=== PATIENT | female | born 1935 | race Caucasian/White ===

== ENCOUNTER 2016-07-11 16:38 | Emergency (ER) | payer MEDICARE ==
[2016-07-11 16:44] VITALS: BP 153/79; PULSE 79; RESP 20; TEMP 98
--- NOTE | 2016-07-11 16:55 | ED ---
ENT HPI - General Chief complaint: ENT Stated complaint: Ear Pain Time Seen by Provider: 07/11/16 16:45 Source: patient, RN notes reviewed Mode of arrival: ambulatory Limitations: no limitations - History of Present Illness Initial comments: Patient is an 80-year-old female presents to the emergency room for evaluation of right ear foreign body. Patient states she was placing in her hearing aids today and one of the parts became stuck in her ear canal. Patient states she has been unable to remove it herself. Patient denies any pain. Patient states she has decreased hearing on the right side. Patient denies any other complaints. - Related Data Home Medications Medication Instructions Recorded Confirmed Levothyroxine Sodium [Synthroid] 100 mcg PO DAILY 06/20/15 07/11/16 traMADol HCL [Ultram] 50 - 100 mg PO Q6HR PRN 06/20/15 07/11/16 [place]ands Leg Cramps 2 - 3 tab PO Q4H PRN 07/06/15 07/11/16 Ascorbic Acid [Vitamin C] 500 mg PO DAILY 08/31/15 07/11/16 Atorvastatin [Lipitor] 40 mg PO HS 08/31/15 07/11/16 Ferrous Sulfate [Iron (65 MG 325 mg PO DAILY 08/31/15 07/11/16 Elemental)] Latanoprost Ophth [Xalatan 0.005%] 1 drops BOTH EYES HS 08/31/15 07/11/16 Losartan [Cozaar] 25 mg PO DAILY 08/31/15 07/11/16 Ranitidine HCl [Zantac] 150 mg PO BID 08/31/15 07/11/16 Previous Rx's Medication Instructions Recorded Clopidogrel [Plavix] 75 mg PO DAILY #30 tab 06/21/15 Nitroglycerin Sl Tabs [Nitrostat] 0.4 mg SUBLINGUAL Q5M PRN #25 tab 06/21/15 Aspirin 81 mg PO DAILY #30 chewable 07/09/15 Baclofen [Lioresal] 5 mg PO Q8H PRN #30 tab 09/06/15 Furosemide [Lasix] 20 mg PO BID@0900,1600 #60 tab 09/06/15 Metoprolol Tartrate [Lopressor] 12.5 mg PO BID #60 tab 09/06/15 amLODIPine [Norvasc] 2.5 mg PO DAILY #30 tab 09/06/15 Allergies Allergy/AdvReac Type Severity Reaction Status Date / Time codeine Allergy Unknown Verified 07/11/16 16:44 shellfish derived [Shellfish] Allergy Rash/Hives Verified 07/11/16 16:44 Sulfa (Sulfonamide Allergy Unknown Verified 07/11/16 16:44 Antibiotics) SEAFOOD Allergy Rash/Hives Uncoded 07/11/16 16:44 Review of Systems ROS Statement: Those systems with pertinent positive or pertinent negative responses have been documented in the HPI. ROS Other: All systems not noted in ROS Statement are negative. Past Medical History Past Medical History: Atrial Fibrillation, Coronary Artery Disease (CAD), Chest Pain / Angina, GERD/Reflux, Hyperlipidemia, Myocardial Infarction (CT), Osteoarthritis (OA), Thyroid Disorder Additional Past Medical History / Comment(s): Aortic stenosis status post TAPVR , proximal atrial fibrillation, chronic constipation, previous episodes of GI bleed that was worked up and the patient was found to have some distal esophagitis and duodenitis and some mild gastritis, diverticulosis, coronary artery disease with previous angioplasty of the circumflex/stenting, hypothyroidism, hiatal hernia, 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 PER PTS PT HAD AORTIC VALVE SX" TAVR" PROCEDURE BY DR CHOI Past Anesthesia/Blood Transfusion Reactions: No Reported Reaction Date of Last Stent Placement:: 05/2015 Past Psychological History: No Psychological Hx Reported Smoking Status: Never smoker Past Alcohol Use History: None Reported Past Drug Use History: None Reported - Past Family History Father Family Medical History: Coronary Artery Disease (CAD) Sister(s) Family Medical History: Coronary Artery Disease (CAD) General Exam - General Exam Comments Initial Comments: Sitting in exam room, no acute distress. Limitations: no limitations General appearance: alert, in no apparent distress Head exam: Present: atraumatic, normocephalic, normal inspection Eye exam: Present: normal appearance ENT exam: Present: normal oropharynx Expanded TM/Canal exam: Foreign Body: Right TM (Cone shaped plastic piece from hearing aid) Neck exam: Present: normal inspection Respiratory exam: Present: normal lung sounds bilaterally. Absent: respiratory distress Cardiovascular Exam: Present: regular rate, normal rhythm, normal heart sounds Extremities exam: Present: normal inspection Back exam: Present: normal inspection Neurological exam: Present: alert, oriented X3, CN II-XII intact, normal gait Psychiatric exam: Present: normal affect, normal mood Skin exam: Present: warm, dry, intact, normal color. Absent: rash Course Vital Signs 07/11/16 16:42 Temperature 98 F Pulse Rate 79 Respiratory 20 Rate Blood Pressure 153/79 O2 Sat by Pulse 98 Oximetry Procedures - Foreign Body Removal Ear Location: ear canal (R) Foreign Body Suspected: other (hearing aide part) Foreign Body Removed: yes Foreign Body Removal Technique: forceps (Alligator forceps) Tympanic Membrane Intact: Yes Patient Tolerated Procedure: well Complications: none Medical Decision Making - Medical Decision Making Patient is an 80-year-old female presents emergency room for evaluation of right ear foreign body. Hearing aid piece was removed from patient's ear canal with alligator forceps. Return parameters discussed. Case discussed with Dr. Patrick. Disposition Clinical Impression: Foreign body of ear, right Disposition: HOME SELF-CARE Condition: Good Instructions: Ear Foreign Body (ED) Additional Instructions: Please follow up with primary care provider in 1-2 days. If any new symptom arises or symptoms worsen, return to ER as soon as possible. Referrals: Tee Esquivel MD [Primary Care Provider] - 1-2 days Time of Disposition: 16:55
== END 2016-07-11 17:02 | disposition home or self-care (01) ==
LOC: EC 16:38
DX: T16.1XXA Foreign body in right ear, initial encounter (principal); K21.9 Gastro-esophageal reflux disease without esophagitis; E78.5 Hyperlipidemia, unspecified; E03.9 Hypothyroidism, unspecified; I25.2 Old myocardial infarction; I48.91 Unspecified atrial fibrillation; Z79.899 Other long term (current) drug therapy; Z88.5 Allergy status to narcotic agent; Z88.2 Allergy status to sulfonamides; Z91.013 Allergy to seafood
CPT/HCPCS: 69200; 99282

== ENCOUNTER 2016-07-24 01:39 | Inpatient (IN) | payer MEDICARE ==
[2016-07-24] MEDS ORDERED: ACETAMINOPHEN TAB 500 MG TAB PO STA (01:50)
[2016-07-24] MEDS ORDERED: IBUPROFEN IV 600 MG in SODIUM CHLORIDE 0.9% 250 ML IV STA (01:50)
--- NOTE | 2016-07-24 01:58 | ED ---
General Adult HPI - General Chief complaint: Altered Mental Status Stated complaint: Altered Mental Status Time Seen by Provider: 07/24/16 01:40 Source: EMS, RN notes reviewed Mode of arrival: EMS Limitations: no limitations - History of Present Illness Initial comments: This is an 80-year-old female who was sent into the emergency department for some altered mental status. Patient was vomiting today and febrile at home and called EMS because she started to be somewhat confused which is not at all normal for her. Patient denies any diarrhea. Patient denies abdominal pain. Patient denies any dysuria hematuria urinary frequency. Patient states she did not get an influenza shot. Patient denies any cough or difficulty breathing or shortness of breath per patient denies any chest pain or palpitations. Patient denies any lesions or redness. Patient denies headache patient denies numbness weakness patient denies any injury or trauma. - Related Data Home Medications Medication Instructions Recorded Confirmed Levothyroxine Sodium [Synthroid] 100 mcg PO DAILY 06/20/15 07/11/16 traMADol HCL [Ultram] 50 - 100 mg PO Q6HR PRN 06/20/15 07/11/16 [place] Leg Cramps 2 - 3 tab PO Q4H PRN 07/06/15 07/11/16 Ascorbic Acid [Vitamin C] 500 mg PO DAILY 08/31/15 07/11/16 Atorvastatin [Lipitor] 40 mg PO HS 08/31/15 07/11/16 Ferrous Sulfate [Iron (65 MG 325 mg PO DAILY 08/31/15 07/11/16 Elemental)] Latanoprost Ophth [Xalatan 0.005%] 1 drops BOTH EYES HS 08/31/15 07/11/16 Losartan [Cozaar] 25 mg PO DAILY 08/31/15 07/11/16 Ranitidine HCl [Zantac] 150 mg PO BID 08/31/15 07/11/16 Previous Rx's Medication Instructions Recorded Clopidogrel [Plavix] 75 mg PO DAILY #30 tab 06/21/15 Nitroglycerin Sl Tabs [Nitrostat] 0.4 mg SUBLINGUAL Q5M PRN #25 tab 06/21/15 Aspirin 81 mg PO DAILY #30 chewable 07/09/15 Baclofen [Lioresal] 5 mg PO Q8H PRN #30 tab 09/06/15 Furosemide [Lasix] 20 mg PO BID@0900,1600 #60 tab 09/06/15 Metoprolol Tartrate [Lopressor] 12.5 mg PO BID #60 tab 09/06/15 amLODIPine [Norvasc] 2.5 mg PO DAILY #30 tab 09/06/15 Allergies Allergy/AdvReac Type Severity Reaction Status Date / Time codeine Allergy Unknown Verified 07/11/16 16:44 shellfish derived [Shellfish] Allergy Rash/Hives Verified 07/11/16 16:44 Sulfa (Sulfonamide Allergy Unknown Verified 07/11/16 16:44 Antibiotics) SEAFOOD Allergy Rash/Hives Uncoded 07/11/16 16:44 Review of Systems ROS Statement: Those systems with pertinent positive or pertinent negative responses have been documented in the HPI. ROS Other: All systems not noted in ROS Statement are negative. Past Medical History Past Medical History: Atrial Fibrillation, Coronary Artery Disease (CAD), Chest Pain / Angina, GERD/Reflux, Hyperlipidemia, Myocardial Infarction (MA), Osteoarthritis (OA), Thyroid Disorder Additional Past Medical History / Comment(s): Aortic stenosis status post TAPVR , proximal atrial fibrillation, chronic constipation, previous episodes of GI bleed that was worked up and the patient was found to have some distal esophagitis and duodenitis and some mild gastritis, diverticulosis, coronary artery disease with previous angioplasty of the circumflex/stenting, hypothyroidism, hiatal hernia, 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 PER PTS PT HAD AORTIC VALVE SX" TAVR" PROCEDURE BY DR CHOI Past Anesthesia/Blood Transfusion Reactions: No Reported Reaction Date of Last Stent Placement:: 05/2015 Past Psychological History: No Psychological Hx Reported Smoking Status: Never smoker Past Alcohol Use History: None Reported Past Drug Use History: None Reported - Past Family History Father Family Medical History: Coronary Artery Disease (CAD) Sister(s) Family Medical History: Coronary Artery Disease (CAD) General Exam - General Exam Comments Initial Comments: GENERAL: Patient is well-developed and well-nourished. Patient is nontoxic and well- hydrated and is in mild distress. ENT: Neck is soft and supple. No significant lymphadenopathy is noted. Oropharynx is clear. Moist mucous membranes. Neck has full range of motion without eliciting any pain. EYES: The sclera were anicteric and conjunctiva were pink and moist. Extraocular movements were intact and pupils were equal round and reactive to light. Eyelids were unremarkable. PULMONARY: Unlabored respirations. Good breath sounds bilaterally. No audible rales rhonchi or wheezing was noted. CARDIOVASCULAR: There is a regular rate and rhythm and has an occasional extrasystole with his significant 2/6 systolic murmur. ABDOMEN: Soft and nontender with normal bowel sounds. No palpable organomegaly was noted. There is no palpable pulsatile mass. 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 Cranial nerves II through XII are grossly intact. Motor and sensory are also intact. Normal speech, volume and content. Symmetrical smile. MUSCULOSKELETAL: Normal extremities with adequate strength and full range of motion. No lower extremity swelling or edema. No calf tenderness. LYMPHATICS: No significant lymphadenopathy is noted Limitations: no limitations Course Vital Signs 07/24/16 07/24/16 01:40 03:38 Temperature 101.7 F H 100.7 F H Pulse Rate 99 87 Respiratory 20 16 Rate Blood Pressure 109/64 105/53 O2 Sat by Pulse 90 L 98 Oximetry Medical Decision Making - Medical Decision Making EKG shows normal sinus rhythm at 93 bpm PA interval is 142 QRS is 92 QT interval 354 QTC is 440. Patient's EKG shows no ST segment elevation or depression. Chest x-ray shows an infiltrate in the left lower lobe. I started the patient on Levaquin. - Lab Data Result diagrams: 07/24/16 02:00 07/24/16 02:00 Lab Results 07/24/16 07/24/16 07/24/16 Range/Units 02:00 02:00 02:00 WBC 19.7 H (3.8-10.6) k/uL RBC 4.00 (3.80-5.40) m/uL Hgb 11.8 (11.4-16.0) gm/dL Hct 35.9 (34.0-46.0) % MCV 89.7 (80.0-100.0) fL MCH 29.5 (25.0-35.0) pg MCHC 32.9 (31.0-37.0) g/dL RDW 13.6 (11.5-15.5) % Plt Count 152 (150-450) k/uL Neutrophils % (Manual) 85.0 % Band Neutrophils % 3.0 % Lymphocytes % (Manual) 6.0 % Monocytes % (Manual) 6.0 % Neutrophils # (Manual) 17.3 H (1.3-7.7) k/uL Lymphocytes # (Manual) 1.2 (1.0-4.8) k/uL Monocytes # (Manual) 1.2 H (0-1.0) k/uL Nucleated RBCs 0 (0-0) /100 WBC Manual Slide Review Performed PT (9.0-12.0) sec INR (<1.1) APTT (22.0-30.0) sec Sodium 134 L (137-145) mmol/L Potassium 4.3 (3.5-5.1) mmol/L Chloride 96 L (98-107) mmol/L Carbon Dioxide 28 (22-30) mmol/L Anion Gap 10 mmol/L BUN 26 H (7-17) mg/dL Creatinine 0.80 (0.52-1.04) mg/dL Est GFR (MDRD) Af Amer >60 (>60 ml/min/1.73 sqM) Est GFR (MDRD) Non-Af >60 (>60 ml/min/1.73 sqM) Glucose 128 H (74-99) mg/dL Plasma Lactic Acid Ravi (0.7-2.0) mmol/L Calcium 9.5 (8.4-10.2) mg/dL Total Bilirubin 0.7 (0.2-1.3) mg/dL AST 36 (14-36) U/L ALT 34 (9-52) U/L Alkaline Phosphatase 30 L (38-126) U/L Total Protein 6.3 (6.3-8.2) g/dL Albumin 3.6 (3.5-5.0) g/dL Urine Color Urine Appearance (Clear) Urine pH (5.0-8.0) Ur Specific [place] (1.001-1.035) Urine Protein (Negative) Urine Glucose (UA) (Negative) Urine Ketones (Negative) Urine Blood (Negative) Urine Nitrite (Negative) Urine Bilirubin (Negative) Urine Urobilinogen (<2.0) mg/dL Ur Leukocyte Esterase (Negative) Urine RBC (0-5) /hpf Urine WBC (0-5) /hpf Influenza Type A RNA Not Detected (Not Detectd) Influenza Type B (PCR) Not Detected (Not Detectd) 07/24/16 07/24/16 07/24/16 Range/Units 02:00 02:00 02:00 WBC (3.8-10.6) k/uL RBC (3.80-5.40) m/uL Hgb (11.4-16.0) gm/dL Hct (34.0-46.0) % MCV (80.0-100.0) fL MCH (25.0-35.0) pg MCHC (31.0-37.0) g/dL RDW (11.5-15.5) % Plt Count (150-450) k/uL Neutrophils % (Manual) % Band Neutrophils % % Lymphocytes % (Manual) % Monocytes % (Manual) % Neutrophils # (Manual) (1.3-7.7) k/uL Lymphocytes # (Manual) (1.0-4.8) k/uL Monocytes # (Manual) (0-1.0) k/uL Nucleated RBCs (0-0) /100 WBC Manual Slide Review PT 11.0 (9.0-12.0) sec INR 1.1 (<1.1) APTT 22.0 (22.0-30.0) sec Sodium (137-145) mmol/L Potassium (3.5-5.1) mmol/L Chloride (98-107) mmol/L Carbon Dioxide (22-30) mmol/L Anion Gap mmol/L BUN (7-17) mg/dL Creatinine (0.52-1.04) mg/dL Est GFR (MDRD) Af Amer (>60 ml/min/1.73 sqM) Est GFR (MDRD) Non-Af (>60 ml/min/1.73 sqM) Glucose (74-99) mg/dL Plasma Lactic Acid Ravi 1.8 (0.7-2.0) mmol/L Calcium (8.4-10.2) mg/dL Total Bilirubin (0.2-1.3) mg/dL AST (14-36) U/L ALT (9-52) U/L Alkaline Phosphatase (38-126) U/L Total Protein (6.3-8.2) g/dL Albumin (3.5-5.0) g/dL Urine Color Yellow Urine Appearance Clear (Clear) Urine pH 7.0 (5.0-8.0) Ur Specific [place] 1.010 (1.001-1.035) Urine Protein Negative (Negative) Urine Glucose (UA) Negative (Negative) Urine Ketones Negative (Negative) Urine Blood Moderate H (Negative) Urine Nitrite Negative (Negative) Urine Bilirubin Negative (Negative) Urine Urobilinogen <2.0 (<2.0) mg/dL Ur Leukocyte Esterase Negative (Negative) Urine RBC 9 H (0-5) /hpf Urine WBC <1 (0-5) /hpf Influenza Type A RNA (Not Detectd) Influenza Type B (PCR) (Not Detectd) Disposition Clinical Impression: Pneumonia Disposition: ADMITTED IP TO THIS [facility] Time of Disposition: 03:52
[2016-07-24] MEDS ORDERED: ONDANSETRON 4 MG/2 ML VIAL IVP STA (02:14)
[2016-07-24] MEDS: SODIUM CHLORIDE 0.9% 500 ML IV SCH ×2 (02:19→02:34)
[2016-07-24 02:20] LABS: Appearance,Urine Clear (Clear); Bilirubin,Urine Negative (Negative); Glucose,Urine (UA) Negative (Negative); Ketones,Urine Negative (Negative); Leukocyte Esterase,Urine Negative (Negative); Nitrite,Urine Negative (Negative); Particle Count 1277; Protein,Urine Negative (Negative); RBC,Urine 9 /hpf (0-5); UA Billing (MACRO vs. MICRO) MICRO; Urobilinogen,Urine <2.0 mg/dL (<2.0); WBC,Urine <1 /hpf (0-5)
[2016-07-24 02:23] LABS: CH 29.7; CHCM 33.2; HCT 35.9 % (34.0-46.0); HGB 11.8 gm/dL (11.4-16.0); Immature Gran Flag Slight; MCH 29.5 pg (25.0-35.0); MCHC 32.9 g/dL (31.0-37.0); MCV 89.7 fL (80.0-100.0); Mean Platelet Volume 8.4; RDW 13.6 % (11.5-15.5); WBC 19.7 k/uL (3.8-10.6); WBC (Perox) 20.96
[2016-07-24 02:26] LABS: ALT 34 U/L (9-52); AST 36 U/L (14-36); Alkaline Phosphatase 30 U/L (38-126); Anion Gap 10 mmol/L; Blood Urea Nitrogen 26 mg/dL (7-17); Calcium 9.5 mg/dL (8.4-10.2); Carbon Dioxide 28 mmol/L (22-30); Chloride 96 mmol/L (98-107); Glucose 128 mg/dL (74-99); Non-African American GFR(MDRD) >60 (>60 ml/min/1.73 sqM); Potassium 4.3 mmol/L (3.5-5.1); Sodium 134 mmol/L (137-145); Total Bilirubin 0.7 mg/dL (0.2-1.3); Total Protein 6.3 g/dL (6.3-8.2)
[2016-07-24 02:29] LABS: INR 1.1 (<1.1)
[2016-07-24 02:32] LABS: Add Differential Manual Differential
[2016-07-24 02:33] LABS: Manual Review Performed; Nucleated Red Blood Cells 0 /100 WBC (0-0); Total Cells Counted 100
[2016-07-24] MEDS ORDERED: LEVOFLOXACIN 750MG-D5W PMX 750 MG in DEXTROSE/WATER 1 150ML.BAG IVPB STA (02:53)
[2016-07-24] MEDS ORDERED: LEVOFLOXACIN 750MG-D5W PMX 750 MG in DEXTROSE/WATER 1 150ML.BAG IVPB SCH (03:00)
--- NOTE | 2016-07-24 03:28 | XR ---
EXAM: XR Chest, 1 View CLINICAL HISTORY: Reason: Fever TECHNIQUE: Frontal view of the chest. COMPARISON: Chest CT 09/12/2015, chest x-ray 2015. FINDINGS: Lungs: Bilateral perihilar airspace disease. Vascular congestion. Pleural space: Unremarkable. No pneumothorax. Heart: Unremarkable. No cardiomegaly. Mediastinum: Unremarkable. Bones/joints: Unremarkable. Vasculature: Graft stent projecting over the cardiac silhouette. IMPRESSION: 1. Vascular congestion. 2. Bilateral perihilar airspace disease.
[2016-07-24] MEDS ORDERED: PNEUMONIA PROTOCOL UTILIZED 1 EACH MISC PO PRN (03:52)
[2016-07-24] MEDS ORDERED: ACETAMINOPHEN TAB 325 MG TAB PO PRN (03:54)
[2016-07-24] MEDS: SODIUM CHLORIDE 0.9% 1,000 ML IV SCH ×3 (04:55→23:50)
[2016-07-24 05:18] VITALS: BMI 26.6
[2016-07-24] MEDS ORDERED: SODIUM CHLORIDE 0.9% 1,000 ML IV ONE (06:24)
[2016-07-24] MEDS ORDERED: BACLOFEN 10 MG TAB PO PRN (11:39)
[2016-07-24] MEDS ORDERED: traMADol 50 MG TAB PO PRN (11:39)
[2016-07-24] MEDS ORDERED: NITROGLYCERIN SL TABS 0.4 MG TAB SUBLINGUAL PRN (11:39)
[2016-07-24] MEDS: ASPIRIN 81 MG CHEW PO SCH (12:19)
[2016-07-24] MEDS: MULTIVITAMINS, THERA 1 EACH TAB PO SCH (12:19)
[2016-07-24] MEDS: ENOXAPARIN 40 MG/0.4 ML SYRINGE SQ SCH (17:47)
[2016-07-24] MEDS: LATANOPROST 0.005% OPHTH DROPS 2.5 ML BTL BOTH EYES SCH (20:11)
[2016-07-24] MEDS: FERROUS SULFATE 325 MG TAB PO SCH (20:11)
[2016-07-24] MEDS: ATORVASTATIN 40 MG TAB PO SCH (20:11)
--- NOTE | 2016-07-24 23:33 | HP ---
DATE OF ADMISSION: 07/24/2016 PRESENTING COMPLAINT: Fever, altered mental status. HISTORY OF PRESENTING COMPLAINT: This is a pleasant 80-year-old patient with rather extensive medical history. Patient's chronic stable medical conditions include TAVR of the aortic valve, coronary artery disease, paroxysmal atrial fibrillation, hypothyroid, GERD, lumbar degenerative joint disease, hypertensive heart disease, severe secondary pulmonary hypertension, interstitial lung disease, pulmonary embolism. The patient was last night brought into the ER by the . Patient is becoming increasingly confused, lethargic, febrile. Not doing too well, had a fever, up to 101.7, did drop blood pressure down to 70s systolic. Has been given fluid boluses. Patient's white count was up to 19.7. The patient is felt to have pneumonia on the x-ray, started on Levaquin and patient did actually have a good response overnight. Spoke to the nurse Nory, compared to the night when patient was septic, patient had a rather good response. REVIEW OF SYSTEMS: CONSTITUTIONAL: Tired. HEENT: None. RESPIRATORY: Some shortness of breath, cough. CARDIOVASCULAR: None. GASTROINTESTINAL: Heartburn. GENITOURINARY: None. MUSCULOSKELETAL: Pain in the joints in the lower back. Dermatological: None. HEMATOLOGICAL: None. LYMPHATICS: None. PSYCHIATRY: Confused on presentation. NEUROLOGICAL: The patient does use a walker. Past medical history that include atrial fibrillation, coronary artery disease, GERD, hyperlipidemia, osteoarthritis, artery stenosis, ( ) VR, chronic constipation, esophagitis, duodenitis, diverticulosis, coronary artery with angioplasty to the circumflex, hypothyroid, hiatal hernia, DJD, severe secondary pulmonary hypertension. PAST SURGICAL HISTORY: Cardiac cath with stent, joint replacement. SOCIAL HISTORY: No smoking. No alcohol. Lives with her . Family history of coronary artery disease. ALLERGIES: CODEINE AND SULFA. HOME MEDICATIONS: 1. Vitamin D3, 2000 units p.o. daily. 2. Ultram 50 to 100 mg q.6 p.r.n. 3. Norvasc 2.5 p.o. daily. 4. Nitrostat 0.4 sublingual q.5 p.r.n. 5. Multivitamin 1 tablet p.o. daily. 6. Lopressor 12.5 p.o. b.i.d. 7. Cozaar 25 mg p.o. daily. 8. Synthroid 100 mcg p.o. daily. 9. Xalatan 0.005% one drop to both eyes at bedtime. 10. Lansoprazole 30 mg p.o. daily. 11. ( ) 2 to 3 tablets p.o. q.4 p.r.n. 12. Lasix 20 mg p.o. b.i.d. 13. Iron element 325 p.o. b.i.d. 14. Plavix 75 mg p.o. daily. 15. Baclofen 5 mg p.o. q.8 p.r.n. 16. Lipitor 40 mg p.o. q.h.s. 17. Aspirin 81 mg p.o. daily. 18. Vitamin C 500 mg p.o. daily. ALLERGIES TO CODEINE, SHELLFISH, SULFUR, SEAFOOD. On examination: Vital signs on presentation: Temperature 101.7, pulse ox 99, respirations 20, blood pressure did go down to systolic 79/33, pulse ox 98% on 2 liters. GENERAL APPEARANCE: Average build, sitting up, not in distress. EYES: Pupils equal. Conjunctivae normal. HEENT: External appearance of nose and ears normal. Oral cavity normal. NECK: JVD not raised. Mass not palpable. RESPIRATORY: Effort increased. LUNGS: Some right posterior crackles. CARDIOVASCULAR: First and second sounds normal. No edema. ABDOMEN: Soft, nontender. Liver and spleen not palpable. LYMPHATICS: No lymph nodes palpable in the neck and axilla. PSYCHIATRY: Patient is able to able to answer simple questions. Mood and affect normal. NEUROLOGICAL: Pupils are equal. Cranial nerves grossly intact. Power and sensation grossly intact. MUSCULOSKELETAL: Evidence of osteoarthritis especially the hands and knees. INVESTIGATIONS: White count 10.7, hemoglobin 11.8, potassium 4.3, BUN 26, creatinine 0.80. UA showed moderate blood. Chest x-ray reviewed shows infiltrates especially on the right side, questionable the left side too. EKG shows normal sinus rhythm. ASSESSMENT: 1. Acute bilateral pneumonia, suspect gram-negative organism, present on admission with sepsis-like picture and possible causing acute delirium on presentation. 2. History of stent TVR of the aortic valve. 3. Coronary artery disease with prior history of angioplasty circumflex. 4. Paroxysmal atrial fibrillation, currently in sinus rhythm. 5. Hypothyroidism. 6. Hiatal hernia. 7. Gastroesophageal reflux disease. 8. Lumbar degenerative joint disease. 9. Hypertensive heart disease. 10. Severe secondary pulmonary hypertension likely residual interstitial lung disease. 11. Chronic interstitial lung disease. 12. Chronic pulmonary embolism. 13. Gait dysfunction uses a walker. PLAN: Patient started on IV Levaquin. Home medications will be resumed. As the patient is running low blood pressure, we will stop patient's Norvasc. If need be, we can always increase the patient dose of Lopressor. Care was discussed with the patient and we will give DVT prophylaxis. Patient was also given IV fluids. Care was discussed with the patient. Sputum is being sent off.
[2016-07-25] MEDS ORDERED: LEVOFLOXACIN 750MG-D5W PMX 750 MG in DEXTROSE/WATER 1 150ML.BAG IVPB SCH (03:00)
[2016-07-25] MEDS: LEVOTHYROXINE 100 MCG TAB PO SCH (06:13)
[2016-07-25] MEDS: METOPROLOL TARTRATE 12.5 MG TAB PO SCH ×2 (07:48→20:47)
[2016-07-25] MEDS: FERROUS SULFATE 325 MG TAB PO SCH ×2 (07:49→20:48)
[2016-07-25] MEDS: ASPIRIN 81 MG CHEW PO SCH (07:49)
[2016-07-25] MEDS: LOSARTAN 25 MG TAB PO SCH (07:49)
[2016-07-25] MEDS: ENOXAPARIN 40 MG/0.4 ML SYRINGE SQ SCH (07:49)
[2016-07-25] MEDS: CHOLECALCIFEROL 1,000 UNIT TAB PO SCH (07:49)
[2016-07-25] MEDS: ASCORBIC ACID 500 MG TAB PO SCH (07:50)
[2016-07-25] MEDS: CLOPIDOGREL 75 MG TAB PO SCH (07:50)
[2016-07-25] MEDS ORDERED: amLODIPine 2.5 MG TAB PO SCH (09:00)
[2016-07-25 09:23] LABS: Basophils % (A) 0 %; CH 29.7; Eosinophils % (A) 0 %; HCT 32.6 % (34.0-46.0); HDW 2.18; HGB 10.4 gm/dL (11.4-16.0); Luc # (Auto) 0.26; Luc % (Auto) 2; Lymphocytes # (A) 0.8 k/uL (1.0-4.8); Lymphocytes % (A) 7 %; MCH 29.7 pg (25.0-35.0); MCHC 31.9 g/dL (31.0-37.0); MCV 93.2 fL (80.0-100.0); Mean Platelet Volume 8.6; Monocytes # (A) 0.4 k/uL (0-1.0); Monocytes % (A) 4 %; Neutrophils % (A) 87 %; RDW 13.5 % (11.5-15.5); WBC 11.4 k/uL (3.8-10.6); WBC (Perox) 12.25
[2016-07-25 09:45] LABS: Anion Gap 7 mmol/L; Blood Urea Nitrogen 13 mg/dL (7-17); Calcium 8.6 mg/dL (8.4-10.2); Carbon Dioxide 23 mmol/L (22-30); Chloride 102 mmol/L (98-107); Glucose 154 mg/dL (74-99); Non-African American GFR(MDRD) >60 (>60 ml/min/1.73 sqM); Potassium 3.7 mmol/L (3.5-5.1); Sodium 132 mmol/L (137-145)
--- NOTE | 2016-07-25 10:09 | XR ---
EXAMINATION TYPE: XR chest 2V DATE OF EXAM: 07/25/2016 9:35 AM COMPARISON: Chest x-ray from yesterday. HISTORY: Pneumonia per order. TECHNIQUE: Frontal and lateral views of the chest are obtained. FINDINGS: There is worsening left basilar infiltrate and/or atelectasis. There is improved aeration i n bilateral hilar regions. No large pleural effusion or pneumothorax is seen bilaterally. The cardia c silhouette size is stable and mildly enlarged with metallic stent graft at aortic root redemonstrat ed. 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 The osseous structures are intact. IMPRESSION: Worsening left basilar infiltrate and/or atelectasis seen best on lateral view.
[2016-07-25] MEDS: MULTIVITAMINS, THERA 1 EACH TAB PO SCH (11:55)
[2016-07-25] MEDS: SODIUM CHLORIDE 0.9% 1,000 ML IV SCH (11:56)
[2016-07-25] MEDS ORDERED: SODIUM CHLORIDE 0.9% 1,000 ML IV SCH (12:00)
--- NOTE | 2016-07-25 15:49 | US ---
EXAMINATION TYPE: US venous doppler duplex LE RT DATE OF EXAM: 07/25/2016 3:11 PM COMPARISON: US bilateral lower extremity September 12, 2015. CLINICAL HISTORY: DVT. Right leg pain and swelling SIDE PERFORMED: Right TECHNIQUE: The lower extremity deep venous system is examined utilizing real time linear array sonog dennys with graded compression, doppler sonography and color-flow sonography. VESSELS IMAGED: External Iliac Vein (EIV) Common Femoral Vein Deep Femoral Vein Greater Saphenous Vein * Femoral Vein Popliteal Vein Small Saphenous Vein * Proximal Calf Veins (* superficial vessels) Right Leg: Appears negative for DVT Grayscale, color doppler, spectral doppler imaging performed of the deep veins of the lower extremiti es. There is normal flow, compressibility, vascular waveforms bilaterally. IMPRESSION: No ultrasound evidence for acute DVT in the right lower extremity on today's study.
[2016-07-25] MEDS: ATORVASTATIN 40 MG TAB PO SCH (20:47)
[2016-07-25] MEDS: LATANOPROST 0.005% OPHTH DROPS 2.5 ML BTL BOTH EYES SCH (20:47)
[2016-07-26] MEDS ORDERED: LEVOFLOXACIN 750 MG TAB PO SCH (06:00)
[2016-07-26] MEDS: LEVOTHYROXINE 100 MCG TAB PO SCH (06:15)
[2016-07-26 08:20] LABS: Basophils % (A) 0 %; Eosinophils # (A) 0.1 k/uL (0-0.7); Eosinophils % (A) 1 %; HCT 32.1 % (34.0-46.0); HDW 2.41; HGB 10.9 gm/dL (11.4-16.0); Luc # (Auto) 0.37; Luc % (Auto) 4; Lymphocytes # (A) 1.1 k/uL (1.0-4.8); Lymphocytes % (A) 13 %; MCHC 33.9 g/dL (31.0-37.0); MCV 91.3 fL (80.0-100.0); Mean Platelet Volume 8.5; Monocytes # (A) 0.6 k/uL (0-1.0); Monocytes % (A) 7 %; Neutrophils # (A) 6.4 k/uL (1.3-7.7); Neutrophils % (A) 75 %; RBC 3.52 m/uL (3.80-5.40); RDW 13.3 % (11.5-15.5); WBC 8.5 k/uL (3.8-10.6); WBC (Perox) 9.02
[2016-07-26 08:43] LABS: Anion Gap 8 mmol/L; Blood Urea Nitrogen 10 mg/dL (7-17); Calcium 8.9 mg/dL (8.4-10.2); Carbon Dioxide 23 mmol/L (22-30); Chloride 107 mmol/L (98-107); Glucose 114 mg/dL (74-99); Non-African American GFR(MDRD) >60 (>60 ml/min/1.73 sqM); Potassium 3.7 mmol/L (3.5-5.1); Sodium 138 mmol/L (137-145)
[2016-07-26] MEDS: ENOXAPARIN 40 MG/0.4 ML SYRINGE SQ SCH (09:18)
[2016-07-26] MEDS: ASPIRIN 81 MG CHEW PO SCH (09:19)
[2016-07-26] MEDS: CHOLECALCIFEROL 1,000 UNIT TAB PO SCH (09:19)
[2016-07-26] MEDS: FERROUS SULFATE 325 MG TAB PO SCH (09:19)
[2016-07-26] MEDS: METOPROLOL TARTRATE 12.5 MG TAB PO SCH (09:19)
[2016-07-26] MEDS: LOSARTAN 25 MG TAB PO SCH (09:19)
[2016-07-26] MEDS: ASCORBIC ACID 500 MG TAB PO SCH (09:19)
[2016-07-26] MEDS: CLOPIDOGREL 75 MG TAB PO SCH (09:19)
[2016-07-26] MEDS ORDERED: METOPROLOL TARTRATE 12.5 MG TAB PO STA (11:49)
[2016-07-26] MEDS: MULTIVITAMINS, THERA 1 EACH TAB PO SCH (12:17)
--- NOTE | 2016-07-26 13:29 | PN ---
DATE OF SERVICE: 07/25/2016 PRESENTING COMPLAINT: Fever, positive blood culture. INTERVAL HISTORY: This patient was seen by me yesterday on 07/25/16. She was admitted with fever, acute delirium. Patient's blood cultures are now coming back positive, though patient's pulmonary status is actually getting better. Pulmonary status is actually better. Breathing is much improved. is at the bedside. Patient did tolerate her diet. She is rather chirpy. Review of systems done for constitutional, cardiovascular, GI, pulmonary; relevant findings as above. There is some redness on the right lower extremity. Current medications are reviewed that include Levaquin. On examination, afebrile at 96.7, pulse 69, respiration 18, blood pressure 89/41, pulse ox 98% on 2 L. GENERAL APPEARANCE: Sitting up. Cheerful. EYES: Pupils equal. Conjunctivae normal. NECK: JVD not raised. Mass not palpable. RESPIRATORY: Effort normal. LUNGS: Improved air entry. CARDIOVASCULAR: First and second sounds normal. Some edema is present. ABDOMEN: Soft, nontender. Liver and spleen not palpable. PSYCHIATRY: Alert and oriented x3. Mood and affect normal. DERMATOLOGICAL: Some redness around the right ankle and just above that. INVESTIGATIONS: White count 11.4, hemoglobin 10.4. Potassium 3.7. BUN and creatinine are normal. Patient's blood culture is growing beta-hemolytic strep group G. ASSESSMENT: 1. Acute bilateral pneumonia; suspect Gram-negative organism with sepsis, present on admission with positive blood cultures growing beta hemolytic strep group G, with clinical improvement. 2. History of stent TVR of the aortic valve. 3. Right lower extremity cellulitis just above the ankle. 4. Coronary artery disease with prior history of angioplasty of circumflex. 5. Paroxysmal atrial fibrillation, currently in sinus rhythm. 6. Hypothyroidism. 7. Hiatal hernia. 8. Gastroesophageal reflux disease. 9. Lumbar degenerative joint disease. 10. Hypertensive heart disease. 11. Severe secondary pulmonary hypertension, likely residual of interstitial lung disease. 12. Chronic interstitial lung disease. 13. Chronic pulmonary embolism. 14. Gait dysfunction; uses a walker. PLAN: Care was discussed in length with the patient and her at the bedside. Clinically patient is actually much better from a pulmonary standpoint. Given the blood pressure, will get an ID opinion. Will also use Silvadene with Kerlix and Jarret wrap on the right lower extremity. Will follow.
[2016-07-26 13:37] VITALS: BP 129/59; PULSE 95; RESP 18; TEMP 97.6
--- NOTE | 2016-07-27 09:21 | DS ---
DATE OF ADMISSION: 07/24/2016 DATE OF DISCHARGE: 07/26/2016 Patient was admitted with altered mental status and fever which was secondary to bilateral pneumonia and altered mental status, resolved. The patient is clinically doing and will be discharged today. Although patient's heart rate is a bit higher, I will make her ambulate, if her heart rate remains stable, patient will be discharged. Patient is not on anticoagulation. Patient is on aspirin and Plavix. Patient does have atrial fibrillation history. She is not on any quality assurance monitor. I will get an EKG after ambulation. If patient is not in atrial fibrillation and rapid ventricular rate, patient will be discharged on levofloxacin. Patient was on this medication here. My suspicion is low that this is gram-negative pneumonia as gram negative pneumonia is as common as pneumococcal pneumonia. There is no evidence of any gram-negative pneumonia. Blood cultures are negative. I do not have any sputum cultures available. I have the EKG. Patient is in A. fib. Upon ambulation, patient's heart rate went up to 104, which is within the target range. The patient was examined on the day of discharge. PHYSICAL EXAMINATION: GENERAL: The patient is alert and oriented x3, not in any acute distress. Well developed, well nourished. HEENT: Pupils are round and equally reacting to light. EOMI. No scleral icterus. No conjunctival pallor. Normocephalic, atraumatic. No pharyngeal erythema. No thyromegaly. CARDIOVASCULAR: Minimal tachycardia. Irregularly, irregular rhythm. PULMONARY: Chest is clear to auscultation, no wheezing or crackles. ABDOMEN: Soft, nontender, nondistended, normoactive bowel sounds. No palpable organomegaly. MUSCULOSKELETAL: No joint swelling or deformity. EXTREMITIES: No cyanosis, clubbing, or pedal edema. NEUROLOGICAL: Gross neurological examination did not reveal any focal deficits. SKIN: No rashes. LABORATORY DATA: Leukocytosis improved. ASSESSMENT AND PLAN: 1. Sepsis secondary to bilateral pneumonia possibly pneumococcal. 2. Toxic encephalopathy from pneumonia. 3. Atrial fibrillation fairly rate controlled not on anticoagulation. 4. History of aortic valve replacement. Her atrial fibrillation is proximal. 5. Hypothyroidism. 6. Hiatal hernia. 7. Gastroesophageal reflux disease. 8. Lumbar degenerative disc disease. 9. Hypertensive heart disease. 10. Severe secondary pulmonary hypertension due to interstitial lung disease and patient has chronic interstitial lung disease. 11. Generalized deconditioning. Make sure patient is strong enough to ambulate. We will actually set up home care for her. Spent greater than 35 minutes in total discharge process. DISCHARGE DIET: Cardiac. Activity as tolerated. We will increase the dose of ( ) patient will be discharged on four more days of levofloxacin and we will increase the dose of metoprolol to 25 b.i.d.
== END 2016-07-26 14:00 | disposition home health service (06) | DRG 871 ==
LOC: EC 01:39 → 5MS5E 03:53
PROVIDERS: ADMIT Hospitalist; ATTEND Hospitalist
DX: A40.3 Sepsis due to Streptococcus pneumoniae (principal); G92 Toxic encephalopathy; J13 Pneumonia due to Streptococcus pneumoniae; J84.9 Interstitial pulmonary disease, unspecified; I27.82 Chronic pulmonary embolism; L03.115 Cellulitis of right lower limb; I27.2 Other secondary pulmonary hypertension; I11.9 Hypertensive heart disease without heart failure; I48.0 Paroxysmal atrial fibrillation; E03.9 Hypothyroidism, unspecified; E78.5 Hyperlipidemia, unspecified; I25.10 Atherosclerotic heart disease of native coronary artery without angina pectoris; I25.2 Old myocardial infarction; K21.9 Gastro-esophageal reflux disease without esophagitis; K44.9 Diaphragmatic hernia without obstruction or gangrene; M47.816 Spondylosis without myelopathy or radiculopathy, lumbar region; M51.36 Other intervertebral disc degeneration, lumbar region; K57.90 Diverticulosis of intestine, part unspecified, without perforation or abscess without bleeding; K59.09 Other constipation; M19.90 Unspecified osteoarthritis, unspecified site; R26.9 Unspecified abnormalities of gait and mobility; Z79.02 Long term (current) use of antithrombotics/antiplatelets; Z79.82 Long term (current) use of aspirin; Z79.899 Other long term (current) drug therapy; Z95.2 Presence of prosthetic heart valve; Z88.5 Allergy status to narcotic agent; Z88.2 Allergy status to sulfonamides; Z95.5 Presence of coronary angioplasty implant and graft; Z96.60 Presence of unspecified orthopedic joint implant; Z82.49 Family history of ischemic heart disease and other diseases of the circulatory system
CPT/HCPCS: 36415; 71020; 80048; 80053; 81001; 83605; 85025; 85610; 85730; 87040; 87077; 87086; 87186; 87502; 93005; 96361; 96365; 96375; 99285

== ENCOUNTER 2017-08-05 14:55 | Emergency (ER) | payer MEDICARE ==
[2017-08-05] MEDS ORDERED: DIPH,PERTUS(ACELL)TETVAC-LF 0.5 ML VIAL IM ONE (15:33)
--- NOTE | 2017-08-05 15:35 | ED ---
General Adult HPI - General Chief complaint: Extremity Injury, Lower Stated complaint: rt leg injury Time Seen by Provider: 08/05/17 15:26 Source: patient, RN notes reviewed Mode of arrival: ambulatory Limitations: no limitations - History of Present Illness Initial comments: Patient 81-year-old female presented to the emergency room today with a chief complaint of injury to the right rhoades that occurred yesterday. She states she was getting out of the car and the edge of the door causing a small cut. Patient states she noticed some bruising to the right rhoades area today. States worse about infection decided to come here to the emergency room to have it checked. She denies any liquids associated symptoms. Patient denies any recent fever, chills, shortness of breath, chest pain, back pain, abdominal pain, nausea or vomiting, numbness or tingling, dysuria or hematuria, constipation or diarrhea, headaches or visual changes, or any other complaints. - Related Data Home Medications Medication Instructions Recorded Confirmed Levothyroxine Sodium [Synthroid] 100 mcg PO DAILY 06/20/15 07/24/16 traMADol HCL [Ultram] 50 - 100 mg PO Q6HR PRN 06/20/15 07/24/16 Hylands Leg Cramps 2 - 3 tab PO Q4H PRN 07/06/15 07/24/16 Ascorbic Acid [Vitamin C] 500 mg PO DAILY 08/31/15 07/24/16 Atorvastatin [Lipitor] 40 mg PO HS 08/31/15 07/24/16 Ferrous Sulfate [Iron (65 MG 325 mg PO BID 08/31/15 07/24/16 Elemental)] Latanoprost Ophth [Xalatan 0.005%] 1 drops BOTH EYES HS 08/31/15 07/24/16 Losartan [Cozaar] 25 mg PO DAILY 08/31/15 07/24/16 Cholecalciferol [Vitamin D3] 2,000 unit PO DAILY 07/24/16 07/24/16 Lansoprazole 30 mg PO DAILY 07/24/16 07/24/16 Multivitamin [Multivitamins Adult 1 tab PO DAILY 07/24/16 07/24/16 Gummies] Previous Rx's Medication Instructions Recorded Clopidogrel [Plavix] 75 mg PO DAILY #30 tab 06/21/15 Nitroglycerin Sl Tabs [Nitrostat] 0.4 mg SUBLINGUAL Q5M PRN #25 tab 06/21/15 Aspirin 81 mg PO DAILY #30 chewable 07/09/15 Baclofen [Lioresal] 5 mg PO Q8H PRN #30 tab 09/06/15 Metoprolol Tartrate [Lopressor] 12.5 mg PO BID #60 tab 09/06/15 Levofloxacin [Levaquin] 500 mg PO DAILY #7 tab 07/26/16 Metoprolol Tartrate [Lopressor] 25 mg PO BID #60 tab 07/26/16 Allergies Allergy/AdvReac Type Severity Reaction Status Date / Time codeine Allergy Unknown Verified 08/05/17 15:20 shellfish derived [Shellfish] Allergy Rash/Hives Verified 08/05/17 15:20 Sulfa (Sulfonamide Allergy Unknown Verified 08/05/17 15:20 Antibiotics) SEAFOOD Allergy Rash/Hives Uncoded 08/05/17 15:20 Review of Systems ROS Statement: Those systems with pertinent positive or pertinent negative responses have been documented in the HPI. ROS Other: All systems not noted in ROS Statement are negative. 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 PER PTS PT HAD AORTIC VALVE SX" TAVR" PROCEDURE BY DR CHOI Past Anesthesia/Blood Transfusion Reactions: No Reported Reaction Date of Last Stent Placement:: 05/2015 Past Psychological History: No Psychological Hx Reported Smoking Status: Never smoker Past Alcohol Use History: None Reported Past Drug Use History: None Reported - Past Family History Father Family Medical History: Coronary Artery Disease (CAD) Sister(s) Family Medical History: Coronary Artery Disease (CAD) General Exam - General Exam Comments Initial Comments: General: The patient is awake and alert, in no distress, and does not appear acutely ill. Neck: The neck is supple, there is no tenderness or JVD. Cardiovascular: There is a regular rate and rhythm. No murmur, rub or gallop is appreciated. Respiratory: Lungs are clear to auscultation, respirations are non-labored, breath sounds are equal. No wheezes, stridor, rales, or rhonchi. Musculoskeletal/skin: Patient does have some bruising to the anterior aspect of the right rhoades. It is purple in color. There is some local tenderness. Minimal bruising. There is a small very superficial cut. There is no bleeding. No redness no sign of infection. Patient has full range motion. Sensation intact. Pulses 2+. Neurological: A&O x 3. CN II-XII intact, There are no obvious motor or sensory deficits. Coordination appears grossly intact. Speech is normal. Psychiatric: Normal mood and affect. Limitations: no limitations Course Vital Signs 08/05/17 15:18 Temperature 97.6 F Pulse Rate 63 Respiratory 18 Rate Blood Pressure 148/68 O2 Sat by Pulse 98 Oximetry Medical Decision Making - Medical Decision Making Patient 81-year-old female who presented to the emergency room today for a injury to the right rhoades. Patient's x-ray is negative. No sign of infection. There is no evidence for any compartment syndrome. Patient is able to ambulate. Patient be discharged home advised watch for signs of infection return here to the emergency room for any other concerns. Disposition Clinical Impression: Abrasion, Contusion Disposition: HOME SELF-CARE Condition: Good Instructions: Contusion in Adults (ED) Additional Instructions: Please ice elevate the affected area. Please watch for signs infection which may include increased pain, swelling, redness, fever or chills. Please return to the emergency room for any signs of infection or concerns Is patient prescribed a controlled substance at d/c from ED?: No Referrals: Tee Esquivel MD [Primary Care Provider] - 1-2 days Time of Disposition: 15:58
--- NOTE | 2017-08-05 15:51 | XR ---
EXAMINATION TYPE: XR tibia fibula RT DATE OF EXAM: 08/05/2017 COMPARISON: NONE HISTORY: Bruising, pain and redness TECHNIQUE: Two views are submitted. FINDINGS: The osseous structures are intact. The joint spaces are preserved. Postsurgical change involving th e knee. IMPRESSION: 1. No acute osseous abnormality.
[2017-08-05 16:06] VITALS: BP 157/67; PULSE 60; RESP 20; TEMP 97.8
== END 2017-08-05 16:11 | disposition home or self-care (01) ==
LOC: EC 14:55
DX: S80.11XA Contusion of right lower leg, initial encounter (principal); Z23 Encounter for immunization; I48.91 Unspecified atrial fibrillation; I25.119 Atherosclerotic heart disease of native coronary artery with unspecified angina pectoris; K21.9 Gastro-esophageal reflux disease without esophagitis; E78.5 Hyperlipidemia, unspecified; E03.9 Hypothyroidism, unspecified; Z79.899 Other long term (current) drug therapy; Z88.5 Allergy status to narcotic agent; Z91.013 Allergy to seafood; Z88.2 Allergy status to sulfonamides; W22.8XXA Striking against or struck by other objects, initial encounter
CPT/HCPCS: 90471; 90715; 99283

== ENCOUNTER 2017-09-27 18:01 | Inpatient (IN) | payer MEDICARE ==
[2017-09-27] MEDS ORDERED: SODIUM CHLORIDE 0.9% 500 ML IV STA (18:23)
[2017-09-27 18:48] LABS: Basophils % (A) 0 %; Eosinophils # (A) 0.1 k/uL (0-0.7); Eosinophils % (A) 1 %; HCT 40.3 % (34.0-46.0); HGB 13.5 gm/dL (11.4-16.0); Lymphocytes # (A) 0.6 k/uL (1.0-4.8); Lymphocytes % (A) 6 %; MCH 31.4 pg (25.0-35.0); MCHC 33.5 g/dL (31.0-37.0); MCV 93.7 fL (80.0-100.0); Mean Platelet Volume 7.8; Monocytes # (A) 0.5 k/uL (0-1.0); Monocytes % (A) 5 %; Neutrophils # (A) 8.6 k/uL (1.3-7.7); Neutrophils % (A) 86 %; Platelet Count 200 k/uL (150-450); WBC 9.9 k/uL (3.8-10.6)
--- NOTE | 2017-09-27 18:51 | ED ---
General Adult HPI - General Chief complaint: Weakness Stated complaint: Weakness Source: patient, family Mode of arrival: wheelchair Limitations: no limitations - History of Present Illness Initial comments: HPI Macro Chief Complaint: 81-year-old female past medical history of atrial fibrillation, coronary artery disease, dementia, thyroid disease presents with worsening generalized weakness. History of Present Illness: Past medical history of dementia and is unreliable historian. She presents today by private vehicle with . As reports that patient has been generally weak over the past couple days. Today she became so confused Ponting them to come to the emergency department today. Patient reports being weak. reports that patient has been staring off into space intermittently. reports the patient has not any recent cough. Patient denies any dysuria or urinary symptoms. No nausea, vomiting or diarrhea. Past Medical History: Coronary artery disease, iron deficiency anemia, thyroid disease, hypertension, dementia Past Surgical History: Aortic valve replacement Social History: [denies alcohol, tobacco or illicit drug use] Family History: reviewed and noncontributory The ROS documented in this emergency department record has been reviewed and confirmed by me. Those systems with pertinent positive or negative responses have been documented in the HPI. All other systems are other negative and/or noncontributory. - Related Data Home Medications Medication Instructions Recorded Confirmed traMADol HCL [Ultram] 50 - 100 mg PO Q6HR PRN 06/20/15 08/05/17 Hylands Leg Cramps 2 - 3 tab PO Q4H PRN 07/06/15 08/05/17 Ascorbic Acid [Vitamin C] 500 mg PO DAILY 08/31/15 08/05/17 Ferrous Sulfate [Iron (65 MG 325 mg PO BID 08/31/15 08/05/17 Elemental)] Latanoprost Ophth [Xalatan 0.005%] 1 drops BOTH EYES HS 08/31/15 08/05/17 Losartan [Cozaar] 25 mg PO DAILY 08/31/15 08/05/17 Cholecalciferol [Vitamin D3] 2,000 unit PO DAILY 07/24/16 08/05/17 Lansoprazole 30 mg PO DAILY 07/24/16 08/05/17 Multivitamin [Multivitamins Adult 1 tab PO DAILY 07/24/16 08/05/17 Gummies] Furosemide [Lasix] 20 mg PO DAILY 08/05/17 08/05/17 Levothyroxine Sodium [Synthroid] 125 mcg PO DAILY 08/05/17 08/05/17 Rivastigmine 4.6MG/24Hr Patch 1 patch TRANSDERM Q24HR 08/05/17 08/05/17 [Exelon 4.6MG/24Hr Patch] amLODIPine [Norvasc] 2.5 mg PO DAILY 08/05/17 08/05/17 Previous Rx's Medication Instructions Recorded Clopidogrel [Plavix] 75 mg PO DAILY #30 tab 06/21/15 Aspirin 81 mg PO DAILY #30 chewable 07/09/15 Metoprolol Tartrate [Lopressor] 12.5 mg PO BID #60 tab 09/06/15 Allergies Allergy/AdvReac Type Severity Reaction Status Date / Time codeine Allergy Unknown Verified 09/27/17 18:06 shellfish derived [Shellfish] Allergy Rash/Hives Verified 09/27/17 18:06 Sulfa (Sulfonamide Allergy Unknown Verified 09/27/17 18:06 Antibiotics) SEAFOOD Allergy Rash/Hives Uncoded 09/27/17 18:06 Review of Systems ROS Statement: Those systems with pertinent positive or pertinent negative responses have been documented in the HPI. ROS Other: All systems not noted in ROS Statement are negative. 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 PER PTS PT HAD AORTIC VALVE SX" TAVR" PROCEDURE BY DR CHOI Past Anesthesia/Blood Transfusion Reactions: No Reported Reaction Date of Last Stent Placement:: 05/2015 Past Psychological History: No Psychological Hx Reported Smoking Status: Never smoker Past Alcohol Use History: None Reported Past Drug Use History: None Reported - Past Family History Father Family Medical History: Coronary Artery Disease (CAD) Sister(s) Family Medical History: Coronary Artery Disease (CAD) General Exam - General Exam Comments Initial Comments: Vitals: Vital signs upon arrival shows temperature 102.7, heart rate of 135 PHYSICAL EXAM: General Impression: Alert and oriented 23 HEENT: Normocephalic atraumatic, extra-ocular movements intact, pupils equal and reactive to light bilaterally, mucous membranes moist. Cardiovascular: Tachycardic Chest: Lungs clear to auscultation bilaterally, no rhonchi, no wheeze, no rales Abdomen: Bowel sounds present, abdomen soft, non-tender, non-distended, no organomegaly Musculoskeletal: Pulses present and equal in all extremities, no peripheral edema, no CVA tenderness Motor: Moves all extremities grossly Neurological: CN II-XII grossly intact, no focal motor or sensory deficits noted Skin: Intact with no visualized rashes Psych: Normal affect and mood Limitations: no limitations Course Vital Signs 09/27/17 09/27/17 09/27/17 18:03 19:21 19:22 Temperature 102.7 F H Pulse Rate 135 H 139 H Pulse Rate [ 136 H Criminal Psychologist ] Respiratory 20 24 Rate Blood Pressure 159/83 171/74 O2 Sat by Pulse 92 L 97 Oximetry 09/27/17 09/27/17 20:31 21:02 Temperature 98.6 F 100.0 F H Pulse Rate 145 H 144 H Pulse Rate [ Criminal Psychologist ] Respiratory 18 17 Rate Blood Pressure 117/76 119/68 O2 Sat by Pulse 96 96 Oximetry Medical Decision Making - Medical Decision Making ED course: 81-year-old female multiple comorbidities presents with chief complaint of worsening generalized weakness. Vital signs upon arrival shows temperature 102.7. She is tachycardia likely secondary to pyrexia. Upon initial evaluation there was no clear source of patient's fever. Laboratory evaluation and imaging was obtained.Laboratory evaluation obtained. CBC is unremarkable. No leukocytosis. Patient has stable hemoglobin. Cardiac panel is unremarkable. Tremors metabolic panel shows elevated BUNs. Otherwise no significant findings. Mild transaminitis. Urinalysis does not show any phthisis suggested a tract infection. Ketones are 1+. Patient given multiple boluses of intravenous fluids. Initial EKG showed sinus tachycardia. Which was initially thought to be secondary to pyrexia. Patient given Tylenol with improvement of temperature however patient continued to be tachycardic despite antipyretics and intravenous fluids. EKG was performed showing atrial flutter with 2-1 conduction. Patient started on Cardizem for rate control. QS complexes appeared slightly irregular which would suggest this could be a new onset atrial fibrillation. Patient started on heparin. Discussed patient case with Dr. Harris who is willing to accept admission. Cardiology put on consult. At this point there is no clear source of patient's pyrexia. Chest x- ray was finally patient not have any pulmonary complaints. Urinalysis is negative and no urinary complaints. Abdomen is soft nontender. Patient has supple neck without any Kernig's or Brudzinski sign to suggest meningitis. Patient started on vancomycin and cefepime. Pending blood cultures and urine culture. Start on Cardizem for tachyarrhythmia with improvement of heart rate. Patient be admitted to cardiac telemetry EKG interpretation: Ventricular rate 140. And this tachycardia rhythm. NC interval 120, incarceration 86, QTC 482 No NC prolongation, no QTC prolongation , no ST or T-wave changes noted. EKG compared to showing no changes. Overall, this EKG is unremarkable - Lab Data Result diagrams: 09/27/17 18:37 09/27/17 18:37 Lab Results 09/27/17 09/27/17 09/27/17 Range/Units 18:37 18:37 18:37 WBC 9.9 (3.8-10.6) k/uL RBC 4.30 (3.80-5.40) m/uL Hgb 13.5 (11.4-16.0) gm/dL Hct 40.3 (34.0-46.0) % MCV 93.7 (80.0-100.0) fL MCH 31.4 (25.0-35.0) pg MCHC 33.5 (31.0-37.0) g/dL RDW 12.0 (11.5-15.5) % Plt Count 200 (150-450) k/uL Neutrophils % 86 % Lymphocytes % 6 % Monocytes % 5 % Eosinophils % 1 % Basophils % 0 % Neutrophils # 8.6 H (1.3-7.7) k/uL Lymphocytes # 0.6 L (1.0-4.8) k/uL Monocytes # 0.5 (0-1.0) k/uL Eosinophils # 0.1 (0-0.7) k/uL Basophils # 0.0 (0-0.2) k/uL PT 10.5 (9.0-12.0) sec INR 1.1 (<1.2) Sodium 135 L (137-145) mmol/L Potassium 4.7 (3.5-5.1) mmol/L Chloride 95 L (98-107) mmol/L Carbon Dioxide 28 (22-30) mmol/L Anion Gap 12 mmol/L BUN 24 H (7-17) mg/dL Creatinine 0.72 (0.52-1.04) mg/dL Est GFR (CKD-EPI)AfAm >90 (>60 ml/min/1.73 sqM) Est GFR (CKD-EPI)NonAf 78 (>60 ml/min/1.73 sqM) Glucose 146 H (74-99) mg/dL Plasma Lactic Acid Ravi (0.7-2.0) mmol/L Calcium 9.7 (8.4-10.2) mg/dL Magnesium 1.7 (1.6-2.3) mg/dL Total Bilirubin 0.5 (0.2-1.3) mg/dL AST 41 H (14-36) U/L ALT 38 (9-52) U/L Alkaline Phosphatase 36 L (38-126) U/L Total Protein 7.1 (6.3-8.2) g/dL Albumin 4.2 (3.5-5.0) g/dL Lipase 62 (23-300) U/L Urine Color Urine Appearance (Clear) Urine pH (5.0-8.0) Ur Specific [place] (1.001-1.035) Urine Protein (Negative) Urine Glucose (UA) (Negative) Urine Ketones (Negative) Urine Blood (Negative) Urine Nitrite (Negative) Urine Bilirubin (Negative) Urine Urobilinogen (<2.0) mg/dL Ur Leukocyte Esterase (Negative) Urine RBC (0-5) /hpf Urine WBC (0-5) /hpf Urine Bacteria (None) /hpf 09/27/17 09/27/17 Range/Units 18:37 20:34 WBC (3.8-10.6) k/uL RBC (3.80-5.40) m/uL Hgb (11.4-16.0) gm/dL Hct (34.0-46.0) % MCV (80.0-100.0) fL MCH (25.0-35.0) pg MCHC (31.0-37.0) g/dL RDW (11.5-15.5) % Plt Count (150-450) k/uL Neutrophils % % Lymphocytes % % Monocytes % % Eosinophils % % Basophils % % Neutrophils # (1.3-7.7) k/uL Lymphocytes # (1.0-4.8) k/uL Monocytes # (0-1.0) k/uL Eosinophils # (0-0.7) k/uL Basophils # (0-0.2) k/uL PT (9.0-12.0) sec INR (<1.2) Sodium (137-145) mmol/L Potassium (3.5-5.1) mmol/L Chloride (98-107) mmol/L Carbon Dioxide (22-30) mmol/L Anion Gap mmol/L BUN (7-17) mg/dL Creatinine (0.52-1.04) mg/dL Est GFR (CKD-EPI)AfAm (>60 ml/min/1.73 sqM) Est GFR (CKD-EPI)NonAf (>60 ml/min/1.73 sqM) Glucose (74-99) mg/dL Plasma Lactic Acid Ravi 1.2 (0.7-2.0) mmol/L Calcium (8.4-10.2) mg/dL Magnesium (1.6-2.3) mg/dL Total Bilirubin (0.2-1.3) mg/dL AST (14-36) U/L ALT (9-52) U/L Alkaline Phosphatase (38-126) U/L Total Protein (6.3-8.2) g/dL Albumin (3.5-5.0) g/dL Lipase (23-300) U/L Urine Color Light Yellow Urine Appearance Clear (Clear) Urine pH 5.5 (5.0-8.0) Ur Specific [place] 1.014 (1.001-1.035) Urine Protein Trace H (Negative) Urine Glucose (UA) Negative (Negative) Urine Ketones 1+ H (Negative) Urine Blood Small H (Negative) Urine Nitrite Negative (Negative) Urine Bilirubin Negative (Negative) Urine Urobilinogen <2.0 (<2.0) mg/dL Ur Leukocyte Esterase Negative (Negative) Urine RBC 20 H (0-5) /hpf Urine WBC 1 (0-5) /hpf Urine Bacteria Rare H (None) /hpf Disposition Clinical Impression: Sepsis, Tachyarrhythmia Disposition: ADMITTED IP TO THIS HOSP Condition: Stable Referrals: Tee Esquivel MD [Primary Care Provider] - 1-2 days Time of Disposition: 21:39
[2017-09-27 18:54] LABS: INR 1.1 (<1.2); Prothrombin Time 10.5 sec (9.0-12.0)
[2017-09-27 19:02] LABS: ALT 38 U/L (9-52); AST 41 U/L (14-36); Albumin 4.2 g/dL (3.5-5.0); Alkaline Phosphatase 36 U/L (38-126); Anion Gap 12 mmol/L; Blood Urea Nitrogen 24 mg/dL (7-17); Calcium 9.7 mg/dL (8.4-10.2); Carbon Dioxide 28 mmol/L (22-30); Chloride 95 mmol/L (98-107); Glucose 146 mg/dL (74-99); Lipase 62 U/L (23-300); Magnesium 1.7 mg/dL (1.6-2.3); Potassium 4.7 mmol/L (3.5-5.1); Sodium 135 mmol/L (137-145); Total Bilirubin 0.5 mg/dL (0.2-1.3); Total Protein 7.1 g/dL (6.3-8.2)
[2017-09-27] MEDS ORDERED: ACETAMINOPHEN TAB 500 MG TAB PO STA (19:05)
--- NOTE | 2017-09-27 19:27 | CT ---
EXAMINATION TYPE: CT brain wo con DATE OF EXAM: 09/27/2017 COMPARISON: NONE. No prior study available in the PACS system. HISTORY: Altered mental status. CT DLP: 1141 mGycm Automated exposure control for dose reduction was used. FINDINGS: Prominent cortical sulci, basal cisterns, lateral ventricles and sylvian fissures indicating moderate atrophy. Abnormal areas of low attenuation involving the periventricular white matter of both hemisp heres indicative of small vessel disease. No acute intracranial bleed or subdural collections. Bony l andmarks are well preserved without linear or depressed skull fractures. IMPRESSION: ATROPHIC CHANGES OF SMALL VESSEL DISEASE. NO ACUTE INTRACRANIAL BLEED OR SPACE-OCCUPYING PROCESS.
--- NOTE | 2017-09-27 19:32 | XR ---
EXAMINATION TYPE: XR chest 2V DATE OF EXAM: 09/27/2017 COMPARISON: Prior chest x-ray dated 07/25/2016. HISTORY: Increasing weakness and confusion TECHNIQUE: Frontal and lateral views of the chest are obtained. FINDINGS: Inspiratory effort is less optimal than when compared with the prior exam with the patient rotated. Multiple monitor leads are superimposing the patient chest. The patient's head obscures the right lung apex and the medial portion of the left lung apex. Persistent accentuation of the pulmonar y markings. No pneumothorax or significant pleural effusions. Scapulas are partially obscuring the up per lung jin. The osseous structures are intact. Interval diminution in the size and density of th e infiltrate involving the left lung base as compared with the prior study. Resolution is not complet e at this time. IMPRESSION: Limitation by the patient rotation and dorsal kyphosis. No pneumothorax Diminution in the size of the infiltrate involving the left lung base as compared with the prior ches t x-ray. Resolution is not complete at this time follow-up exam recommended.
[2017-09-27] MEDS ORDERED: CEFEPIME 2 GM in SODIUM CHLORIDE 0.9% 50 ML IVPB STA (19:55)
[2017-09-27] MEDS ORDERED: VANCOMYCIN 1,250 MG in SODIUM CHLORIDE 0.9% 250 ML IVPB STA (19:55)
[2017-09-27] MEDS ORDERED: VANCOMYCIN IV PER PHARMACY 1 EACH MISC MISCELLANE PRN (19:58)
[2017-09-27] MEDS ORDERED: SODIUM CHLORIDE 0.9% 1,000 ML IV STA (20:23)
[2017-09-27 20:54] LABS: Appearance,Urine Clear (Clear); Bacteria,Urine Rare /hpf; Bilirubin,Urine Negative (Negative); Blood,Urine Small (Negative); Color,Urine Light Yellow; Glucose,Urine (UA) Negative (Negative); Ketones,Urine 1+ (Negative); Leukocyte Esterase,Urine Negative (Negative); Nitrite,Urine Negative (Negative); PH, Urine 5.5 (5.0-8.0); Protein,Urine Trace (Negative); RBC,Urine 20 /hpf (0-5); Specific Gravity,Urine 1.014 (1.001-1.035); Urobilinogen,Urine <2.0 mg/dL (<2.0); WBC,Urine 1 /hpf (0-5)
[2017-09-27] MEDS ORDERED: DILTIAZEM DRIP BOLUS FROM BAG 1 MG SOLN IV ONE (21:13)
[2017-09-27] MEDS ORDERED: ACETAMINOPHEN TAB 325 MG TAB PO PRN (21:21)
[2017-09-27] MEDS ORDERED: NALOXONE 0.4 MG/ML 1 ML VIAL IV PRN (21:21)
[2017-09-27] MEDS ORDERED: HEPARIN SODIUM,PORCINE 5,000 UNIT/ML 1 ML VIAL IV ONE (21:32)
[2017-09-27] MEDS ORDERED: HEPARIN SODIUM,PORCINE 5,000 UNIT/ML 1 ML VIAL IV PRN (21:32)
[2017-09-27] MEDS: DILTIAZEM 50 MG in SODIUM CHLORIDE 0.9% 40 ML IV SCH ×2 (22:26→23:30)
[2017-09-27] MEDS: HEPARIN SOD,PORK IN 0.45% NACL 25,000 UNIT in 0.45% NACL 1 500ML.BAG IV SCH (23:14)
[2017-09-27] MEDS ORDERED: ACETAMINOPHEN TAB 325 MG TAB PO STA (23:25)
[2017-09-28 00:34] VITALS: BMI 28.8
[2017-09-28] MEDS: SODIUM CHLORIDE 0.9% 1,000 ML IV SCH ×2 (00:38→21:25)
[2017-09-28] MEDS: DILTIAZEM 50 MG in SODIUM CHLORIDE 0.9% 40 ML IV SCH ×3 (00:39→08:27)
[2017-09-28 01:07] VITALS: RESP 18
[2017-09-28 03:03] LABS: Basophils % (A) 0 %; Eosinophils % (A) 0 %; HGB 12.7 gm/dL (11.4-16.0); Lymphocytes % (A) 8 %; MCH 31.4 pg (25.0-35.0); MCHC 32.5 g/dL (31.0-37.0); MCV 96.6 fL (80.0-100.0); Mean Platelet Volume 7.3; Monocytes # (A) 0.8 k/uL (0-1.0); Monocytes % (A) 6 %; Neutrophils # (A) 10.6 k/uL (1.3-7.7); Neutrophils % (A) 84 %; Platelet Count 188 k/uL (150-450); RBC 4.04 m/uL (3.80-5.40); RDW 12.1 % (11.5-15.5); WBC 12.7 k/uL (3.8-10.6)
[2017-09-28 03:11] LABS: INR 1.1 (<1.2); Partial Thromboplastin Time 33.9 sec (22.0-30.0); Prothrombin Time 10.9 sec (9.0-12.0)
[2017-09-28] MEDS: LEVOTHYROXINE 125 MCG TAB PO SCH (06:02)
[2017-09-28] MEDS ORDERED: VANCOMYCIN 1,250 MG in SODIUM CHLORIDE 0.9% 250 ML IVPB SCH (08:00)
[2017-09-28] MEDS: FAMOTIDINE 20 MG TAB PO SCH ×2 (08:27→21:24)
[2017-09-28] MEDS: FUROSEMIDE 20 MG TAB PO SCH (08:27)
[2017-09-28] MEDS: LOSARTAN 25 MG TAB PO SCH (08:27)
[2017-09-28] MEDS: CLOPIDOGREL 75 MG TAB PO SCH (08:27)
[2017-09-28] MEDS ORDERED: METOPROLOL TARTRATE 12.5 MG TAB PO SCH (09:00)
[2017-09-28] MEDS ORDERED: amLODIPine 2.5 MG TAB PO SCH (09:00)
[2017-09-28 10:14] LABS: Anion Gap 8 mmol/L; Blood Urea Nitrogen 17 mg/dL (7-17); Calcium 8.6 mg/dL (8.4-10.2); Carbon Dioxide 25 mmol/L (22-30); Chloride 101 mmol/L (98-107); Glucose 162 mg/dL (74-99); Magnesium 1.7 mg/dL (1.6-2.3); Potassium 3.9 mmol/L (3.5-5.1); Sodium 134 mmol/L (137-145)
[2017-09-28] MEDS ORDERED: HEPARIN SODIUM,PORCINE 5,000 UNIT/ML 1 ML VIAL IV PRN (11:27)
--- NOTE | 2017-09-28 12:17 | CONS ---
ED Kelly is an 81-year-old lady with history of coronary artery disease, status post prior angioplasty, aortic stenosis, status post TAVR, dementia, hypertension, hypothyroidism, dyslipidemia, who presented to the hospital primarily with symptoms of not feeling well, worsening confusion and generalized weakness. On her presentation, she was found to be in atrial flutter with rapid ventricular rate and had been started on intravenous heparin and Cardizem. She is a poor historian and I am not able to get much reliable information from her. Patient has a history of atrial fibrillation. It is unclear as to why she was not on an anticoagulant. We are going to find out this from family. Her heart rate is better controlled with heart rates in the 90. Blood pressure is well controlled. I will obtain a 2D echo to evaluate her prosthetic valve. Blood cultures have been done and the patient is currently on intravenous vancomycin for possible sepsis. The patient had fever on her initial presentation. PAST MEDICAL HISTORY: Significant for coronary artery disease, status post angioplasty, hypertension, aortic stenosis, status post TAVR, chronic atrial fibrillation. MEDICATIONS: Medications at home included Norvasc, Exelon patch, Lopressor, Cozaar 25 mg daily, levothyroxine, Lasix, Plavix, aspirin and multivitamins. ALLERGIES: Patient is allergic to CODEINE, SHELL FISH, SULFA and SEAFOOD. FAMILY HISTORY, SOCIAL HISTORY, REVIEW OF SYSTEMS: I am unable to obtain from the patient who is pleasantly confused. PHYSICAL EXAMINATION: On exam, she is comfortable at rest. T-max is 101.1, heart rate is 99 beats per minute, blood pressure is 137/60, O2 sat is 98% on 3 L. There is no jugular venous distention. Carotid upstroke is diminished. Chest exam reveals diminished air entry at the bases. Heart exam reveals first and second heart sounds, irregular rhythm. Systolic murmur at the left lower sternal border. Abdomen is soft. Examination of extremities reveal trace edema. Peripheral pulses are felt. Chest x-ray did not reveal any infiltrate or congestion. Labs show a white cell count of 12.7, potassium is 4.7. Creatinine is normal. UA is negative. ASSESSMENT: 1. Typical atrial flutter with rapid ventricular rate. 2. Confusion. 3. Aortic stenosis, status post TAVR. 4. Coronary artery disease, status post angioplasty. 5. Hypertension. PLAN: I am going to continue the IV Cardizem, increase the dose of metoprolol to 25 b.i.d. and if the heart rate is well controlled, stop the Cardizem. Patient is on heparin, which I am going to leave like that for now. Stop the Norvasc. Obtain a 2D echo. SALLY / JACKSON: [id number] /
[2017-09-28 14:25] LABS: Basophils % (A) 0 %; Eosinophils % (A) 0 %; HCT 35.6 % (34.0-46.0); HGB 11.4 gm/dL (11.4-16.0); Lymphocytes # (A) 0.9 k/uL (1.0-4.8); Lymphocytes % (A) 8 %; MCHC 32.1 g/dL (31.0-37.0); MCV 96.7 fL (80.0-100.0); Mean Platelet Volume 8.2; Monocytes # (A) 0.5 k/uL (0-1.0); Monocytes % (A) 5 %; Neutrophils # (A) 9.4 k/uL (1.3-7.7); Neutrophils % (A) 86 %; Platelet Count 190 k/uL (150-450); RBC 3.68 m/uL (3.80-5.40)
[2017-09-28] MEDS: METOPROLOL TARTRATE 12.5 MG TAB PO SCH ×2 (15:53→21:24)
[2017-09-28] MEDS: WARFARIN 5 MG TAB PO SCH (17:49)
--- NOTE | 2017-09-28 17:56 | ECHOF ---
Referral Reason:aflutter MEASUREMENTS -------- HEIGHT: 162.6 cm WEIGHT: 76.2 kg BP: 137/60 RVIDd: 3.3 cm (< 3.3) IVSd: 1.2 cm (0.6 - 1.1) LVIDd: 4.1 cm (3.9 - 5.3) LVPWd: 1.2 cm (0.6 - 1.1) IVSs: 1.6 cm LVIDs: 2.7 cm LVPWs: 1.6 cm LA Diam: 4.2 cm (2.7 - 3.8) LAESV Index (A-L): 38.19 ml/m Ao Diam: 2.8 cm (2.0 - 3.7) AV Cusp: 1.5 cm (1.5 - 2.6) MV EXCURSION: 14.577 mm (> 18.000) MV EF SLOPE: 31 mm/s (70 - 150) EPSS: 0.5 cm MV E Fabian: 1.66 m/s MV DecT: 369 ms MV A Fabian: 1.38 m/s MV E/A Ratio: 1.20 AV maxP.37 mmHg AV meanP.40 mmHg RAP: 15.00 mmHg RVSP: 61.18 mmHg FINDINGS -------- This was a technically adequate study. The left ventricular size is normal. There is borderline concentric left ventricular hypertrophy. Overall left ventricular systolic function is normal with, an EF between 55 - 60 %. The right ventricle is mildly enlarged. LA is moderately dilated 34-39 ml/m2 The right atrium is normal in size. Peak/mean gradient across the Aortic Valve is 8.37mmHg / 4.40mmHg. TAVR procdure. The mitral valve leaflets are moderately thickened. Moderate mitral annular calcification present. Mild mitral regurgitation is present. The peak and mean MV gradients are 14.17mmHg 4.41mmHg as m easured by doppler. Mild tricuspid regurgitation present. There is severe pulmonary hypertension. The right ventricul ar systolic pressure, as measured by Doppler, is 61.18mmHg. The pulmonic valve was not well visualized. The aortic root size is normal. The inferior vena cava is dilated with no significant inspiratory collapse which is consistent estima vijay right atrial pressure of >15 mmHg. There is no pericardial effusion. CONCLUSIONS -------- 1. This was a technically adequate study. 2. The left ventricular size is normal. 3. There is borderline concentric left ventricular hypertrophy. 4. Overall left ventricular systolic function is normal with, an EF between 55 - 60 %. 5. The right ventricle is mildly enlarged. 6. LA is moderately dilated 34-39 ml/m2 7. The right atrium is normal in size. 8. Peak/mean gradient across the Aortic Valve is 8.37mmHg / 4.40mmHg. 9. TAVR procdure. 10. The mitral valve leaflets are moderately thickened. 11. Moderate mitral annular calcification present. 12. Mild mitral regurgitation is present. 13. The peak and mean MV gradients are 14.17mmHg 4.41mmHg as measured by doppler. 14. Mild tricuspid regurgitation present. 15. There is severe pulmonary hypertension. 16. The right ventricular systolic pressure, as measured by Doppler, is 61.18mmHg. 17. The pulmonic valve was not well visualized. 18. The aortic root size is normal. 19. The inferior vena cava is dilated with no significant inspiratory collapse which is consistent es timated right atrial pressure of >15 mmHg. 20. There is no pericardial effusion. [employer] SPECIALIST: Nadine Restrepo RDCS
[2017-09-28] MEDS ORDERED: cefTRIAXone IN SWFI 1,000 MG/10 ML SYRINGE IVP SCH (18:30)
--- NOTE | 2017-09-28 19:50 | HP ---
HISTORY AND PHYSICAL DATE OF SERVICE: 09/28/2017 PRESENTING COMPLAINT: Weak, tired. HISTORY OF PRESENTING COMPLAINT: This is an 81-year-old patient of Dr. Tee Esquivel. Chronic stable medical conditions include coronary artery disease, GERD, hyperlipidemia, osteoarthritis, paroxysmal atrial fibrillation, coronary artery disease with angioplasty, hypothyroid, hiatal hernia, DJD, severe secondary pulmonary hypertension. Most of the history is obtained from the at the bedside. The patient at baseline normally walks rather slowly. Yesterday she did not have much of an appetite; only had one bottle of Boost. Patient went to sit on the toilet and could not get up; really felt weak and tired. He had to get help to sit her up on a chair and finally decided to bring her into the ER. The patient was found to have a fever, started on antibiotics. Patient also was found to be in atrial fibrillation with a rapid ventricular rate, and patient was put on IV Cardizem. Patient has been feeling rather weak and tired and did not eat much; rundown. Patient has been somewhat forgetful. Denies any obvious urinary symptoms. The patient has had a cough for a few days, not able to bring any sputum, up. REVIEW OF SYSTEMS: CONSTITUTIONAL: Weak, tired. HEENT: None. RESPIRATORY: As above. CARDIOVASCULAR: No chest pain. GASTROINTESTINAL: None. GENITOURINARY: None. MUSCULOSKELETAL: Arthritic pain in the joints. DERMATOLOGICAL: None. HEMATOLOGICAL: None. LYMPHATICS: None. PSYCHIATRY: Forgetful. NEUROLOGICAL: Generalized weakness. PAST MEDICAL HISTORY: 1. Atrial fibrillation. 2. Coronary artery disease. 3. GERD. 4. Hyperlipidemia. 5. Osteoarthritis. 6. Hypothyroid. 7. Aortic stenosis, status post TAVR. 8. Chronic constipation. 9. Distal esophagitis and duodenitis. 10.Diverticulosis. 11.Coronary artery disease with angioplasty to the circumflex. 12.Hiatal hernia. 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 14.Hypertensive heart disease. 15.Severe secondary pulmonary hypertension. PAST SURGICAL HISTORY: 1. Cardiac catheterization with stent. (Stent in 2016.). 2. Hysterectomy. SOCIAL HISTORY: No smoking. No alcohol. Lives with her . FAMILY HISTORY: Coronary artery disease. HOME MEDICATIONS: 1. Ultram 50 to 100 mg q.6 p.r.n. 2. Norvasc 2.5 p.o. daily. 3. Exelon patch q.24 hours. 4. Nitrostat 0.4 sublingually q.5 p.r.n. 5. Lopressor 12.5 p.o. b.i.d. 6. Cozaar 25 p.o. daily. 7. Synthroid 125 mcg a day. 8. Xalatan 0.005% one drop to both eyes at bedtime. 9. Lansoprazole 30 mg p.o. daily. 10.Lasix 20 mg p.o. daily. 11.Plavix 75 mg p.o. daily. 12.Aspirin 81 mg p.o. daily. 13.Vitamin C 500 mg p.o. daily. 14.Multivitamin 1 tablet p.o. daily. 15.Hylands leg cramps 2 to 3 tablets q.4 p.r.n. 16.Vitamin D3 2000 units p.o. daily. ALLERGIES: 1. CODEINE. 2. SHELLFISH. 3. SULFUR. PHYSICAL EXAMINATION: VITAL SIGNS ON PRESENTATION: Temperature 102.7, pulse 135, respiration 20, blood pressure 159/83, pulse ox 92% on room air. GENERAL APPEARANCE: Average build. Lying in bed, tired-appearing. EYES: Pupils equal. Conjunctivae normal. HEENT: External appearance of nose and ears normal. Oral cavity normal. NECK: JVD not raised. Mass not palpable. RESPIRATORY: Effort normal. LUNGS: Diminished breath sounds. CARDIOVASCULAR: Heart sounds irregular. No edema. ABDOMEN: Soft, nontender. Liver and spleen not palpable. LYMPHATIC: No lymph node palpable in neck or axillae. PSYCHIATRY: Patient is awake, able to answer simple questions, though tired-appearing. NEUROLOGICAL: Pupils equal. Cranial nerves grossly intact. Power and sensation grossly intact. MUSCULOSKELETAL: Evidence of osteoarthritis in multiple joints. INVESTIGATIONS: White count up to 12.7, increased neutrophils. Potassium 4.7, BUN 24, creatinine 0.72. UA negative for leukocyte esterase, nitrite. Chest x-ray shows possible infiltrates. EKG shows possible atrial fibrillation with rapid ventricular rate and atrial flutter with 2:1 conduction. Two-D echocardiogram shows EF 55% to 60%, severe pulmonary hypertension. ASSESSMENT: 1. Moderate sepsis, likely secondary to pneumonia, in a patient who has some infiltrates on the chest x-ray and has got a cough. 2. Acute delirium from above. 3. Paroxysmal atrial fibrillation/flutter with rapid ventricular rate, present on admission. 4. Coronary artery disease with prior history of stent. 5. Gastroesophageal reflux disease. 6. Hyperlipidemia. 7. Primary osteoarthritis. 8. Hypothyroid. 9. Colonic diverticulosis. 10.Hiatal hernia. 11.Severe secondary pulmonary hypertension. PLAN: Patient was seen by Cardiology, Dr. Saha. The patient has been continued on Cardizem. Metoprolol dose was increased to 25 twice a day. The patient is also on IV heparin. Amlodipine was discontinued. I have continued the cefepime. Care was discussed with the patient's at the bedside. Questions were answered. Given her age, patient's prognosis is guarded. Patient's blood cultures are pending. We will also get a pulmonary opinion. MMODL / IJN: [id number] /
[2017-09-28] MEDS: CEFEPIME 1 GM in SODIUM CHLORIDE 0.9% 50 ML IVPB SCH (21:35)
[2017-09-28] MEDS ORDERED: NON-FORMULARY DRUG (Lansoprazole [Lansoprazole] 30 MG) PO SCH (23:00)
[2017-09-28] MEDS: HEPARIN SOD,PORK IN 0.45% NACL 25,000 UNIT in 0.45% NACL 1 500ML.BAG IV SCH (23:14)
[2017-09-29] MEDS: LATANOPROST 0.005% OPHTH DROPS 2.5 ML BTL BOTH EYES SCH ×2 (00:06→19:55)
[2017-09-29] MEDS: METOPROLOL TARTRATE 12.5 MG TAB PO SCH ×3 (05:39→21:33)
[2017-09-29] MEDS: LEVOTHYROXINE 125 MCG TAB PO SCH (06:16)
[2017-09-29] MEDS ORDERED: DILTIAZEM DRIP BOLUS FROM BAG 1 MG SOLN IV ONE (06:19)
[2017-09-29 06:43] LABS: INR 1.1 (<1.2); Partial Thromboplastin Time 49.4 sec (22.0-30.0); Prothrombin Time 10.4 sec (9.0-12.0)
[2017-09-29 06:54] LABS: Anion Gap 10 mmol/L; Blood Urea Nitrogen 14 mg/dL (7-17); Calcium 8.9 mg/dL (8.4-10.2); Carbon Dioxide 25 mmol/L (22-30); Chloride 100 mmol/L (98-107); Glucose 114 mg/dL (74-99); Sodium 135 mmol/L (137-145)
[2017-09-29] MEDS ORDERED: DILTIAZEM 50 MG in SODIUM CHLORIDE 0.9% 40 ML IV SCH (07:00)
[2017-09-29 07:05] LABS: Basophils % (A) 0 %; Eosinophils # (A) 0.1 k/uL (0-0.7); Eosinophils % (A) 1 %; HCT 35.7 % (34.0-46.0); HGB 11.7 gm/dL (11.4-16.0); Lymphocytes # (A) 1.5 k/uL (1.0-4.8); Lymphocytes % (A) 18 %; MCH 31.1 pg (25.0-35.0); MCHC 32.7 g/dL (31.0-37.0); MCV 95.2 fL (80.0-100.0); Monocytes # (A) 0.9 k/uL (0-1.0); Monocytes % (A) 10 %; Neutrophils # (A) 5.8 k/uL (1.3-7.7); Neutrophils % (A) 67 %; Platelet Count 166 k/uL (150-450); RBC 3.75 m/uL (3.80-5.40); RDW 12.1 % (11.5-15.5); WBC 8.6 k/uL (3.8-10.6)
[2017-09-29] MEDS ORDERED: IPRATROPIUM-ALBUTEROL 3 ML NEB INHALATION STA (08:13)
[2017-09-29] MEDS: FAMOTIDINE 20 MG TAB PO SCH ×2 (08:44→19:55)
[2017-09-29] MEDS: LOSARTAN 25 MG TAB PO SCH (08:44)
[2017-09-29] MEDS: CEFEPIME 1 GM in SODIUM CHLORIDE 0.9% 50 ML IVPB SCH ×2 (08:44→19:53)
[2017-09-29] MEDS: CLOPIDOGREL 75 MG TAB PO SCH (08:44)
[2017-09-29] MEDS: FUROSEMIDE 20 MG TAB PO SCH (08:44)
--- NOTE | 2017-09-29 11:43 | P.CNPUL ---
History of Present Illness Consult date: 09/29/17 Reason for consult: other Chief complaint: sepsis, atrial flutter History of present illness: Consult dated 09/29/2017 81-year-old female who apparently comes into the emergency room complaining of weakness. She apparently became very confused at home. The patient is not a particularly good historian. Could be more specific. She doesn't even remember or know why she's here. She apparently denies any fever chills cough and urinary complaints or GI complaints for that matter. She does have history of atrial fibrillation COPD dementia and hypothyroidism. She also has a history of iron deficiency anemia and aortic valve replacement. The patient patient's feeling pretty much back to baseline. Chest x-ray apparently showed a resolving infiltrate in the left lower lung. Chest x-ray was not very impressive. Again the patient's very poor historian she would not able to give any additional history as to exactly what happened to her. Review of Systems ROS unobtainable: due to mental status Past Medical History Past Medical History: Atrial Fibrillation, Coronary Artery Disease (CAD), Chest Pain / Angina, GERD/Reflux, Hyperlipidemia, Osteoarthritis (OA), Thyroid Disorder Additional Past Medical History / Comment(s): Aortic stenosis status post TAPVR , proximal atrial fibrillation, chronic constipation, previous episodes of GI bleed that was worked up and the patient was found to have some distal esophagitis and duodenitis and some mild gastritis, diverticulosis, coronary artery disease with previous angioplasty of the circumflex/stenting, hypothyroidism, hiatal hernia, 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 PER PTS PT HAD AORTIC VALVE SX" TAVR" PROCEDURE BY DR CHOI Past Anesthesia/Blood Transfusion Reactions: No Reported Reaction Date of Last Stent Placement:: 05/2015 Past Psychological History: No Psychological Hx Reported Smoking Status: Never smoker Past Alcohol Use History: None Reported Past Drug Use History: None Reported - Past Family History Father Family Medical History: Coronary Artery Disease (CAD) Sister(s) Family Medical History: Coronary Artery Disease (CAD) Medications and Allergies Home Medications Medication Instructions Recorded Confirmed Type traMADol HCL [Ultram] 50 - 100 mg PO Q6HR PRN 06/20/15 09/28/17 History Clopidogrel [Plavix] 75 mg PO DAILY #30 tab 06/21/15 09/28/17 Rx Hylands Leg Cramps 2 - 3 tab PO Q4H PRN 07/06/15 09/28/17 History Aspirin 81 mg PO DAILY #30 chewable 07/09/15 09/28/17 Rx Ascorbic Acid [Vitamin C] 500 mg PO DAILY 08/31/15 09/28/17 History Ferrous Sulfate [Iron (65 MG 325 mg PO BID 08/31/15 09/28/17 History Elemental)] Latanoprost Ophth [Xalatan 0.005%] 1 drops BOTH EYES HS 08/31/15 09/28/17 History Losartan [Cozaar] 25 mg PO DAILY 08/31/15 09/28/17 History Metoprolol Tartrate [Lopressor] 12.5 mg PO BID #60 tab 09/06/15 09/28/17 Rx Cholecalciferol [Vitamin D3] 2,000 unit PO DAILY 07/24/16 09/28/17 History Lansoprazole 30 mg PO DAILY 07/24/16 09/28/17 History Multivitamin [Multivitamins Adult 1 tab PO DAILY 07/24/16 09/28/17 History Gummies] Furosemide [Lasix] 20 mg PO DAILY 08/05/17 09/28/17 History Levothyroxine Sodium [Synthroid] 125 mcg PO DAILY 08/05/17 09/28/17 History Rivastigmine 4.6MG/24Hr Patch 1 patch TRANSDERM Q24HR 08/05/17 09/28/17 History [Exelon 4.6MG/24Hr Patch] amLODIPine [Norvasc] 2.5 mg PO DAILY 08/05/17 09/28/17 History Nitroglycerin Sl Tabs [Nitrostat] 0.4 mg SUBLINGUAL Q5M PRN 09/28/17 09/28/17 History Allergies Allergy/AdvReac Type Severity Reaction Status Date / Time codeine Allergy Unknown Verified 09/27/17 18:06 shellfish derived [Shellfish] Allergy Rash/Hives Verified 09/27/17 18:06 Sulfa (Sulfonamide Allergy Unknown Verified 09/27/17 18:06 Antibiotics) SEAFOOD Allergy Rash/Hives Uncoded 09/27/17 18:06 Physical Exam Osteopathic Statement: *. No significant issues noted on an osteopathic structural exam other than those noted in the History and Physical/Consult. Vitals: Vital Signs Temp Pulse Pulse Resp BP Pulse Ox 09/29/17 08:50 92 09/29/17 08:37 84 94 L 09/29/17 07:53 98.8 F 74 18 153/78 92 L 09/29/17 06:59 82 18 171/70 92 L 09/29/17 06:47 80 18 142/67 92 L 09/29/17 04:00 99.1 F 91 18 150/65 92 L 09/29/17 00:00 99.2 F 103 H 18 153/73 94 L 09/28/17 20:00 99.9 F H 84 18 153/64 95 09/28/17 16:00 98 F 64 18 122/59 95 09/28/17 12:00 98 F 77 18 125/58 95 Intake and Output 09/28/17 09/29/17 09/29/17 22:59 06:59 14:59 Intake Total 245.751 160 373.364 Balance 245.751 160 373.364 Intake: Intake, IV Titration 245.751 160 253.364 Amount Heparin Sod,Pork in 0.45% 245.751 253.364 NaCl 25,000 unit In 0.45 % NaCl 1 500ml.bag @ 12 UNITS/KG/HR 17.41 mls/hr IV .Q24H [facility] Rx#: [id number] Sodium Chloride 0.9% 1, 160 000 ml @ 20 mls/hr IV . Q24H [facility] Rx#:[id number] Oral 120 Other: Voiding Method Bedside Commode Bedside Commode Bedside Commode Incontinent Incontinent # Voids 2 Weight 80 kg No acute distress, oriented 3. Nasal O2 in place. HEENT examination is grossly unremarkable. Mucous membranes are moist. No oral lesions. Neck supple. Full range of motion. No adenopathy thyromegaly or neck vein distention. Cardiovascular examination reveals regular rhythm rate. S1-S2 normal. No S3 or S4. No discernible murmur noted. Lungs reveal clear breath sounds. Her sounds are equal bilaterally. No adventitious lung sounds including wheezes rhonchi or crackles. Abdomen soft bowel sounds are heard. No masses or tenderness. Extremities are intact. No cyanosis clubbing or edema. Skin is without rash or lesion. Neurologic examination is brief but nonfocal. Results - Laboratory Findings CBC and BMP: 09/29/17 06:01 09/29/17 06:01 PT/INR, D-dimer PT 10.4 sec (9.0-12.0) 09/29/17 06:01 INR 1.1 (<1.2) 09/29/17 06:01 Abnormal lab findings: Abnormal Labs 09/27/17 09/27/17 09/27/17 18:37 18:37 20:34 WBC RBC Neutrophils # 8.6 H Lymphocytes # 0.6 L APTT Sodium 135 L Chloride 95 L BUN 24 H Glucose 146 H AST 41 H Alkaline Phosphatase 36 L Urine Protein Trace H Urine Ketones 1+ H Urine Blood Small H Urine RBC 20 H Urine Bacteria Rare H 09/28/17 09/28/17 09/28/17 02:39 02:39 09:25 WBC 12.7 H 11.0 H RBC 3.68 L Neutrophils # 10.6 H 9.4 H Lymphocytes # 0.9 L APTT 33.9 H Sodium Chloride BUN Glucose AST Alkaline Phosphatase Urine Protein Urine Ketones Urine Blood Urine RBC Urine Bacteria 09/28/17 09/28/17 09/28/17 09:25 09:25 14:47 WBC RBC Neutrophils # Lymphocytes # APTT 36.3 H 57.8 H Sodium 134 L Chloride BUN Glucose 162 H AST Alkaline Phosphatase Urine Protein Urine Ketones Urine Blood Urine RBC Urine Bacteria 09/29/17 09/29/17 09/29/17 06:01 06:01 06:01 WBC RBC 3.75 L Neutrophils # Lymphocytes # APTT 49.4 H Sodium 135 L Chloride BUN Glucose 114 H AST Alkaline Phosphatase Urine Protein Urine Ketones Urine Blood Urine RBC Urine Bacteria - Diagnostic Findings Chest x-ray: report reviewed (Chest x-ray labs and medications are reviewed.), image reviewed Assessment and Plan Assessment: Assessment Fever, of unclear etiology. May relate to occult infection and possible resolving pneumonia left lower lung. Weakness, with confusion, possibly related to underlying infection/sepsis, resolved History of atrial fibrillation History of CAD History of GERD History of hyperlipidemia Hypothyroidism History of aortic stenosis, status post taper procedure History of chronic constipation History of GI bleed Previous percutaneous coronary intervention Hypertensive heart disease Severe secondary pulmonary hypertension Plan: Plan dated 09/29/2017 The patient seems to be at baseline. She seems much improved. The patient really does not give much history as to what exactly happened to her. She states she was very confused and out of it. It appears that maybe she developed a temperature elevation/fever and had some sort of occult infection. This was of infection is not clear. Her chest x-ray is not very impressive and shows a minimal infiltrate or atelectasis at the left lung base compared to prior x-rays. Urine is clean. Blood cultures so far negative. She denies any GI issues. No soft tissue infections. No urinary complaints. We'll continue to follow as needed. Time with Patient: Greater than 30
[2017-09-29] MEDS: RIVASTIGMINE 4.6MG/24HR PATCH TRANSDERM SCH (13:40)
[2017-09-29] MEDS: WARFARIN 5 MG TAB PO SCH (17:37)
[2017-09-29] MEDS: SODIUM CHLORIDE 0.9% 1,000 ML IV SCH (21:30)
--- NOTE | 2017-09-29 21:57 | PN ---
PROGRESS NOTE DATE OF SERVICE: 09/29/2017 PRESENTING COMPLAINT: Tired. INTERVAL HISTORY: This patient admitted with sepsis with a sepsis picture, lightheaded with pneumonia. Overnight, also the patient is found to have cellulitis, left lower extremity. The patient has been on IV cefepime started yesterday to which she has responded well. Up today, sitting up in a chair, did tolerate her meal, very different than yesterday. at the bedside. REVIEW OF SYSTEMS: Done for constitutional, cardiovascular, GI, pulmonary, dermatologic; relevant findings as above. There is also some redness of the left leg. CURRENT MEDICATIONS: Reviewed that include IV cefepime. EXAMINATION: Temperature 98, pulse 87, respirations 18, blood pressure 114/70, pulse ox 99% on 2L. GENERAL APPEARANCE: Sitting up on a chair, awake. EYES: Pupil equal. Conjunctivae normal. HEENT: External nose and ears normal. Oral cavity normal. NECK: JVD not raised. Mass not palpable. RESPIRATORY: Effort normal. LUNGS: Diminished breath sounds. CARDIOVASCULAR: Heart sounds irregular. No edema. ABDOMEN: Soft, nontender. Liver and spleen not palpable. PSYCHIATRY: Awake, answering questions appropriately. DERMATOLOGICAL: Cellulitis of left lower extremity below the left knee. INVESTIGATIONS: Telemetry: Patient is in sinus rhythm. 2D echocardiogram: EF 55%-60%, severe pulmonary hypertension. ASSESSMENT: 1. Moderate sepsis, probably pneumonia, suspect gram-negative organism, clinically improving. According to patient's , cough is greatly improved. 2. Acute delirium from above with clinical improvement. 3. Left lower extremity cellulitis, acute. 4. Paroxysmal atrial flutter/fibrillation, rapid ventricular rate. Now patient is back in sinus rhythm. 5. Coronary artery disease with prior history of stent. 6. Gastroesophageal reflux disease. 7. Hyperlipidemia. 8. Primary osteoarthritis. 9. Hypothyroid. 10.Colonic diverticulosis. 11.Hiatal hernia. 12.Severe secondary pulmonary hypertension. 13.The patient has had bleeding in the past and patient's did not want any anticoagulation. PLAN: Overall, patient is doing better. Continue 24 more hours of cefepime, blue Silvadene cream with Jarret wraps and Kerlix on the left leg. Overall patient doing better. MMODL / IJN: [id number] /
[2017-09-30] MEDS: LEVOTHYROXINE 125 MCG TAB PO SCH (06:13)
[2017-09-30 06:27] LABS: Partial Thromboplastin Time 22.5 sec (22.0-30.0); Prothrombin Time 9.9 sec (9.0-12.0)
[2017-09-30 06:35] LABS: Anion Gap 10 mmol/L; Blood Urea Nitrogen 13 mg/dL (7-17); Calcium 9.1 mg/dL (8.4-10.2); Carbon Dioxide 25 mmol/L (22-30); Chloride 101 mmol/L (98-107); Glucose 97 mg/dL (74-99); Potassium 3.9 mmol/L (3.5-5.1); Sodium 136 mmol/L (137-145)
[2017-09-30] MEDS: FAMOTIDINE 20 MG TAB PO SCH (09:29)
[2017-09-30] MEDS: CEFEPIME 1 GM in SODIUM CHLORIDE 0.9% 50 ML IVPB SCH (09:29)
[2017-09-30] MEDS: LOSARTAN 25 MG TAB PO SCH (09:29)
[2017-09-30] MEDS: FUROSEMIDE 20 MG TAB PO SCH (09:29)
[2017-09-30] MEDS: METOPROLOL TARTRATE 12.5 MG TAB PO SCH (09:29)
[2017-09-30] MEDS: CLOPIDOGREL 75 MG TAB PO SCH (09:29)
--- NOTE | 2017-09-30 10:11 | P.PN ---
Subjective Progress Note Date: 09/29/17 This is a pleasant 81-year-old lady with history of CAD, s/p angioplasty, aortic stenosis, s/p TAVR, dementia, hypertension, hypothyroidism, and dyslipidemia. She presented to the hospital with c/o overall not feeling well, worsening confusion, generalized weakness and fever. She was found to be in atrial flutter with RVR. She was started on cardizem drip and heparin IV. She was also thought to be septic and started on IV antibiotics. Upon examination, the patient is sitting up in a chair. She verbalizes feeling much better. She is currently maintaining sinus rhythm and cardizem drip has been discontinued. The patient does have a history of atrial fibrillation. According to her she was on Xarelto a couple years ago and had several episodes of significant anemia for which they were unable to find a source of bleeding and Xarelto was stopped. Objective - Vital Signs Vital signs: Vital Signs Temp 98 F 09/30/17 04:00 Pulse 70 09/30/17 04:00 Resp 18 09/30/17 04:00 BP 164/72 09/30/17 04:00 Pulse Ox 96 09/30/17 04:00 Intake & Output 09/29/17 09/30/17 09/30/17 18:59 06:59 18:59 Intake Total 853.364 240 240 Output Total 600 200 Balance 253.364 40 240 Weight 77.3 kg Intake: Intake, IV Titration 253.364 Amount Heparin Sod,Pork in 0.45% 253.364 NaCl 25,000 unit In 0.45 % NaCl 1 500ml.bag @ 12 UNITS/KG/HR 17.41 mls/hr IV .Q24H [facility] Rx#: [id number] Oral 600 240 240 Output: Urine 600 200 Other: Voiding Method Bedside Commode Toilet # Voids 1 # Bowel Movements 1 - Exam HEENT: Head is atraumatic, normocephalic. Pupils equal, round. Sclera anicteric. Conjunctiva are clear. Mucous membranes of the mouth are moist. Neck is supple. There is no elevated jugular venous pressure. HEART EXAMINATION: Heart S1-S2 regular, systolic murmur noted CHEST EXAMINATION: Lungs are clear to auscultation and precussion with diminished air entry to bilateral bases. No chest wall tenderness is noted on palpation or with deep breathing. ABDOMEN: Soft, nontender. Bowel sounds are heard. No organomegaly noted. EXTREMITIES: 2+ peripheral pulses with evidence of trace peripheral edema and no calf tenderness noted. NEUROLOGIC patient is awake, alert and oriented x3 with confusion and memory difficulties noted. - Labs CBC & Chem 7: 09/29/17 06:01 09/30/17 05:44 Labs: Abnormal Lab Results - Last 24 Hours (Table) 09/30/17 Range/Units 05:44 Sodium 136 L (137-145) mmol/L Microbiology - Last 24 Hours (Table) 09/27/17 18:37 Blood Culture - Preliminary Blood No Growth after 48 hours 09/27/17 20:34 Urine Culture - Final Urine,Voided Assessment and Plan Assessment: #1 typical atrial flutter with RVR, paroxysmal, currently maintaining sinus rhythm #2 histroy of paroxysmal atrial fibrillation #3 history of significant anemia while on Xarelto #4 dementia with worsened confusion #5 Aortic stenosis, s/p TAVR #6 CAD, s/p angioplasty #7 hypertension Plan: From cardiology's perspective we will continue current dose of beta lily. No anticoagulation as patient is not a candidate due to significant anemia in the past while on Xarelto. We will continue to follow the patient and provide further recommendations accordingly. The above dictated assessment and findings were discussed with signing physician. The impression and plan of care have been directed as dictated. Argelia Sood, Nurse Practitioner, acting as scribe for signing physician.
--- NOTE | 2017-09-30 10:42 | P.PN ---
Subjective Progress Note Date: 09/30/17 Principal diagnosis: Atrial flutter, sepsis Consult dated 09/29/2017 81-year-old female who apparently comes into the emergency room complaining of weakness. She apparently became very confused at home. The patient is not a particularly good historian. Could be more specific. She doesn't even remember or know why she's here. She apparently denies any fever chills cough and urinary complaints or GI complaints for that matter. She does have history of atrial fibrillation COPD dementia and hypothyroidism. She also has a history of iron deficiency anemia and aortic valve replacement. The patient patient's feeling pretty much back to baseline. Chest x-ray apparently showed a resolving infiltrate in the left lower lung. Chest x-ray was not very impressive. Again the patient's very poor historian she would not able to give any additional history as to exactly what happened to her. The patient is seen again today 09/30/2017 in follow-up on the selective care unit. She is currently sitting up in chair at the bedside. She is awake and alert in no acute distress. She is maintaining good O2 saturations in the 90s on room air. She's afebrile. Hemodynamically stable. Heart rate better controlled. Blood and urine cultures reveal no growth. She is currently on cefepime. Objective - Vital Signs Vital signs: Vital Signs Temp 98 F 09/30/17 04:00 Pulse 70 09/30/17 04:00 Resp 18 09/30/17 04:00 BP 164/72 09/30/17 04:00 Pulse Ox 96 09/30/17 04:00 Intake & Output 09/29/17 09/30/17 09/30/17 18:59 06:59 18:59 Intake Total 853.364 240 240 Output Total 600 200 Balance 253.364 40 240 Weight 77.3 kg Intake: Intake, IV Titration 253.364 Amount Heparin Sod,Pork in 0.45% 253.364 NaCl 25,000 unit In 0.45 % NaCl 1 500ml.bag @ 12 UNITS/KG/HR 17.41 mls/hr IV .Q24H [facility] Rx#: [id number] Oral 600 240 240 Output: Urine 600 200 Other: Voiding Method Bedside Commode Toilet # Voids 1 # Bowel Movements 1 - Exam No acute distress, oriented 3. Nasal O2 in place. HEENT examination is grossly unremarkable. Mucous membranes are moist. No oral lesions. Neck supple. Full range of motion. No adenopathy thyromegaly or neck vein distention. Cardiovascular examination reveals regular rhythm rate. S1-S2 normal. No S3 or S4. No discernible murmur noted. Lungs reveal clear breath sounds. Her sounds are equal bilaterally. No adventitious lung sounds including wheezes rhonchi or crackles. Abdomen soft bowel sounds are heard. No masses or tenderness. Extremities are intact. No cyanosis clubbing or edema. Skin is without rash or lesion. Neurologic examination is brief but nonfocal. - Labs CBC & Chem 7: 09/29/17 06:01 09/30/17 05:44 Labs: Abnormal Lab Results - Last 24 Hours (Table) 09/30/17 Range/Units 05:44 Sodium 136 L (137-145) mmol/L Microbiology - Last 24 Hours (Table) 09/27/17 18:37 Blood Culture - Preliminary Blood No Growth after 48 hours 09/27/17 20:34 Urine Culture - Final Urine,Voided Assessment and Plan Assessment: Assessment Fever, of unclear etiology. May relate to occult infection and possible resolving pneumonia left lower lung. Weakness, with confusion, possibly related to underlying infection/sepsis, resolved History of atrial fibrillation History of CAD History of GERD History of hyperlipidemia Hypothyroidism History of aortic stenosis, status post taper procedure History of chronic constipation History of GI bleed Previous percutaneous coronary intervention Hypertensive heart disease Severe secondary pulmonary hypertension Plan: The patient was seen and evaluated by Dr. Huston. She is stable from the pulmonary standpoint. Blood cultures are negative. No pulmonary complaints. We'll see her on as-needed basis. I, the cosigning physician, performed a history & physical examination of the patient. Lungs sounds are clear. Maintaining good O2 saturations in the 90s on room air. I discussed the assessment and plan of care with my nurse practitioner, Laura Baptiste. I attest to the above note as dictated by her.
--- NOTE | 2017-09-30 12:00 | P.PN ---
Subjective Progress Note Date: 09/30/17 Principal diagnosis: Paroxysmal atrial fibrillation This is a pleasant 81-year-old lady with history of CAD, s/p angioplasty, aortic stenosis, s/p TAVR, dementia, hypertension, hypothyroidism, and dyslipidemia. She presented to the hospital with c/o overall not feeling well, worsening confusion, generalized weakness and fever. She was found to be in atrial flutter with RVR. She was started on cardizem drip and heparin IV. She is currently maintaining sinus rhythm and cardizem drip has been discontinued. The patient does have a history of atrial fibrillation. According to her she was on Xarelto a couple years ago and had several episodes of significant anemia for which they were unable to find a source of bleeding and Xarelto was stopped. I'll follow-up with the patient today, she denies having any chest pain or discomfort or shortness of breath or heart racing or fluttering. She continues to maintain normal sinus mechanism. Objective - Vital Signs Vital signs: Vital Signs Temp 96.6 F L 09/30/17 08:55 Pulse 84 09/30/17 08:55 Resp 18 09/30/17 08:55 BP 140/65 09/30/17 08:55 Pulse Ox 95 09/30/17 08:55 Intake & Output 09/29/17 09/30/17 09/30/17 18:59 06:59 18:59 Intake Total 853.364 240 290 Output Total 600 200 Balance 253.364 40 290 Weight 77.3 kg Intake: Intake, IV Titration 253.364 50 Amount Cefepime 1 gm In Sodium 50 Chloride 0.9% 50 ml @ 100 mls/hr IVPB Q12HR [facility] Rx #:[id number] Heparin Sod,Pork in 0.45% 253.364 NaCl 25,000 unit In 0.45 % NaCl 1 500ml.bag @ 12 UNITS/KG/HR 17.41 mls/hr IV .Q24H [facility] Rx#: [id number] Oral 600 240 240 Output: Urine 600 200 Other: Voiding Method Bedside Commode Toilet # Voids 1 # Bowel Movements 1 - Constitutional General appearance: Present: no acute distress - Respiratory Respiratory: bilateral: CTA - Cardiovascular Rhythm: regular Heart sounds: normal: S1, S2 Abnormal Heart Sounds: Present: systolic murmur - Labs CBC & Chem 7: 09/29/17 06:01 09/30/17 05:44 Labs: Abnormal Lab Results - Last 24 Hours (Table) 09/30/17 Range/Units 05:44 Sodium 136 L (137-145) mmol/L Microbiology - Last 24 Hours (Table) 09/27/17 18:37 Blood Culture - Preliminary Blood No Growth after 48 hours 09/27/17 20:34 Urine Culture - Final Urine,Voided Assessment and Plan Assessment: Assessment: #1 typical atrial flutter with RVR, paroxysmal, currently maintaining sinus rhythm #2 histroy of paroxysmal atrial fibrillation #3 history of significant anemia while on Xarelto #4 dementia with worsened confusion #5 Aortic stenosis, s/p TAVR #6 CAD, s/p angioplasty #7 hypertension Plan: From cardiology's perspective we will continue current dose of beta lily. No anticoagulation as patient is not a candidate due to significant anemia in the past while on Xarelto. We will follow-up with the patient on when necessary case.
[2017-09-30] MEDS: RIVASTIGMINE 4.6MG/24HR PATCH TRANSDERM SCH (12:05)
[2017-09-30 12:28] VITALS: BP 158/68; PULSE 74; TEMP 96.9
--- NOTE | 2017-09-30 20:10 | DS ---
DISCHARGE SUMMARY DATE OF ADMISSION: 09/27/17. DATE OF DISCHARGE: 09/30/17. FINAL DIAGNOSES: 1. Moderate sepsis from pneumonia, suspect gram-negative organism clinically improving. 2. Acute left lower extremity cellulitis. 3. Acute delirium from infection, present on admission. 4. Paroxysmal atrial flutter fibrillation with rapid ventricular rate, present on admission, back in sinus rhythm. 5. Coronary artery disease with prior history of stent. 6. Gastroesophageal reflux disease. 7. Hyperlipidemia. 8. Primary osteoarthritis. 9. Hypothyroid. 10.Colonic diverticulosis. 11.Hiatal hernia. 12.Severe secondary pulmonary hypertension. HOSPITAL COURSE: This patient with altered mental status, found to be in sepsis, felt to be combination of pneumonia and left lower extremity cellulitis, was put on IV cefepime and Silvadene cream with Jarret wrap to left lower extremity. The patient also found to be in atrial flutter fib with rapid ventricular rate, was on a Cardizem drip, did convert to sinus rhythm. The patient has had bleeding previously. Hence patient and the do not want any anticoagulation. Today patient doing much better, tolerating a diet. On exam, Lungs: Fair entry. Cardiovascular: First and second sounds normal. The patient did have a 2-D echocardiogram that showed preserved LV function and evidence of severe pulmonary hypertension. Remains in sinus rhythm. CONSULTATION: 1. Dr. Steffanie Saha from Cardiology. 2. Dr. Nunez from Pulmonary. MEDICATIONS: 1. Ultram 50-100 mg q.6h p.r.n. 2. Plavix 75 mg a day. 3. Hylands leg cramps q.4h p.r.n. 4. Aspirin 81 mg a day. 5. Vitamin C 500 mg a day. 6. Iron 325 p.o. b.i.d. 7. Xalatan 0.005% 1 drop to both eyes q.h.s. 8. Cozaar 25 mg daily. 9. Lopressor 12.5 p.o. b.i.d. 10.Vitamin D3 2000 units p.o. daily. 11.Lansoprazole 30 mg p.o. daily. 12.Multivitamin 1 tablet p.o. daily. 13.Lasix 20 mg p.o. daily. 14.Synthroid 125 mcg p.o. daily. 15.Exelon 4.6 mg patch every 24 hours. 16.Norvasc 2.5 mg p.o. daily. 17.Nitrostat 0.4 sublingual q.5 p.r.n. 18.Doxycycline 50 mg q.12, 14 capsules. 19.Silvadene cream topical b.i.d. left leg with Kerlix and Jarret wrap. Follow with Tee Esquivel on 10/06/17. Follow up with Dr. Nunez in [address] Steffanie Saha in 1 week. MMODL / IJN: [id number] /
== END 2017-09-30 15:50 | disposition home or self-care (01) | DRG 871 ==
LOC: EC 18:01 → 6SEL 21:29
PROVIDERS: ADMIT Hospitalist; ATTEND Hospitalist
DX: A41.50 Gram-negative sepsis, unspecified (principal); J15.6 Pneumonia due to other Gram-negative bacteria; I48.3 Typical atrial flutter; L03.116 Cellulitis of left lower limb; F05 Delirium due to known physiological condition; E03.9 Hypothyroidism, unspecified; E78.5 Hyperlipidemia, unspecified; F03.90 Unspecified dementia, unspecified severity, without behavioral disturbance, psychotic disturbance, mood disturbance, and anxiety; I25.10 Atherosclerotic heart disease of native coronary artery without angina pectoris; K59.09 Other constipation; I27.29 Other secondary pulmonary hypertension; I11.9 Hypertensive heart disease without heart failure; I48.2 Chronic atrial fibrillation; K21.9 Gastro-esophageal reflux disease without esophagitis; M19.91 Primary osteoarthritis, unspecified site; I25.2 Old myocardial infarction; Z79.82 Long term (current) use of aspirin; Z79.02 Long term (current) use of antithrombotics/antiplatelets; Z79.899 Other long term (current) drug therapy; Z82.49 Family history of ischemic heart disease and other diseases of the circulatory system; Z90.710 Acquired absence of both cervix and uterus; Z98.61 Coronary angioplasty status; Z95.2 Presence of prosthetic heart valve; Z79.890 Hormone replacement therapy; Z88.8 Allergy status to other drugs, medicaments and biological substances; Z88.5 Allergy status to narcotic agent; Z91.013 Allergy to seafood
CPT/HCPCS: 36415; 70450; 71046; 80048; 80053; 81001; 83605; 83690; 83735; 85025; 85610; 85730; 87040; 87086; 93005; 93306; 94640; 94760; 96361; 96365; 96367; 99285

== ENCOUNTER 2018-05-17 20:08 | Inpatient (IN) | payer MEDICARE ==
[2018-05-17] MEDS ORDERED: ACETAMINOPHEN TAB 500 MG TAB PO STA (20:33)
--- NOTE | 2018-05-17 20:37 | ED ---
Altered Mental Status HPI - General Source: EMS Mode of arrival: EMS Limitations: no limitations <Deidra Livingston - Last Filed: 05/17/18 22:17> <Luisito Quinn - Last Filed: 05/20/18 08:45> - General Chief Complaint: Altered Mental Status Stated Complaint: Altered mental status, fever Time Seen by Provider: 05/17/18 20:15 - History of Present Illness Initial Comments: 82-year-old female patient presents to the emergency department today for evaluation of fever, vomiting, and altered mental status. Patient states that she has been feverish for the last couple of days. Has been reports that earlier in the day she was somewhat confused and was unable to identify the correct date. Patient states she did have 2 episodes of vomiting today. States she has been generally weak. She denies any headache, blurred vision, double vision, numbness, tingling, abdominal pain, chest pain, shortness of breath. States that she does have a chronic cough related to her condition. She denies any sputum production with this. She denies any dysuria but states she has been urinating frequently. Patient denies any recent rash, diarrhea, constipation, back pain, numbness, tingling, dizziness, hematuria, visual changes, or any other complaints. (Deidra Livingston) - Related Data Home Medications Medication Instructions Recorded Confirmed traMADol HCL [Ultram] 50 - 100 mg PO Q6HR PRN 06/20/15 05/17/18 Hylands Leg Cramps 2 - 3 tab PO Q4H PRN 07/06/15 05/17/18 Ascorbic Acid [Vitamin C] 1,000 mg PO DAILY 08/31/15 05/17/18 Latanoprost Ophth [Xalatan 0.005%] 1 drops BOTH EYES HS 08/31/15 05/17/18 Losartan [Cozaar] 25 mg PO DAILY 08/31/15 05/17/18 Lansoprazole 30 mg PO DAILY 07/24/16 05/17/18 Multivitamin [Multivitamins Adult 1 tab PO DAILY 07/24/16 05/17/18 Gummies] Furosemide [Lasix] 20 mg PO BID 08/05/17 05/17/18 Levothyroxine Sodium [Synthroid] 125 mcg PO DAILY 08/05/17 05/17/18 Rivastigmine 4.6MG/24Hr Patch 1 patch TRANSDERM DAILY 08/05/17 05/17/18 [Exelon 4.6MG/24Hr Patch] amLODIPine [Norvasc] 2.5 mg PO DAILY 08/05/17 05/17/18 Nitroglycerin Sl Tabs [Nitrostat] 0.4 mg SUBLINGUAL Q5M PRN 09/28/17 05/17/18 Previous Rx's Medication Instructions Recorded Clopidogrel [Plavix] 75 mg PO DAILY #30 tab 06/21/15 Aspirin 81 mg PO DAILY #30 chewable 07/09/15 Metoprolol Tartrate [Lopressor] 12.5 mg PO BID #60 tab 09/06/15 Allergies Allergy/AdvReac Type Severity Reaction Status Date / Time codeine Allergy Unknown Verified 05/17/18 20:47 shellfish derived [Shellfish] Allergy Rash/Hives Verified 05/17/18 20:47 Sulfa (Sulfonamide Allergy Unknown Verified 05/17/18 20:47 Antibiotics) SEAFOOD Allergy Rash/Hives Uncoded 05/17/18 20:27 Review of Systems ROS Other: All systems not noted in ROS Statement are negative. <Deidra Livingston - Last Filed: 05/17/18 22:17> ROS Other: All systems not noted in ROS Statement are negative. <Luisito Quinn - Last Filed: 05/20/18 08:45> ROS Statement: Those systems with pertinent positive or pertinent negative responses have been documented in the HPI. 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 PER PTS PT HAD AORTIC VALVE SX" TAVR" PROCEDURE BY DR CHOI Past Anesthesia/Blood Transfusion Reactions: No Reported Reaction Date of Last Stent Placement:: 05/2015 Past Psychological History: No Psychological Hx Reported Smoking Status: Never smoker Past Alcohol Use History: None Reported Past Drug Use History: None Reported - Past Family History Father Family Medical History: Coronary Artery Disease (CAD) Sister(s) Family Medical History: Coronary Artery Disease (CAD) <Deidra Livingston - Last Filed: 05/17/18 22:17> General Exam Limitations: no limitations General appearance: alert, in no apparent distress, other (Physical well- developed, well-nourished elderly female patient in no acute distress. Vital signs upon presentation are temperature 102.0F, pulse 104, respirations 20, blood pressure 122/62, pulse ox 96% on room air.) Eye exam: Present: normal appearance, PERRL, EOMI. Absent: scleral icterus, conjunctival injection, periorbital swelling ENT exam: Present: normal exam, normal oropharynx, mucous membranes moist Respiratory exam: Present: normal lung sounds bilaterally. Absent: respiratory distress, wheezes, rales, rhonchi, stridor Cardiovascular Exam: Present: normal rhythm, tachycardia, normal heart sounds. Absent: systolic murmur, diastolic murmur, rubs, gallop, clicks GI/Abdominal exam: Present: soft, normal bowel sounds. Absent: distended, tenderness, guarding, rebound, rigid Extremities exam: Present: full ROM, normal capillary refill, other (Patient has left lower leg erythema, swelling, and is hot to touch. This extends from just below the knee down to the top of the foot, consistent with cellulitis.). Absent: normal inspection, tenderness, pedal edema, joint swelling, calf tenderness Neurological exam: Present: alert, oriented X3, CN II-XII intact Psychiatric exam: Present: normal affect, normal mood Skin exam: Present: warm, dry, intact, normal color. Absent: rash <Deidra Livingston - Last Filed: 05/17/18 22:17> Vital Signs 05/17/18 05/17/18 05/17/18 20:22 22:06 23:05 Temperature 102 F H 98.5 F 99.1 F Pulse Rate 104 H 86 81 Respiratory 20 18 16 Rate Blood Pressure 122/62 118/63 111/52 O2 Sat by Pulse 96 96 96 Oximetry Medical Decision Making - Lab Data Result diagrams: 05/17/18 21:03 05/17/18 21:03 - Radiology Data Radiology results: report reviewed, image reviewed <Deidra Livingston - Last Filed: 05/17/18 22:17> - Lab Data Result diagrams: 05/19/18 18:22 05/19/18 16:29 <Luisito Quinn - Last Filed: 05/20/18 08:45> - Medical Decision Making 82-year-old female patient presents to the emergency department today for evaluation of fever, vomiting, and weakness. Physical examination did reveal evidence of cellulitis to the left lower leg extending from the knee down to the foot. Labs reviewed and did reveal elevated white blood cell count at 20.5 with a neutrophil count of 19.2. BUN was mildly elevated at 21. Lactic acid was normal at 2.0. Patient was febrile upon arrival 102F with a tachycardia 104. Given physical exam findings, lab findings there is concern for sepsis. We'll start IV fluids, IV antibiotics, we'll admit to hospital for further evaluation and monitoring. (Deidra Livingston) I saw this patient in conjunction with the physician miner assistant. I performed independent history and physical exam. Agree with case management. (Luisito Quinn) - Lab Data Lab Results 05/17/18 05/17/18 05/17/18 Range/Units 21:03 21:03 21:03 WBC 20.5 H (3.8-10.6) k/uL RBC 4.03 (3.80-5.40) m/uL Hgb 12.6 (11.4-16.0) gm/dL Hct 38.5 (34.0-46.0) % MCV 95.5 (80.0-100.0) fL MCH 31.2 (25.0-35.0) pg MCHC 32.7 (31.0-37.0) g/dL RDW 12.4 (11.5-15.5) % Plt Count 219 (150-450) k/uL Neutrophils % 93 % Lymphocytes % 3 % Monocytes % 3 % Eosinophils % 0 % Basophils % 0 % Neutrophils # 19.2 H (1.3-7.7) k/uL Lymphocytes # 0.5 L (1.0-4.8) k/uL Monocytes # 0.6 (0-1.0) k/uL Eosinophils # 0.1 (0-0.7) k/uL Basophils # 0.1 (0-0.2) k/uL PT (9.0-12.0) sec INR (<1.2) APTT (22.0-30.0) sec Sodium 131 L (137-145) mmol/L Potassium 3.7 (3.5-5.1) mmol/L Chloride 95 L (98-107) mmol/L Carbon Dioxide 28 (22-30) mmol/L Anion Gap 8 mmol/L BUN 21 H (7-17) mg/dL Creatinine 0.88 (0.52-1.04) mg/dL Est GFR (CKD-EPI)AfAm 70 (>60 ml/min/1.73 sqM) Est GFR (CKD-EPI)NonAf 61 (>60 ml/min/1.73 sqM) Glucose 163 H (74-99) mg/dL Plasma Lactic Acid Ravi (0.7-2.0) mmol/L Calcium 8.9 (8.4-10.2) mg/dL Total Bilirubin 0.5 (0.2-1.3) mg/dL AST 28 (14-36) U/L ALT 24 (9-52) U/L Alkaline Phosphatase 33 L (38-126) U/L Troponin I (0.000-0.034) ng/mL Total Protein 6.7 (6.3-8.2) g/dL Albumin 3.7 (3.5-5.0) g/dL Urine Color Urine Appearance (Clear) Urine pH (5.0-8.0) Ur Specific [place] (1.001-1.035) Urine Protein (Negative) Urine Glucose (UA) (Negative) Urine Ketones (Negative) Urine Blood (Negative) Urine Nitrite (Negative) Urine Bilirubin (Negative) Urine Urobilinogen (<2.0) mg/dL Ur Leukocyte Esterase (Negative) Urine RBC (0-5) /hpf Urine WBC (0-5) /hpf Ur Renal Epithelial Cell (0) /hpf Urine Bacteria (None) /hpf Hyaline Casts (0-2) /lpf Urine Mucus (None) /hpf Influenza Type A RNA Not Detected (Not Detectd) Influenza Type B (PCR) Not Detected (Not Detectd) 05/17/18 05/17/18 05/17/18 Range/Units 21:03 21:03 21:03 WBC (3.8-10.6) k/uL RBC (3.80-5.40) m/uL Hgb (11.4-16.0) gm/dL Hct (34.0-46.0) % MCV (80.0-100.0) fL MCH (25.0-35.0) pg MCHC (31.0-37.0) g/dL RDW (11.5-15.5) % Plt Count (150-450) k/uL Neutrophils % % Lymphocytes % % Monocytes % % Eosinophils % % Basophils % % Neutrophils # (1.3-7.7) k/uL Lymphocytes # (1.0-4.8) k/uL Monocytes # (0-1.0) k/uL Eosinophils # (0-0.7) k/uL Basophils # (0-0.2) k/uL PT 10.2 (9.0-12.0) sec INR 0.9 (<1.2) APTT 22.1 (22.0-30.0) sec Sodium (137-145) mmol/L Potassium (3.5-5.1) mmol/L Chloride (98-107) mmol/L Carbon Dioxide (22-30) mmol/L Anion Gap mmol/L BUN (7-17) mg/dL Creatinine (0.52-1.04) mg/dL Est GFR (CKD-EPI)AfAm (>60 ml/min/1.73 sqM) Est GFR (CKD-EPI)NonAf (>60 ml/min/1.73 sqM) Glucose (74-99) mg/dL Plasma Lactic Acid Ravi 2.0 (0.7-2.0) mmol/L Calcium (8.4-10.2) mg/dL Total Bilirubin (0.2-1.3) mg/dL AST (14-36) U/L ALT (9-52) U/L Alkaline Phosphatase (38-126) U/L Troponin I 0.016 (0.000-0.034) ng/mL Total Protein (6.3-8.2) g/dL Albumin (3.5-5.0) g/dL Urine Color Urine Appearance (Clear) Urine pH (5.0-8.0) Ur Specific [place] (1.001-1.035) Urine Protein (Negative) Urine Glucose (UA) (Negative) Urine Ketones (Negative) Urine Blood (Negative) Urine Nitrite (Negative) Urine Bilirubin (Negative) Urine Urobilinogen (<2.0) mg/dL Ur Leukocyte Esterase (Negative) Urine RBC (0-5) /hpf Urine WBC (0-5) /hpf Ur Renal Epithelial Cell (0) /hpf Urine Bacteria (None) /hpf Hyaline Casts (0-2) /lpf Urine Mucus (None) /hpf Influenza Type A RNA (Not Detectd) Influenza Type B (PCR) (Not Detectd) 05/17/18 Range/Units 21:05 WBC (3.8-10.6) k/uL RBC (3.80-5.40) m/uL Hgb (11.4-16.0) gm/dL Hct (34.0-46.0) % MCV (80.0-100.0) fL MCH (25.0-35.0) pg MCHC (31.0-37.0) g/dL RDW (11.5-15.5) % Plt Count (150-450) k/uL Neutrophils % % Lymphocytes % % Monocytes % % Eosinophils % % Basophils % % Neutrophils # (1.3-7.7) k/uL Lymphocytes # (1.0-4.8) k/uL Monocytes # (0-1.0) k/uL Eosinophils # (0-0.7) k/uL Basophils # (0-0.2) k/uL PT (9.0-12.0) sec INR (<1.2) APTT (22.0-30.0) sec Sodium (137-145) mmol/L Potassium (3.5-5.1) mmol/L Chloride (98-107) mmol/L Carbon Dioxide (22-30) mmol/L Anion Gap mmol/L BUN (7-17) mg/dL Creatinine (0.52-1.04) mg/dL Est GFR (CKD-EPI)AfAm (>60 ml/min/1.73 sqM) Est GFR (CKD-EPI)NonAf (>60 ml/min/1.73 sqM) Glucose (74-99) mg/dL Plasma Lactic Acid Ravi (0.7-2.0) mmol/L Calcium (8.4-10.2) mg/dL Total Bilirubin (0.2-1.3) mg/dL AST (14-36) U/L ALT (9-52) U/L Alkaline Phosphatase (38-126) U/L Troponin I (0.000-0.034) ng/mL Total Protein (6.3-8.2) g/dL Albumin (3.5-5.0) g/dL Urine Color Yellow Urine Appearance Clear (Clear) Urine pH 5.0 (5.0-8.0) Ur Specific [place] 1.012 (1.001-1.035) Urine Protein Negative (Negative) Urine Glucose (UA) Negative (Negative) Urine Ketones Negative (Negative) Urine Blood Trace H (Negative) Urine Nitrite Negative (Negative) Urine Bilirubin Negative (Negative) Urine Urobilinogen <2.0 (<2.0) mg/dL Ur Leukocyte Esterase Negative (Negative) Urine RBC 2 (0-5) /hpf Urine WBC 1 (0-5) /hpf Ur Renal Epithelial Cell <1 (0) /hpf Urine Bacteria Rare H (None) /hpf Hyaline Casts 1 (0-2) /lpf Urine Mucus Rare H (None) /hpf Influenza Type A RNA (Not Detectd) Influenza Type B (PCR) (Not Detectd) - Radiology Data Two-view x-ray of the chest is obtained. Report was reviewed in its entirety. Impression by Dr. Ramirez shows no active cardio pulmonary disease. No adverse change compared to old exam. (Deidra Livingston) Disposition Decision to Admit Reason: Admit from EC Decision Date: 05/17/18 Decision Time: 22:19 <Deidra Livingston - Last Filed: 05/17/18 22:17> <Luisito Quinn - Last Filed: 05/20/18 08:45> Clinical Impression: Cellulitis, Sepsis Disposition: ADMITTED IP TO THIS HOSP Condition: Serious Addendum entered and electronically signed by Deidra Livingston, J[employer]IOR [employer] DEVELOPER-BC, AGACNP - 05/17/18 22:41: EKG DOCUMENTATION: EKG obtained at 2154 shows sinus rhythm with PACs, ventricular rate 86, [place] interval 160, QRS duration 94, QT 380, QTc 454. No evidence of ST elevation or depression
[2018-05-17] MEDS: SODIUM CHLORIDE 0.9% 500 ML 500 ML IV SCH (21:09)
[2018-05-17 21:30] LABS: Albumin 3.7 g/dL (3.5-5.0); Calcium 8.9 mg/dL (8.4-10.2); Potassium 3.7 mmol/L (3.5-5.1); Total Bilirubin 0.5 mg/dL (0.2-1.3); Total Protein 6.7 g/dL (6.3-8.2)
[2018-05-17 21:35] LABS: INR 0.9 (<1.2); Partial Thromboplastin Time 22.1 sec (22.0-30.0); Prothrombin Time 10.2 sec (9.0-12.0)
[2018-05-17 21:36] LABS: Appearance,Urine Clear (Clear); Bacteria,Urine Rare /hpf; Bilirubin,Urine Negative (Negative); Blood,Urine Trace (Negative); Color,Urine Yellow; Glucose,Urine (UA) Negative (Negative); Hyaline Casts,Urine 1 /lpf (0-2); Ketones,Urine Negative (Negative); Leukocyte Esterase,Urine Negative (Negative); Mucus,Urine Rare /hpf; Nitrite,Urine Negative (Negative); Protein,Urine Negative (Negative); RBC,Urine 2 /hpf (0-5); Renal Epithelial Cells,Urine <1 /hpf (0); Specific Gravity,Urine 1.012 (1.001-1.035); Urobilinogen,Urine <2.0 mg/dL (<2.0); WBC,Urine 1 /hpf (0-5)
--- NOTE | 2018-05-17 21:48 | XR ---
EXAMINATION TYPE: XR chest 2V DATE OF EXAM: 05/17/2018 COMPARISON: 09/27/2017 HISTORY: Fever TECHNIQUE: Frontal and lateral views of the chest are obtained. FINDINGS: There is no heart failure nor confluent pneumonic infiltrate. Costophrenic angles are emily r. There are chest leads. There is aortic stent noted. Heart size is normal. Bony thorax is intact. IMPRESSION: No active cardiopulmonary disease. No adverse change compared to old exam.
[2018-05-17 21:57] LABS: Basophils # (A) 0.1 k/uL (0-0.2); Basophils % (A) 0 %; Eosinophils # (A) 0.1 k/uL (0-0.7); Eosinophils % (A) 0 %; HCT 38.5 % (34.0-46.0); HGB 12.6 gm/dL (11.4-16.0); Lymphocytes # (A) 0.5 k/uL (1.0-4.8); Lymphocytes % (A) 3 %; MCH 31.2 pg (25.0-35.0); MCHC 32.7 g/dL (31.0-37.0); MCV 95.5 fL (80.0-100.0); Mean Platelet Volume 7.3; Monocytes # (A) 0.6 k/uL (0-1.0); Monocytes % (A) 3 %; Neutrophils # (A) 19.2 k/uL (1.3-7.7); Neutrophils % (A) 93 %; Platelet Count 219 k/uL (150-450); RBC 4.03 m/uL (3.80-5.40); RDW 12.4 % (11.5-15.5); WBC 20.5 k/uL (3.8-10.6)
[2018-05-17] MEDS ORDERED: ACETAMINOPHEN TAB 325 MG TAB PO PRN (22:15)
[2018-05-17] MEDS ORDERED: ONDANSETRON 4 MG/2 ML VIAL IVP PRN (22:15)
[2018-05-17] MEDS ORDERED: NALOXONE 0.4 MG/ML 1 ML VIAL IV PRN (22:15)
[2018-05-17] MEDS: SODIUM CHLORIDE 0.9% 1,000 ML IV SCH (23:59)
[2018-05-18] MEDS ORDERED: NITROGLYCERIN SL TABS 0.4 MG TAB SUBLINGUAL PRN (00:42)
[2018-05-18] MEDS: ASPIRIN 81 MG PO SCH ×2 (01:05→21:24)
[2018-05-18] MEDS: METOPROLOL TARTRATE 12.5 MG TAB PO SCH ×3 (01:05→21:25)
[2018-05-18] MEDS: MELATONIN 3 MG TABLET PO SCH (01:06)
[2018-05-18] MEDS: LEVOTHYROXINE 125 MCG TAB PO SCH (05:44)
[2018-05-18] MEDS ORDERED: PANTOPRAZOLE 40 MG TABLET PO SCH (07:30)
[2018-05-18 08:56] LABS: Basophils # (A) 0.1 k/uL (0-0.2); Basophils % (A) 0 %; Eosinophils # (A) 0.1 k/uL (0-0.7); Eosinophils % (A) 0 %; HCT 37.1 % (34.0-46.0); HGB 12.1 gm/dL (11.4-16.0); Lymphocytes # (A) 0.6 k/uL (1.0-4.8); Lymphocytes % (A) 3 %; MCH 31.7 pg (25.0-35.0); MCHC 32.6 g/dL (31.0-37.0); MCV 97.3 fL (80.0-100.0); Mean Platelet Volume 7.2; Monocytes # (A) 0.4 k/uL (0-1.0); Monocytes % (A) 2 %; Neutrophils # (A) 18.5 k/uL (1.3-7.7); Neutrophils % (A) 94 %; Platelet Count 200 k/uL (150-450); RBC 3.82 m/uL (3.80-5.40); RDW 12.7 % (11.5-15.5); WBC 19.7 k/uL (3.8-10.6)
[2018-05-18] MEDS: amLODIPine 2.5 MG TAB PO SCH (10:02)
[2018-05-18] MEDS: CLOPIDOGREL 75 MG TAB PO SCH (10:03)
[2018-05-18] MEDS: FUROSEMIDE 20 MG TAB PO SCH ×2 (10:03→18:09)
[2018-05-18] MEDS: LOSARTAN 25 MG TAB PO SCH (10:03)
[2018-05-18] MEDS ORDERED: ALPRAZolam 0.25 MG TAB PO PRN (16:14)
[2018-05-18] MEDS: SODIUM CHLORIDE 0.9% 1,000 ML IV SCH ×2 (18:08→23:08)
[2018-05-18] MEDS: ceFAZolin IN SWFI 2 GM/20 ML SYRINGE IVP SCH ×2 (18:09→23:08)
--- NOTE | 2018-05-18 19:40 | HP ---
HISTORY AND PHYSICAL CHIEF COMPLAINTS: Pain and swelling of the left leg and change in mental status. HISTORY OF PRESENT ILLNESS: This 82-year-old woman with a past medical history of multiple medical problems, including atrial fibrillation, CAD, GERD, hypertension, hyperlipidemia, history of aortic stenosis, status post TAVR, history of paroxysmal atrial fibrillation, being followed by Dr. Tee Esquivel in the outpatient setting, was complaining of some fever, vomiting and change in mental status. Patient felt feverish for the last couple of days. Patient also has significant infection and redness of the left leg. The patient came to [facility] and was admitted for further evaluation and treatment. There is no history any headache, loss of consciousness, seizures, chest pain, palpitations, hematochezia or melena. PAST MEDICAL HISTORY: 1. History of atrial fibrillation. 2. History of CAD. 3. GERD. 4. GI bleed. 5. Hyperlipidemia. 6. History of aortic stenosis. 7. History of cardiac and CAD, stent by Dr. Almeida. HOME MEDICATIONS: 1. Lasix 20 mg p.o. b.i.d. 2. Ultram 50 to 100 q.6 p.r.n. 3. Norvasc 2.5 mg daily. 4. Exelon 4.6 daily. 5. Nitrostat 0.4 subcutaneously p.r.n. 6. Multivitamins 1 p.o. daily. 7. Lopressor 12.5 mg b.i.d. 8. Cozaar 25 mg p.o. daily. 9. Synthroid 125 mcg p.o. daily. 10.Xalatan 1 drop both eyes at bedtime. 11.Lansoprazole 30 mg p.o. daily. 12.Hylands Leg Cramps. 13.Plavix 75 mg p.o. daily. 14.Aspirin 81 mg p.o. daily. 15.Vitamin C 1000 mg p.o. daily. ALLERGIES: 1. CODEINE. 2. SHELLFISH. 3. SULFA. 4. SEAFOOD. FAMILY HISTORY: History of coronary artery disease in the family. SOCIAL HISTORY: No history of smoking. No history of alcohol. REVIEW OF SYSTEMS: ENT: No diminished hearing. No diminished vision. CARDIOVASCULAR SYSTEM: No angina, palpitations. RESPIRATORY SYSTEM: As mentioned earlier. GI: As mentioned earlier. : No dysuria or retention. NERVOUS SYSTEM: As mentioned earlier. ALLERGY/IMMUNOLOGY: No asthma, hayfever. MUSCULOSKELETAL: As mentioned earlier. HEMATOLOGY/ONCOLOGY: No history of anemia. ENDOCRINE: Hypothyroidism. CONSTITUTIONAL: As mentioned earlier. DERMATOLOGY: As mentioned earlier. RHEUMATOLOGY: Negative. PSYCHIATRY: As mentioned earlier. PHYSICAL EXAMINATION: Patient alert, oriented x2. Pulse 78, blood pressure 127/75, respiration 16, temperature 98.2, pulse ox 94% on 2 L. HEENT: Conjunctivae normal. Oral mucosa moist. NECK: No jugular venous distention. No carotid bruit. No lymph node enlargement. CARDIOVASCULAR SYSTEM: S1, S2 muffled. RESPIRATORY SYSTEM: Breath sounds diminished at the bases. A few scattered rhonchi. No crackles. ABDOMEN: Soft, non-tender. No mass palpable. LEGS: Significant cellulitis of the left leg present. NERVOUS SYSTEM: Higher functions as mentioned earlier. Moves all 4 limbs. No focal motor or sensory deficit. LYMPHATICS: No lymph node palpable in neck, axillae or groin. SKIN: No ulcer, rash, bleeding. JOINTS: deforming arthropathy. LABS: WBC 20.5. Sodium 131, potassium 3.7. ASSESSMENT: 1. Acute left leg cellulitis with possible sepsis. 2. Change in mental status, metabolic encephalopathy secondary to possible sepsis. 3. Increased white count. 4. Hyponatremia. 5. History of atrial fibrillation. 6. Coronary artery disease. 7. Gastroesophageal reflux disease. 8. History of gastrointestinal bleed. 9. Hyperlipidemia. 10.History of degenerative joint disease. 11.Hypothyroidism. 12.History aortic stenosis. 13.Paroxysmal atrial fibrillation. 14.History of coronary artery disease, stent. RECOMMENDATIONS AND DISCUSSION: In this 82-year-old woman who presented with multiple complex medical issues, we will monitor the patient closely, continue the current medications, continue with symptomatic treatment. Otherwise at this time I would recommend continuing with the broad-spectrum IV antibiotics. Otherwise, I would recommend an infectious disease evaluation. Obtain cultures. Resume the home medications. DVT prophylaxis. See orders for details. Guarded prognosis. Further recommendations to follow. MMODL / IJN: [id number] / MTDD
[2018-05-18] MEDS: traMADol 50 MG TAB PO PRN (20:05)
[2018-05-18] MEDS ORDERED: SODIUM CHLORIDE 0.9% 500 ML 500 ML IV ONE (21:05)
[2018-05-18] MEDS: HEPARIN SODIUM,PORCINE 5,000 UNIT/ML 1 ML VIAL SQ SCH (21:24)
[2018-05-18] MEDS: LATANOPROST 0.005% OPHTH DROPS 2.5 ML BTL BOTH EYES SCH (21:25)
[2018-05-19] MEDS: CLINDAMYCIN 900 MG in DEXTROSE 5% IN WATER 50 ML IVPB SCH ×8 (00:30→23:12)
[2018-05-19] MEDS: MELATONIN 3 MG TABLET PO SCH ×2 (00:40→21:31)
[2018-05-19] MEDS: LEVOTHYROXINE 125 MCG TAB PO SCH (06:08)
[2018-05-19] MEDS: traMADol 50 MG TAB PO PRN (06:08)
--- NOTE | 2018-05-19 07:22 | CONS ---
CONSULTATION DATE OF SERVICE: 05/18/2018. REASON FOR CONSULTATION: Left leg cellulitis. HISTORY OF PRESENT ILLNESS: The patient is an 82-year-old female presenting to the ER at [facility] after having chief complaints of fever and mental status changes. Apparently, her symptoms has been going on for a few days before she presented to hospital. On the day of presentation, the patient was noticed to slightly confused and unable to identify the correct date and apparently had 2 episodes of vomiting as well. With these symptoms, the patient was brought into the ER at [facility]. On arrival to the ER, the patient did have a fever of 102 degrees Fahrenheit with another fever of 102 this evening. The patient was tachycardic. The patient did have elevated white count 20,000, repeat is 19.7. Patient's UA was negative. Influenza serology was negative. The patient did have chest x-ray negative for any pneumonia. The patient was started on Rocephin and admitted to the hospital. Infectious disease was consulted for further recommendation regarding antibiotic therapy. On further questioning, patient noticed to have swelling and redness to her left leg that apparently has been going on for a day or two before she presented to the hospital. The patient did have dull aching pain to the left leg with intensity about 4 to 5 out of 10 and no radiation. Currently, no skin breakdown or any drainage. REVIEW OF SYSTEMS: Positive points have been mentioned in HPI. Rest of the systems have been negative. PAST MEDICAL HISTORY: Atrial fibrillation, coronary artery disease and gastroesophageal reflux disease, hyperlipidemia, osteoarthritis, hypothyroidism. PAST SURGICAL HISTORY: PTCA with stent, cardiac valve replacement, hysterectomy and joint replacement. SOCIAL HISTORY: No history of smoking, drinking or drug use. FAMILY HISTORY: Father and sister with a history of coronary artery disease. ALLERGIES: Allergies to CODEINE, SULFA and SEAFOOD. MEDICATIONS: Medications include the patient is currently on Tylenol, Xanax, Norvasc, vitamin C, aspirin, Rocephin 1 gram daily, folic acid, Lasix, heparin, Synthroid, Cozaar, melatonin, Lopressor, Theragran, Narcan, Nitrostat, Zofran, Protonix, and Ultram. PHYSICAL EXAMINATION: On examination, blood pressure is 92/46, pulse of 81, temperature 97.9, T-max 101.2. She is 96% on 2 L of nasal cannula. General description is a middle-aged female lying in bed in no distress. No tachypnea or accessory muscle of respiration use. HEENT examination shows no pallor or scleral icterus. Oral mucous membrane is dry. No pharyngeal erythema or thrush. NECK: Trachea central. No thyromegaly. LUNGS: Unlabored breathing, clear to auscultation anteriorly. No wheeze or crackle. HEART: S1, S2. Regular rate and rhythm. ABDOMEN: Soft, no tenderness. No guarding or rigidity. EXTREMITIES: Left leg with swelling and redness which is diffuse, warm to touch. No skin breakdown. No drainage. NEUROLOGICAL: The patient is awake, alert, oriented x3. Mood and affect normal. LABS: Hemoglobin is 12.1, white count 19.7, BUN of 21, creatinine 0.88. Urine culture has been negative. DIAGNOSTIC IMPRESSION AND PLAN: Patient admitted to the hospital with sepsis in this patient who did have a fever 102 degrees Fahrenheit. The patient was tachycardiac. Did have elevated white count. Source was acute left lower extremity cellulitis in this patient who does have a diffuse swelling and redness likely representing a cellulitis. PLAN: 1. Discontinue Rocephin. 2. Will start the patient on cefazolin 2 grams q.8 hours. 3. Jarret wrap to the left leg from just above toe to below knee. 4. We will follow up on clinical condition and culture to further adjust medication if needed. Thank you for this consultation. Will follow this patient along with you. MMODL / IJN: [id number] /
[2018-05-19] MEDS ORDERED: PANTOPRAZOLE 40 MG TABLET PO SCH (07:30)
[2018-05-19 07:53] LABS: Basophils % (A) 0 %; Eosinophils % (A) 0 %; HGB 11.1 gm/dL (11.4-16.0); Lymphocytes # (A) 0.7 k/uL (1.0-4.8); Lymphocytes % (A) 4 %; MCH 31.6 pg (25.0-35.0); MCHC 32.6 g/dL (31.0-37.0); Mean Platelet Volume 7.6; Monocytes # (A) 0.5 k/uL (0-1.0); Monocytes % (A) 3 %; Neutrophils # (A) 15.4 k/uL (1.3-7.7); Neutrophils % (A) 92 %; Platelet Count 174 k/uL (150-450); RBC 3.51 m/uL (3.80-5.40); RDW 12.5 % (11.5-15.5); WBC 16.8 k/uL (3.8-10.6)
[2018-05-19 08:09] LABS: Potassium 3.1 mmol/L (3.5-5.1)
[2018-05-19] MEDS: FUROSEMIDE 20 MG TAB PO SCH ×2 (08:16→16:27)
[2018-05-19] MEDS: LOSARTAN 25 MG TAB PO SCH (08:16)
[2018-05-19] MEDS: ASCORBIC ACID 500 MG TAB PO SCH (08:16)
[2018-05-19] MEDS: METOPROLOL TARTRATE 12.5 MG TAB PO SCH ×2 (08:18→21:31)
[2018-05-19] MEDS: amLODIPine 2.5 MG TAB PO SCH (08:18)
[2018-05-19] MEDS: ceFAZolin IN SWFI 2 GM/20 ML SYRINGE IVP SCH ×3 (08:40→23:12)
[2018-05-19] MEDS ORDERED: PANTOPRAZOLE 40 MG/10 ML VIAL IVP SCH (09:00)
[2018-05-19] MEDS: CLOPIDOGREL 75 MG TAB PO SCH (10:06)
[2018-05-19] MEDS: HEPARIN SODIUM,PORCINE 5,000 UNIT/ML 1 ML VIAL SQ SCH ×2 (10:06→21:31)
[2018-05-19] MEDS ORDERED: Potassium Replacement Protocol 1 EACH MISC MISCELLANE PRN ×2 (10:50→11:12)
[2018-05-19 11:15] VITALS: BMI 28.3
--- NOTE | 2018-05-19 12:30 | P.CONS ---
History of Present Illness - Reason for Consult Consult date: 05/19/18 Positive FOBT Requesting physician: Marquise Mchugh - Chief Complaint Pain swelling left leg change in mental status cellulitis - History of Present Illness 82 year old female admitted with pain swelling of the left leg cellulitis change in mental status with a past medical history of iron deficiency anemia previously on oral iron presently not, GI bleed 2016, aortic stenosis status post TAVR, paroxysmal atrial fibrillation maintained on aspirin Plavix. Consult requested for looser bowel movements positive FOBT. Nursing reports to loose bowel movements yesterday that were black in color. states she's been off iron for few weeks because her iron indices outpatient were acceptable. Admission hemoglobin 12.6 presently 11.1. MCV 97. Platelet 174. INR 0.9. Clostridium difficile EIA negative. Influenza negative. BUN 14. Creatinine 0.7. EGD 2016 for evaluation of severe symptomatic anemia and dark-colored bowel movements identified antral erosive gastritis no active bleeding. Small hiatal hernia with LA grade a reflux esophagitis. states capsule study was done as well and reported as negative. EGD/Colonoscopy May [address] Nelson scattered angiectasia in the duodenum not requiring cauterization and sigmoid diverticulosis. Denies abdominal pain gross hematemesis or hematochezia. Review of Systems Constitutional: Denies fever, chills, sweats, weight gain, or loss. HEENT: Negative for migraines, blurred vision or loss, earaches, drainage, tinnitus, oral mucosal lesions, dysphagia, or odynophagia. CARDIAC: Negative for chest pain, arrhythmias, or palpitation. RESPIRATORY: Negative for shortness of breath, hemoptysis, cough, or sputum production. GI: See HPI for pertinent findings. : Negative for hematuria, urgency, frequency, polyuria, or dysuria. GYNc: Negative vaginal discharge. MUSCULOSKELETAL: Negative for muscle aches, swelling, arthritis, and arthralgias. NEUROLOGIC: Negative for stroke or TIA. ENDOCRINE: Negative for thyroid problems. SKIN: Left lower extremity erythema swallowing pain. PSYCHIATRIC: Negative history for depression and anxiety Past Medical History Past Medical History: Atrial Fibrillation, Coronary Artery Disease (CAD), GERD/ Reflux, GI Bleed, Hyperlipidemia, Osteoarthritis (OA), Thyroid Disorder Additional Past Medical History / Comment(s): Aortic stenosis status post TAPVR , proximal atrial fibrillation, chronic constipation, previous episodes of GI bleed that was worked up and the patient was found to have some distal esophagitis and duodenitis and some mild gastritis, diverticulosis, coronary artery disease with previous angioplasty of the circumflex/stenting, hypothyroidism, hiatal hernia, 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 PER PTS PT HAD AORTIC VALVE SX" TAVR" PROCEDURE BY DR CHOI Past Anesthesia/Blood Transfusion Reactions: No Reported Reaction Date of Last Stent Placement:: 05/2015 Past Psychological History: No Psychological Hx Reported Smoking Status: Never smoker Past Alcohol Use History: None Reported Past Drug Use History: None Reported - Past Family History Father Family Medical History: Coronary Artery Disease (CAD) Sister(s) Family Medical History: Coronary Artery Disease (CAD) Medications and Allergies Home Medications Medication Instructions Recorded Confirmed Type traMADol HCL [Ultram] 50 - 100 mg PO Q6HR PRN 06/20/15 05/17/18 History Clopidogrel [Plavix] 75 mg PO DAILY #30 tab 06/21/15 05/17/18 Rx Hylands Leg Cramps 2 - 3 tab PO Q4H PRN 07/06/15 05/17/18 History Aspirin 81 mg PO DAILY #30 chewable 07/09/15 05/17/18 Rx Ascorbic Acid [Vitamin C] 1,000 mg PO DAILY 08/31/15 05/17/18 History Latanoprost Ophth [Xalatan 0.005%] 1 drops BOTH EYES HS 08/31/15 05/17/18 History Losartan [Cozaar] 25 mg PO DAILY 08/31/15 05/17/18 History Metoprolol Tartrate [Lopressor] 12.5 mg PO BID #60 tab 09/06/15 05/17/18 Rx Lansoprazole 30 mg PO DAILY 07/24/16 05/17/18 History Multivitamin [Multivitamins Adult 1 tab PO DAILY 07/24/16 05/17/18 History Gummies] Furosemide [Lasix] 20 mg PO BID 08/05/17 05/17/18 History Levothyroxine Sodium [Synthroid] 125 mcg PO DAILY 08/05/17 05/17/18 History Rivastigmine 4.6MG/24Hr Patch 1 patch TRANSDERM DAILY 08/05/17 05/17/18 History [Exelon 4.6MG/24Hr Patch] amLODIPine [Norvasc] 2.5 mg PO DAILY 08/05/17 05/17/18 History Nitroglycerin Sl Tabs [Nitrostat] 0.4 mg SUBLINGUAL Q5M PRN 09/28/17 05/17/18 History Allergies Allergy/AdvReac Type Severity Reaction Status Date / Time codeine Allergy Unknown Verified 05/17/18 20:47 shellfish derived [Shellfish] Allergy Rash/Hives Verified 05/17/18 20:47 Sulfa (Sulfonamide Allergy Unknown Verified 05/17/18 20:47 Antibiotics) SEAFOOD Allergy Rash/Hives Uncoded 05/17/18 20:27 Physical Exam Vitals: Vital Signs Temp Pulse Pulse Resp BP Pulse Ox 05/19/18 08:00 84 16 05/19/18 07:06 99.1 F 89 16 104/57 94 L 05/19/18 05:00 98.8 F 86 16 159/66 99 05/19/18 00:38 97.8 F 83 18 119/57 100 05/19/18 00:00 84 18 05/18/18 23:04 98.0 F 76 18 93/49 97 05/18/18 21:00 97.9 F 81 16 92/46 96 05/18/18 19:37 99.1 F 05/18/18 18:15 101.2 F H 104 H 111/58 05/18/18 13:44 98.2 F 78 16 127/75 94 L Intake and Output 05/18/18 05/19/18 05/19/18 22:59 06:59 14:59 Intake Total 590 850 Balance 590 850 Intake: Intake, IV Titration 850 Amount Clindamycin 900 mg In 50 Dextrose 5% in Water 50 ml @ 50 mls/hr IVPB Q8HR [facility] Rx#:[id number] Sodium Chloride 0.9% 1, 300 000 ml @ 50 mls/hr IV . Q20H [facility] Rx#:[id number] Sodium Chloride 0.9% 500 500 ml 500 ml @ 999 mls/hr IV .Q31M ONE Rx#:[id number] Oral 590 Other: Voiding Method Bedpan Bedpan # Voids 1 General appearance: The patient is alert, oriented, in no acute distress. HET: Head is normocephalic and atraumatic. Pupils are equal and reactive. Oropharynx is clear without lesions. Neck: Supple without lymphadenopathy. Trachea midline. Heart: S1 S2. Regular rate and rhythm. Lungs: No crackles or wheezes are heard. Abdomen: Soft, nontender, nondistended with bowel sounds. No peritoneal signs. No palpable organomegaly or masses. Extremities: Left lower extremity dressing. Normal skin color and turgor. No cyanosis, rash, ulceration, clubbing, or edema. Radial and pedal pulses are 2/ 4 bilaterally. Neurological: No focal deficits. Strength and sensation are grossly intact. Results CBC & Chem 7: 05/20/18 08:09 05/20/18 08:09 Labs: Abnormal Lab Results - Last 24 Hours (Table) 05/18/18 05/19/18 05/19/18 Range/Units 15:51 07:26 07:26 WBC 16.8 H (3.8-10.6) k/uL RBC 3.51 L (3.80-5.40) m/uL Hgb 11.1 L (11.4-16.0) gm/dL Neutrophils # 15.4 H (1.3-7.7) k/uL Lymphocytes # 0.7 L (1.0-4.8) k/uL Sodium 131 L (137-145) mmol/L Potassium 3.1 L (3.5-5.1) mmol/L Glucose 119 H (74-99) mg/dL Calcium 8.0 L (8.4-10.2) mg/dL Stool Occult Blood Positive H (Negative) Microbiology - Last 24 Hours (Table) 05/17/18 21:05 Urine Culture - Final Urine,Catheterized 05/17/18 21:03 Blood Culture - Preliminary Blood No Growth after 24 hours Assessment and Plan (1) GI bleed Narrative/Plan: 82-year-old female admitted with left lower extremity sepsis cellulitis with a history of iron deficiency anemia previously receiving oral iron supplementation with new development of melena bowel movements with slight drop in hemoglobin with a history of GI bleed in 2016 status post EGD colonoscopy with no evidence of active bleeding however duodenal angiectasia was identified as well as colonic diverticulosis. Possible recurrent upper GI bleed small bowel source from angiectasia exacerbated by dual anti platelet therapy. Current Visit: Yes Status: Acute Code(s): K92.2 - GASTROINTESTINAL HEMORRHAGE, UNSPECIFIED SNOMED Code(s): 17903210 (2) Guaiac positive stools Current Visit: Yes Status: Acute Code(s): R19.5 - OTHER FECAL ABNORMALITIES SNOMED Code(s): 22835100 (3) Cellulitis Current Visit: Yes Status: Acute Code(s): L03.90 - CELLULITIS, UNSPECIFIED SNOMED Code(s): 059470790 (4) Sepsis Current Visit: Yes Status: Acute Code(s): A41.9 - SEPSIS, UNSPECIFIED ORGANISM SNOMED Code(s): 48772387 (5) History of GI bleed Current Visit: Yes Status: Acute Code(s): Z87.19 - PERSONAL HISTORY OF OTHER DISEASES OF THE DIGESTIVE SYSTEM SNOMED Code(s): 552942872 (6) Status post transcatheter aortic valve replacement Current Visit: Yes Status: Acute Code(s): Z95.2 - PRESENCE OF PROSTHETIC HEART VALVE SNOMED Code(s): 2921985711723 (7) Paroxysmal atrial fibrillation Current Visit: Yes Status: Acute Code(s): I48.0 - PAROXYSMAL ATRIAL FIBRILLATION SNOMED Code(s): 591486299 Plan: 1. CBC monitoring 1800 and in a.m. iron indices. Protonix 40 mg daily. Inpatient EGD possible capsule discussed contingent on clinical course. We'll follow closely with you. Aspirin Plavix presently on hold. Thank you for this kind referral and the opportunity to participate in the care of your patient. This consultation was discussed with Dr. Scott. The impression and plan of care have been directed as dictated.
[2018-05-19] MEDS: MULTIVITAMINS, THERA 1 EACH TAB PO SCH (13:34)
[2018-05-19] MEDS: FOLIC ACID 1 MG TAB PO SCH (13:34)
[2018-05-19] MEDS: POTASSIUM CHLORIDE ER 20 MEQ TAB.ER PO SCH ×4 (13:34→22:12)
[2018-05-19] MEDS: THIAMINE 100 MG TAB PO SCH (13:34)
[2018-05-19 18:39] LABS: Basophils % (A) 0 %; Eosinophils % (A) 0 %; HCT 35.2 % (34.0-46.0); HGB 11.7 gm/dL (11.4-16.0); Lymphocytes # (A) 0.9 k/uL (1.0-4.8); Lymphocytes % (A) 6 %; MCH 32.5 pg (25.0-35.0); MCHC 33.3 g/dL (31.0-37.0); MCV 97.4 fL (80.0-100.0); Mean Platelet Volume 8.1; Monocytes # (A) 0.5 k/uL (0-1.0); Monocytes % (A) 3 %; Neutrophils # (A) 14.3 k/uL (1.3-7.7); Neutrophils % (A) 89 %; Platelet Count 176 k/uL (150-450); RBC 3.62 m/uL (3.80-5.40); RDW 12.7 % (11.5-15.5)
--- NOTE | 2018-05-19 18:41 | PN ---
PROGRESS NOTE DATE OF SERVICE: 05/19/2018 This 82-year-old woman who was admitted with acute left leg cellulitis and sepsis had some increased erythema on the left thigh last night, but today it seems to be improving. The patient is on IV antibiotics. Infectious Disease and Gastroenterology are following the patient. No chest pain or palpitation. No fever. Gastroenterology saw the patient for guaiac-positive stools. On exam, alert and oriented x3. Pulse 83, blood pressure 98/50, respiration 18, temperature 97.3, pulse ox 96% on room air. HEENT: Conjunctivae normal. NECK: No jugular venous distention. CARDIOVASCULAR SYSTEM: S1, S2 muffled. RESPIRATORY SYSTEM: Breath sounds diminished at the bases. Bilateral scattered rhonchi and crackles. ABDOMEN: Soft, non-tender. LEGS: swelling and erythema of the left leg present. As mentioned earlier, the thigh erythema is improving. NERVOUS SYSTEM: Higher functions as mentioned earlier. Moves all 4 limbs. No focal motor or sensory deficit. LYMPHATICS: No lymph node palpable in neck, axillae or groin. SKIN: No ulcer, rash, bleeding. ASSESSMENT: 1. Acute left leg cellulitis with possible sepsis. 2. Change in mental status, metabolic encephalopathy secondary to possible sepsis. 3. Relative hypotension. 4. Increased white count. 5. Hyponatremia. 6. History of atrial fibrillation. 7. History of coronary artery disease. 8. History of gastroesophageal reflux disease. 9. History of gastrointestinal bleed. 10.Hyperlipidemia. 11.History of degenerative joint disease. 12.History of hypothyroidism. 13.History of aortic stenosis. 14.Paroxysmal atrial fibrillation. 15.History of coronary artery disease, stent. RECOMMENDATIONS AND DISCUSSION: I recommend to continue current medications, continue with the monitoring, symptomatic treatment. Hold Norvasc. Reduce the dose of losartan to 12.5 mg daily. Closely follow with Infectious Disease. Follow the cultures. Guarded prognosis. Further recommendations to follow. MMODL / IJN: [id number] / MTDD
--- NOTE | 2018-05-19 19:53 | PN ---
PROGRESS NOTE DATE OF SERVICE: 05/19/2018 REASON FOR FOLLOWUP: Left leg cellulitis. INTERVAL HISTORY: The patient did have another fever last night of 101.2 degrees Fahrenheit. The patient also apparently had some redness spreading along the left medial thigh area. Clindamycin was added. The patient is afebrile this morning. She is breathing comfortably. Denies having any chest pain or any cough. No abdominal pain or any worsening pain in the left leg area. PHYSICAL EXAMINATION: Blood pressure is 98/50 with a pulse of 83, temperature 97.8. She is 96% on room air. General description is an elderly female lying in bed in no distress. RESPIRATORY SYSTEM: Unlabored breathing. Clear to auscultation anteriorly. HEART: S1, S2. Regular rate and rhythm. ABDOMEN: Soft. No tenderness. Left leg swelling and redness have improved. LABS: Hemoglobin is 11.1, white count 16.8 with a BUN of 14, creatinine 0.76. Blood culture has been negative. DIAGNOSTIC IMPRESSION AND PLAN: Patient with acute left lower extremity cellulitis in this patient with diffuse swelling and redness, likely streptococcal disease, currently on cefazolin and clindamycin, to continue for another 24-48 hours. If the patient does show overall clinical improvement, she will finish therapy with oral antibiotics. Continue with supportive care. MMODL / IJN: [id number] /
[2018-05-19] MEDS: ASPIRIN 81 MG PO SCH (21:31)
[2018-05-19] MEDS: LATANOPROST 0.005% OPHTH DROPS 2.5 ML BTL BOTH EYES SCH (21:31)
[2018-05-20 00:14] LABS: Iron Saturation 3.04 (12.00-45.00)
[2018-05-20] MEDS: LEVOTHYROXINE 125 MCG TAB PO SCH (05:35)
[2018-05-20] MEDS: CLINDAMYCIN 900 MG in DEXTROSE 5% IN WATER 50 ML IVPB SCH ×6 (08:15→23:45)
[2018-05-20] MEDS: ceFAZolin IN SWFI 2 GM/20 ML SYRINGE IVP SCH ×3 (08:15→23:45)
[2018-05-20 08:54] LABS: Basophils % (A) 0 %; Eosinophils # (A) 0.2 k/uL (0-0.7); Eosinophils % (A) 1 %; HCT 35.4 % (34.0-46.0); HGB 11.3 gm/dL (11.4-16.0); Lymphocytes # (A) 1.4 k/uL (1.0-4.8); Lymphocytes % (A) 13 %; MCHC 31.8 g/dL (31.0-37.0); MCV 97.4 fL (80.0-100.0); Mean Platelet Volume 7.9; Monocytes # (A) 0.5 k/uL (0-1.0); Monocytes % (A) 5 %; Neutrophils # (A) 8.8 k/uL (1.3-7.7); Neutrophils % (A) 79 %; Platelet Count 192 k/uL (150-450); RBC 3.63 m/uL (3.80-5.40); RDW 12.5 % (11.5-15.5); WBC 11.1 k/uL (3.8-10.6)
[2018-05-20 09:14] LABS: Calcium 8.4 mg/dL (8.4-10.2)
[2018-05-20] MEDS: PANTOPRAZOLE 40 MG TABLET PO SCH (09:38)
[2018-05-20] MEDS: ASCORBIC ACID 500 MG TAB PO SCH (09:38)
[2018-05-20] MEDS: CLOPIDOGREL 75 MG TAB PO SCH (09:39)
[2018-05-20] MEDS: FUROSEMIDE 20 MG TAB PO SCH ×2 (09:39→17:13)
[2018-05-20] MEDS: HEPARIN SODIUM,PORCINE 5,000 UNIT/ML 1 ML VIAL SQ SCH ×2 (09:40→20:48)
[2018-05-20] MEDS: LOSARTAN 25 MG TAB PO SCH (09:40)
[2018-05-20] MEDS: METOPROLOL TARTRATE 12.5 MG TAB PO SCH ×2 (09:41→20:48)
[2018-05-20] MEDS: MULTIVITAMINS, THERA 1 EACH TAB PO SCH (11:16)
[2018-05-20] MEDS: THIAMINE 100 MG TAB PO SCH (11:16)
[2018-05-20] MEDS: FOLIC ACID 1 MG TAB PO SCH (11:16)
[2018-05-20] MEDS ORDERED: IPRATROPIUM-ALBUTEROL 3 ML NEB INHALATION PRN (11:58)
[2018-05-20] MEDS: IPRATROPIUM-ALBUTEROL 3 ML NEB INHALATION SCH ×2 (12:07→21:17)
--- NOTE | 2018-05-20 18:51 | PN ---
PROGRESS NOTE DATE OF SERVICE: 05/20/2018 This 82-year-old woman was admitted with acute left leg cellulitis with possible sepsis and also had change in mental status. No chest pain. No palpitations. No fever. On exam, alert and oriented x3. Pulse is 59, blood pressure 115/56, respiration 20, temperature 96.7, pulse ox 96% on room air. HEENT: Conjunctivae normal. NECK: No jugular venous distention. CARDIOVASCULAR SYSTEM: S1, S2 muffled. RESPIRATORY SYSTEM: Breath sounds diminished at the bases. Scattered rhonchi and crackles. ABDOMEN: Soft, non-tender. LEGS: No edema. No swelling. NERVOUS SYSTEM: No focal deficit. LABS: WBC 11.1, hemoglobin 11.3. ASSESSMENT: 1. Acute left leg cellulitis with possible sepsis, present on admission. 2. Change in mental status, acute toxic metabolic encephalopathy secondary to possible sepsis. 3. Reactive hypotension. 4. Increased white count. 5. Hyponatremia. 6. History of atrial fibrillation. 7. History of coronary artery disease. 8. History of gastroesophageal reflux disease. 9. History of gastrointestinal bleed. 10.History of hyperlipidemia. 11.History of degenerative joint disease. 12.History of hypothyroidism. 13.History of aortic stenosis. 14.Paroxysmal atrial fibrillation. 15.History of coronary artery disease and stent. RECOMMENDATIONS AND DISCUSSION: I recommend to continue current medications, continue with the monitoring, symptomatic treatment. Otherwise at this time continue the antibiotics. Closely follow with Infectious Disease. Guarded prognosis. Further recommendations to follow. MMODL / IJN: [id number] /
[2018-05-20] MEDS: SODIUM CHLORIDE 0.9% 1,000 ML IV SCH ×2 (19:32→23:49)
--- NOTE | 2018-05-20 20:27 | PN ---
PROGRESS NOTE DATE OF SERVICE: 05/20/2018. REASON FOR FOLLOWUP: Left leg cellulitis. INTERVAL HISTORY: The patient is currently afebrile. She is breathing comfortably. Denies having any chest pain. No shortness of breath. No abdominal pain. The left leg swelling and redness have slightly decreased. No open wound or any drainage. PHYSICAL EXAMINATION: Her blood pressure is 115/53 with a pulse of 66, temperature 96.7. She is 92% on room air. General description is an elderly female lying in bed in no distress. RESPIRATORY SYSTEM: Unlabored breathing. Clear to auscultation anteriorly. HEART: S1, S2. Regular rate and rhythm. ABDOMEN: Soft, no tenderness. Left leg swelling and redness are decreased. LABS: Hemoglobin 11.8, white count 11.1, BUN of 14, creatinine 0.83. DIAGNOSTIC IMPRESSION AND PLAN: Patient with acute left lower extremity cellulitis in patient admitted to hospital with sepsis. The patient's fever has resolved and white count has improved. The patient is currently on cefazolin. Plan to continue once the patient has shown overall clinical improvement. Plan will be to finish therapy with oral Keflex. Continue with Jarret wrap to keep the swelling down and continue supportive care. MMODL / IJN: [id number] /
[2018-05-20] MEDS: MELATONIN 3 MG TABLET PO SCH (20:48)
[2018-05-20] MEDS: ASPIRIN 81 MG PO SCH (20:48)
[2018-05-20] MEDS: LATANOPROST 0.005% OPHTH DROPS 2.5 ML BTL BOTH EYES SCH (20:48)
--- NOTE | 2018-05-20 21:36 | P.PN ---
Subjective Progress Note Date: 05/20/18 Principal diagnosis: Iron deficiency anemia, stool positive for occult blood Patient seen lying in bed, tolerating her diet. No reports of GI bleeding. No abdominal pain. Objective - Vital Signs Vital signs: Vital Signs Temp 97.6 F 05/20/18 20:41 Pulse 84 05/20/18 21:27 Resp 16 05/20/18 21:27 BP 148/62 05/20/18 20:41 Pulse Ox 94 L 05/20/18 20:41 Intake & Output 05/20/18 05/20/18 05/21/18 06:59 18:59 06:59 Intake Total 575 Balance 575 Intake: Intake, IV Titration 575 Amount Clindamycin 900 mg In 50 Dextrose 5% in Water 50 ml @ 50 mls/hr IVPB Q8HR [facility] Rx#:[id number] Sodium Chloride 0.9% 1, 525 000 ml @ 50 mls/hr IV . Q20H [facility] Rx#:[id number] Other: Voiding Method Bedside Commode # Voids 2 1 1 - Exam On physical examination, patient appears comfortable in no apparent distress. HEAD: Normocephalic, atraumatic. EYES: No scleral icterus. No conjunctival injection. MOUTH: No lesions, tongue midline. NECK: Trachea midline, no gross abnormalities. CHEST: Clear to auscultation with no wheezing or rhonchi appreciated. HEART: Regular rate and rhythm. ABDOMEN: Soft, obese. Bowel sounds are positive. No organomegaly. No guarding or rigidity. EXTREMITIES: No pedal edema, left lower extremity is wrapped. SKIN: No rashes, no jaundice. NEUROLOGIC: Alert and oriented x3. No focal deficits. - Labs CBC & Chem 7: 05/20/18 08:09 05/20/18 08:09 Labs: Abnormal Lab Results - Last 24 Hours (Table) 05/19/18 05/20/18 05/20/18 Range/Units 16:29 08:09 08:09 WBC 11.1 H (3.8-10.6) k/uL RBC 3.63 L (3.80-5.40) m/uL Hgb 11.3 L (11.4-16.0) gm/dL Neutrophils # 8.8 H (1.3-7.7) k/uL Sodium 133 L (137-145) mmol/L Glucose 109 H (74-99) mg/dL Iron 7 L (50-170) ug/dL Iron Saturation 3.04 L (12.00-45.00) Ferritin 1177.1 H (10.0-291.0) ng/mL Microbiology - Last 24 Hours (Table) 05/17/18 21:03 Blood Culture - Preliminary Blood No Growth after 48 hours Assessment and Plan (1) Iron deficiency anemia Narrative/Plan: Patient with a history of iron deficiency anemia who had her iron therapy stopped recently who presents to the hospital for treatment of lower extremity cellulitis. The patient was found to be slightly anemic however hemoglobin has remained stable during her stay. No signs or symptoms GI bleeding. Stool was positive for occult blood. Current Visit: Yes Status: Acute Code(s): D50.9 - IRON DEFICIENCY ANEMIA, UNSPECIFIED SNOMED Code(s): 72420332 (2) Guaiac positive stools Narrative/Plan: Patient has had stable hemoglobin with last 3 blood draws being 11.1, 11.7 and 11.3. No signs or symptoms of GI bleeding. Current Visit: Yes Status: Acute Code(s): R19.5 - OTHER FECAL ABNORMALITIES SNOMED Code(s): 28680393 Plan: Supportive care Okay for diet Continue medical management of lower currently cellulitis No plans for endoscopic evaluation at this time Consider reinitiation of iron therapy given iron indices suggestive of a deficiency Continue to monitor for signs or symptoms of GI bleeding Thank you for allowing us to participate in the care of this patient, the GI service will stand by at this time, please call us back with any
[2018-05-21] MEDS: LEVOTHYROXINE 125 MCG TAB PO SCH (05:49)
[2018-05-21] MEDS: IPRATROPIUM-ALBUTEROL 3 ML NEB INHALATION SCH ×3 (07:29→19:24)
[2018-05-21 08:53] LABS: Basophils % (A) 0 %; Eosinophils # (A) 0.1 k/uL (0-0.7); Eosinophils % (A) 2 %; HCT 36.2 % (34.0-46.0); HGB 11.6 gm/dL (11.4-16.0); Lymphocytes # (A) 1.2 k/uL (1.0-4.8); Lymphocytes % (A) 15 %; MCH 31.4 pg (25.0-35.0); Mean Platelet Volume 8.1; Monocytes # (A) 0.6 k/uL (0-1.0); Monocytes % (A) 7 %; Neutrophils # (A) 5.8 k/uL (1.3-7.7); Neutrophils % (A) 73 %; Platelet Count 209 k/uL (150-450); RBC 3.69 m/uL (3.80-5.40); RDW 12.8 % (11.5-15.5); WBC 7.9 k/uL (3.8-10.6)
[2018-05-21 09:00] LABS: Calcium 8.9 mg/dL (8.4-10.2); Potassium 4.4 mmol/L (3.5-5.1)
[2018-05-21] MEDS: ceFAZolin IN SWFI 2 GM/20 ML SYRINGE IVP SCH ×3 (09:00→23:39)
[2018-05-21] MEDS: CLOPIDOGREL 75 MG TAB PO SCH (09:01)
[2018-05-21] MEDS: PANTOPRAZOLE 40 MG TABLET PO SCH (09:01)
[2018-05-21] MEDS: HEPARIN SODIUM,PORCINE 5,000 UNIT/ML 1 ML VIAL SQ SCH ×2 (09:02→21:09)
[2018-05-21] MEDS: FUROSEMIDE 20 MG TAB PO SCH ×2 (09:02→17:03)
[2018-05-21] MEDS: MULTIVITAMINS, THERA 1 EACH TAB PO SCH (09:02)
[2018-05-21] MEDS: METOPROLOL TARTRATE 12.5 MG TAB PO SCH ×2 (09:02→21:08)
[2018-05-21] MEDS: FOLIC ACID 1 MG TAB PO SCH (09:05)
[2018-05-21] MEDS: LOSARTAN 25 MG TAB PO SCH (09:06)
[2018-05-21] MEDS: ASCORBIC ACID 500 MG TAB PO SCH (09:06)
[2018-05-21] MEDS: THIAMINE 100 MG TAB PO SCH (09:06)
[2018-05-21] MEDS: CLINDAMYCIN 900 MG in DEXTROSE 5% IN WATER 50 ML IVPB SCH ×6 (09:54→23:39)
[2018-05-21] MEDS ORDERED: METOPROLOL TARTRATE 50 MG TAB PO STA (13:40)
--- NOTE | 2018-05-21 17:52 | PN ---
PROGRESS NOTE DATE OF SERVICE: 05/21/2018. REASON FOR FOLLOWUP: Left leg cellulitis. INTERVAL HISTORY: The patient is currently afebrile. The patient is breathing comfortably. The patient denies having any chest pain. No shortness of breath or cough. No abdominal pain or any worsening pain to the left leg area. PHYSICAL EXAMINATION: Blood pressure is 115/67, pulse of 78, temperature of 97.1. She is 93% on room air. General description is an elderly female lying in bed in no distress. RESPIRATORY SYSTEM: Unlabored breathing. Clear to auscultation anteriorly. HEART: S1, S2. Regular rate and rhythm. ABDOMEN: Soft. No tenderness. Left leg swelling and redness have decreased. The patient did have a blister at the left medial ankle area. LABS: Hemoglobin 11.6, white count 7.9, BUN of 10, creatinine 0.80. DIAGNOSTIC IMPRESSION AND PLAN: Patient with acute left lower extremity cellulitis in this patient who did have cellulitis, likely streptococcal disease. The patient is currently covered with cefazolin and clindamycin. The patient did have a blister formation at the left medial ankle area, more likely because of the inappropriate way the Jarret wrap was applied. However, it has been adjusted. Apply the Jarret wrap from just above toes to below the knee and not relieve any pressure points or open area. She will continue on cefazolin and clindamycin, to which the patient has responded. oral antibiotic when the patient is stable for discharge, possible Thursday. Plan of care discussed with the admitting physician. MMODL / IJN: [id number] /
--- NOTE | 2018-05-21 18:58 | PN ---
PROGRESS NOTE DATE OF SERVICE: 05/21/2018 This 82 -year-old woman who was admitted with left leg swelling and cellulitis also had some blister formation. No chest pain. No palpitations. No fever. Dr. Swain is following the patient closely. Cultures are negative so far. The patient also had tachycardia. Past medical history reviewed. REVIEW OF SYSTEMS: CARDIOVASCULAR SYSTEM: As mentioned earlier. RESPIRATORY SYSTEM: As mentioned earlier. GI: No nausea, vomiting. : No dysuria or retention. NERVOUS SYSTEM: No numbness, weakness. CURRENT MEDICATIONS: 1. Tylenol p.r.n. 2. DuoNeb q.i.d. and p.r.n. 3. Xanax. 4. Vitamin C. 5. Kefzol. 6. Clindamycin. 7. Plavix. 8. Lasix. 9. Heparin subcutaneously. 10.Cozaar. 11.Melatonin. 12.Multivitamins. 13.Narcan. 14.Nitrostat. 15.Protonix. 16.Ultram. PHYSICAL EXAMINATION: Patient is alert, oriented x3. Pulse 143, irregular. Blood pressure is 115/67, respiration 18, temperature 97.1, pulse ox 96% on room air. HEENT: Conjunctivae normal. Oral mucosa moist. NECK: No jugular venous distention. No carotid bruit. No lymph node enlargement. CARDIOVASCULAR SYSTEM: S1, S2 tachycardic. Irregular. RESPIRATORY SYSTEM: Breath sounds diminished at the bases. A few scattered rhonchi. No bronchial breath sounds. ABDOMEN: Soft, non-tender. LEGS: Left leg cellulitis present. NERVOUS SYSTEM: No focal deficit. LABS: WBC 7.9, hemoglobin 11.6, sodium 136, potassium 4.4. ASSESSMENT: 1. Acute left leg cellulitis with possible sepsis, present on admission. 2. Change in mental status, acute toxic metabolic encephalopathy secondary to possible sepsis. 3. Relative hypotension. 4. Atrial fibrillation with a fast ventricular rate. 5. Increased white count. 6. Hyponatremia. 7. History of atrial fibrillation, paroxysmal. 8. History of coronary artery disease. 9. History of gastroesophageal reflux disease. 10.History of gastrointestinal bleed. 11.History of hyperlipidemia. 12.History of degenerative joint disease. 13.History of hypothyroidism. 14.History of aortic stenosis. 15.History of paroxysmal atrial fibrillation. 16.History of coronary artery disease, stent. RECOMMENDATIONS AND DISCUSSION: I recommend to continue current medications, continue with symptomatic treatment. Continue with the current medications. Would recommend continuing with the antibiotics. Discussed with Dr. Swain regarding the antibiotics. We will continue to monitor cultures. Will also obtain a cardiology consultation. Geraldine canela for atrial fibrillation. Prognosis guarded because of multiple complex medical issues. Further recommendations to follow. MMODL / IJN: [id number] /
[2018-05-21] MEDS: ASPIRIN 81 MG PO SCH (21:08)
[2018-05-21] MEDS: MELATONIN 3 MG TABLET PO SCH (21:08)
[2018-05-21] MEDS: LATANOPROST 0.005% OPHTH DROPS 2.5 ML BTL BOTH EYES SCH (21:09)
[2018-05-21] MEDS: SODIUM CHLORIDE 0.9% 1,000 ML IV SCH (23:40)
[2018-05-22] MEDS: LEVOTHYROXINE 125 MCG TAB PO SCH (06:21)
[2018-05-22] MEDS: CLOPIDOGREL 75 MG TAB PO SCH (07:42)
[2018-05-22] MEDS: METOPROLOL TARTRATE 12.5 MG TAB PO SCH ×2 (07:42→20:11)
[2018-05-22] MEDS: ASCORBIC ACID 500 MG TAB PO SCH (07:42)
[2018-05-22] MEDS: FUROSEMIDE 20 MG TAB PO SCH ×2 (07:42→15:27)
[2018-05-22] MEDS: CLINDAMYCIN 900 MG in DEXTROSE 5% IN WATER 50 ML IVPB SCH ×4 (07:42→15:28)
[2018-05-22] MEDS: LOSARTAN 25 MG TAB PO SCH (07:43)
[2018-05-22] MEDS: HEPARIN SODIUM,PORCINE 5,000 UNIT/ML 1 ML VIAL SQ SCH ×2 (07:43→20:11)
[2018-05-22] MEDS: PANTOPRAZOLE 40 MG TABLET PO SCH (07:43)
[2018-05-22 07:57] LABS: Basophils % (A) 1 %; Eosinophils # (A) 0.2 k/uL (0-0.7); Eosinophils % (A) 2 %; HCT 32.4 % (34.0-46.0); HGB 10.6 gm/dL (11.4-16.0); Lymphocytes % (A) 13 %; MCH 31.5 pg (25.0-35.0); MCHC 32.7 g/dL (31.0-37.0); MCV 96.4 fL (80.0-100.0); Mean Platelet Volume 7.3; Monocytes # (A) 0.6 k/uL (0-1.0); Monocytes % (A) 8 %; Neutrophils # (A) 5.4 k/uL (1.3-7.7); Neutrophils % (A) 73 %; Platelet Count 240 k/uL (150-450); RBC 3.36 m/uL (3.80-5.40); RDW 12.6 % (11.5-15.5); WBC 7.3 k/uL (3.8-10.6)
[2018-05-22] MEDS: IPRATROPIUM-ALBUTEROL 3 ML NEB INHALATION SCH ×3 (08:09→23:18)
[2018-05-22 08:12] LABS: Calcium 8.6 mg/dL (8.4-10.2); Potassium 3.9 mmol/L (3.5-5.1)
[2018-05-22] MEDS: ceFAZolin IN SWFI 2 GM/20 ML SYRINGE IVP SCH ×3 (08:48→23:50)
[2018-05-22] MEDS: THIAMINE 100 MG TAB PO SCH (12:04)
[2018-05-22] MEDS: MULTIVITAMINS, THERA 1 EACH TAB PO SCH (12:04)
[2018-05-22] MEDS: FOLIC ACID 1 MG TAB PO SCH (12:05)
--- NOTE | 2018-05-22 16:08 | PN ---
PROGRESS NOTE DATE OF SERVICE: 05/22/2018 This 82-year-old woman who was admitted with acute left leg cellulitis, also had possible sepsis. The patient also had some blisters and some leakage. Also, Dr. Swain is following the patient closely. The cultures are negative so far. No chest pain. No palpitations. No fever. EXAM: Alert and oriented x3. Pulse 76, blood pressure 130/60, respirations 16, temperature 98.1, pulse ox 94% on room air. HEENT: Conjunctivae normal. Oral mucosa moist. NECK: No jugular venous distention. CARDIOVASCULAR SYSTEM: S1, S2 muffled. Ejection systolic murmur grade over the left sternal border present. RESPIRATORY SYSTEM: Breath sounds diminished at the bases. No rhonchi, no crackles. ABDOMEN: Soft, non-tender. LEGS: The left leg is erythematous, tender and blister which is leaking, also in the heel area. NERVOUS SYSTEM: No focal deficit. LAB STUDIES: WBC 11.7, hemoglobin 10.6, sodium 134. ASSESSMENT: 1. Acute left leg cellulitis with possible sepsis present on admission. 2. Change in mental status, acute toxic metabolic encephalopathy secondary to possible sepsis. 3. Relative hypotension. 4. Atrial fibrillation with fast ventricular rate. 5. Increased WBC. 6. Hyponatremia. 7. History of atrial fibrillation, paroxysmal. 8. History of coronary artery disease and stent. 9. History of gastroesophageal reflux disease. 10.History of gastrointestinal bleed. 11.Hyperlipidemia. 12.History degenerative joint disease. 13.History hypothyroidism. 14.History of aortic stenosis. RECOMMENDATIONS AND DISCUSSION: Recommend to continue current medications, continue to monitor, continue symptomatic treatment. At this time I recommend continue with antibiotics. Follow the cultures. Closely follow with Dr. Swain. Guarded prognosis. Further recommendations to follow. MMODL / IJN: [id number] / GERARDO
[2018-05-22] MEDS: ASPIRIN 81 MG PO SCH (20:11)
[2018-05-22] MEDS: MELATONIN 3 MG TABLET PO SCH (20:12)
[2018-05-22] MEDS: LATANOPROST 0.005% OPHTH DROPS 2.5 ML BTL BOTH EYES SCH (20:12)
--- NOTE | 2018-05-23 06:12 | PN ---
PROGRESS NOTE DATE OF SERVICE: 05/22/2018. REASON FOR FOLLOWUP VISIT: Left leg cellulitis. INTERVAL HISTORY: The patient is currently afebrile. The patient is breathing comfortably. Denies any chest pain or shortness of breath, cough. No abdominal pain or any worsening pain to the left leg area. PHYSICAL EXAMINATION: Blood pressure 143/73 with a pulse of 99, temperature 98.6. She is 92% on 2 L nasal cannula. General description is an elderly female lying in bed in no distress. Respiratory system: Unlabored breathing. Clear to auscultation anteriorly. Heart S1, S2. Regular rate and rhythm. ABDOMEN: Soft. No tenderness. Left leg swelling and redness decreased minimal drainage on the dressing. LABS: Hemoglobin is 10.1, white count 7.3, BUN of 12, creatinine 0.75. DIAGNOSTIC IMPRESSION AND PLAN: Patient with acute left leg cellulitis in this patient who does have diffuse swelling and redness likely streptococcal disease. Patient is currently maintained on Cefazolin and clindamycin with overall improvement. Cefazolin to continue. We will discontinue clindamycin to decrease risk of diarrhea. As the patient continues to improve, continue therapy with oral Keflex. Continue supportive care. MMODL / IJN: [id number] /
[2018-05-23] MEDS: SODIUM CHLORIDE 0.9% 1,000 ML IV SCH ×2 (06:19→08:49)
[2018-05-23 07:25] LABS: Basophils # (A) 0.1 k/uL (0-0.2); Basophils % (A) 1 %; Eosinophils # (A) 0.2 k/uL (0-0.7); Eosinophils % (A) 3 %; HGB 10.7 gm/dL (11.4-16.0); Lymphocytes # (A) 1.2 k/uL (1.0-4.8); Lymphocytes % (A) 13 %; MCH 32.2 pg (25.0-35.0); MCHC 33.5 g/dL (31.0-37.0); MCV 96.1 fL (80.0-100.0); Mean Platelet Volume 7.2; Monocytes # (A) 0.7 k/uL (0-1.0); Monocytes % (A) 8 %; Neutrophils # (A) 6.8 k/uL (1.3-7.7); Neutrophils % (A) 74 %; Platelet Count 278 k/uL (150-450); RBC 3.33 m/uL (3.80-5.40); RDW 12.6 % (11.5-15.5); WBC 9.1 k/uL (3.8-10.6)
[2018-05-23 07:39] LABS: Anion Gap 5 mmol/L; Blood Urea Nitrogen 11 mg/dL (7-17); Calcium 8.8 mg/dL (8.4-10.2); Carbon Dioxide 32 mmol/L (22-30); Chloride 99 mmol/L (98-107); Glucose 118 mg/dL (74-99); Potassium 4.4 mmol/L (3.5-5.1); Sodium 136 mmol/L (137-145)
[2018-05-23] MEDS: FUROSEMIDE 20 MG TAB PO SCH ×2 (07:50→15:25)
[2018-05-23] MEDS: METOPROLOL TARTRATE 12.5 MG TAB PO SCH ×2 (07:50→20:00)
[2018-05-23] MEDS: ASCORBIC ACID 500 MG TAB PO SCH (07:50)
[2018-05-23] MEDS: LEVOTHYROXINE 125 MCG TAB PO SCH (07:50)
[2018-05-23] MEDS: PANTOPRAZOLE 40 MG TABLET PO SCH (07:51)
[2018-05-23] MEDS: HEPARIN SODIUM,PORCINE 5,000 UNIT/ML 1 ML VIAL SQ SCH ×2 (07:51→20:00)
[2018-05-23] MEDS: CLOPIDOGREL 75 MG TAB PO SCH (07:51)
[2018-05-23] MEDS: LOSARTAN 25 MG TAB PO SCH (07:51)
[2018-05-23] MEDS: IPRATROPIUM-ALBUTEROL 3 ML NEB INHALATION SCH ×3 (08:01→20:30)
[2018-05-23] MEDS: ceFAZolin IN SWFI 2 GM/20 ML SYRINGE IVP SCH ×3 (08:43→23:34)
--- NOTE | 2018-05-23 11:23 | ECHOF ---
Referral Reason:chf MEASUREMENTS -------- HEIGHT: 162.6 cm WEIGHT: 74.8 kg BP: IVSd: 0.9 cm (0.6 - 1.1) LVIDd: 4.8 cm (3.9 - 5.3) LVPWd: 1.0 cm (0.6 - 1.1) EDV(Teich): 108 ml IVSs: 1.3 cm LVIDs: 2.6 cm LVPWs: 1.3 cm %IVS Thck: 42 % ESV(Teich): 25 ml EF(Teich): 77 % %FS: 46 % SV(Teich): 83 ml RVIDd: 2.9 cm (< 3.3) LALs A4C: 5.5 cm LAAs A4C: 21.5 cm LAESV A-L A4C: 71 ml LAESV MOD A4C: 66 ml LALs A2C: 5.9 cm LAAs A2C: 25.2 cm LAESV A-L A2C: 91 ml LAESV MOD A2C: 82 ml LAESV(A-L): 83 ml LAESV Index (A-L): 46.29 ml/m EPSS: 0.6 cm MV E Fabian: 1.34 m/s MV DecT: 279 ms MV Dec Hettinger: 4.8 m/s MV A Fabian: 1.64 m/s MV E/A Ratio: 0.82 MV PHT: 81 ms MV DecT: 266 ms MV PHT: 72 ms MVA By PHT: 3.0 cm MV Vmax: 1.57 m/s MV Vmean: 0.91 m/s MV maxP.90 mmHg MV meanP.94 mmHg MV VTI: 34.6 cm LVOT Vmax: 1.37 m/s LVOT maxP.50 mmHg LVOT Vmax: 1.38 m/s LVOT Vmean: 0.96 m/s LVOT maxP.61 mmHg LVOT meanP.35 mmHg LVOT Env.Ti: 266 ms LVOT VTI: 25.7 cm AV Vmax: 2.98 m/s AV maxP.44 mmHg AV Vmax: 2.99 m/s AV Vmean: 1.82 m/s AV maxP.75 mmHg AV meanP.18 mmHg AV Env.Ti: 273 ms AV VTI: 49.7 cm TR Vmax: 3.76 m/s TR maxP.66 mmHg RAP: 5.00 mmHg RVSP: 61.66 mmHg MV EF SLOPE: 47.71 mm/s (70 - 150) MV EXCURSION: 14.23 mm (> 18.000) FINDINGS -------- Sinus rhythm. This was a technically adequate study. The left ventricular size is normal. Left ventricular wall thickness is normal. Overall left vent ricular systolic function is normal with, an EF between 55 - 60 %. The right ventricle is normal in size. The left atrium is markedly dilated. LA is severely dilated >40 ml/m2 The right atrial size is normal. Peak/mean gradient across the Aortic Valve is 35.75mmHg / 16.18mmHg. Normally functioning bioprosth etic valve. Moderate mitral annular calcification present. No mitral regurgitation. The peak and mean MV gra dients are 9.90mmHg 3.94mmHg as measured by doppler. Mild mitral stenosis. Moderate tricuspid regurgitation present. There is moderate pulmonary hypertension. The right anthony tricular systolic pressure, as measured by Doppler, is 61.66mmHg. There is no pulmonic regurgitation present. The aortic root size is normal. There is no pericardial effusion. CONCLUSIONS -------- 1. The left ventricular size is normal. 2. Left ventricular wall thickness is normal. 3. Overall left ventricular systolic function is normal with, an EF between 55 - 60 %. 4. The right ventricle is normal in size. 5. The left atrium is markedly dilated. 6. LA is severely dilated >40 ml/m2 7. The right atrial size is normal. 8. Peak/mean gradient across the Aortic Valve is 35.75mmHg / 16.18mmHg. 9. Normally functioning bioprosthetic valve. 10. Moderate mitral annular calcification present. 11. No mitral regurgitation. 12. The peak and mean MV gradients are 9.90mmHg 3.94mmHg as measured by doppler. 13. Mild mitral stenosis. 14. Moderate tricuspid regurgitation present. 15. There is moderate pulmonary hypertension. 16. The right ventricular systolic pressure, as measured by Doppler, is 61.66mmHg. 17. There is no pulmonic regurgitation present. 18. The aortic root size is normal. 19. There is no pericardial effusion. [employer] SKILLS WORKER: Clarisse Fuentes RDCS
[2018-05-23] MEDS: THIAMINE 100 MG TAB PO SCH (11:52)
[2018-05-23] MEDS: FOLIC ACID 1 MG TAB PO SCH (11:52)
[2018-05-23] MEDS: MULTIVITAMINS, THERA 1 EACH TAB PO SCH (11:52)
--- NOTE | 2018-05-23 18:45 | PN ---
PROGRESS NOTE DATE OF SERVICE: 05/23/2018 This 82-year-old woman was admitted with left leg cellulitis and significant erythema. The cultures are negative so far. Infectious Disease following the patient closely. Patient on IV antibiotics. 0 No chest pain. No palpitations. No fever. EXAM: Alert and oriented x3. Pulse 78, blood pressure 160/69, respiration 18, temperature 98.3, pulse ox 98% on 2 L. HEENT: Conjunctivae normal. NECK: No jugular venous distention. CARDIOVASCULAR: S1, S2 muffled. RESPIRATORY: Breath sounds diminished in the bases. No rhonchi. No crackles. Abdomen is soft. Nontender. Left leg erythema and cellulitis and weeping area in the heel also present. Nervous system: No focal deficits. LABS: WBC 9.2, hemoglobin 10.6. Sodium 136. ASSESSMENT: 1. Acute left leg cellulitis with possible sepsis present on admission. 2. Change in mental status, acute on chronic. Acute toxic metabolic encephalopathy secondary to possible sepsis. 3. Relative hypotension, present on admission. 4. Atrial fibrillation with fast ventricular rate. 5. History of increased WBCs. 6. Hyponatremia. 7. History of atrial fibrillation paroxysmal. 8. History of coronary artery disease, stent. 9. History of gastroesophageal reflux disease. 10.History of gastrointestinal bleed. 11.History of hyperlipidemia. 12.History of degenerative joint disease. 13.History of hypothyroidism. 14.History of aortic stenosis. RECOMMENDATIONS AND DISCUSSION: Recommend to continue current medication, continue symptomatic treatment. Otherwise, at this time, I recommend continue IV antibiotics. Closely follow with Infectious Disease. Guarded prognosis because of multiple complex medical issues. The leg has significant erythema. Further recommendations to follow. MMODL / IJN: [id number] /
[2018-05-23] MEDS: LATANOPROST 0.005% OPHTH DROPS 2.5 ML BTL BOTH EYES SCH (19:59)
[2018-05-23] MEDS: traMADol 50 MG TAB PO PRN (20:00)
[2018-05-23] MEDS: MELATONIN 3 MG TABLET PO SCH (20:00)
[2018-05-23] MEDS: ASPIRIN 81 MG PO SCH (20:00)
--- NOTE | 2018-05-23 21:00 | CONS ---
CONSULTATION DATE OF SERVICE: 05/22/2018 This patient is seen for cardiac evaluation. This patient's medical records reviewed. The patient was admitted to the emergency room with altered mental status, fever and vomiting patient is being treated for possible cellulitis. We have been requested to see the patient in consultation because of the intermittent episodes of atrial fibrillation. The patient has a known history of atrial fibrillation and status post aortic valve replacement. The patient has improved significantly since admission with antibiotic therapy. Patient denies any significant apnea or palpitations. The patient used to be on Xarelto in the past and she had a GI bleeding and currently she is being treated with aspirin and Plavix. The patient denies any orthopnea, PND, or shortness of breath with routine activities. HOME MEDICATIONS: Home medications include Ultram, Cozaar 25 mg daily, Lasix 20 mg b.i.d., Norvasc 2.5 mg daily, nitroglycerin p.r.n., baby aspirin once a day, Plavix 75 mg daily and the metoprolol 25 mg b.i.d. PAST MEDICAL HISTORY: Includes a history of TAVR, paroxysmal atrial fibrillation, prior history of GI bleeding, history of significant pulmonary hypertension in the past. PHYSICAL EXAMINATION: At present reveals 82-year-old female who at present is lying comfortably in the bed. The patient is afebrile. Blood pressure is 120/80 mmHg, heart rate is 80 per minute. HEENT examination is unremarkable. Neck is supple. There is no increase in jugular venous pressure. Both the carotid pulses are felt. There is no bruit. Chest is symmetrical. Heart: The PMI is not felt. First and second heart sounds are normal. There is a grade 2/6 ejection systolic murmur noted. Lungs are clear to auscultation and percussion. Abdomen is negative. Extremities: Peripheral pulses are not felt. There is no significant swelling. The patient's rhythm strip are reviewed, which shows intermittent episodes of paroxysmal atrial fibrillation. FINAL IMPRESSION: This patient is status post percutaneous transcutaneous aortic valve replacement, history of paroxysmal atrial fibrillation, which is only short lasting. I discussed the patient's condition with the and the risk and benefits of the anticoagulation. The patient had a problem with the Xarelto with a GI bleeding the past. However, since she does not have any recent episode of GI bleeding and patient can be considered for a treatment with Eliquis. The patient's can discuss with Dr. Oliveira after the discharge to consider anticoagulation. MMODL / IJN: [id number] /
[2018-05-23] MEDS: guaiFENesin SYRUP 100MG/5ML 200 MG/10 ML CUP PO PRN (21:25)
[2018-05-24] MEDS: traMADol 50 MG TAB PO PRN ×3 (04:32→23:24)
--- NOTE | 2018-05-24 05:27 | PN ---
PROGRESS NOTE DATE OF SERVICE: 05/23/2018 REASON FOR FOLLOWUP: Left lower extremity cellulitis. INTERVAL HISTORY: The patient is currently afebrile. The patient is breathing comfortably. Denies having any chest pain or any cough. The patient has developed significant bruise to the left medial ankle area with some serous drainage. PHYSICAL EXAMINATION: On examination, blood pressure 143/68 with a pulse of 64, temperature 98.6. She is 96% on 2 L nasal cannula. General description is an elderly female lying in bed in no distress. RESPIRATORY SYSTEM: Unlabored breathing, clear to auscultation anteriorly. HEART: S1, S2. Regular rate and rhythm. ABDOMEN: Soft, no tenderness. Left leg swelling with slight decrease, did have bruise at the left medial ankle area, has significant swelling of the foot. LABS: Hemoglobin is 10.7, white count 9.1 with BUN of 11, creatinine 0.65. DIAGNOSTIC IMPRESSION AND PLAN: Patient with acute left lower extremity cellulitis with diffuse swelling likely streptococcal disease currently on cefazolin. She did have significant bruise at the left medial ankle area. RN has been advised to avoid any further as the patient has significant swelling of the foot did distribute the swelling. We will apply Aquacel Silver dressing to the left medial ankle area followed by ABD frandy Brayx. Will re-evaluate the patient tomorrow. Continue supportive care. MMODL / IJN: [id number] /
[2018-05-24] MEDS: LEVOTHYROXINE 125 MCG TAB PO SCH (05:59)
[2018-05-24 07:58] LABS: Anion Gap 5 mmol/L; Blood Urea Nitrogen 16 mg/dL (7-17); Calcium 8.9 mg/dL (8.4-10.2); Carbon Dioxide 33 mmol/L (22-30); Chloride 97 mmol/L (98-107); Glucose 109 mg/dL (74-99); Potassium 4.5 mmol/L (3.5-5.1); Sodium 135 mmol/L (137-145)
[2018-05-24 08:05] LABS: Basophils # (A) 0.1 k/uL (0-0.2); Basophils % (A) 1 %; Eosinophils # (A) 0.3 k/uL (0-0.7); Eosinophils % (A) 4 %; HCT 30.7 % (34.0-46.0); HGB 10.1 gm/dL (11.4-16.0); Lymphocytes # (A) 1.6 k/uL (1.0-4.8); Lymphocytes % (A) 20 %; MCH 32.1 pg (25.0-35.0); MCHC 32.8 g/dL (31.0-37.0); MCV 97.7 fL (80.0-100.0); Mean Platelet Volume 7.2; Monocytes # (A) 0.6 k/uL (0-1.0); Monocytes % (A) 8 %; Neutrophils # (A) 5.3 k/uL (1.3-7.7); Neutrophils % (A) 66 %; Platelet Count 297 k/uL (150-450); RBC 3.14 m/uL (3.80-5.40); RDW 12.9 % (11.5-15.5); WBC 8.1 k/uL (3.8-10.6)
[2018-05-24] MEDS: IPRATROPIUM-ALBUTEROL 3 ML NEB INHALATION SCH ×3 (08:16→19:33)
[2018-05-24] MEDS: HEPARIN SODIUM,PORCINE 5,000 UNIT/ML 1 ML VIAL SQ SCH ×2 (09:16→23:24)
[2018-05-24] MEDS: PANTOPRAZOLE 40 MG TABLET PO SCH (09:17)
[2018-05-24] MEDS: METOPROLOL TARTRATE 12.5 MG TAB PO SCH ×2 (09:17→23:24)
[2018-05-24] MEDS: FUROSEMIDE 20 MG TAB PO SCH ×2 (09:17→16:58)
[2018-05-24] MEDS: CLOPIDOGREL 75 MG TAB PO SCH (09:17)
[2018-05-24] MEDS: FOLIC ACID 1 MG TAB PO SCH (09:18)
[2018-05-24] MEDS: ASCORBIC ACID 500 MG TAB PO SCH (09:18)
[2018-05-24] MEDS: MULTIVITAMINS, THERA 1 EACH TAB PO SCH (09:18)
[2018-05-24] MEDS: LOSARTAN 25 MG TAB PO SCH (09:18)
[2018-05-24] MEDS: ceFAZolin IN SWFI 2 GM/20 ML SYRINGE IVP SCH ×3 (09:19→23:25)
[2018-05-24] MEDS: THIAMINE 100 MG TAB PO SCH (09:20)
[2018-05-24] MEDS: SODIUM CHLORIDE 0.9% 1,000 ML IV SCH (09:24)
[2018-05-24] MEDS: guaiFENesin SYRUP 100MG/5ML 200 MG/10 ML CUP PO PRN ×2 (09:36→23:39)
--- NOTE | 2018-05-24 16:46 | PN ---
PROGRESS NOTE DATE OF SERVICE: 05/24/2018 REASON FOR FOLLOWUP: Left leg cellulitis. INTERVAL HISTORY: The patient is currently afebrile. The patient is breathing comfortably. Denies having any chest pain or any cough. No abdominal pain or any worsening pain to the left leg area. PHYSICAL EXAMINATION: Blood pressure 127/55 with a pulse of 82. Temperature 97.4, she is 98% on 2 L nasal cannula. General description is an elderly female, lying in bed in no distress. Respiratory system: Unlabored breathing. Clear to auscultation anteriorly. Heart S1, S2. Regular rate and rhythm. Abdomen soft, no tenderness. Left leg did have some swelling and redness that has decreased. Did have a bruise at the medial and the lateral side of the foot. No open wound or any drainage. LABS: Hemoglobin is 10.9, white count 8.1 with a BUN of 16, creatinine 0.68. DIAGNOSTIC IMPRESSION AND PLAN: Patient with acute left lower extremity cellulitis. The patient seemed to have shown clinical improvement. Local culture negative for resistant pathogen. Currently on cefazolin that will be transitioned to Keflex 500 mg 3 times a day for another 7-10 days with close outpatient followup. Continue supportive care. MMODL / IJN: [id number] /
--- NOTE | 2018-05-24 19:39 | PN ---
PROGRESS NOTE DATE OF SERVICE: 05/24/2018 This 82-year-old woman who was admitted with acute left leg cellulitis, also had sepsis, present on admission. The cultures are negative so far. No chest pain. No palpitations. Dr. Swain is following the patient closely and has recommended to continue cefazolin. Could be transitioned to Keflex on a p.o. basis. No chest pain. No palpitations. No fever. PT, OT is also evaluating the patient. EXAM: Alert and oriented x3. Pulse 82, blood pressure 127/52, respiratory 18, temperature 97.4, pulse ox 98% on 2 L. HEENT: Conjunctivae normal. NECK: No jugular venous distention. CARDIOVASCULAR: S1, S2. RESPIRATORY: Breath sounds diminished in the bases. A few rhonchi, no crackles. ABDOMEN: Soft, nontender. LEGS: Left leg erythema. NERVOUS SYSTEM: No focal deficits. LABS: WBC 8.1, hemoglobin 10.1, sodium 135. ASSESSMENT: 1. Acute left leg cellulitis, possible sepsis, present on admission. 2. Change in mental status, acute on chronic, acute toxic metabolic encephalopathy secondary to possible sepsis. 3. Relative hypotension, present on admission. 4. Atrial fibrillation with fast ventricular rate. 5. History of increased WBC. 6. Hyponatremia. 7. History of atrial fibrillation paroxysmal. 8. History of coronary artery disease, stent. 9. History of gastrointestinal bleed. 10.Gastroesophageal reflux disease. 11.History of hyperlipidemia. 12.History of degenerative joint disease. 13.History of hypothyroidism. 14.History of aortic stenosis. RECOMMENDATIONS AND DISCUSSION: I recommend to continue current management and symptomatic treatment. Continue with IV antibiotics. Otherwise, the patient does not seem to need ECF at this time. Continue the antibiotics as mentioned earlier. Possible discharge home in the next 24-48 hours on p.o. antibiotics. Further recommendations to follow. Home care may be arranged. Further recommendations to follow. MMODL / IJN: [id number] /
[2018-05-24] MEDS: MELATONIN 3 MG TABLET PO SCH (23:24)
[2018-05-24] MEDS: ASPIRIN 81 MG PO SCH (23:24)
[2018-05-24] MEDS: LATANOPROST 0.005% OPHTH DROPS 2.5 ML BTL BOTH EYES SCH (23:25)
[2018-05-25] MEDS ORDERED: LEVOTHYROXINE 50 MCG TAB PO SCH (05:47)
[2018-05-25] MEDS ORDERED: LEVOTHYROXINE 125 MCG TAB PO SCH (06:24)
[2018-05-25 07:20] VITALS: RESP 16; TEMP 97.9
[2018-05-25] MEDS: ceFAZolin IN SWFI 2 GM/20 ML SYRINGE IVP SCH (08:37)
[2018-05-25] MEDS: IPRATROPIUM-ALBUTEROL 3 ML NEB INHALATION SCH ×2 (08:52→13:48)
[2018-05-25] MEDS: METOPROLOL TARTRATE 12.5 MG TAB PO SCH (09:45)
[2018-05-25] MEDS: ASCORBIC ACID 500 MG TAB PO SCH (09:45)
[2018-05-25] MEDS: FUROSEMIDE 20 MG TAB PO SCH (09:45)
[2018-05-25] MEDS: PANTOPRAZOLE 40 MG TABLET PO SCH (09:45)
[2018-05-25] MEDS: CLOPIDOGREL 75 MG TAB PO SCH (09:45)
[2018-05-25] MEDS: HEPARIN SODIUM,PORCINE 5,000 UNIT/ML 1 ML VIAL SQ SCH (09:46)
[2018-05-25] MEDS: SODIUM CHLORIDE 0.9% 1,000 ML IV SCH (11:56)
[2018-05-25 12:37] VITALS: BP 127/77; PULSE 68
[2018-05-25] MEDS: FOLIC ACID 1 MG TAB PO SCH (12:55)
[2018-05-25] MEDS: MULTIVITAMINS, THERA 1 EACH TAB PO SCH (12:55)
[2018-05-25] MEDS: THIAMINE 100 MG TAB PO SCH (12:55)
--- NOTE | 2018-05-25 13:31 | P.DS ---
Providers Date of admission: 05/17/18 22:19 Expected date of discharge: 05/25/18 Attending physician: Dieudonne Hurtado Consults: 05/18/18 16:13 Consult Physician Routine Consulting Provider: Salvador Swain Consult Reason/Comments: sepsis Do you want consulting provider notified?: Yes 05/21/18 13:37 Consult Physician Routine Consulting Provider: David Mcnally Consult Reason/Comments: Afib RVR Do you want consulting provider notified?: Already Contacted Primary care physician: [facility] Course: Final Diagnoses: -Acute left leg cellulitis, possible sepsis, present on admission, improving -Change in mental status, acute on chronic toxic metabolic encephalopathy possible secondary to possible sepsis -Relative hypotension, present on admission, resolved -Paroxysmal chronic atrial fibrillation with RVR -CAD, status post percutaneous, transcutaneous aortic valve replacement -Iron deficient anemia Hospital course: This 82-year-old female admitted with acute left leg cellulitis with possible sepsis present on admission. Cultures negative so far. Maintained on IV antibiotics as per infectious disease. Significant clinical improvement. Evaluated by GI, no signs or symptoms of bleeding, hemoglobin stable, recommending iron supplementation for iron deficient anemia. Evaluated by cardiology. Significant clinical improvement. Patient will be discharged home in a stable condition with guarded prognosis pending infectious disease clearance and final DC recommendations. Exam: General: Alert and oriented 3, no acute distress. CV: Regular S1 and S2, positive systolic murmur.LUNGS: Bilateral bases diminished, occ few rhonchi scattered. AND: Soft, nontender, positive bowel sounds. EXTREMITY: Lower left extremity improving left leg erythema.NERVOUS: No focal deficits. The impression and plan of care has been dictated as directed. : I performed a history and examination of this patient, discussed the same with the dictator. I agree with the dictator's note ,documented as a scribe. Any additional findings or plans will be noted. Time taken: 35 minutes Patient Condition at Discharge: Stable Plan - Discharge Summary Discharge Rx Participant: No New Discharge Prescriptions: New Acetaminophen Tab [Tylenol] 650 mg PO Q6HR PRN tab PRN Reason: Mild Pain Or Fever > 100.5 Folic Acid 1 mg PO DAILY@1200 #30 tab Losartan [Cozaar] 12.5 mg PO DAILY tab Thiamine [Vitamin B-1] 100 mg PO DAILY@1200 #30 tab Ferrous Sulfate [Feosol] 325 mg PO DAILY@1200 #30 tab Sennosides-Docusate Sodium [Senokot-S] 2 tab PO HS #60 tablet Continue traMADol HCL [Ultram] 50 - 100 mg PO Q6HR PRN PRN Reason: Pain Clopidogrel [Plavix] 75 mg PO DAILY #30 tab Hylands Leg Cramps 2 - 3 tab PO Q4H PRN PRN Reason: LEG CRAMPS Aspirin 81 mg PO DAILY #30 chewable Latanoprost Ophth [Xalatan 0.005%] 1 drops BOTH EYES HS Ascorbic Acid [Vitamin C] 1,000 mg PO DAILY Metoprolol Tartrate [Lopressor] 12.5 mg PO BID #60 tab Multivitamin [Multivitamins Adult Gummies] 1 tab PO DAILY Lansoprazole 30 mg PO DAILY Levothyroxine Sodium [Synthroid] 125 mcg PO DAILY Furosemide [Lasix] 20 mg PO BID Rivastigmine 4.6MG/24Hr Patch [Exelon 4.6MG/24Hr Patch] 1 patch TRANSDERM DAILY Nitroglycerin Sl Tabs [Nitrostat] 0.4 mg SUBLINGUAL Q5M PRN PRN Reason: Angina Changed Losartan [Cozaar] 12.5 mg PO DAILY #0 Discontinued amLODIPine [Norvasc] 2.5 mg PO DAILY Discharge Medication List traMADol HCL [Ultram] 50 - 100 mg PO Q6HR PRN 06/20/15 [History] Clopidogrel [Plavix] 75 mg PO DAILY #30 tab 06/21/15 [Rx] Hylands Leg Cramps 2 - 3 tab PO Q4H PRN 07/06/15 [History] Aspirin 81 mg PO DAILY #30 chewable 07/09/15 [Rx] Ascorbic Acid [Vitamin C] 1,000 mg PO DAILY 08/31/15 [History] Latanoprost Ophth [Xalatan 0.005%] 1 drops BOTH EYES HS 08/31/15 [History] Metoprolol Tartrate [Lopressor] 12.5 mg PO BID #60 tab 09/06/15 [Rx] Lansoprazole 30 mg PO DAILY 07/24/16 [History] Multivitamin [Multivitamins Adult Gummies] 1 tab PO DAILY 07/24/16 [History] Furosemide [Lasix] 20 mg PO BID 08/05/17 [History] Levothyroxine Sodium [Synthroid] 125 mcg PO DAILY 08/05/17 [History] Rivastigmine 4.6MG/24Hr Patch [Exelon 4.6MG/24Hr Patch] 1 patch TRANSDERM DAILY 08/05/17 [History] Nitroglycerin Sl Tabs [Nitrostat] 0.4 mg SUBLINGUAL Q5M PRN 09/28/17 [History] Acetaminophen Tab [Tylenol] 650 mg PO Q6HR PRN tab 05/25/18 [Rx] Ferrous Sulfate [Feosol] 325 mg PO DAILY@1200 #30 tab 05/25/18 [Rx] Folic Acid 1 mg PO DAILY@1200 #30 tab 05/25/18 [Rx] Losartan [Cozaar] 12.5 mg PO DAILY tab 05/25/18 [Rx] Losartan [Cozaar] 12.5 mg PO DAILY #0 05/25/18 [Rx] Sennosides-Docusate Sodium [Senokot-S] 2 tab PO HS #60 tablet 05/25/18 [Rx] Thiamine [Vitamin B-1] 100 mg PO DAILY@1200 #30 tab 05/25/18 [Rx] Follow up Appointment(s)/Referral(s): Josefina Oliveira MD [STAFF PHYSICIAN] - 1 Week (Schedule prior to discharge) Tee Esquivel MD [Primary Care Provider] - 3 Days [facility], [NON-STAFF] - 1 Week Salvador Swain MD [STAFF PHYSICIAN] - 1 Week Ambulatory/Diagnostic Orders: Complete Blood Count w/diff [LAB.AMB] Time Frame: 3 Days, Location: None Selected Patient Instructions/Handouts: Cellulitis (GEN) Activity/Diet/Wound Care/Special Instructions: Clearance, with wound care & DC antibiotics as per ID Declined subacute rehab Discharge Disposition: HOME WITH HOME HEALTH SERVICES
--- NOTE | 2018-05-25 18:44 | PN ---
PROGRESS NOTE DATE OF SERVICE: 05/25/2018 REASON FOR FOLLOWUP: Left leg cellulitis. INTERVAL HISTORY: The patient is afebrile. The patient was seen on rounds early this afternoon. The patient has been feeling better. The patient denies having any chest pain, shortness of breath or cough. No pain to the left leg area. PHYSICAL EXAMINATION: Blood pressure 127/77 with a pulse of 68, temperature 97.9. She is 92% on room air. General description is an elderly female lying in bed in no distress. RESPIRATORY SYSTEM: Unlabored breathing. Clear to auscultation anteriorly. HEART: S1, S2. Regular rate and rhythm. ABDOMEN: Soft. No tenderness. Left leg swelling and redness have improved. LABS: Hemoglobin is 10.1, white count 8.1 with a BUN of 16, creatinine 0.68. DIAGNOSTIC IMPRESSION AND PLAN: Patient with left lower extremity cellulitis. The patient has shown clinical improvement. Prescription for Keflex 500 one q.8 for one week has been sent to the pharmacy. Patient to follow up in the office next week. Continue with supportive care. MMODL / IJN: [id number] /
== END 2018-05-25 16:25 | disposition home health service (06) | DRG 871 ==
LOC: EC 20:08 → 3NMEDONC 22:19
PROVIDERS: ADMIT Hospitalist; ATTEND Hospitalist
DX: A41.9 Sepsis, unspecified organism (principal); G92 Toxic encephalopathy; E87.1 Hypo-osmolality and hyponatremia; L03.116 Cellulitis of left lower limb; R65.20 Severe sepsis without septic shock; I27.29 Other secondary pulmonary hypertension; I48.0 Paroxysmal atrial fibrillation; D50.9 Iron deficiency anemia, unspecified; E03.9 Hypothyroidism, unspecified; E78.5 Hyperlipidemia, unspecified; I11.9 Hypertensive heart disease without heart failure; I25.10 Atherosclerotic heart disease of native coronary artery without angina pectoris; I25.2 Old myocardial infarction; K21.0 Gastro-esophageal reflux disease with esophagitis; K44.9 Diaphragmatic hernia without obstruction or gangrene; K57.30 Diverticulosis of large intestine without perforation or abscess without bleeding; K59.09 Other constipation; M19.90 Unspecified osteoarthritis, unspecified site; M51.36 Other intervertebral disc degeneration, lumbar region; Z79.02 Long term (current) use of antithrombotics/antiplatelets; Z79.82 Long term (current) use of aspirin; Z79.890 Hormone replacement therapy; Z79.899 Other long term (current) drug therapy; Z95.5 Presence of coronary angioplasty implant and graft; Z95.2 Presence of prosthetic heart valve; Z90.710 Acquired absence of both cervix and uterus; Z98.49 Cataract extraction status, unspecified eye; Z96.1 Presence of intraocular lens; Z96.60 Presence of unspecified orthopedic joint implant; Z88.2 Allergy status to sulfonamides; Z88.5 Allergy status to narcotic agent; Z91.013 Allergy to seafood; Z82.49 Family history of ischemic heart disease and other diseases of the circulatory system
CPT/HCPCS: 36415; 71046; 80048; 80053; 81001; 82272; 82728; 83540; 83550; 83605; 84132; 84484; 85025; 85610; 85730; 87040; 87070; 87075; 87086; 87205; 87324; 87502; 93005; 93306; 94640; 94760; 96361; 96365; 99285

== ENCOUNTER 2018-06-03 05:13 | Emergency (ER) | payer MEDICARE ==
[2018-06-03 07:15] LABS: Basophils # (A) 0.1 k/uL (0-0.2); Basophils % (A) 1 %; Eosinophils # (A) 0.1 k/uL (0-0.7); Eosinophils % (A) 1 %; HCT 35.8 % (34.0-46.0); HGB 11.5 gm/dL (11.4-16.0); Lymphocytes # (A) 1.8 k/uL (1.0-4.8); Lymphocytes % (A) 22 %; MCH 31.2 pg (25.0-35.0); MCHC 32.1 g/dL (31.0-37.0); MCV 97.2 fL (80.0-100.0); Mean Platelet Volume 6.7; Monocytes # (A) 0.7 k/uL (0-1.0); Monocytes % (A) 8 %; Neutrophils # (A) 5.4 k/uL (1.3-7.7); Neutrophils % (A) 65 %; Platelet Count 477 k/uL (150-450); RBC 3.68 m/uL (3.80-5.40); RDW 13.6 % (11.5-15.5); WBC 8.3 k/uL (3.8-10.6)
[2018-06-03 07:16] LABS: Albumin 3.7 g/dL (3.5-5.0); Calcium 10.9 mg/dL (8.4-10.2); Potassium 4.8 mmol/L (3.5-5.1); Total Bilirubin 0.7 mg/dL (0.2-1.3); Total Protein 6.8 g/dL (6.3-8.2)
--- NOTE | 2018-06-03 07:27 | XR ---
EXAM: XR Chest, 1 View CLINICAL HISTORY: SOB TECHNIQUE: Frontal view of the chest. COMPARISON: 12/28/17,/ FINDINGS: Lungs: Unremarkable. No consolidation. Pleural space: Unremarkable. No pneumothorax. Heart: Large amount of mitral annular calcifications. Mediastinum: Unremarkable. Bones/joints: Unremarkable. IMPRESSION: No acute findings
--- NOTE | 2018-06-03 09:05 | US ---
EXAMINATION TYPE: US abdomen limited DATE OF EXAM: 06/03/2018 COMPARISON: NONE CLINICAL HISTORY: Pain. chest pain EXAM MEASUREMENTS: Liver Length: 14.2 cm Gallbladder Wall: 0.2 cm CBD: 0.5 cm Right Kidney: 8.8 x 4.4 x 4.9 cm Pancreas: wnl Liver: Slightly heterogenous hepatic echotexture. Gallbladder: wnl Evidence for sonographic Darnell's sign: no CBD: wnl Right Kidney: wnl IMPRESSION: No sonographic evidence of cholelithiasis or acute cholecystitis. No right-sided hydronep hrosis. Liver parenchyma is slightly heterogenous. Correlate with LFTs.
--- NOTE | 2018-06-03 11:09 | ED ---
Medical Decision Making - Medical Decision Making 82-year-old female initially evaluated by the night physician Dr. Quinn. Patient medical record initiated on paper charting due to computer downtime. I did reevaluate the patient after sign out, resting comfortably, no complaints, no chest pain, no abdominal pain vital signs stable. Patient had complained of an episode of chest pain radiating into her right shoulder. This was resolved prior to arrival. Episode lasted approximately one hour. Initial workup did reveal elevated lipase at 833. Chest x-ray was obtained which is negative for acute cardiopulmonary disease, ultrasound was obtained and was pending at the time of sign out. This was reviewed, negative for acute cholecystitis, or for any acute pathology, no gallstones. I did recommend the patient received CAT scan but she is asymptomatic and feeling well she declines in the emergency department. She will follow-up with this with her primary care physician. Troponin is negative 2. Again I prefer the patient received CAT scan and possible admission for further workup, she is eager for discharge. She will follow-up with the primary care physician regarding repeat lipase levels, possible CAT scan, and will be presented for worsening or changing symptoms. Patient is instructed on clear liquid diet. - Lab Data Result diagrams: 06/03/18 05:25 06/03/18 05:25 Lab Results 06/03/18 06/03/18 06/03/18 Range/Units 05:25 05:25 05:25 WBC 8.3 (3.8-10.6) k/uL RBC 3.68 L (3.80-5.40) m/uL Hgb 11.5 (11.4-16.0) gm/dL Hct 35.8 (34.0-46.0) % MCV 97.2 (80.0-100.0) fL MCH 31.2 (25.0-35.0) pg MCHC 32.1 (31.0-37.0) g/dL RDW 13.6 (11.5-15.5) % Plt Count 477 H (150-450) k/uL Neutrophils % 65 % Lymphocytes % 22 % Monocytes % 8 % Eosinophils % 1 % Basophils % 1 % Neutrophils # 5.4 (1.3-7.7) k/uL Lymphocytes # 1.8 (1.0-4.8) k/uL Monocytes # 0.7 (0-1.0) k/uL Eosinophils # 0.1 (0-0.7) k/uL Basophils # 0.1 (0-0.2) k/uL Sodium 133 L (137-145) mmol/L Potassium 4.8 (3.5-5.1) mmol/L Chloride 92 L (98-107) mmol/L Carbon Dioxide 33 H (22-30) mmol/L Anion Gap 8 mmol/L BUN 21 H (7-17) mg/dL Creatinine 0.83 (0.52-1.04) mg/dL Est GFR (CKD-EPI)AfAm 75 (>60 ml/min/1.73 sqM) Est GFR (CKD-EPI)NonAf 65 (>60 ml/min/1.73 sqM) Glucose 109 H (74-99) mg/dL Calcium 10.9 H (8.4-10.2) mg/dL Total Bilirubin 0.7 (0.2-1.3) mg/dL AST 26 (14-36) U/L ALT 26 (9-52) U/L Alkaline Phosphatase 32 L (38-126) U/L Troponin I <0.012 (0.000-0.034) ng/mL Total Protein 6.8 (6.3-8.2) g/dL Albumin 3.7 (3.5-5.0) g/dL Amylase 131 H (30-110) U/L Lipase 833 H (23-300) U/L 06/03/18 Range/Units 09:20 WBC (3.8-10.6) k/uL RBC (3.80-5.40) m/uL Hgb (11.4-16.0) gm/dL Hct (34.0-46.0) % MCV (80.0-100.0) fL MCH (25.0-35.0) pg MCHC (31.0-37.0) g/dL RDW (11.5-15.5) % Plt Count (150-450) k/uL Neutrophils % % Lymphocytes % % Monocytes % % Eosinophils % % Basophils % % Neutrophils # (1.3-7.7) k/uL Lymphocytes # (1.0-4.8) k/uL Monocytes # (0-1.0) k/uL Eosinophils # (0-0.7) k/uL Basophils # (0-0.2) k/uL Sodium (137-145) mmol/L Potassium (3.5-5.1) mmol/L Chloride (98-107) mmol/L Carbon Dioxide (22-30) mmol/L Anion Gap mmol/L BUN (7-17) mg/dL Creatinine (0.52-1.04) mg/dL Est GFR (CKD-EPI)AfAm (>60 ml/min/1.73 sqM) Est GFR (CKD-EPI)NonAf (>60 ml/min/1.73 sqM) Glucose (74-99) mg/dL Calcium (8.4-10.2) mg/dL Total Bilirubin (0.2-1.3) mg/dL AST (14-36) U/L ALT (9-52) U/L Alkaline Phosphatase (38-126) U/L Troponin I <0.012 (0.000-0.034) ng/mL Total Protein (6.3-8.2) g/dL Albumin (3.5-5.0) g/dL Amylase (30-110) U/L Lipase (23-300) U/L Disposition Clinical Impression: Chest pain, Pancreatitis Disposition: HOME SELF-CARE Condition: Good Instructions (If sedation given, give patient instructions): Chest Pain (ED), Pancreatitis (ED) Is patient prescribed a controlled substance at d/c from ED?: No Referrals: Tee Esquivel MD [Primary Care Provider] - 1-2 days Time of Disposition: 11:08
== END 2018-06-03 11:20 | disposition home or self-care (01) ==
LOC: EC 05:13
DX: K85.90 Acute pancreatitis without necrosis or infection, unspecified (principal); R07.9 Chest pain, unspecified; Z88.2 Allergy status to sulfonamides; Z95.2 Presence of prosthetic heart valve; Z95.5 Presence of coronary angioplasty implant and graft
CPT/HCPCS: 36415; 71045; 76705; 80053; 82150; 83690; 84484; 85025; 99285

== ENCOUNTER 2018-06-24 03:48 | Inpatient (IN) | payer MEDICARE ==
[2018-06-24] MEDS ORDERED: methylPREDNISolone SOD SUCCI 125 MG/2 ML VIAL IV STA (04:01)
[2018-06-24] MEDS ORDERED: FAMOTIDINE 20 MG/2 ML VIAL IV STA (04:01)
[2018-06-24] MEDS ORDERED: diphenhydrAMINE 50 MG/ML 1 ML VIAL IVP STA (04:01)
[2018-06-24 04:19] LABS: Basophils % (A) 0 %; Eosinophils # (A) 0.3 k/uL (0-0.7); Eosinophils % (A) 3 %; HCT 26.3 % (34.0-46.0); HGB 8.2 gm/dL (11.4-16.0); Hypochromasia Moderate; Lymphocytes % (A) 22 %; MCH 30.1 pg (25.0-35.0); MCHC 31.2 g/dL (31.0-37.0); Mean Platelet Volume 7.6; Monocytes # (A) 0.6 k/uL (0-1.0); Monocytes % (A) 7 %; Neutrophils # (A) 5.6 k/uL (1.3-7.7); Neutrophils % (A) 65 %; Platelet Count 304 k/uL (150-450); RBC 2.73 m/uL (3.80-5.40); RDW 14.3 % (11.5-15.5); WBC 8.7 k/uL (3.8-10.6)
[2018-06-24 04:22] LABS: MCV 96.3 fL (80.0-100.0)
[2018-06-24 04:29] LABS: ALT 27 U/L (9-52); AST 22 U/L (14-36); Albumin 2.5 g/dL (3.5-5.0); Alkaline Phosphatase 24 U/L (38-126); Anion Gap 4 mmol/L; Blood Urea Nitrogen 18 mg/dL (7-17); Calcium 8.6 mg/dL (8.4-10.2); Carbon Dioxide 32 mmol/L (22-30); Chloride 101 mmol/L (98-107); Glucose 124 mg/dL (74-99); Magnesium 1.2 mg/dL (1.6-2.3); Potassium 3.4 mmol/L (3.5-5.1); Sodium 137 mmol/L (137-145); Total Bilirubin 0.3 mg/dL (0.2-1.3); Total Protein 4.8 g/dL (6.3-8.2)
[2018-06-24 04:36] LABS: Partial Thromboplastin Time 21.3 sec (22.0-30.0)
[2018-06-24] MEDS: MAGNESIUM SULFATE-D5W PMX 1 GM in DEXTROSE/WATER 1 100ML.BAG IVPB SCH ×2 (05:11→06:13)
--- NOTE | 2018-06-24 05:26 | CT ---
EXAM: CT Angiography Chest With Intravenous Contrast CLINICAL HISTORY: Shortness of breath. Bowel resection 11 days previous. TECHNIQUE: Axial computed tomographic angiography images of the chest with intravenous contrast using pulmonary embolism protocol. CTDI is 7.1 mGy and DLP is 317.4 mGy-cm. This CT exam was performed using one or more of the following dose reduction techniques: automated exposure control, adjustment of the mA and/or kV according to patient size, and/or use of iterative reconstruction technique. MIP reconstructed images were created and reviewed. COMPARISON: 09/12/2015 FINDINGS: Limitations: There is respiratory artifact which causes image degradation and limits detailed evaluation of the distal subsegmental pulmonary artery branches. Pulmonary arteries: Accounting for limitations, there is no evidence for pulmonary embolism. Aorta: No acute findings. No thoracic aortic aneurysm. Lungs: Minimal linear and subsegmental changes, predominantly involving the bilateral lower lobes. No mass. Pleural space: Small layering pleural effusions, right greater than left are noted posteriorly with the right pleural effusion measuring 11 mm. No pneumothorax. Heart: An endovascular aortic valve is noted. Mediastinum: There is a hiatal hernia noted in the posterior mediastinum measuring up to 6 cm in diameter. Above the hiatal hernia, the mucosa of the distal thoracic esophagus is slightly prominent with hyperenhancement of the right lateral thoracic wall and pooling hyperdensity in the posterior esophageal lumen noted (series 401; images 99-102). There is retained fluid and material suggested in the proximal to mid thoracic esophagus above the level of the hiatal hernia. Bones/joints: No acute fracture. No dislocation. Soft tissues: Postoperative changes are noted involving the anterior abdominal wall and subcutaneous tissues with subcutaneous emphysema noted. Lymph nodes: Unremarkable. No enlarged lymph nodes. Kidneys and ureters: Presumed cortical cyst involving the anterior aspect of the superior pole left kidney is similar to previous CT examination. IMPRESSION: 1. Accounting for limitations, there is no evidence for pulmonary embolism. 2. There is a hiatal hernia noted in the posterior mediastinum measuring up to 6 cm in diameter. Above the hiatal hernia, the mucosa of the distal thoracic esophagus appears prominent with hyperenhancement of the right lateral thoracic wall and a focus of hyperdensity in the posterior esophageal lumen noted. Subtle esophagitis with intravenous contrast extravasation into the thoracic esophagus is difficult to exclude. Please correlate clinically. Endoscopic evaluation may be appropriate. 3. Small layering pleural effusions, right greater than left are noted posteriorly with the right pleural effusion measuring 11 mm. Minimal adjacent compressive atelectasis at the lung bases. <MYCVCSECTION> Critical Value Communications 06/24/18 05:36 Verify Receipt Verified receipt with [facility] in the ER, report for Dr. Campos on 06/24 05:36 (-04:00)
--- NOTE | 2018-06-24 05:37 | ED ---
SOB HPI - General Chief Complaint: Shortness of Breath Stated Complaint: Difficulty Breathing Time Seen by Provider: 06/24/18 03:50 Source: patient Mode of arrival: EMS Limitations: no limitations - History of Present Illness Initial Comments: Odalys mckinnon 82-year-old female who presents the ED this morning via EMS for evaluation of shortness of breath. Patient is a very Acute or recent medical history she was admitted on 317 her small bowel obstruction she underwent an exploratory laparoscopy with lysis of adhesions and was subsequently discharged home. Throughout that hospitalization she had chronic anemia with hemoglobin in the 7-9 range. She reports that she was discharged home she's been doing well from a GI standpoint however she has noticed progressively worsening swelling of her lower extremities and this morning woke from sleep feeling very short of breath. The patient is a nonsmoker with no history of COPD. She does report she had asthma as a child but has not required any type of treatment for a number of years. Patient reports that she is feeling better after receiving supplemental oxygen from EMS in route to the hospital. The patient denies any recent fevers, chills, nausea, vomiting, abdominal pain, chest pain or palpitations, she denies any productive cough. She reports that this evening she has began to feel very short of breath and that worsened upon sleeping. at bedside expresses concern that during the patient's previous admission when she had an NG tube in place and had undergo surgery she did not receive her by mouth Lasix for a number of days and this has led to her heart failure exacerbation. - Related Data Home Medications Medication Instructions Recorded Confirmed Hylands Leg Cramps 2 - 3 tab PO Q4H PRN 07/06/15 06/24/18 Ascorbic Acid [Vitamin C] 1,000 mg PO DAILY 08/31/15 06/24/18 Latanoprost Ophth [Xalatan 0.005%] 1 drops BOTH EYES HS 08/31/15 06/24/18 Lansoprazole 30 mg PO DAILY 07/24/16 06/24/18 Multivitamin [Multivitamins Adult 1 tab PO DAILY 07/24/16 06/24/18 Gummies] Furosemide [Lasix] 20 mg PO BID 08/05/17 06/24/18 Levothyroxine Sodium [Synthroid] 125 mcg PO DAILY 08/05/17 06/24/18 Rivastigmine 4.6MG/24Hr Patch 1 patch TRANSDERM DAILY@1200 08/05/17 06/24/18 [Exelon 4.6MG/24Hr Patch] Nitroglycerin Sl Tabs [Nitrostat] 0.4 mg SUBLINGUAL Q5M PRN 09/28/17 06/24/18 Montelukast [Singulair] 10 mg PO HS 06/03/18 06/24/18 Previous Rx's Medication Instructions Recorded Clopidogrel [Plavix] 75 mg PO DAILY #30 tab 06/21/15 Metoprolol Tartrate [Lopressor] 12.5 mg PO BID #60 tab 09/06/15 Acetaminophen Tab [Tylenol] 650 mg PO Q6HR PRN tab 05/25/18 Folic Acid 1 mg PO DAILY@1200 #30 tab 05/25/18 Losartan [Cozaar] 12.5 mg PO DAILY tab 05/25/18 HYDROcodone/APAP 5-325MG [[place] 1 tab PO Q4HR PRN 3 Days #18 tab 06/21/18 5-325] Sucralfate [Carafate] 1 gm PO AC-BID #120 tab 06/21/18 Allergies Allergy/AdvReac Type Severity Reaction Status Date / Time codeine Allergy Itching Verified 06/24/18 06:50 shellfish derived [Shellfish] Allergy Rash/Hives Verified 06/24/18 06:50 Sulfa (Sulfonamide Allergy Unknown Verified 06/24/18 06:50 Antibiotics) SEAFOOD Allergy Rash/Hives Uncoded 05/17/18 20:27 Review of Systems ROS Statement: Those systems with pertinent positive or pertinent negative responses have been documented in the HPI. ROS Other: All systems not noted in ROS Statement are negative. 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 PER PTS PT HAD AORTIC VALVE SX" TAVR" PROCEDURE BY DR CHOI Past Anesthesia/Blood Transfusion Reactions: No Reported Reaction Date of Last Stent Placement:: 05/2015 Past Psychological History: No Psychological Hx Reported Smoking Status: Never smoker Past Alcohol Use History: None Reported Past Drug Use History: None Reported - Past Family History Father Family Medical History: Coronary Artery Disease (CAD) Sister(s) Family Medical History: Coronary Artery Disease (CAD) General Exam - General Exam Comments Initial Comments: Physical Exam GENERAL: Patient is well-developed and well-nourished elderly female in moderate respiratory distress HENT: Normocephalic, Atraumatic. EYES: PERRL, EOMI Conjunctival pallor PULMONARY: Diminished lung sounds at bilateral bases CARDIOVASCULAR: Systolic murmur 2+ pitting edema bilateral lower extremities ABDOMEN: Soft and nontender with normal bowel sounds. Well-healing laparoscopic surgical incisions SKIN: Skin is clear with no lesions or rashes and otherwise unremarkable. : Deferred NEUROLOGIC: Patient is alert and oriented x3. Moving all extremities spontaneously MUSCULOSKELETAL: Normal extremities with adequate strength and full range of motion. No lower extremity swelling or edema. No calf tenderness. PSYCHIATRIC: Normal psychiatric evaluation. 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, patient's presenting the emergency department today for evaluation of progressively worsening lower extremity edema and shortness of breath On physical exam the patient appears to be clinically fluid overloaded she does have 2+ pitting edema bilaterally in addition she has decreased breath sounds the bilateral bases However the patient is in the postoperative period presenting with some lower Mortensen E edema and hypoxia at this time I do have a high suspicion for pulmonary embolism and will proceed with CT scanning Labs and imaging were ordered Labs resulted with CBC showing chronic anemia back to baseline 8.2 Complete metabolic panel was relatively unremarkable potassium was only mildly low at 3.4 however given that I plan to treat with IV Lasix I will supplement her potassium CT angiography of the chest was ordered to evaluate for any pulmonary embolism there is no evidence of pulmonary embolism on the computed tomography scan. There is evidence of esophagitis around a hiatal hernia as well as evidence of bilateral pleural effusions likely related to congestive heart failure. Based on the patient's advanced age, physical exam concerning for decompensated heart failure, oxygen requirement and need for further evaluation I do feel the patient warrants admission to hospital. Patient will be admitted under the heart failure pathway with consult to cardiology and an echo ordered for the morning. Dated and is agreeable to plan. - Lab Data Result diagrams: 06/24/18 04:01 06/24/18 04:01 Lab Results 06/24/18 06/24/18 06/24/18 Range/Units 04:01 04:01 04:01 WBC 8.7 (3.8-10.6) k/uL RBC 2.73 L (3.80-5.40) m/uL Hgb 8.2 L (11.4-16.0) gm/dL Hct 26.3 L (34.0-46.0) % MCV 96.3 D (80.0-100.0) fL MCH 30.1 (25.0-35.0) pg MCHC 31.2 (31.0-37.0) g/dL RDW 14.3 (11.5-15.5) % Plt Count 304 (150-450) k/uL Neutrophils % 65 % Lymphocytes % 22 % Monocytes % 7 % Eosinophils % 3 % Basophils % 0 % Neutrophils # 5.6 (1.3-7.7) k/uL Lymphocytes # 2.0 (1.0-4.8) k/uL Monocytes # 0.6 (0-1.0) k/uL Eosinophils # 0.3 (0-0.7) k/uL Basophils # 0.0 (0-0.2) k/uL Hypochromasia Moderate PT 11.0 (9.0-12.0) sec INR 1.0 (<1.2) APTT 21.3 L (22.0-30.0) sec Sodium 137 (137-145) mmol/L Potassium 3.4 L (3.5-5.1) mmol/L Chloride 101 (98-107) mmol/L Carbon Dioxide 32 H (22-30) mmol/L Anion Gap 4 mmol/L BUN 18 H (7-17) mg/dL Creatinine 0.55 (0.52-1.04) mg/dL Est GFR (CKD-EPI)AfAm >90 (>60 ml/min/1.73 sqM) Est GFR (CKD-EPI)NonAf 87 (>60 ml/min/1.73 sqM) Glucose 124 H (74-99) mg/dL Calcium 8.6 (8.4-10.2) mg/dL Magnesium 1.2 L (1.6-2.3) mg/dL Total Bilirubin 0.3 (0.2-1.3) mg/dL AST 22 (14-36) U/L ALT 27 (9-52) U/L Alkaline Phosphatase 24 L (38-126) U/L Troponin I (0.000-0.034) ng/mL NT-Pro-B Natriuret Pep pg/mL Total Protein 4.8 L (6.3-8.2) g/dL Albumin 2.5 L (3.5-5.0) g/dL 06/24/18 06/24/18 Range/Units 04:01 04:01 WBC (3.8-10.6) k/uL RBC (3.80-5.40) m/uL Hgb (11.4-16.0) gm/dL Hct (34.0-46.0) % MCV (80.0-100.0) fL MCH (25.0-35.0) pg MCHC (31.0-37.0) g/dL RDW (11.5-15.5) % Plt Count (150-450) k/uL Neutrophils % % Lymphocytes % % Monocytes % % Eosinophils % % Basophils % % Neutrophils # (1.3-7.7) k/uL Lymphocytes # (1.0-4.8) k/uL Monocytes # (0-1.0) k/uL Eosinophils # (0-0.7) k/uL Basophils # (0-0.2) k/uL Hypochromasia PT (9.0-12.0) sec INR (<1.2) APTT (22.0-30.0) sec Sodium (137-145) mmol/L Potassium (3.5-5.1) mmol/L Chloride (98-107) mmol/L Carbon Dioxide (22-30) mmol/L Anion Gap mmol/L BUN (7-17) mg/dL Creatinine (0.52-1.04) mg/dL Est GFR (CKD-EPI)AfAm (>60 ml/min/1.73 sqM) Est GFR (CKD-EPI)NonAf (>60 ml/min/1.73 sqM) Glucose (74-99) mg/dL Calcium (8.4-10.2) mg/dL Magnesium (1.6-2.3) mg/dL Total Bilirubin (0.2-1.3) mg/dL AST (14-36) U/L ALT (9-52) U/L Alkaline Phosphatase (38-126) U/L Troponin I 0.019 (0.000-0.034) ng/mL NT-Pro-B Natriuret Pep 1270 pg/mL Total Protein (6.3-8.2) g/dL Albumin (3.5-5.0) g/dL - EKG Data -: EKG Interpreted by Me EKG Comments: EKG was obtained at 4:13 AM, rate is 89 is a P-wave before each QRS, rhythm is sinus, there is a leftward deviation, there are normal intervals, MI 158, QRS 90, QTC 447 there are no acute ST elevations or depressions there is no evidence of acute ischemia or infarction Disposition Clinical Impression: Congestive heart failure, Anemia, CAD (coronary artery disease), S/P AVR, Paroxysmal atrial fibrillation Disposition: ADMITTED IP TO THIS HOSP Condition: Stable Referrals: Tee Esquivel MD [Primary Care Provider] - 1-2 days
[2018-06-24] MEDS ORDERED: Potassium Replacement Protocol 1 EACH MISC MISCELLANE PRN (05:56)
[2018-06-24] MEDS: POTASSIUM CHLORIDE ER 20 MEQ TAB.ER PO SCH ×2 (06:14→07:30)
[2018-06-24] MEDS: FUROSEMIDE 10 MG/ML 4 ML VIAL IV SCH ×3 (06:19→22:06)
--- NOTE | 2018-06-24 08:38 | P.CRDCN ---
History of Present Illness Consult date: 06/24/18 Requesting physician: Marquise Mchugh Consult reason: shortness of breath Chief complaint: Shortness of breath History of present illness: This is an 82-year-old female who follows with Dr. Swati Oliveira in the office. She has a known history of hypertension, hypothyroidism, hyperlipidem ia, paroxysmal atrial fibrillation, status post TAVR, patient also has history of coronary artery disease with prior circumflex stenting. Check admission to the hospital in April of this year with cellulitis, subsequent to that patient was just recently admitted with a small bowel obstruction for which she underwent laparotomy with lysis adhesions. She was just discharged from the hospital on June 21. According to the patient and her she had not been receiving diuretics during that admission, but did receive IV fluids. She returns to the hospital on this occasion with symptoms of fairly sudden onset of shortness of breath, she has also noticed an increase in her lower extremity edema. Patient states that mainly her shortness of breath was occurring at night when she was lying flat. There was no chest x-ray performed on admission however a CTA of the chest was performed, there is no evidence for pulmonary embolism, there was evidence of a hiatal hernia, subtle esophagitis, small layering pleural effusions right greater than left. EKG shows a normal sinus rhythm with no acute changes. White blood cell count 8.7, hemoglobin 8.2, platelet count 304. Sodium 137, potassium 3.4, BUN 18 and creatinine 0.5. BNP level 1270, troponin 0.019. Blood pressure on arrival 150/90 with a heart rate in the 90s, 94% on room air. At the time of my examination this morning, cortez shearer is lying comfortably in bed, feeling tired. 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 PER PTS PT HAD AORTIC VALVE SX" TAVR" PROCEDURE BY DR CHOI Past Anesthesia/Blood Transfusion Reactions: No Reported Reaction Date of Last Stent Placement:: 05/2015 Past Psychological History: No Psychological Hx Reported Smoking Status: Never smoker Past Alcohol Use History: None Reported Past Drug Use History: None Reported - Past Family History Father Family Medical History: Coronary Artery Disease (CAD) Sister(s) Family Medical History: Coronary Artery Disease (CAD) Medications and Allergies Home Medications Medication Instructions Recorded Confirmed Type Clopidogrel [Plavix] 75 mg PO DAILY #30 tab 06/21/15 06/24/18 Rx Hylands Leg Cramps 2 - 3 tab PO Q4H PRN 07/06/15 06/24/18 History Ascorbic Acid [Vitamin C] 1,000 mg PO DAILY 08/31/15 06/24/18 History Latanoprost Ophth [Xalatan 0.005%] 1 drops BOTH EYES HS 08/31/15 06/24/18 History Metoprolol Tartrate [Lopressor] 12.5 mg PO BID #60 tab 09/06/15 06/24/18 Rx Lansoprazole 30 mg PO DAILY 07/24/16 06/24/18 History Multivitamin [Multivitamins Adult 1 tab PO DAILY 07/24/16 06/24/18 History Gummies] Furosemide [Lasix] 20 mg PO BID 08/05/17 06/24/18 History Levothyroxine Sodium [Synthroid] 125 mcg PO DAILY 08/05/17 06/24/18 History Rivastigmine 4.6MG/24Hr Patch 1 patch TRANSDERM DAILY@1200 08/05/17 06/24/18 History [Exelon 4.6MG/24Hr Patch] Nitroglycerin Sl Tabs [Nitrostat] 0.4 mg SUBLINGUAL Q5M PRN 09/28/17 06/24/18 History Acetaminophen Tab [Tylenol] 650 mg PO Q6HR PRN tab 05/25/18 06/24/18 Rx Montelukast [Singulair] 10 mg PO HS 06/03/18 06/24/18 History HYDROcodone/APAP 5-325MG [[place] 1 tab PO Q4HR PRN 3 Days #18 tab 06/21/18 06/24/18 Rx 5-325] Sucralfate [Carafate] 1 gm PO AC-BID #120 tab 06/21/18 06/24/18 Rx Folic Acid 1 mg PO DAILY 06/24/18 06/24/18 History Losartan Potassium 50 mg PO DAILY 06/24/18 06/24/18 History Allergies Allergy/AdvReac Type Severity Reaction Status Date / Time codeine Allergy Itching Verified 06/24/18 06:50 shellfish derived [Shellfish] Allergy Rash/Hives Verified 06/24/18 06:50 Sulfa (Sulfonamide Allergy Unknown Verified 06/24/18 06:50 Antibiotics) SEAFOOD Allergy Rash/Hives Uncoded 05/17/18 20:27 Physical Exam Vitals: Vital Signs Temp Pulse Resp BP Pulse Ox 06/24/18 07:39 97.9 F 102 H 18 141/85 98 06/24/18 07:00 98 20 143/80 97 06/24/18 06:00 86 20 163/70 100 06/24/18 05:38 89 20 163/70 99 06/24/18 03:58 24 06/24/18 03:53 98.6 F 95 20 151/92 94 L Intake and Output 06/23/18 06/24/18 06/24/18 22:59 06:59 14:59 Other: Weight 74.843 kg PHYSICAL EXAMINATION: GENERAL: 82-year-old female in no acute distress at the time of my examination HEENT: Head is atraumatic, normocephalic. Pupils equal, round. Sclera anicteric. Conjunctiva are clear. Mucous membranes of the mouth are moist. Neck is supple. There is elevated jugular venous pressure. No carotid bruit is heard. HEART EXAMINATION: Heart S1-S2 a systolic murmur is heard CHEST EXAMINATION: Lungs reveal diminished air entry to bilateral bases. ABDOMEN: Soft, nontender. Bowel sounds are heard. No organomegaly noted. EXTREMITIES: 2+ peripheral pulses with 1+ evidence of peripheral edema and no calf tenderness noted. NEUROLOGIC patient is awake, alert and oriented 3 . . Results 06/24/18 04:01 06/24/18 04:01 Cardiac Enzymes 06/24/18 06/24/18 Range/Units 04:01 04:01 AST 22 (14-36) U/L Troponin I 0.019 (0.000-0.034) ng/mL Coagulation 06/24/18 Range/Units 04:01 PT 11.0 (9.0-12.0) sec APTT 21.3 L (22.0-30.0) sec CBC 06/24/18 Range/Units 04:01 WBC 8.7 (3.8-10.6) k/uL RBC 2.73 L (3.80-5.40) m/uL Hgb 8.2 L (11.4-16.0) gm/dL Hct 26.3 L (34.0-46.0) % Plt Count 304 (150-450) k/uL Comprehensive Metabolic Panel 06/24/18 Range/Units 04:01 Sodium 137 (137-145) mmol/L Potassium 3.4 L (3.5-5.1) mmol/L Chloride 101 (98-107) mmol/L Carbon Dioxide 32 H (22-30) mmol/L BUN 18 H (7-17) mg/dL Creatinine 0.55 (0.52-1.04) mg/dL Glucose 124 H (74-99) mg/dL Calcium 8.6 (8.4-10.2) mg/dL AST 22 (14-36) U/L ALT 27 (9-52) U/L Alkaline Phosphatase 24 L (38-126) U/L Total Protein 4.8 L (6.3-8.2) g/dL Albumin 2.5 L (3.5-5.0) g/dL Current Medications Generic Name Dose Route Start Last Admin Trade Name Freq PRN Reason Stop Dose Admin Furosemide 40 mg 06/24/18 06:00 06/24/18 06:19 Lasix IV 40 mg Q8H MARIPOSA Administration Miscellaneous Information 1 each 06/24/18 05:56 Potassium Per Protocol MISCELLANE DAILY PRN Per Protocol Protocol Intake and Output 06/23/18 06/24/18 06/24/18 22:59 06:59 14:59 Other: Weight 74.843 kg 06/24/18 04:01 06/24/18 04:01 EKG Interpretations (text) EKG shows a normal sinus rhythm with no acute changes noted Assessment and Plan Plan: Assessment and plan #1 symptoms of shortness of breath with evidence of PND and orthopnea, bilateral lower extremity edema, suggestive of congestive cardiac failure. Patient has been initiated on IV Lasix. Echocardiogram with Doppler study performed in April of this year revealed an ejection fraction of 55-60%, severely dilated left atrium, normally functioning bioprosthetic valve, moderate tricuspid regurg and moderate pulmonary hypertension #2 known history of coronary artery disease with prior circumflex stenting #3 history of TAVR #4 hypertension #5 hyperlipidemia #6 hypothyroidism #7 paroxysmal atrial fibrillation #8 history of recent cellulitis admission in April #9 recent admission with small bowel obstruction status post surgery #10 anemia Plan We will obtain a chest x-ray PA and lateral. Continue IV Lasix. We will also resume the patient's losartan and metoprolol. Further recommendations to follow. DNP note has been reviewed, I agree with a documented findings and plan of care. Patient was seen and examined.
[2018-06-24] MEDS: LOSARTAN 50 MG TAB PO SCH (09:47)
[2018-06-24] MEDS: METOPROLOL TARTRATE 12.5 MG TAB PO SCH ×2 (09:48→22:04)
[2018-06-24] MEDS: CLOPIDOGREL 75 MG TAB PO SCH (09:48)
[2018-06-24 10:54] VITALS: BMI 28.3
[2018-06-24] MEDS ORDERED: NITROGLYCERIN SL TABS 0.4 MG TAB SUBLINGUAL PRN (15:19)
[2018-06-24] MEDS ORDERED: HYDROcodone/APAP 5-325MG 1 EACH TAB PO PRN (15:19)
--- NOTE | 2018-06-24 16:53 | XR ---
EXAMINATION TYPE: XR chest 2V DATE OF EXAM: 06/24/2018 COMPARISON: 06/17/2018 HISTORY: Heart failure TECHNIQUE: Frontal and lateral views of the chest are obtained. FINDINGS: There is no heart failure nor confluent pneumonic infiltrate. Costophrenic angles are emily r. Thoracic aorta is atheromatous. There are chest leads. IMPRESSION: No active cardiopulmonary disease. Aortic valve surgery noted. No change.
[2018-06-24] MEDS ORDERED: Magnesium Replacement Protocol 1 EACH MISC MISCELLANE PRN (17:17)
--- NOTE | 2018-06-24 17:23 | P.HPIM ---
History of Present Illness 82-year-old female with a known history of coronary artery disease and stent placement, paroxysmal atrial fibrillation currently not on anticoagulation due to previous GI bleed, aortic stenosis status post TAVR, hyperlipidemia, hypo thyroidism . Patient was recently in the hospital and been discharged 2 days ago. She was here for for GI bleed and status post EGD, also she has expiratory laparotomy with release of adhesions for small bowel obstruction. she was discharged in stable condition, however she developed dyspnea and shortness of breath after discharge. However patient denies chest pain. No change in urine or bowel habits. No fever.vitals are stable and she is saturating 96-99% on 2 L via nasal cannula. CBC was unremarkable except for anemia with hemoglobin 8.2, potassium 3.4, creatinine is normal at 0.5.sugar is 124. Magnesium low at 1.2.patient last time she was admitted in the hospital she's been discharged on her home medication of Lasix 20 mg twice a day. However currently she is a started on 40 mg IV every 8 hours. Review of Systems CONSTITUTIONAL: No fever, no malaise, no fatigue. HEENT: No recent visual problems or hearing problems. Denied any sore throat. CARDIOVASCULAR: No orthopnea, PND, no palpitations, no syncope. PULMONARY: no hemoptysis. GASTROINTESTINAL: No diarrhea, no nausea, no vomiting, no abdominal pain. Normoactive bowel sounds. NEUROLOGICAL: No headaches, no weakness, no numbness. HEMATOLOGICAL: Denies any bleeding or petechiae. GENITOURINARY: Denies any burning micturition, frequency, or urgency. MUSCULOSKELETAL/RHEUMATOLOGICAL: Denies any joint pain, swelling, or any muscle pain. ENDOCRINE: Denies any polyuria or polydipsia. 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 PER PTS PT HAD AORTIC VALVE SX" TAVR" PROCEDURE BY DR CHOI Past Anesthesia/Blood Transfusion Reactions: No Reported Reaction Date of Last Stent Placement:: 05/2015 Past Psychological History: No Psychological Hx Reported Smoking Status: Never smoker Past Alcohol Use History: None Reported Past Drug Use History: None Reported - Past Family History Father Family Medical History: Coronary Artery Disease (CAD) Sister(s) Family Medical History: Coronary Artery Disease (CAD) Medications and Allergies Home Medications Medication Instructions Recorded Confirmed Type RX: Clopidogrel [Plavix] 75 mg PO DAILY #30 tab 06/21/15 06/24/18 Rx Hylands Leg Cramps 2 - 3 tab PO Q4H PRN 07/06/15 06/24/18 History RX: Ascorbic Acid [Vitamin C] 1,000 mg PO DAILY 08/31/15 06/24/18 History RX: Latanoprost Ophth [Xalatan 1 drops BOTH EYES HS 08/31/15 06/24/18 History 0.005%] RX: Metoprolol Tartrate [Lopressor] 12.5 mg PO BID #60 tab 09/06/15 06/24/18 Rx RX: Lansoprazole 30 mg PO DAILY 07/24/16 06/24/18 History RX: Multivitamin [Multivitamins 1 tab PO DAILY 07/24/16 06/24/18 History Adult Gummies] RX: Furosemide [Lasix] 20 mg PO BID 08/05/17 06/24/18 History RX: Levothyroxine Sodium 137 mcg PO DAILY 08/05/17 06/24/18 History [Synthroid] RX: Rivastigmine 4.6MG/24Hr Patch 1 patch TRANSDERM DAILY@1200 08/05/17 06/24/18 History [Exelon 4.6MG/24Hr Patch] RX: Nitroglycerin Sl Tabs 0.4 mg SUBLINGUAL Q5M PRN 09/28/17 06/24/18 History [Nitrostat] RX: Acetaminophen Tab [Tylenol] 650 mg PO Q6HR PRN tab 05/25/18 06/24/18 Rx RX: Montelukast [Singulair] 10 mg PO HS 06/03/18 06/24/18 History HYDROcodone/APAP 5-325MG [[place] 1 tab PO Q4HR PRN 3 Days #18 tab 06/21/18 06/24/18 Rx 5-325] RX: Sucralfate [Carafate] 1 gm PO AC-BID #120 tab 06/21/18 06/24/18 Rx Losartan Potassium 50 mg PO DAILY 06/24/18 06/24/18 History RX: Folic Acid 1 mg PO DAILY 06/24/18 06/24/18 History Allergies Allergy/AdvReac Type Severity Reaction Status Date / Time codeine Allergy Itching Verified 06/24/18 06:50 shellfish derived [Shellfish] Allergy Rash/Hives Verified 06/24/18 06:50 Sulfa (Sulfonamide Allergy Unknown Verified 06/24/18 06:50 Antibiotics) SEAFOOD Allergy Rash/Hives Uncoded 05/17/18 20:27 Physical Exam Vitals: Vital Signs Temp Pulse Pulse Resp BP BP Pulse Ox 06/24/18 11:25 98.2 F 86 18 130/61 99 06/24/18 09:30 100 20 06/24/18 08:00 98 F 100 20 140/62 99 06/24/18 07:39 97.9 F 102 H 18 141/85 98 06/24/18 07:00 98 20 143/80 97 06/24/18 06:00 86 20 163/70 100 06/24/18 05:38 89 20 163/70 99 06/24/18 03:58 24 06/24/18 03:53 98.6 F 95 20 151/92 94 L Intake and Output 06/23/18 06/24/18 06/24/18 22:59 06:59 14:59 Output Total 400 Balance -400 Output: Urine 400 Other: Weight 74.843 kg 74.843 kg GENERAL: The patient is alert and oriented x3, not in any acute distress. Well developed, well nourished. HEENT: Pupils are round and equally reacting to light. EOMI. No scleral icterus. No conjunctival pallor. Normocephalic, atraumatic. No pharyngeal erythema. No thyromegaly. CARDIOVASCULAR: S1 and S2 present. No murmurs, rubs, or gallops. -PULMONARY: Chest is clear to auscultation, bilateral basal crackles. ABDOMEN: Soft, nontender, nondistended, normoactive bowel sounds. No palpable organomegaly. MUSCULOSKELETAL: No joint swelling or deformity. EXTREMITIES: No cyanosis, clubbing, or pedal edema. NEUROLOGICAL: Gross neurological examination did not reveal any focal deficits. SKIN: No rashes. Results CBC & Chem 7: 06/24/18 04:01 06/24/18 04:01 Labs: Abnormal Lab Results - Last 24 Hours (Table) 06/24/18 06/24/18 06/24/18 Range/Units 04:01 04:01 04:01 RBC 2.73 L (3.80-5.40) m/uL Hgb 8.2 L (11.4-16.0) gm/dL Hct 26.3 L (34.0-46.0) % APTT 21.3 L (22.0-30.0) sec Potassium 3.4 L (3.5-5.1) mmol/L Carbon Dioxide 32 H (22-30) mmol/L BUN 18 H (7-17) mg/dL Glucose 124 H (74-99) mg/dL Magnesium 1.2 L (1.6-2.3) mg/dL Alkaline Phosphatase 24 L (38-126) U/L Total Protein 4.8 L (6.3-8.2) g/dL Albumin 2.5 L (3.5-5.0) g/dL Thrombosis Risk Factor Assmnt - Choose All That Apply Each Factor Represents 1 point: Heart failure (<1month), History of prior major surgery (<1month), Swollen legs (current) Each Risk Factor Represents 3 Points: Age 75 years or older Thrombosis Risk Factor Assessment Total Risk Factor Score: 6 Thrombosis Risk Factor Assessment Level: High Risk Assessment and Plan Plan: -acute diastolic CHF, cardiology consult is appreciated. Continue with Lasix. Recent echocardiogram showing ejection fraction 55-60%. -Valvular heart disease with moderate tricuspid regurgitation and severely dilated left atrium with moderate pulmonary hypertension -Small bowel obstruction: Status post additional lysis. Patient remains nothing by mouth patient is an NG tube was DC'd, patient is on IV fluids as mentioned above -Mild is gastritis and esophagitis -Hypertension fairly controlled blood pressure once patient is able to tolerate oral medication patient was started on Coreg discontinue clonidine -Proximal atrial fibrillation presently rate controlled not on any anti- correlation because of GI bleed -history of aortic stenosis status post TAVR -Hiatal hernia next DVT prophylaxis: Sc heparin GI prophylaxis: Protonix
[2018-06-24] MEDS ORDERED: MAGNESIUM SULFATE-D5W PMX 1 GM in DEXTROSE/WATER 1 100ML.BAG IVPB SCH ×2 (17:30→17:45)
[2018-06-24] MEDS: SUCRALFATE 1 GM TAB PO SCH (18:05)
[2018-06-24 19:33] LABS: HCT 23.3 % (34.0-46.0); Hypochromasia Moderate; MCH 29.1 pg (25.0-35.0); MCHC 30.3 g/dL (31.0-37.0); MCV 96.2 fL (80.0-100.0); Mean Platelet Volume 7.7; Platelet Count 345 k/uL (150-450); RBC 2.42 m/uL (3.80-5.40); RDW 14.5 % (11.5-15.5); WBC 7.9 k/uL (3.8-10.6)
[2018-06-24] MEDS: HEPARIN SODIUM,PORCINE 5,000 UNIT/ML 1 ML VIAL SQ SCH (22:05)
[2018-06-24] MEDS: MONTELUKAST 10 MG TAB PO SCH (22:05)
[2018-06-24] MEDS: PANTOPRAZOLE 40 MG/10 ML VIAL IVP SCH (22:07)
[2018-06-24] MEDS: LATANOPROST 0.005% OPHTH DROPS 2.5 ML BTL BOTH EYES SCH (22:20)
[2018-06-25 02:20] LABS: Glucose,Whole Blood 143 mg/dL (75-99)
[2018-06-25 03:40] LABS: Hypochromasia Marked; MCV 95.2 fL (80.0-100.0)
[2018-06-25 03:41] LABS: Magnesium 1.8 mg/dL (1.6-2.3); Potassium 3.6 mmol/L (3.5-5.1)
[2018-06-25 03:45] LABS: HCT 20.8 % (34.0-46.0); MCH 29.6 pg (25.0-35.0); MCHC 31.1 g/dL (31.0-37.0); Mean Platelet Volume 7.6; Platelet Count 362 k/uL (150-450); RBC 2.19 m/uL (3.80-5.40); RDW 14.6 % (11.5-15.5); WBC 11.7 k/uL (3.8-10.6)
[2018-06-25 03:51] LABS: HGB 6.5 gm/dL (11.4-16.0)
[2018-06-25] MEDS: FUROSEMIDE 10 MG/ML 4 ML VIAL IV SCH (06:39)
[2018-06-25] MEDS: LEVOTHYROXINE 137 MCG TAB PO SCH (06:39)
[2018-06-25] MEDS: SUCRALFATE 1 GM TAB PO SCH ×2 (06:49→16:13)
[2018-06-25] MEDS ORDERED: PANTOPRAZOLE 40 MG TABLET PO SCH (07:30)
[2018-06-25] MEDS: HEPARIN SODIUM,PORCINE 5,000 UNIT/ML 1 ML VIAL SQ SCH ×2 (07:39→21:00)
[2018-06-25] MEDS: PANTOPRAZOLE 40 MG/10 ML VIAL IVP SCH ×2 (08:56→21:07)
[2018-06-25] MEDS: METOPROLOL TARTRATE 12.5 MG TAB PO SCH ×2 (08:57→21:07)
[2018-06-25] MEDS: CLOPIDOGREL 75 MG TAB PO SCH (08:57)
[2018-06-25] MEDS: LOSARTAN 50 MG TAB PO SCH (08:57)
[2018-06-25] MEDS: ASCORBIC ACID 500 MG TAB PO SCH (08:59)
[2018-06-25] MEDS: FOLIC ACID 1 MG TAB PO SCH (11:13)
[2018-06-25] MEDS: MULTIVITAMINS, THERA 1 EACH TAB PO SCH (11:13)
--- NOTE | 2018-06-25 11:24 | P.PN ---
Subjective Progress Note Date: 06/25/18 This is an 82-year-old female who follows with Dr. Swati Oliveira in the office. She has a known history of hypertension, hypothyroidism, hyperlipidemia, paroxysmal atrial fibrillation, status post TAVR, patient also has history of coronary artery disease with prior circumflex stenting. Check admission to the hospital in April of this year with cellulitis, subsequent to that patient was just recently admitted with a small bowel obstruction for which she underwent laparotomy with lysis adhesions. She was just discharged from the hospital on June 21. According to the patient and her she had not been receiving diuretics during that admission, but did receive IV fluids. She returns to the hospital on this occasion with symptoms of fairly sudden onset of shortness of breath, she has also noticed an increase in her lower extremity edema. Patient states that mainly her shortness of breath was occurring at night when she was lying flat. There was no chest x-ray performed on admission however a CTA of the chest was performed, there is no evidence for pulmonary embolism, there was evidence of a hiatal hernia, subtle esophagitis, small layering pleural effusions right greater than left. EKG shows a normal sinus rhythm with no acute changes. White blood cell count 8.7, hemoglobin 8.2, platelet count 304. Sodium 137, potassium 3.4, BUN 18 and creatinine 0.5. BNP level 1270, troponin 0.019. Blood pressure on arrival 150/90 with a heart rate in the 90s, 94% on room air. At the time of my examination this morning, patient is lying comfortably in bed, feeling tired. 06/25/2018 Patient was seen and examined this morning, sitting up in the chair at bedside. States that her breathing is significantly improved, her bilateral edema has improved.White blood cell count this morning 11.7, hemoglobin 6.5, platelet count 362. Sodium 135, potassium 3.6, BUN 29 and creatinine 0.8. magnesium level I.8. A consult has been requested with GI service for the low hemoglobin. Objective - Vital Signs Vital signs: Vital Signs Temp 97.5 F L 06/25/18 11:16 Pulse 71 06/25/18 11:16 Resp 18 06/25/18 11:16 BP 122/58 06/25/18 11:16 Pulse Ox 96 06/25/18 11:16 Intake & Output 06/24/18 06/25/1806/25/19 18:59 06:59 18:59 Intake Total 240 0 Output Total 400 Balance -160 0 Weight 74.843 kg 74.8 kg Intake: Oral 240 Blood Product 0 Rc As-1 Unit 0 [id number] Output: Urine 400 Other: Voiding Method Bedside Commode Bedside Commode # Voids 2 # Bowel Movements 1 - Exam PHYSICAL EXAMINATION: GENERAL: 82-year-old female in no acute distress at the time of my examination HEENT: Head is atraumatic, normocephalic. Pupils equal, round. Sclera anicteric. Conjunctiva are clear. Mucous membranes of the mouth are moist. Neck is supple. There is elevated jugular venous pressure. No carotid bruit is heard. HEART EXAMINATION: Heart S1-S2 a systolic murmur is heard CHEST EXAMINATION: Lungs reveal diminished air entry to bilateral bases. ABDOMEN: Soft, nontender. Bowel sounds are heard. No organomegaly noted. EXTREMITIES: 2+ peripheral pulses with 1+ evidence of peripheral edema and no calf tenderness noted. NEUROLOGIC patient is awake, alert and oriented 3 . . - Labs CBC & Chem 7: 06/25/18 02:43 06/25/18 02:43 Labs: Abnormal Lab Results - Last 24 Hours (Table) 06/24/18 06/25/18 06/25/18 Range/Units 19:13 02:17 02:43 WBC (3.8-10.6) k/uL RBC 2.42 L (3.80-5.40) m/uL Hgb 7.0 L (11.4-16.0) gm/dL Hct 23.3 L (34.0-46.0) % MCHC 30.3 L (31.0-37.0) g/dL Sodium 135 L (137-145) mmol/L Chloride 95 L (98-107) mmol/L Carbon Dioxide 34 H (22-30) mmol/L BUN 29 H (7-17) mg/dL Glucose 112 H (74-99) mg/dL POC Glucose (mg/dL) 143 H (75-99) mg/dL Crossmatch 06/25/18 06/25/18 Range/Units 02:43 05:41 WBC 11.7 H (3.8-10.6) k/uL RBC 2.19 L (3.80-5.40) m/uL Hgb 6.5 L* (11.4-16.0) gm/dL Hct 20.8 L (34.0-46.0) % MCHC (31.0-37.0) g/dL Sodium (137-145) mmol/L Chloride (98-107) mmol/L Carbon Dioxide (22-30) mmol/L BUN (7-17) mg/dL Glucose (74-99) mg/dL POC Glucose (mg/dL) (75-99) mg/dL Crossmatch See Detail Assessment and Plan Plan: Assessment and plan #1 symptoms of shortness of breath with evidence of PND and orthopnea, bilateral lower extremity edema, suggestive of congestive cardiac failure. Patient has been initiated on IV Lasix. Echocardiogram with Doppler study performed in April of this year revealed an ejection fraction of 55-60%, severely dilated left atrium, normally functioning bioprosthetic valve, moderate tricuspid regurg and moderate pulmonary hypertension #2 known history of coronary artery disease with prior circumflex stenting #3 history of TAVR #4 hypertension #5 hyperlipidemia #6 hypothyroidism #7 paroxysmal atrial fibrillation #8 history of recent cellulitis admission in April #9 recent admission with small bowel obstruction status post surgery #10 anemia Plan chest x-ray performed yesterday did not reveal any acute cardio pulmonary process. We will discontinue the IV Lasix today. Resume Lasix at 20 mg by mouth twice a day. GI consultation regarding anemia. DNP note has been reviewed, I agree with a documented findings and plan of care. Patient was seen and examined.
[2018-06-25] MEDS: RIVASTIGMINE 4.6MG/24HR PATCH TRANSDERM SCH (11:26)
--- NOTE | 2018-06-25 13:06 | P.CONS ---
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 She developed post EGD intractable nausea vomiting radiographic imaging studies supported partial small bowel obstruction status post exploratory laparotomy lysis of adhesions 06/17/2018 admitted with shortness of breath. Past medical history paroxysmal atrial fibrillation TAVR. Hemoglobin 8.2 decreased to 6.5. White count 11.7. Platelet 362. BUN 18. Creatinine 0.5. Today BUN increased 29. Creatinine 0.8. INR 1.0. Denies overt bleeding such as hematemesis hematochezia melena. Reports a bowel movement last night singh nature. Presently denies abdominal pain. Home medications included Carafate lansoprazole, Plavix. CT chest no PE. Hiatal hernia posterior mediastinum measuring up to 6 cm in diameter above the hiatal hernia mucosa distal thoracic esophagus appears prominent with hyper enhancement of the right lateral thoracic wall and a focus of hyperdensity in the posterior esophageal lumen. Subtle esophagitis with IV contrast extravasation into the thoracic esophagus is difficult to exclude. Review of Systems Constitutional: Denies fever, chills, sweats, weight gain, or loss. HEENT: Negative for migraines, blurred vision or loss, earaches, drainage, tinn itus, oral mucosal lesions, dysphagia, or odynophagia. CARDIAC: Negative for chest pain, arrhythmias, or palpitation. RESPIRATORY: Admitted with dyspnea on denies, hemoptysis, cough, or sputum production. GI: See HPI for pertinent findings. : Negative for hematuria, urgency, frequency, polyuria, or dysuria. GYNc: Denies possibility of . Negative vaginal discharge. MUSCULOSKELETAL: Negative for muscle aches, swelling, arthritis, and arthralgias. NEUROLOGIC: Negative for stroke or TIA. ENDOCRINE: Negative for thyroid problems. SKIN: Negative for rash or itching. PSYCHIATRIC: Negative history for depression and anxiety Past Medical History Past Medical History: Atrial Fibrillation, Coronary Artery Disease (CAD), GERD/Reflux, GI Bleed, Hyperlipidemia, Osteoarthritis (OA), Thyroid Disorder Additional Past Medical History / Comment(s): Aortic stenosis status post TAPVR, proximal atrial fibrillation, chronic constipation, previous episodes of GI bleed that was worked up and the patient was found to have some distal esophagitis and duodenitis and some mild gastritis, diverticulosis, coronary artery disease with previous angioplasty of the circumflex/stenting, hypothyroidism, hiatal hernia, 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 PER PTS PT HAD AORTIC VALVE SX" TAVR" PROCEDURE BY DR CHOI Past Anesthesia/Blood Transfusion Reactions: No Reported Reaction Date of Last Stent Placement:: 05/2015 Past Psychological History: No Psychological Hx Reported Smoking Status: Never smoker Past Alcohol Use History: None Reported Past Drug Use History: None Reported - Past Family History Father Family Medical History: Coronary Artery Disease (CAD) Sister(s) Family Medical History: Coronary Artery Disease (CAD) Medications and Allergies Home Medications Medication Instructions Recorded Confirmed Type Clopidogrel [Plavix] 75 mg PO DAILY #30 tab 06/21/15 06/24/18 Rx Hylands Leg Cramps 2 - 3 tab PO Q4H PRN 07/06/15 06/24/18 History Ascorbic Acid [Vitamin C] 1,000 mg PO DAILY 08/31/15 06/24/18 History Latanoprost Ophth [Xalatan 0.005%] 1 drops BOTH EYES HS 08/31/15 06/24/18 History Metoprolol Tartrate [Lopressor] 12.5 mg PO BID #60 tab 09/06/15 06/24/18 Rx Lansoprazole 30 mg PO DAILY 07/24/16 06/24/18 History Multivitamin [Multivitamins Adult 1 tab PO DAILY 07/24/16 06/24/18 History Gummies] Furosemide [Lasix] 20 mg PO BID 08/05/17 06/24/18 History Levothyroxine Sodium [Synthroid] 137 mcg PO DAILY 08/05/17 06/24/18 History Rivastigmine 4.6MG/24Hr Patch 1 patch TRANSDERM DAILY@1200 08/05/17 06/24/18 History [Exelon 4.6MG/24Hr Patch] Nitroglycerin Sl Tabs [Nitrostat] 0.4 mg SUBLINGUAL Q5M PRN 09/28/17 06/24/18 History Acetaminophen Tab [Tylenol] 650 mg PO Q6HR PRN tab 05/25/18 06/24/18 Rx Montelukast [Singulair] 10 mg PO HS 06/03/18 06/24/18 History HYDROcodone/APAP 5-325MG [[place] 1 tab PO Q4HR PRN 3 Days #18 tab 06/21/18 06/24/18 Rx 5-325] Sucralfate [Carafate] 1 gm PO AC-BID #120 tab 06/21/18 06/24/18 Rx Folic Acid 1 mg PO DAILY 06/24/18 06/24/18 History Losartan Potassium 50 mg PO DAILY 06/24/18 06/24/18 History Allergies Allergy/AdvReac Type Severity Reaction Status Date / Time codeine Allergy Itching Verified 06/24/18 06:50 shellfish derived [Shellfish] Allergy Rash/Hives Verified 06/24/18 06:50 Sulfa (Sulfonamide Allergy Unknown Verified 06/24/18 06:50 Antibiotics) SEAFOOD Allergy Rash/Hives Uncoded 05/17/18 20:27 Physical Exam Vitals: Vital Signs Temp Pulse Pulse Resp BP BP Pulse Ox 06/25/18 10:01 97.8 F 77 16 139/63 100 06/25/18 09:31 97.1 F L 88 16 124/57 99 06/25/18 09:28 87 18 06/25/18 09:21 97.8 F 89 16 122/58 97 06/25/18 07:39 98.2 F 87 18 112/55 94 L 06/25/18 04:05 97.7 F 93 17 139/79 96 06/25/18 02:06 98.4 F 89 17 118/88 95 06/25/18 00:10 93 17 06/24/18 20:10 100 17 06/24/18 20:00 99.2 F 100 14 146/64 95 06/24/18 16:00 98.9 F 91 18 121/57 96 06/24/18 11:25 98.2 F 86 18 130/61 99 Intake and Output 03/28/19 03/29/19 03/29/19 22:59 06:59 14:59 Intake Total 240 0 Balance 240 0 Intake: Oral 240 Blood Product 0 Rc As-1 Unit 0 [id number] Other: Voiding Method Bedside Commode Bedside Commode Bedside Commode # Voids 2 # Bowel Movements 1 Weight 74.8 kg General appearance: The patient is alert, oriented, in no acute distress. HET: Head is normocephalic and atraumatic. Pupils are equal and reactive. Oropharynx is clear without lesions. Neck: Supple without lymphadenopathy. Trachea midline. Heart: S1 S2. Lungs: No crackles or wheezes are heard. Diminished in bases slightly bilaterally. Abdomen: Soft, nontender, nondistended with bowel sounds. Midline dressing clean. No peritoneal signs. No palpable organomegaly or masses. Extremities: Normal skin color and turgor. No cyanosis, rash, ulceration, clubbing, or edema. Radial and pedal pulses are 2/4 bilaterally. Neurological: No focal deficits. Strength and sensation are grossly intact. Results CBC & Chem 7: 06/25/18 02:43 06/25/18 02:43 Labs: Abnormal Lab Results - Last 24 Hours (Table) 06/24/18 06/25/18 06/25/18 Range/Units 19:13 02:17 02:43 WBC (3.8-10.6) k/uL RBC 2.42 L (3.80-5.40) m/uL Hgb 7.0 L (11.4-16.0) gm/dL Hct 23.3 L (34.0-46.0) % MCHC 30.3 L (31.0-37.0) g/dL Sodium 135 L (137-145) mmol/L Chloride 95 L (98-107) mmol/L Carbon Dioxide 34 H (22-30) mmol/L BUN 29 H (7-17) mg/dL Glucose 112 H (74-99) mg/dL POC Glucose (mg/dL) 143 H (75-99) mg/dL Crossmatch 06/25/18 06/25/18 Range/Units 02:43 05:41 WBC 11.7 H (3.8-10.6) k/uL RBC 2.19 L (3.80-5.40) m/uL Hgb 6.5 L* (11.4-16.0) gm/dL Hct 20.8 L (34.0-46.0) % MCHC (31.0-37.0) g/dL Sodium (137-145) mmol/L Chloride (98-107) mmol/L Carbon Dioxide (22-30) mmol/L BUN (7-17) mg/dL Glucose (74-99) mg/dL POC Glucose (mg/dL) (75-99) mg/dL Crossmatch See Detail CT scan - chest: report reviewed (Dr. Scott) Assessment and Plan (1) Anemia Narrative/Plan: 82-year-old female recent upper GI bleed status post EGD findings of bleeding duodenal AVM status post APC followed by intractable nausea vomiting radiographic imaging study supporting small bowel obstruction status post exploratory laparotomy and lysis of adhesions admitted with dyspnea without overt bleeding with drop in hemoglobin. Computed tomography scan chest could not exclude IV extravasation into the thoracic esophagus. Current Visit: Yes Status: Acute Code(s): D64.9 - ANEMIA, UNSPECIFIED SNOMED Code(s): 813976225 (2) Dyspnea Current Visit: Yes Status: Acute Code(s): R06.00 - DYSPNEA, UNSPECIFIED SNOMED Code(s): 251638806 Plan: 1. CT chest was reviewed with radiologist Dr. Zuluaga. We'll proceed with upper GI esophagram study to evaluate esophagus and GE junction rule out extravasation. Continue with nothing by mouth status. Recommend general surgical consult. Inpatient endoscopy will be contingent on upper GI study findings. CBC monitoring. Protonix 40 mg IV daily. Thank you for this kind referral and the opportunity to participate in the care of your patient. This consultation was discussed with Dr. Scott. The impression and plan of care have been directed as dictated.
--- NOTE | 2018-06-25 14:11 | P.GSCN ---
History of Present Illness Consult date: 06/25/18 Reason for Consult: recent bowel surgery Requesting physician: Jill Neves History of present illness: CHIEF COMPLAINT: recent bowel surgery HISTORY OF PRESENT ILLNESS: 82-year-old female who underwent diagnostic laparoscopy, laparotomy with lysis of adhesions secondary to small bowel obstruction on 06/17/2017. Patient presented back to the emergency room with complaints of shortness of breath. Patient reports she has been doing well postoperatively at home. She denies nausea or vomiting. Tolerating oral intake. Denies abdominal pain. Reports bowel movements. Reports dark tarry stools prior to admission per who is at the bedside. Hemoglobin is 6.5 today. 8.2 on admission. Patient received 1 unit RBCs today. PAST MEDICAL HISTORY: See list. PAST SURGICAL HISTORY: See list. SOCIAL HISTORY: No illicit drug use. REVIEW OF SYSTEMS: CONSTITUTIONAL: Denies fever or chills. HEENT: Denies blurred vision, vision changes, or eye pain. Denies hemoptysis CARDIOVASCULAR: Denies chest pain or pressure. RESPIRATORY: No shortness of breath. GASTROINTESTINAL: Refer to HPI for pertinent findings HEMATOLOGIC: Denies bleeding disorders. GENITOURINARY: Denies any blood in urine. SKIN: Denies pruitis. Denies rash. PHYSICAL EXAM: VITAL SIGNS: Reviewed. GENERAL: Well-developed in no acute distress. HEENT: No sclera icterus. Extraocular movements grossly intact. Moist buccal mucosa. Head is atraumatic, normocephalic. ABDOMEN: Soft. Nondistended. Nontender. Astrid to midline surgical incision. Dressing clean dry and intact-dressing removed. NEUROLOGIC: Alert and oriented. Cranial nerves II through XII grossly intact. IMAGING: CT angio chest: Hiatal hernia noted in the posterior mediastinum measuring up to 6 cm in diameter. Above the hiatal hernia, the mucosa of the distal thoracic esophagus appears prominent with hyperenhancement of the right lateral thoracic wall and a focus of hyperdensity in the posterior esophageal lumen noted. Subtle esophagitis with intravenous contrast extravasation into the thoracic esophagus is difficult to exclude. ASSESSMENT: 1. S/P diagnostic laparoscopy, laparotomy with lysis of adhesions secondary to small bowel obstruction on 06/17/2017 2. Melena, patients reports dark tarry stools prior to admission 3. Acute blood loss anemia 4. Hiatal hernia PLAN: 1. Patient is stable from a surgical standpoint. Dressing removed at the bedside. Astrid intact. Incision healing well. Nursing to replace optifoam dressing. 2. Upper GI esophagram ordered per GI. Will defer endoscopic studies to GI service. Nurse practitioner note has been reviewed by physician. Signing provider agrees with the documented findings, assessment, and plan of care. 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 PER PTS PT HAD AORTIC VALVE SX" TAVR" PROCEDURE BY DR CHOI Past Anesthesia/Blood Transfusion Reactions: No Reported Reaction Date of Last Stent Placement:: 05/2015 Past Psychological History: No Psychological Hx Reported Smoking Status: Never smoker Past Alcohol Use History: None Reported Past Drug Use History: None Reported - Past Family History Father Family Medical History: Coronary Artery Disease (CAD) Sister(s) Family Medical History: Coronary Artery Disease (CAD) Medications and Allergies Home Medications Medication Instructions Recorded Confirmed Type Clopidogrel [Plavix] 75 mg PO DAILY #30 tab 06/21/15 06/24/18 Rx Hylands Leg Cramps 2 - 3 tab PO Q4H PRN 07/06/15 06/24/18 History Ascorbic Acid [Vitamin C] 1,000 mg PO DAILY 08/31/15 06/24/18 History Latanoprost Ophth [Xalatan 0.005%] 1 drops BOTH EYES HS 08/31/15 06/24/18 History Metoprolol Tartrate [Lopressor] 12.5 mg PO BID #60 tab 09/06/15 06/24/18 Rx Lansoprazole 30 mg PO DAILY 07/24/16 06/24/18 History Multivitamin [Multivitamins Adult 1 tab PO DAILY 07/24/16 06/24/18 History Gummies] Furosemide [Lasix] 20 mg PO BID 08/05/17 06/24/18 History Levothyroxine Sodium [Synthroid] 137 mcg PO DAILY 08/05/17 06/24/18 History Rivastigmine 4.6MG/24Hr Patch 1 patch TRANSDERM DAILY@1200 08/05/17 06/24/18 History [Exelon 4.6MG/24Hr Patch] Nitroglycerin Sl Tabs [Nitrostat] 0.4 mg SUBLINGUAL Q5M PRN 09/28/17 06/24/18 History Acetaminophen Tab [Tylenol] 650 mg PO Q6HR PRN tab 05/25/18 06/24/18 Rx Montelukast [Singulair] 10 mg PO HS 06/03/18 06/24/18 History HYDROcodone/APAP 5-325MG [[place] 1 tab PO Q4HR PRN 3 Days #18 tab 06/21/18 06/24/18 Rx 5-325] Sucralfate [Carafate] 1 gm PO AC-BID #120 tab 06/21/18 06/24/18 Rx Folic Acid 1 mg PO DAILY 06/24/18 06/24/18 History Losartan Potassium 50 mg PO DAILY 06/24/18 06/24/18 History Allergies Allergy/AdvReac Type Severity Reaction Status Date / Time codeine Allergy Itching Verified 06/24/18 06:50 shellfish derived [Shellfish] Allergy Rash/Hives Verified 06/24/18 06:50 Sulfa (Sulfonamide Allergy Unknown Verified 06/24/18 06:50 Antibiotics) SEAFOOD Allergy Rash/Hives Uncoded 05/17/18 20:27 Surgical - Exam Vital Signs Temp Pulse Resp BP Pulse Ox 98.6 F 95 20 151/92 94 L 06/24/18 03:53 06/24/18 03:53 06/24/18 03:53 06/24/18 03:53 06/24/18 03:53 Results - Labs 06/25/18 02:43 06/25/18 02:43 Abnormal Lab Results - Last 24 Hours (Table) 06/24/18 06/25/18 06/25/18 Range/Units 19:13 02:17 02:43 WBC (3.8-10.6) k/uL RBC 2.42 L (3.80-5.40) m/uL Hgb 7.0 L (11.4-16.0) gm/dL Hct 23.3 L (34.0-46.0) % MCHC 30.3 L (31.0-37.0) g/dL Sodium 135 L (137-145) mmol/L Chloride 95 L (98-107) mmol/L Carbon Dioxide 34 H (22-30) mmol/L BUN 29 H (7-17) mg/dL Glucose 112 H (74-99) mg/dL POC Glucose (mg/dL) 143 H (75-99) mg/dL Crossmatch 06/25/18 06/25/18 Range/Units 02:43 05:41 WBC 11.7 H (3.8-10.6) k/uL RBC 2.19 L (3.80-5.40) m/uL Hgb 6.5 L* (11.4-16.0) gm/dL Hct 20.8 L (34.0-46.0) % MCHC (31.0-37.0) g/dL Sodium (137-145) mmol/L Chloride (98-107) mmol/L Carbon Dioxide (22-30) mmol/L BUN (7-17) mg/dL Glucose (74-99) mg/dL POC Glucose (mg/dL) (75-99) mg/dL Crossmatch See Detail Diabetes panel 06/25/18 Range/Units 02:43 Sodium 135 L (137-145) mmol/L Potassium 3.6 (3.5-5.1) mmol/L Chloride 95 L (98-107) mmol/L Carbon Dioxide 34 H (22-30) mmol/L BUN 29 H (7-17) mg/dL Creatinine 0.83 (0.52-1.04) mg/dL Glucose 112 H (74-99) mg/dL Calcium 9.0 (8.4-10.2) mg/dL Calcium panel 06/25/18 Range/Units 02:43 Calcium 9.0 (8.4-10.2) mg/dL Pituitary panel 06/25/18 Range/Units 02:43 Sodium 135 L (137-145) mmol/L Potassium 3.6 (3.5-5.1) mmol/L Chloride 95 L (98-107) mmol/L Carbon Dioxide 34 H (22-30) mmol/L BUN 29 H (7-17) mg/dL Creatinine 0.83 (0.52-1.04) mg/dL Glucose 112 H (74-99) mg/dL Calcium 9.0 (8.4-10.2) mg/dL Adrenal panel 06/25/18 Range/Units 02:43 Sodium 135 L (137-145) mmol/L Potassium 3.6 (3.5-5.1) mmol/L Chloride 95 L (98-107) mmol/L Carbon Dioxide 34 H (22-30) mmol/L BUN 29 H (7-17) mg/dL Creatinine 0.83 (0.52-1.04) mg/dL Glucose 112 H (74-99) mg/dL Calcium 9.0 (8.4-10.2) mg/dL
--- NOTE | 2018-06-25 15:48 | FL ---
EXAMINATION TYPE: FL esophagus cervic/pharynx DATE OF EXAM: 06/25/2018 HISTORY: Recent abnormal CT. COMPARISON: Chest CT from yesterday. CT abdomen and pelvis from 9 days ago. TECHNIQUE: A single contrast esophagram is performed Isovue 370. FINDINGS: Due to patient's difficulty standing and weakness exam is suboptimal. During drinking there is modera te size hiatal hernia redemonstrated. No contrast extravasation to confirm leak is seen. Metallic hussain nt graft aortic root is noted. IMPRESSION: Confirmation of leak not identified. CT finding is still extremely suspicious as intram ural hematoma or hemorrhage into esophageal wall would be in differential. Would still advised consid ering repeat endoscopy given CT abnormality.
[2018-06-25 16:04] LABS: HCT 27.2 % (34.0-46.0); Hypochromasia Moderate; MCH 29.2 pg (25.0-35.0); MCHC 31.2 g/dL (31.0-37.0); MCV 93.5 fL (80.0-100.0); Mean Platelet Volume 7.2; Platelet Count 360 k/uL (150-450); Poikilocytosis Slight; RDW 15.1 % (11.5-15.5)
[2018-06-25 16:10] LABS: HGB 8.5 gm/dL (11.4-16.0)
[2018-06-25] MEDS: FUROSEMIDE 20 MG TAB PO SCH (16:13)
--- NOTE | 2018-06-25 19:34 | P.PN ---
Subjective 82-year-old female with a known history of coronary artery disease and stent placement, paroxysmal atrial fibrillation currently not on anticoagulation due to previous GI bleed, aortic stenosis status post TAVR, hyperlipidemia, hypothyroidism . Patient was recently in the hospital and been discharged 2 days ago. She was here for for GI bleed and status post EGD, also she has expiratory laparotomy with release of adhesions for small bowel obstruction. she was discharged in stable condition, however she developed dyspnea and shortness of breath after discharge. However patient denies chest pain. No change in urine or bowel habits. No fever.vitals are stable and she is saturating 96-99% on 2 L via nasal cannula. CBC was unremarkable except for anemia with hemoglobin 8.2, potassium 3.4, creatinine is normal at 0.5.sugar is 124. Magne sium low at 1.2.patient last time she was admitted in the hospital she's been discharged on her home medication of Lasix 20 mg twice a day. However currently she is a started on 40 mg IV every 8 hours. 06/25/2018 Patient was lying in the chair comfortable with denied chest pain or dyspnea. She is not in distress. Vital signs stable. And that shows improvement in her white cell count and hemoglobin after 1 unit of blood transfusion. And her kidney function are within normal limits. However on the CAT scan there is subtle esophagitis, with intravenous contrast extravasation into the thoracic esophagus is difficult to exclude. Discussed the case with the corner block cutter team, we keep the patient nothing by mouth for now. Surgical consultation with the primary team wanted the surgery for her, We'll found her stable from their perspective and the recommended endoscopic evaluation as per GI. Fluoroscopy study: Peak not identified. CONSTITUTIONAL: No fever, no malaise, no fatigue. HEENT: No recent visual problems or hearing problems. Denied any sore throat. CARDIOVASCULAR: No orthopnea, PND, no palpitations, no syncope. PULMONARY: No shortness of breath, no cough, no hemoptysis. GASTROINTESTINAL: No diarrhea, no nausea, no vomiting, no abdominal pain. Normoactive bowel sounds. NEUROLOGICAL: No headaches, no weakness, no numbness. HEMATOLOGICAL: Denies any bleeding or petechiae. GENITOURINARY: Denies any burning micturition, frequency, or urgency. MUSCULOSKELETAL/RHEUMATOLOGICAL: Denies any joint pain, swelling, or any muscle pain. ENDOCRINE: Denies any polyuria or polydipsia. Medication: Tylenol, Plavix, folic acid, Lasix, heparin, Caryn Prost eyedrops, levothyroxine, Cozaar, Lopressor, Singulair, multivitamin, Protonix, sucralfate, reverse technique. Objective - Vital Signs Vital signs: Vital Signs Temp 98.2 F 06/25/18 12:45 Pulse 82 06/25/18 16:00 Resp 16 06/25/18 16:00 BP 111/53 06/25/18 16:00 Pulse Ox 95 06/25/18 16:00 Intake & Output 06/25/18 06/25/18 06/26/18 06:59 18:59 06:59 Intake Total 310 Balance 310 Weight 74.8 kg Intake: Blood Product 310 Rc As-1 Unit 310 [id number] Other: Voiding Method Bedside Commode Bedside Commode # Voids 2 # Bowel Movements 1 - Exam GENERAL: The patient is alert and oriented x3, not in any acute distress. Well developed, well nourished. HEENT: Pupils are round and equally reacting to light. EOMI. No scleral icterus. No conjunctival pallor. Normocephalic, atraumatic. No pharyngeal erythema. No thyromegaly. CARDIOVASCULAR: S1 and S2 present. No murmurs, rubs, or gallops. -PULMONARY: Chest is clear to auscultation, bilateral basal crackles. ABDOMEN: Soft, nontender, nondistended, normoactive bowel sounds. No palpable organomegaly. MUSCULOSKELETAL: No joint swelling or deformity. EXTREMITIES: No cyanosis, clubbing, or pedal edema. NEUROLOGICAL: Gross neurological examination did not reveal any focal deficits. SKIN: No rashes. - Labs CBC & Chem 7: 06/25/18 15:45 06/25/18 02:43 Labs: Abnormal Lab Results - Last 24 Hours (Table) 06/24/18 06/25/18 06/25/18 Range/Units 19:13 02:17 02:43 WBC (3.8-10.6) k/uL RBC 2.42 L (3.80-5.40) m/uL Hgb 7.0 L (11.4-16.0) gm/dL Hct 23.3 L (34.0-46.0) % MCHC 30.3 L (31.0-37.0) g/dL Sodium 135 L (137-145) mmol/L Chloride 95 L (98-107) mmol/L Carbon Dioxide 34 H (22-30) mmol/L BUN 29 H (7-17) mg/dL Glucose 112 H (74-99) mg/dL POC Glucose (mg/dL) 143 H (75-99) mg/dL Crossmatch 06/25/18 06/25/18 06/25/18 Range/Units 02:43 05:41 15:45 WBC 11.7 H (3.8-10.6) k/uL RBC 2.19 L 2.90 L (3.80-5.40) m/uL Hgb 6.5 L* 8.5 L D (11.4-16.0) gm/dL Hct 20.8 L 27.2 L (34.0-46.0) % MCHC (31.0-37.0) g/dL Sodium (137-145) mmol/L Chloride (98-107) mmol/L Carbon Dioxide (22-30) mmol/L BUN (7-17) mg/dL Glucose (74-99) mg/dL POC Glucose (mg/dL) (75-99) mg/dL Crossmatch See Detail Assessment and Plan Plan: -acute diastolic CHF, cardiology consult is appreciated. Continue with Lasix. Recent echocardiogram showing ejection fraction 55-60%. -Valvular heart disease with moderate tricuspid regurgitation and severely dilated left atrium with moderate pulmonary hypertension -Small bowel obstruction: Status post additional lysis. Patient remains nothing by mouth patient is an NG tube was DC'd, patient is on IV fluids as mentioned above -Mild is gastritis and esophagitis -Possible extravasation of contrast into the thoracic esophagus. GI team evaluated the patient -Hypertension fairly controlled blood pressure once patient is able to tolerate oral medication patient was started on Coreg discontinue clonidine -Proximal atrial fibrillation presently rate controlled not on any anti- correlation because of GI bleed -history of aortic stenosis status post TAVR -Hiatal hernia next DVT prophylaxis: Sc heparin GI prophylaxis: Protonix
[2018-06-25] MEDS: LATANOPROST 0.005% OPHTH DROPS 2.5 ML BTL BOTH EYES SCH (21:06)
[2018-06-25] MEDS: MONTELUKAST 10 MG TAB PO SCH (21:07)
[2018-06-25 22:58] LABS: HCT 25.3 % (34.0-46.0); HGB 8.1 gm/dL (11.4-16.0); Hypochromasia Moderate; MCH 29.9 pg (25.0-35.0); MCHC 31.9 g/dL (31.0-37.0); MCV 93.8 fL (80.0-100.0); Mean Platelet Volume 7.1; Platelet Count 337 k/uL (150-450); Poikilocytosis Slight; RBC 2.69 m/uL (3.80-5.40); WBC 8.9 k/uL (3.8-10.6)
[2018-06-26] MEDS: ACETAMINOPHEN TAB 325 MG TAB PO PRN ×2 (04:37→23:16)
[2018-06-26] MEDS: SUCRALFATE 1 GM TAB PO SCH ×2 (06:34→16:47)
[2018-06-26] MEDS: LEVOTHYROXINE 137 MCG TAB PO SCH (06:34)
[2018-06-26 07:31] LABS: Albumin 2.8 g/dL (3.5-5.0); Calcium 8.5 mg/dL (8.4-10.2); Magnesium 1.6 mg/dL (1.6-2.3); Potassium 3.5 mmol/L (3.5-5.1); Total Bilirubin 0.6 mg/dL (0.2-1.3); Total Protein 5.1 g/dL (6.3-8.2)
[2018-06-26] MEDS: ASCORBIC ACID 500 MG TAB PO SCH (08:50)
[2018-06-26] MEDS: FUROSEMIDE 20 MG TAB PO SCH ×2 (08:51→16:47)
[2018-06-26] MEDS: LOSARTAN 50 MG TAB PO SCH (08:51)
[2018-06-26] MEDS: METOPROLOL TARTRATE 12.5 MG TAB PO SCH ×2 (08:51→20:58)
[2018-06-26] MEDS: HEPARIN SODIUM,PORCINE 5,000 UNIT/ML 1 ML VIAL SQ SCH ×2 (08:51→20:56)
[2018-06-26] MEDS: CLOPIDOGREL 75 MG TAB PO SCH (08:51)
[2018-06-26] MEDS: PANTOPRAZOLE 40 MG/10 ML VIAL IVP SCH ×2 (08:52→20:58)
--- NOTE | 2018-06-26 10:36 | P.PN ---
Progress Note - Text Progress Note Date: 06/26/18 Patient has no real complaints this morning. Her esophagram shows no evidence of any esophageal perforation. Patient has a chronic hiatal hernia. On exam her vital signs are stable. Her abdomen soft. Probable esophageal hematoma. No surgical intervention is planned.
--- NOTE | 2018-06-26 11:24 | PN ---
PROGRESS NOTE DATE OF SERVICE: June 26, 2018. REQUESTING PHYSICIAN: Dr. Baldwin The patient is an 82-year-old pleasant white female who was admitted to the hospital with anemia and black tarry stools. She was admitted to the hospital 10 days ago with acute upper gastrointestinal bleed, underwent an upper endoscopy by Dr. 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 Subsequently, she developed nausea, vomiting, and diagnosed with small-bowel obstruction and during the same hospitalization she underwent exploratory laparotomy with lysis of adhesions by Dr. Dennis. She was discharged home 5 days later and was readmitted to the hospital within 2 days with abdominal discomfort, black tarry stools and a drop in hemoglobin to 6.5 requiring blood transfusion. Following admission to the hospital, she had a CT of the chest done that showed a moderate-size hiatal hernia and possible extravasation of the dye from the esophagus. Because of the suspicion for a leak, she underwent a Gastrografin swallow yesterday and as per the radiologist, it was negative. However, there was some questionable hematoma involving the esophageal wall and hence a direct upper endoscopy was recommended. In the meantime, the patient is doing well. She denies any abdominal pain. She reports no chest pain. Denies any dysphagia or odynophagia. She has been n.p.o. for 3 days. She is very hungry, requesting for a diet. PHYSICAL EXAMINATION: She appears comfortable. No apparent distress. VITAL SIGNS: Stable. Blood pressure 132/71, pulse is 78, temperature 97.6. HEENT examination unremarkable. Conjunctivae pink. Sclerae anicteric. Oral cavity no lesions. NECK: No jugular venous distention or lymph node enlargement. Chest was clear to auscultation. HEART: Regular rate and rhythm. ABDOMEN: Soft. Bowel sounds are positive. No organomegaly. EXTREMITIES: No pedal edema. Skin no rashes. NEUROLOGIC: Alert and oriented times three. No focal deficits. LABS: Done at the time of admission to the hospital CBC with differential count, WBC was 11.7, hemoglobin was 6.5. Today, WBC 8.9, hemoglobin 8.1. Basic metabolic panel is within normal limits. IMPRESSION: 1. This is a lady who presents to the hospital with shortness of breath, abdominal pain, black tarry stools of 2 days duration following recent discharge from the hospital at which time she had an upper gastrointestinal bleed as well as a bowel obstruction for which she underwent exploratory laparotomy with lysis of adhesions by Dr. Dennis. She received two units of blood transfusion. Hemoglobin is stable at 8.1. CT of the chest done at the time of admission to the hospital showed questionable extravasation of the dye from the esophagus as well as moderate-size hiatal hernia. Subsequently, she had a Gastrografin swallow yesterday that did not show any evidence of leak. However, there was some questionable hematoma of the esophageal wall and hence an upper endoscopy was recommended. In the meantime, the patient has no upper gastrointestinal symptoms. She has been n.p.o. for 3 days, requesting for a diet. 2. Recent upper gastrointestinal bleed for which she underwent an upper endoscopy by Dr. 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 3. Status post small-bowel explorative laparotomy for small-bowel obstruction by Dr. Dennis a week ago. RECOMMENDATIONS: 1. Start on clear liquid diet. 2. We will proceed with an upper endoscopy tomorrow. I discussed with the patient risks, benefits and complications of the procedure and she is agreeable to it. 3. Continue with IV Protonix. 4. CBC on a daily basis and we will follow her closely during hospital stay. Thank you for this consultation. MMMIMIL / RAMONITAN: [id number] /
--- NOTE | 2018-06-26 11:25 | P.PN ---
Subjective Progress Note Date: 06/26/18 This is an 82-year-old female who follows with Dr. Swati Oliveira in the office. She has a known history of hypertension, hypothyroidism, hyperlipidemia, paroxysmal atrial fibrillation, status post TAVR, patient also has history of coronary artery disease with prior circumflex stenting. Check admission to the hospital in April of this year with cellulitis, subsequent to that patient was just recently admitted with a small bowel obstruction for which she underwent laparotomy with lysis adhesions. She was just discharged from the hospital on June 21. According to the patient and her she had not been receiving diuretics during that admission, but did receive IV fluids. She returns to the hospital on this occasion with symptoms of fairly sudden onset of shortness of breath, she has also noticed an increase in her lower extremity edema. Patient states that mainly her shortness of breath was occurring at night when she was lying flat. There was no chest x-ray performed on admission however a CTA of the chest was performed, there is no evidence for pulmonary embolism, there was evidence of a hiatal hernia, subtle esophagitis, small layering pleural effusions right greater than left. EKG shows a normal sinus rhythm with no acute changes. White blood cell count 8.7, hemoglobin 8.2, platelet count 304. Sodium 137, potassium 3.4, BUN 18 and creatinine 0.5. BNP level 1270, troponin 0.019. Blood pressure on arrival 150/90 with a heart rate in the 90s, 94% on room air. At the time of my examination this morning, patient is lying comfortably in bed, feeling tired. 06/25/2018 Patient was seen and examined this morning, sitting up in the chair at bedside. States that her breathing is significantly improved, her bilateral edema has improved.White blood cell count this morning 11.7, hemoglobin 6.5, platelet count 362. Sodium 135, potassium 3.6, BUN 29 and creatinine 0.8. magnesium level I.8. A consult has been requested with GI service for the low hemoglobin. 06/26/2018 Patient is sitting up in the chair bedside this morning, overall feels well. Breathing is stable. Hemoglobin today 8.1. She is scheduled tomorrow to undergo an EGD with Dr. Saha. Blood pressure 122/50 with a heart rate in the 70s, 95% on room air. Objective - Vital Signs Vital signs: Vital Signs Temp 97.4 F L 06/26/18 04:00 Pulse 78 06/26/18 04:00 Resp 18 06/26/18 04:00 BP 122/52 06/26/18 04:00 Pulse Ox 95 06/26/18 04:00 Intake & Output 06/25/18 06/26/18 06/26/18 18:59 06:59 18:59 Intake Total 310 Balance 310 Weight 72.8 kg Intake: Blood Product 310 Rc As-1 Unit 310 [id number] Other: Voiding Method Bedside Commode Bedside Commode # Voids 2 # Bowel Movements 1 - Exam PHYSICAL EXAMINATION: GENERAL: 82-year-old female in no acute distress at the time of my examination HEENT: Head is atraumatic, normocephalic. Pupils equal, round. Sclera anicteric. Conjunctiva are clear. Mucous membranes of the mouth are moist. Neck is supple. There is elevated jugular venous pressure. No carotid bruit is heard. HEART EXAMINATION: Heart S1-S2 a systolic murmur is heard CHEST EXAMINATION: Lungs reveal diminished air entry to bilateral bases. ABDOMEN: Soft, nontender. Bowel sounds are heard. No organomegaly noted. EXTREMITIES: 2+ peripheral pulses with 1+ evidence of peripheral edema and no calf tenderness noted. NEUROLOGIC patient is awake, alert and oriented 3 . . - Labs CBC & Chem 7: 06/25/18 22:42 06/26/18 06:59 Labs: Abnormal Lab Results - Last 24 Hours (Table) 06/25/18 06/25/18 06/25/18 Range/Units 00:15 05:41 15:45 RBC 2.90 L (3.80-5.40) m/uL Hgb 8.5 L D (11.4-16.0) gm/dL Hct 27.2 L (34.0-46.0) % Carbon Dioxide (22-30) mmol/L BUN (7-17) mg/dL Alkaline Phosphatase (38-126) U/L Total Protein (6.3-8.2) g/dL Albumin (3.5-5.0) g/dL Stool Occult Blood Positive H (Negative) Crossmatch See Detail 06/25/18 06/26/18 Range/Units 22:42 06:59 RBC 2.69 L (3.80-5.40) m/uL Hgb 8.1 L (11.4-16.0) gm/dL Hct 25.3 L (34.0-46.0) % Carbon Dioxide 35 H (22-30) mmol/L BUN 19 H (7-17) mg/dL Alkaline Phosphatase 25 L (38-126) U/L Total Protein 5.1 L (6.3-8.2) g/dL Albumin 2.8 L (3.5-5.0) g/dL Stool Occult Blood (Negative) Crossmatch Assessment and Plan Plan: Assessment and plan #1 symptoms of shortness of breath with evidence of PND and orthopnea, bilateral lower extremity edema, suggestive of congestive cardiac failure. Patient has been initiated on IV Lasix. Echocardiogram with Doppler study performed in April of this year revealed an ejection fraction of 55-60%, severely dilated left atrium, normally functioning bioprosthetic valve, moderate tricuspid regurg and moderate pulmonary hypertension #2 known history of coronary artery disease with prior circumflex stenting #3 history of TAVR #4 hypertension #5 hyperlipidemia #6 hypothyroidism #7 paroxysmal atrial fibrillation #8 history of recent cellulitis admission in April #9 recent admission with small bowel obstruction status post surgery #10 anemia Plan Blood pressure and heart rate remaining stable, patient is on oral diuretics. Scheduled to undergo an EGD tomorrow with Dr. Chatterjee. From our perspective we will follow her along with you now on an as-needed basis only, please don't hesitate to call with any questions. DNP note has been reviewed, I agree with a documented findings and plan of care. Patient was seen and examined.
[2018-06-26] MEDS: MULTIVITAMINS, THERA 1 EACH TAB PO SCH (11:55)
[2018-06-26] MEDS: FOLIC ACID 1 MG TAB PO SCH (11:55)
[2018-06-26] MEDS: RIVASTIGMINE 4.6MG/24HR PATCH TRANSDERM SCH (11:55)
--- NOTE | 2018-06-26 15:56 | P.PN ---
Subjective 82-year-old female with a known history of coronary artery disease and stent placement, paroxysmal atrial fibrillation currently not on anticoagulation due to previous GI bleed, aortic stenosis status post TAVR, hyperlipidemia, hypothyroidism . Patient was recently in the hospital and been discharged 2 days ago. She was here for for GI bleed and status post EGD, also she has expiratory laparotomy with release of adhesions for small bowel obstruction. she was discharged in stable condition, however she developed dyspnea and shortness of breath after discharge. However patient denies chest pain. No change in urine or bowel habits. No fever.vitals are stable and she is saturating 96-99% on 2 L via nasal cannula. CBC was unremarkable except for anemia with hemoglobin 8.2, potassium 3.4, creatinine is normal at 0.5.sugar is 124. Magne sium low at 1.2.patient last time she was admitted in the hospital she's been discharged on her home medication of Lasix 20 mg twice a day. However currently she is a started on 40 mg IV every 8 hours. 06/25/2018 Patient was lying in the chair comfortable with denied chest pain or dyspnea. She is not in distress. Vital signs stable. And that shows improvement in her white cell count and hemoglobin after 1 unit of blood transfusion. And her kidney function are within normal limits. However on the CAT scan there is subtle esophagitis, with intravenous contrast extravasation into the thoracic esophagus is difficult to exclude. Discussed the case with the car repairer team, we keep the patient nothing by mouth for now. Surgical consultation with the primary team wanted the surgery for her, We'll found her stable from their perspective and the recommended endoscopic evaluation as per GI. Fluoroscopy study: Peak not identified. 06/26/2018 Patient is sitting in chair, she is asymptomatic. No chest pain no dyspnea. No abdominal pain. No nausea vomiting. No other symptoms. Patient case was discussed with the gastroenterology team today. Versus patient she might have s ome extravasation of the contrast into the esophagus as been the CAT scan results we are going to restart her on clear liquid diet is well-tolerated she might go for endoscopic evaluation tomorrow by GI team CONSTITUTIONAL: No fever, no malaise, no fatigue. HEENT: No recent visual problems or hearing problems. Denied any sore throat. CARDIOVASCULAR: No orthopnea, PND, no palpitations, no syncope. PULMONARY: No shortness of breath, no cough, no hemoptysis. GASTROINTESTINAL: No diarrhea, no nausea, no vomiting, no abdominal pain. Normoactive bowel sounds. NEUROLOGICAL: No headaches, no weakness, no numbness. HEMATOLOGICAL: Denies any bleeding or petechiae. GENITOURINARY: Denies any burning micturition, frequency, or urgency. MUSCULOSKELETAL/RHEUMATOLOGICAL: Denies any joint pain, swelling, or any muscle pain. ENDOCRINE: Denies any polyuria or polydipsia. Medication: Tylenol, Plavix, folic acid, Lasix, heparin, Caryn Prost eyedrops, levothyroxine, Cozaar, Lopressor, Singulair, multivitamin, Protonix, sucralfate, reverse technique. Objective - Vital Signs Vital signs: Vital Signs Temp 97.4 F L 06/26/18 04:00 Pulse 76 06/26/18 12:40 Resp 16 06/26/18 12:40 BP 118/65 06/26/18 12:40 Pulse Ox 96 06/26/18 12:40 Intake & Output 06/25/18 06/26/18 06/26/18 18:59 06:59 18:59 Intake Total 310 Balance 310 Weight 72.8 kg Intake: Blood Product 310 Rc As-1 Unit 310 [id number] Other: Voiding Method Bedside Commode Bedside Commode Bedside Commode # Voids 2 # Bowel Movements 1 - Exam GENERAL: The patient is alert and oriented x3, not in any acute distress. Well developed, well nourished. HEENT: Pupils are round and equally reacting to light. EOMI. No scleral icterus. No conjunctival pallor. Normocephalic, atraumatic. No pharyngeal erythema. No thyromegaly. CARDIOVASCULAR: S1 and S2 present. No murmurs, rubs, or gallops. -PULMONARY: Chest is clear to auscultation, bilateral basal crackles. ABDOMEN: Soft, nontender, nondistended, normoactive bowel sounds. No palpable organomegaly. MUSCULOSKELETAL: No joint swelling or deformity. EXTREMITIES: No cyanosis, clubbing, or pedal edema. NEUROLOGICAL: Gross neurological examination did not reveal any focal deficits. SKIN: No rashes. - Labs CBC & Chem 7: 06/25/18 22:42 06/26/18 06:59 Labs: Abnormal Lab Results - Last 24 Hours (Table) 06/25/18 06/25/18 06/25/18 Range/Units 00:15 15:45 22:42 RBC 2.90 L 2.69 L (3.80-5.40) m/uL Hgb 8.5 L D 8.1 L (11.4-16.0) gm/dL Hct 27.2 L 25.3 L (34.0-46.0) % Carbon Dioxide (22-30) mmol/L BUN (7-17) mg/dL Alkaline Phosphatase (38-126) U/L Total Protein (6.3-8.2) g/dL Albumin (3.5-5.0) g/dL Stool Occult Blood Positive H (Negative) 06/26/18 Range/Units 06:59 RBC (3.80-5.40) m/uL Hgb (11.4-16.0) gm/dL Hct (34.0-46.0) % Carbon Dioxide 35 H (22-30) mmol/L BUN 19 H (7-17) mg/dL Alkaline Phosphatase 25 L (38-126) U/L Total Protein 5.1 L (6.3-8.2) g/dL Albumin 2.8 L (3.5-5.0) g/dL Stool Occult Blood (Negative) Assessment and Plan Plan: -acute diastolic CHF, cardiology consult is appreciated. Continue with Lasix. Recent echocardiogram showing ejection fraction 55-60%. -Valvular heart disease with moderate tricuspid regurgitation and severely dilated left atrium with moderate pulmonary hypertension -Small bowel obstruction: Status post additional lysis. Patient remains nothing by mouth patient is an NG tube was DC'd, patient is on IV fluids as mentioned above -Mild is gastritis and esophagitis -Possible extravasation of contrast into the thoracic esophagus. GI team evaluated the patient -Hypertension fairly controlled blood pressure once patient is able to tolerate oral medication patient was started on Coreg discontinue clonidine -Proximal atrial fibrillation presently rate controlled not on any anti- correlation because of GI bleed -history of aortic stenosis status post TAVR -Hiatal hernia next DVT prophylaxis: Sc heparin GI prophylaxis: Protonix
[2018-06-26] MEDS: LATANOPROST 0.005% OPHTH DROPS 2.5 ML BTL BOTH EYES SCH (20:57)
[2018-06-26] MEDS: MONTELUKAST 10 MG TAB PO SCH (20:58)
[2018-06-27] MEDS: SUCRALFATE 1 GM TAB PO SCH (08:34)
[2018-06-27] MEDS: LEVOTHYROXINE 137 MCG TAB PO SCH (08:34)
[2018-06-27] MEDS ORDERED: PROPOFOL 10 MG/ML 20 ML VIAL IV ONE (09:23)
[2018-06-27] MEDS ORDERED: LIDOCAINE 1% INJ 10MG/ML (20 ML MDV) ONE (09:23)
[2018-06-27] MEDS ORDERED: SODIUM CHLORIDE 0.9% 500 ML 500 ML IV ONE (09:26)
--- NOTE | 2018-06-27 09:37 | P.PCN ---
Date of Procedure: 06/27/18 Procedure(s) Performed: BRIEF HISTORY: Patient is a 82-year-old, pleasant, white female, admitted to hospital with black tarry stools of 2 days' duration, chest pain and shortness of breath. 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 The next day she developed small bowel obstruction and underwent expert of laparotomy with lysis of adhesions. She was then discharged home. 2 days later she was readmitted to the hospital with black tarry stools chest pain and shortness of breath. CT of the chest showed questionable extravasation in the esophagus. She then had a Gastrografin study that showed no significant leak. Because of the abnormality of the esophagus she is scheduled for an upper endoscopy to evaluate further. PROCEDURE PERFORMED: Esophagogastroduodenoscopy. PREOPERATIVE DIAGNOSIS: Black tarry stools of [address] of the chest showing thickening esophagus rule out hematoma. IV sedation per anesthesia. PROCEDURE: After informed consent was obtained, the patient was brought into the endoscopy unit. IV sedation was administered by Anesthesia under continuous monitoring. Initially the Olympus GIF-140 video endoscope was inserted into the mouth. Esophagus intubated without any difficulty. It was gradually advanced into the stomach and duodenum and carefully examined. The bulb and the second part of the duodenum appeared normal. The scope at this time was withdrawn to the stomach, adequately insufflated with air, and upon careful examination, mucosa of the antrum, body, cardia and the fundus appeared normal. The scope was then withdrawn into the esophagus. Moderate size hiatal hernia noted. The GE junction was located at 33 cm from the incisors. There were deep ulcerations noted in the distal esophagus extending from 29-30 cm from the incisors consistent with severe LA grade B reflux esophagitis. Rest of the esophagus appeared normal and the patient tolerated the procedure well IMPRESSION: 1. Linear ulcerations in the distal esophagus consistent with LA grade B reflux esophagitis. 2. moderate size hiatal hernia. RECOMMENDATIONS: The findings of this examination were discussed with the patient as well as her family. She will continue with Protonix 40 mg twice daily and follow antireflux measures. Diet will be advanced as tolerated..
[2018-06-27 09:39] LABS: Albumin 3.1 g/dL (3.5-5.0); Calcium 8.5 mg/dL (8.4-10.2); Magnesium 1.7 mg/dL (1.6-2.3); Potassium 3.4 mmol/L (3.5-5.1); Total Bilirubin 0.5 mg/dL (0.2-1.3); Total Protein 5.3 g/dL (6.3-8.2)
[2018-06-27 10:58] VITALS: TEMP 98.1
[2018-06-27] MEDS: PANTOPRAZOLE 40 MG/10 ML VIAL IVP SCH (11:13)
[2018-06-27] MEDS: METOPROLOL TARTRATE 12.5 MG TAB PO SCH (11:13)
[2018-06-27] MEDS: HEPARIN SODIUM,PORCINE 5,000 UNIT/ML 1 ML VIAL SQ SCH (11:13)
[2018-06-27] MEDS: FUROSEMIDE 20 MG TAB PO SCH ×2 (11:14→15:53)
[2018-06-27] MEDS: FOLIC ACID 1 MG TAB PO SCH (11:14)
[2018-06-27] MEDS: CLOPIDOGREL 75 MG TAB PO SCH (11:14)
[2018-06-27] MEDS: ASCORBIC ACID 500 MG TAB PO SCH (11:14)
[2018-06-27] MEDS: MULTIVITAMINS, THERA 1 EACH TAB PO SCH (11:14)
[2018-06-27] MEDS: LOSARTAN 50 MG TAB PO SCH (11:14)
[2018-06-27 12:40] VITALS: BP 150/65; PULSE 64; RESP 20
[2018-06-27] MEDS: RIVASTIGMINE 4.6MG/24HR PATCH TRANSDERM SCH (12:41)
--- NOTE | 2018-06-27 17:20 | P.DS ---
Providers Date of admission: 06/24/18 05:56 Attending physician: Marquise Mchugh Consults: 06/24/18 05:56 Consult Physician Routine Consulting Provider: [facility] Consult Reason/Comments: CHF exacerbation Do you want consulting provider notified?: Yes, Notify in am 06/24/18 18:50 Consult Physician Routine Consulting Provider: Zach Scott Consult Reason/Comments: melena, history of GI bleed on 06/17/18 Do you want consulting provider notified?: Yes 06/25/18 12:47 Consult Physician Routine Consulting Provider: James Salgado Consult Reason/Comments: recent bowel or, Abn CT Do you want consulting provider notified?: Yes Primary care physician: [facility] Course: Diagnoses: -Mild is gastritis and esophagitis -Possible extravasation of contrast into the thoracic esophagus. GI team evaluated the patient -acute diastolic CHF, Recent echocardiogram showing ejection fraction 55-60%. -Valvular heart disease with moderate tricuspid regurgitation and severely dilated left atrium with moderate pulmonary hypertension -recent Small bowel obstruction: Status post additional lysis. P -Hypertension -Paroxysmal atrial fibrillation presently rate controlled not on any anti- correlation because of GI bleed -history of aortic stenosis status post TAVR -Hiatal hernia Hospital course: 2-year-old female with a known history of coronary artery disease and stent placement, paroxysmal atrial fibrillation currently not on anticoagulation due to previous GI bleed, aortic stenosis status post TAVR, hyperlipidemia, hypothyroidism . Patient was recently in the hospital and been discharged 2 days earlier. She was here for for GI bleed and status post EGD, also she has expiratory laparotomy with release of adhesions for small bowel obstruction. she was discharged in stable condition, however she developed dyspnea and shortness of breath after discharge. However patient denies chest pain. Patient was treated with diuresis and cardiology evaluated the patient and she felt better. However on admission she had CAT scan there is subtle esophagitis, with intravenous contrast extravasation into the thoracic esophagus is difficult to exclude. She then had a Gastrografin study that showed no significant leak. Because of the abnormality of the esophagus she is scheduled for an upper endoscopy which showed (Linear ulcerations in the distal esophagus consistent with LA grade B reflux esophagitis). But no hematoma or leak. Patient regular tolerated diet well today and I discussed the case with the GI team, she told me patient is stable for discharge. did not want to stay in the hospital 1 more day for more further monitoring and he wanted to leave home with the patient because he did not want to take extra cost. However patient was found stable and could be discharged home. Patient on the day of discharge she denies any symptoms. She has still mild epigastric tenderness and surgical wound with a dressing in a Place, patient is discharged on Protonix twice a day and Carafate for which prescription is provided. Problems and management plan was discussed with the patient and at bedside and they verbalized understanding and acceptance Patient was found stable and can be discharged home in guarded prognosis however she needs follow-up as an outpatient. Patient was instructed to follow up with her PCP within one week and she agrees. Also patient and agree with the appointments made with the GI team for follow-up discharge exam Gen: patient is a AAOx3, no distress CVS: S1-S2, RRR, no murmur Lungs: B/L CTA, no wheezing Abdomen: soft, no distention, no tenderness, positive bowel sounds Extremity: no leg edema or induration Time spent more than 35 minutes Patient Condition at Discharge: Stable Plan - Discharge Summary Discharge Rx Participant: No New Discharge Prescriptions: New Pantoprazole Sodium [Protonix] 40 mg PO BID #60 tablet. Sucralfate [Carafate] 1 gm PO AC-BID #60 tab Continue Clopidogrel [Plavix] 75 mg PO DAILY #30 tab lands Leg Cramps 2 - 3 tab PO Q4H PRN PRN Reason: LEG CRAMPS Latanoprost Ophth [Xalatan 0.005%] 1 drops BOTH EYES HS Ascorbic Acid [Vitamin C] 1,000 mg PO DAILY Metoprolol Tartrate [Lopressor] 12.5 mg PO BID #60 tab Multivitamin [Multivitamins Adult Gummies] 1 tab PO DAILY Levothyroxine Sodium [Synthroid] 137 mcg PO DAILY Furosemide [Lasix] 20 mg PO BID Rivastigmine 4.6MG/24Hr Patch [Exelon 4.6MG/24Hr Patch] 1 patch TRANSDERM DAILY@1200 Nitroglycerin Sl Tabs [Nitrostat] 0.4 mg SUBLINGUAL Q5M PRN PRN Reason: Angina Acetaminophen Tab [Tylenol] 650 mg PO Q6HR PRN tab PRN Reason: Mild Pain Or Fever > 100.5 Montelukast [Singulair] 10 mg PO HS HYDROcodone/APAP 5-325MG [Shelby 5-325] 1 tab PO Q4HR PRN 3 Days #18 tab PRN Reason: Pain Folic Acid 1 mg PO DAILY Losartan Potassium 50 mg PO DAILY Discontinued Lansoprazole 30 mg PO DAILY Sucralfate [Carafate] 1 gm PO AC-BID #120 tab Discharge Medication List Clopidogrel [Plavix] 75 mg PO DAILY #30 tab 06/21/15 [Rx] Hylands Leg Cramps 2 - 3 tab PO Q4H PRN 07/06/15 [History] Ascorbic Acid [Vitamin C] 1,000 mg PO DAILY 08/31/15 [History] Latanoprost Ophth [Xalatan 0.005%] 1 drops BOTH EYES HS 08/31/15 [History] Metoprolol Tartrate [Lopressor] 12.5 mg PO BID #60 tab 09/06/15 [Rx] Multivitamin [Multivitamins Adult Gummies] 1 tab PO DAILY 07/24/16 [History] Furosemide [Lasix] 20 mg PO BID 08/05/17 [History] Levothyroxine Sodium [Synthroid] 137 mcg PO DAILY 08/05/17 [History] Rivastigmine 4.6MG/24Hr Patch [Exelon 4.6MG/24Hr Patch] 1 patch TRANSDERM DAILY@1200 08/05/17 [History] Nitroglycerin Sl Tabs [Nitrostat] 0.4 mg SUBLINGUAL Q5M PRN 09/28/17 [History] Acetaminophen Tab [Tylenol] 650 mg PO Q6HR PRN tab 05/25/18 [Rx] Montelukast [Singulair] 10 mg PO HS 06/03/18 [History] HYDROcodone/APAP 5-325MG [Shelby 5-325] 1 tab PO Q4HR PRN 3 Days #18 tab 06/21/18 [Rx] Folic Acid 1 mg PO DAILY 06/24/18 [History] Losartan Potassium 50 mg PO DAILY 06/24/18 [History] Pantoprazole Sodium [Protonix] 40 mg PO BID #60 phillip. 06/27/18 [Rx] Sucralfate [Carafate] 1 gm PO AC-BID #60 tab 06/27/18 [Rx] Follow up Appointment(s)/Referral(s): Josefina Oliveira MD [STAFF PHYSICIAN] - 1 Week (Office will call with follow up appointment.) Tee Esquivel MD [Primary Care Provider] - 1-2 days (Office to call patient with follow up appointment. ) Erna Saha MD [STAFF PHYSICIAN] - 07/19/18 3:30 pm [facility], [NON-STAFF] - Patient Instructions/Handouts: Heart Failure (DC), Hypokalemia (DC), Low-Sodium Diet (DC) Activity/Diet/Wound Care/Special Instructions: cardiac diet activity is limited till you see your doctor Care Plan Goals (MU): cardiac diet activity is limited till you see your doctor Discharge Disposition: HOME SELF-CARE
== END 2018-06-27 16:09 | disposition home health service (06) | DRG 291 ==
LOC: EC 03:48 → 3SCARD 05:56
PROVIDERS: ADMIT Internal Medicine; ATTEND Internal Medicine
PROC: 30233N1 Transfusion of Nonautologous Red Blood Cells into Peripheral Vein, Percutaneous Approach (ICD-10-PCS; 2018-06-25)
PROC: 0DJ08ZZ Inspection of Upper Intestinal Tract, Via Natural or Artificial Opening Endoscopic (ICD-10-PCS; principal; 2018-06-27 08:30)
DX: I11.0 Hypertensive heart disease with heart failure (principal); I50.31 Acute diastolic (congestive) heart failure; K22.11 Ulcer of esophagus with bleeding; D62 Acute posthemorrhagic anemia; I27.29 Other secondary pulmonary hypertension; I07.1 Rheumatic tricuspid insufficiency; I48.0 Paroxysmal atrial fibrillation; K21.0 Gastro-esophageal reflux disease with esophagitis; I25.10 Atherosclerotic heart disease of native coronary artery without angina pectoris; E78.5 Hyperlipidemia, unspecified; K29.70 Gastritis, unspecified, without bleeding; K44.9 Diaphragmatic hernia without obstruction or gangrene; K57.90 Diverticulosis of intestine, part unspecified, without perforation or abscess without bleeding; K31.819 Angiodysplasia of stomach and duodenum without bleeding; E03.9 Hypothyroidism, unspecified; I25.2 Old myocardial infarction; M51.36 Other intervertebral disc degeneration, lumbar region; M19.90 Unspecified osteoarthritis, unspecified site; K59.09 Other constipation; Z79.02 Long term (current) use of antithrombotics/antiplatelets; Z79.890 Hormone replacement therapy; Z79.899 Other long term (current) drug therapy; Z95.2 Presence of prosthetic heart valve; Z95.5 Presence of coronary angioplasty implant and graft; Z90.710 Acquired absence of both cervix and uterus; Z87.09 Personal history of other diseases of the respiratory system; Z98.49 Cataract extraction status, unspecified eye; Z87.19 Personal history of other diseases of the digestive system; Z88.2 Allergy status to sulfonamides; Z88.5 Allergy status to narcotic agent; Z91.013 Allergy to seafood; Z82.49 Family history of ischemic heart disease and other diseases of the circulatory system
CPT/HCPCS: 36415; 43235; 71046; 71275; 74210; 80048; 80053; 82272; 83735; 83880; 84484; 85025; 85027; 85610; 85730; 86850; 86900; 86901; 86920; 93005; 96365; 96366; 96375; 99285

== ENCOUNTER 2023-05-11 15:03 | Inpatient (IN) | payer MEDICARE ==
--- NOTE | 2023-05-11 15:14 | ED ---
General Adult HPI - General Stated complaint: SOB Time Seen by Provider: 05/11/23 15:03 Source: patient, RN notes reviewed, old records reviewed - History of Present Illness Initial comments: This is an 87-year-old female who presents to the emergency department complaining of difficulty breathing. According to EMS which gave all of history because the patient is aphasic patient was seen someplace yesterday and given 3 L of fluid and today she is having a hard time breathing according to EMS the patient was wet when listening to her lungs everywhere. Patient has not had any fevers or chills patient is not complaining of any pain just difficulty breathing. EMS stated they gave her breathing treatment and put her on CPAP and patient improved immediately she was at 86% initially and went up to 95% on CPAP patient states that is much more comfortable - Related Data Home Medications Medication Instructions Recorded Confirmed Hylands Leg Cramps 2 - 3 tab PO Q4H PRN 07/06/15 05/11/23 Ascorbic Acid [Vitamin C] 500 mg PO DAILY 08/31/15 05/11/23 Latanoprost Ophth [Xalatan 0.005%] 1 drop BOTH EYES HS 08/31/15 05/11/23 Levothyroxine Sodium [Synthroid] 137 mcg PO DAILY 08/05/17 05/11/23 Montelukast [Singulair] 10 mg PO HS 06/03/18 05/11/23 Apixaban [Eliquis] 2.5 mg PO BID 05/11/23 05/11/23 Beta-Carotene [Beta Carotene] 25,000 unit PO DAILY 05/11/23 05/11/23 Folic Acid 0.4 mg PO DAILY 05/11/23 05/11/23 Levofloxacin [Levaquin] 500 mg PO DAILY@1200 05/11/23 05/11/23 Loperamide HCl [Imodium A-D] 2 mg PO HS 05/11/23 05/11/23 Loperamide HCl [Imodium A-D] 3 mg PO DAILY 05/11/23 05/11/23 Losartan [Cozaar] 25 mg PO DAILY 05/11/23 05/11/23 Melatonin 10 mg PO HS 05/11/23 05/11/23 Metoprolol Succinate (ER) [Toprol 25 mg PO BID 05/11/23 05/11/23 Xl] Multivitamins, Thera [Multivitamin 1 tab PO DAILY 05/11/23 05/11/23 (formulary)] Pantoprazole Sodium [Protonix] 40 mg PO DAILY 05/11/23 05/11/23 Rivastigmine [Rivastigmine 1 patch TRANSDERM DAILY 05/11/23 05/11/23 13.3MG/24Hr] Ubidecarenone [Coenzyme Q10] 100 mg PO DAILY 05/11/23 05/11/23 Vitamin D3 325mcg 1 tab PO BID 05/11/23 05/11/23 Zinc 5mg 1 tab PO DAILY 05/11/23 05/11/23 traMADol HCL 50 - 100 mg PO Q6H PRN 05/11/23 05/11/23 Previous Rx's Medication Instructions Recorded Acetaminophen Tab [Tylenol] 650 mg PO Q6HR PRN tab 05/25/18 Allergies Allergy/AdvReac Type Severity Reaction Status Date / Time codeine Allergy Itching Verified 05/11/23 16:55 shellfish derived [Shellfish] Allergy Rash/Hives Verified 05/11/23 16:55 Sulfa (Sulfonamide Allergy Unknown Verified 05/11/23 16:55 Antibiotics) SEAFOOD Allergy Rash/Hives Uncoded 05/11/23 16:55 Review of Systems ROS Statement: Those systems with pertinent positive or pertinent negative responses have been documented in the HPI. ROS Other: All systems not noted in ROS Statement are negative. 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 PER PTS PT HAD AORTIC VALVE SX" TAVR" PROCEDURE BY DR CHOI Past Anesthesia/Blood Transfusion Reactions: No Reported Reaction Date of Last Stent Placement:: 05/2015 Past Psychological History: No Psychological Hx Reported Past Alcohol Use History: None Reported Past Drug Use History: None Reported - Past Family History Father Family Medical History: Coronary Artery Disease (CAD) Sister(s) Family Medical History: Coronary Artery Disease (CAD) General Exam - General Exam Comments Initial Comments: GENERAL: Patient is well-developed and well-nourished. Patient is nontoxic and well- hydrated and is in mild distress. ENT: Neck is soft and supple. No significant lymphadenopathy is noted. Oropharynx is clear. Moist mucous membranes. Neck has full range of motion without eliciting any pain. EYES: The sclera were anicteric and conjunctiva were pink and moist. Extraocular movements were intact and pupils were equal round and reactive to light. Eyelids were unremarkable. PULMONARY: Patient has crackles in the bases. CARDIOVASCULAR: There is a regular rate and rhythm without any murmurs gallops or rubs. ABDOMEN: Soft and nontender with normal bowel sounds. No palpable organomegaly was not ed. There is no palpable pulsatile mass. SKIN: Skin is clear with no lesions or rashes and otherwise unremarkable. NEUROLOGIC: Patient is alert and oriented x3. Cranial nerves II through XII are grossly intact. Motor and sensory are also intact. Normal speech, volume and content. Symmetrical smile. MUSCULOSKELETAL: Normal extremities with adequate strength and full range of motion. No lower extremity swelling or edema. No calf tenderness. LYMPHATICS: No significant lymphadenopathy is noted PSYCHIATRIC: Normal psychiatric evaluation. Course Vital Signs 05/11/23 05/11/23 05/11/23 15:05 15:07 15:46 Temperature 97 F L Pulse Rate 95 Respiratory 16 18 Rate Blood Pressure 136/94 O2 Sat by Pulse 100 Oximetry Fraction of 40 Inspired Oxygen (FIO2) Medical Decision Making - Medical Decision Making EKG is interpreted by myself. EKG shows atrial fibrillation at 80 bpm QRS 97 QT interval 369 QTc is 405. Patient's EKG shows no ST segment elevation or depression. Was pt. sent in by a medical professional or institution (, PA, ANATOMIC PATHOLOGIST, urgent care, hospital, or correction...) When possible be specific @ -No Did you speak to anyone other than the patient for history (EMS, parent, family, police, friend...)? What history was obtained from this source @ - and EMS gave the history because patient is aphasic Did you review nursing and triage notes (agree or disagree)? Why? @ -I reviewed and agree with nursing and triage notes Were old charts reviewed (outside hosp., previous admission, EMS record, old EKG, old radiological studies, urgent care reports/EKG's, correction records)? Report findings @ -I reviewed prior charts and prior lab work on this patient Differential Diagnosis (chest pain, altered mental status, abdominal pain women, abdominal pain men, vaginal bleeding, weakness, fever, dyspnea, syncope, headache, dizziness, GI bleed, back pain, seizure, CVA, palpatations, mental health, musculoskeletal)? @ -Differential Dyspnea: Coronary syndrome, arrhythmia, tamponade, asthma, COPD, pulmonary embolism, pneu monia, pneumothorax, pulmonary effusion, anaphylaxis, diabetic ketoacidosis, flailed chest, pulmonary contusion, diaphragmatic rupture, anemia, neuromuscular, this is not meant to be an all-inclusive list. EKG interpreted by me (3pts min.). @ -As above X-rays interpreted by me (1pt min.). @ -Chest x-ray shows vascular congestion CT interpreted by me (1pt min.). @ -None done U/S interpreted by me (1pt. min.). @ -None done What testing was considered but not performed or refused? (CT, X-rays, U/S, labs)? Why? @ -None What meds were considered but not given or refused? Why? @ -None Did you discuss the management of the patient with other professionals (professionals i.e. , PA, ANATOMIC PATHOLOGIST, lab, RT, psych nurse, clinical social work therapist, aircraft instrument repairer, teacher, mail officer, hospice case manager)? Give summary @ -I spoke with Dr. Harris agreed to admit the patient admit the patient wrote admitting orders Was smoking cessation discussed for >3mins.? @ -No Was critical care preformed (if so, how long)? @ -No Were there social determinants of health that impacted care today? How? (Homelessness, low income, unemployed, alcoholism, drug addiction, transportation, low edu. Level, literacy, decrease access to med. care, group home, rehab)? @ -No Was there de-escalation of care discussed even if they declined (Discuss DNR or withdrawal of care, Hospice)? DNR status @ -No What co-morbidities impacted this encounter? (DM, HTN, Smoking, COPD, CAD, Cancer, CVA, ARF, Chemo, Hep., AIDS, mental health diagnosis, sleep apnea, m orbid obesity)? @ -None Was patient admitted / discharged? Hospital course, mention meds given and r oute, prescriptions, significant lab abnormalities, going to OR and other pertinent info. @ -Patient arrived at the hospital and her BNP was 3300 x-ray showed vascular congestion. Patient was started on Lasix. Spoke with Dr. Harris he agreed to admit the patient admit the patient and wrote admitting orders Undiagnosed new problem with uncertain prognosis? @ -No Drug Therapy requiring intensive monitoring for toxicity (Heparin, Nitro, Insulin, Cardizem)? @ -No Were any procedures done? @ -No Diagnosis/symptom? @ -Acute pulmonary edema Acute, or Chronic, or Acute on Chronic? @ -Acute Uncomplicated (without systemic symptoms) or Complicated (systemic symptoms)? @ -Complicated Side effects of treatment? @ -No Exacerbation, Progression, or Severe Exacerbation? @ -No Poses a threat to life or bodily function? How? (Chest pain, USA, ND, pneumonia, PE, COPD, DKA, ARF, appy, cholecystitis, CVA, Diverticulitis, Homicidal, Suicidal, threat to staff... and all critical care pts) @ -Yes this can lead to hypoxia and endorgan dysfunction - Lab Data Result diagrams: 05/11/23 15:09 05/11/23 15:09 Lab Results 05/11/23 05/11/23 05/11/23 Range/Units 15:09 15:09 15:09 WBC 5.5 (3.8-10.6) k/uL RBC 4.00 (3.80-5.40) m/uL Hgb 12.3 (11.4-16.0) gm/dL Hct 38.2 (34.0-46.0) % MCV 95.4 (80.0-100.0) fL MCH 30.7 (25.0-35.0) pg MCHC 32.2 (31.0-37.0) g/dL RDW 13.1 (11.5-15.5) % Plt Count 147 L (150-450) k/uL MPV 8.9 Neutrophils % 72 % Lymphocytes % 17 % Monocytes % 9 % Eosinophils % 0 % Basophils % 0 % Neutrophils # 3.9 (1.3-7.7) k/uL Lymphocytes # 1.0 (1.0-4.8) k/uL Monocytes # 0.5 (0-1.0) k/uL Eosinophils # 0.0 (0-0.7) k/uL Basophils # 0.0 (0-0.2) k/uL PT 10.7 (10.0-12.5) sec INR 1.0 (<1.2) APTT 23.4 (22.0-30.0) sec Sodium 133 L (137-145) mmol/L Potassium 4.5 (3.5-5.1) mmol/L Chloride 102 (98-107) mmol/L Carbon Dioxide 28 (22-30) mmol/L Anion Gap 3 mmol/L BUN 32 H (7-17) mg/dL Creatinine 0.77 (0.52-1.04) mg/dL Est GFR (CKD-EPI)AfAm 79 (>60 ml/min/1.73 sqM) Est GFR (CKD-EPI)NonAf 69 (>60 ml/min/1.73 sqM) Glucose 108 H (74-99) mg/dL Plasma Lactic Acid Ravi (0.7-2.0) mmol/L Calcium 8.6 (8.4-10.2) mg/dL Magnesium 1.7 (1.6-2.3) mg/dL Total Bilirubin 0.4 (0.2-1.3) mg/dL AST 82 H (14-36) U/L ALT 57 H (4-34) U/L Alkaline Phosphatase 49 (38-126) U/L Troponin I (0.000-0.034) ng/mL NT-Pro-B Natriuret Pep 3300 pg/mL Total Protein 6.2 L (6.3-8.2) g/dL Albumin 3.4 L (3.5-5.0) g/dL 05/11/23 05/11/23 Range/Units 15:09 15:09 WBC (3.8-10.6) k/uL RBC (3.80-5.40) m/uL Hgb (11.4-16.0) gm/dL Hct (34.0-46.0) % MCV (80.0-100.0) fL MCH (25.0-35.0) pg MCHC (31.0-37.0) g/dL RDW (11.5-15.5) % Plt Count (150-450) k/uL MPV Neutrophils % % Lymphocytes % % Monocytes % % Eosinophils % % Basophils % % Neutrophils # (1.3-7.7) k/uL Lymphocytes # (1.0-4.8) k/uL Monocytes # (0-1.0) k/uL Eosinophils # (0-0.7) k/uL Basophils # (0-0.2) k/uL PT (10.0-12.5) sec INR (<1.2) APTT (22.0-30.0) sec Sodium (137-145) mmol/L Potassium (3.5-5.1) mmol/L Chloride (98-107) mmol/L Carbon Dioxide (22-30) mmol/L Anion Gap mmol/L BUN (7-17) mg/dL Creatinine (0.52-1.04) mg/dL Est GFR (CKD-EPI)AfAm (>60 ml/min/1.73 sqM) Est GFR (CKD-EPI)NonAf (>60 ml/min/1.73 sqM) Glucose (74-99) mg/dL Plasma Lactic Acid Ravi 1.5 (0.7-2.0) mmol/L Calcium (8.4-10.2) mg/dL Magnesium (1.6-2.3) mg/dL Total Bilirubin (0.2-1.3) mg/dL AST (14-36) U/L ALT (4-34) U/L Alkaline Phosphatase (38-126) U/L Troponin I 0.019 (0.000-0.034) ng/mL NT-Pro-B Natriuret Pep pg/mL Total Protein (6.3-8.2) g/dL Albumin (3.5-5.0) g/dL Disposition Clinical Impression: Acute pulmonary edema Disposition: ADMITTED IP TO THIS HOSP Referrals: Tee Esquivel MD [Primary Care Provider] - 1-2 days Time of Disposition: 17:49
[2023-05-11 15:37] LABS: Basophils % (A) 0 %; Eosinophils % (A) 0 %; HCT 38.2 % (34.0-46.0); HGB 12.3 gm/dL (11.4-16.0); Lymphocytes % (A) 17 %; MCH 30.7 pg (25.0-35.0); MCHC 32.2 g/dL (31.0-37.0); MCV 95.4 fL (80.0-100.0); Mean Platelet Volume 8.9; Monocytes # (A) 0.5 k/uL (0-1.0); Monocytes % (A) 9 %; Neutrophils # (A) 3.9 k/uL (1.3-7.7); Neutrophils % (A) 72 %; Platelet Count 147 k/uL (150-450); RDW 13.1 % (11.5-15.5); WBC 5.5 k/uL (3.8-10.6)
[2023-05-11] MEDS: FUROSEMIDE 10 MG/ML 4 ML VIAL IV STA (15:43)
[2023-05-11 15:48] LABS: Potassium 4.5 mmol/L (3.5-5.1)
[2023-05-11 15:49] LABS: ALT 57 U/L (4-34); AST 82 U/L (14-36); African American GFR (CKD) 79 (>60 ml/min/1.73 sqM); Albumin 3.4 g/dL (3.5-5.0); Alkaline Phosphatase 49 U/L (38-126); Anion Gap 3 mmol/L; Blood Urea Nitrogen 32 mg/dL (7-17); Calcium 8.6 mg/dL (8.4-10.2); Carbon Dioxide 28 mmol/L (22-30); Chloride 102 mmol/L (98-107); Glucose 108 mg/dL (74-99); Magnesium 1.7 mg/dL (1.6-2.3); Non-African American GFR(CKD) 69 (>60 ml/min/1.73 sqM); Sodium 133 mmol/L (137-145); Total Bilirubin 0.4 mg/dL (0.2-1.3); Total Protein 6.2 g/dL (6.3-8.2)
--- NOTE | 2023-05-11 15:49 | XR ---
EXAMINATION TYPE: XR chest 1V portable DATE OF EXAM: 05/11/2023 COMPARISON: 06/24/2018 HISTORY: 87 year-old female shortness of breath, difficulty breathing TECHNIQUE: AP view FINDINGS: Endovascular aortic valve replacement. Heart borderline in size. Mild interstitial density. No consolidation or pleural effusion seen. IMPRESSION: Mild interstitial density could reflect bronchitis, asthma, or mild pulmonary vascular congestion. Cl inically correlate.
[2023-05-11 15:55] LABS: NT-Pro-B-Type Natriuretic Pept 3300 pg/mL
[2023-05-11 15:57] LABS: Partial Thromboplastin Time 23.4 sec (22.0-30.0); Prothrombin Time 10.7 sec (10.0-12.5)
[2023-05-11] MEDS ORDERED: ACETAMINOPHEN TAB 325 MG TAB PO PRN (20:25)
[2023-05-11] MEDS ORDERED: traMADol 50 MG TAB PO PRN (20:26)
[2023-05-11] MEDS: FUROSEMIDE 10 MG/ML 4 ML VIAL IV SCH (20:28)
[2023-05-11] MEDS: APIXABAN 2.5 MG TABLET PO SCH (21:34)
[2023-05-11] MEDS: LEVOTHYROXINE 137 MCG TAB PO SCH (21:34)
[2023-05-11] MEDS: MELATONIN 5 MG TABLET PO SCH (21:35)
[2023-05-11] MEDS: MONTELUKAST 10 MG TAB PO SCH (21:36)
[2023-05-11] MEDS: LOPERAMIDE 2 MG CAP PO SCH (21:36)
[2023-05-11] MEDS: METOPROLOL SUCCINATE (ER) 25 MG TAB.ER.24H PO SCH (21:36)
[2023-05-11] MEDS: LATANOPROST 0.005% OPHTH DROPS 2.5 ML BTL BOTH EYES SCH ×2 (21:36→21:44)
[2023-05-12] MEDS: FOLIC ACID 1 MG TAB PO SCH (09:27)
[2023-05-12] MEDS: PANTOPRAZOLE 40 MG TABLET PO SCH (09:27)
[2023-05-12] MEDS: LOPERAMIDE 2 MG CAP PO SCH (09:27)
[2023-05-12] MEDS: ASCORBIC ACID 500 MG TAB PO SCH (09:27)
[2023-05-12] MEDS: LOSARTAN 25 MG TAB PO SCH (09:27)
[2023-05-12] MEDS: MULTIVITAMINS, THERA 1 EACH TAB PO SCH (09:27)
[2023-05-12 09:37] LABS: African American GFR (CKD) 73 (>60 ml/min/1.73 sqM); Anion Gap 7 mmol/L; Blood Urea Nitrogen 28 mg/dL (7-17); Calcium 8.7 mg/dL (8.4-10.2); Carbon Dioxide 32 mmol/L (22-30); Chloride 95 mmol/L (98-107); Glucose 187 mg/dL (74-99); Non-African American GFR(CKD) 64 (>60 ml/min/1.73 sqM); Potassium 3.5 mmol/L (3.5-5.1); Sodium 134 mmol/L (137-145)
[2023-05-12] MEDS: BUDESONIDE 1 MG/2 ML NEBU INHALATION SCH (11:24)
[2023-05-12] MEDS: IPRATROPIUM-ALBUTEROL 3 ML NEB INHALATION SCH (11:24)
[2023-05-12] MEDS: RIVASTIGMINE 13.3MG/24HR PATCH TRANSDERM SCH (12:25)
--- NOTE | 2023-05-12 12:25 | P.CRDCN ---
History of Present Illness Consult date: 05/12/23 Reason for Consult (text): Acute pulmonary edema History of present illness: History of present illness: This is an 87-year-old female patient of Dr. 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 Patient is nonverbal and her answers questions for her. We have been asked to evaluate the patient for acute pulmonary edema. Her gives history that last Thursday she was very weak to the point that she could not stand she went to [facility] where she received 3 L of IV fluid and was told that she had an infection and placed on antibiotics for which she has been taking Levaquin. Yesterday she developed difficulty in breathing. No fever or chills. Initial pulse ox was 86%. Patient has been started on IV Lasix. Patient seen today in the emergency center waiting for bed on the cardiac stepdown unit. Patient's states that she has been urinating up to 4 to 5 L since she started IV Lasix. EKG atrial fibrillation at 80 bpm Chest x-ray: Mild interstitial density could reflect bronchitis, asthma or mild pulmonary vascular congestion. Hemoglobin 1107.1. Sodium 134, potassium 3.5, BUN 28 and creatinine 0.82. Glucose 187. AST 82, ALT 57, alkaline phosphatase 59. proBNP 3300. Troponin 0.019. Home cardiac medications: Eliquis 2.5 mg twice daily, losartan 25 mg daily, Toprol 25 mg twice daily, also on levothyroxine 137 mcg daily. Echocardiogram performed in the office on 06/15/2021 reveals EF of 55 to 60%, mild left ventricular hypertrophy. Aortic valve prosthetic mechanical dysfuncti on. Mild mitral regurgitation, moderate tricuspid regurgitation, moderately increased pulmonary artery systolic pressure of 49 mmHg. Mild pulmonic regurgitation. Okay see you I have everything done for Mr. Esquivel bilateral knees Review Of Systems: At the time of my exam: CONSTITUTIONAL: Denies fever or chills. HEENT: Denies blurred vision, vision changes, or eye pain. Denies hemoptysis CARDIOVASCULAR: Denies chest pain. Denies orthopnea. Denies PND. Denies palpitations RESPIRATORY: Denies shortness of breath. GASTROINTESTINAL: Denies abdominal pain. Denies nausea or vomiting. HEMATOLOGIC: Denies bleeding disorders. GENITOURINARY: Denies any blood in urine. SKIN: Denies pruitis. Denies rash. Physical examination: Gen: This is an 87-year-old female resting on the stretcher appears to be comfortable. VS: reviewed heart rate is in the 80s, blood pressure 146/96, pulse ox 97% on 2 L nasal cannula. HEENT: Head is atraumatic, normocephalic. Pupils equal, round. Sclerae is anicteric. NECK: Supple. No JVD. LUNGS: Bilateral wheezing and bilateral crackles. No intercostal retractions. HEART: Irr 1 more thing, egular rate and rhythm. 2/6 systolic murmur. ABDOMEN: Soft No tenderness. EXTREMITIES: No pedal edema. No calf tenderness. NEUROLOGICAL: Patient is awake, alert and oriented x3. Assessment: Acute pulmonary edema Aortic stenosis status post TAVR Coronary artery disease status post PCI Hypertension Hyperlipidemia Persistent atrial fibrillation History of CVA with right-sided weakness and aphasia Plan: Resume patient's home cardiac medications Continue IV Lasix 40 mg every 12 hours Monitor R[place]IGH, daily weights, electrolytes and renal function Obtain 2-D echocardiogram and Doppler study to assess cardiac structure and function Further recommendations to follow based upon clinical course Thank you kindly for this consultation. Nurse practitioner note has been reviewed, I agree with documented findings and plan of care. Patient was seen and examined. 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 PER PTS PT HAD AORTIC VALVE SX" TAVR" PROCEDURE BY DR CHOI Past Anesthesia/Blood Transfusion Reactions: No Reported Reaction Date of Last Stent Placement:: 05/2015 Past Psychological History: No Psychological Hx Reported Past Alcohol Use History: None Reported Past Drug Use History: None Reported - Past Family History Father Family Medical History: Coronary Artery Disease (CAD) Sister(s) Family Medical History: Coronary Artery Disease (CAD) Medications and Allergies Home Medications Medication Instructions Recorded Confirmed Type lands Leg Cramps 2 - 3 tab PO Q4H PRN 07/06/15 05/11/23 History Ascorbic Acid [Vitamin C] 500 mg PO DAILY 08/31/15 05/11/23 History Latanoprost Ophth [Xalatan 0.005%] 1 drop BOTH EYES HS 08/31/15 05/11/23 History Levothyroxine Sodium [Synthroid] 137 mcg PO DAILY 08/05/17 05/11/23 History Acetaminophen Tab [Tylenol] 650 mg PO Q6HR PRN tab 05/25/18 05/11/23 Rx Montelukast [Singulair] 10 mg PO HS 06/03/18 05/11/23 History Apixaban [Eliquis] 2.5 mg PO BID 05/11/23 05/11/23 History Beta-Carotene [Beta Carotene] 25,000 unit PO DAILY 05/11/23 05/11/23 History Folic Acid 0.4 mg PO DAILY 05/11/23 05/11/23 History Levofloxacin [Levaquin] 500 mg PO DAILY@1200 05/11/23 05/11/23 History Loperamide HCl [Imodium A-D] 2 mg PO HS 05/11/23 05/11/23 History Loperamide HCl [Imodium A-D] 3 mg PO DAILY 05/11/23 05/11/23 History Losartan [Cozaar] 25 mg PO DAILY 05/11/23 05/11/23 History Melatonin 10 mg PO HS 05/11/23 05/11/23 History Metoprolol Succinate (ER) [Toprol 25 mg PO BID 05/11/23 05/11/23 History Xl] Multivitamins, Thera [Multivitamin 1 tab PO DAILY 05/11/23 05/11/23 History (formulary)] Pantoprazole Sodium [Protonix] 40 mg PO DAILY 05/11/23 05/11/23 History Rivastigmine [Rivastigmine 1 patch TRANSDERM DAILY 05/11/23 05/11/23 History 13.3MG/24Hr] Ubidecarenone [Coenzyme Q10] 100 mg PO DAILY 05/11/23 05/11/23 History Vitamin D3 325mcg 1 tab PO BID 05/11/23 05/11/23 History Zinc 5mg 1 tab PO DAILY 05/11/23 05/11/23 History traMADol HCL 50 - 100 mg PO Q6H PRN 05/11/23 05/11/23 History Allergies Allergy/AdvReac Type Severity Reaction Status Date / Time codeine Allergy Itching Verified 05/11/23 16:55 shellfish derived [Shellfish] Allergy Rash/Hives Verified 05/11/23 16:55 Sulfa (Sulfonamide Allergy Unknown Verified 05/11/23 16:55 Antibiotics) SEAFOOD Allergy Rash/Hives Uncoded 05/11/23 16:55 Physical Exam Vitals: Vital Signs Temp Pulse Resp BP Pulse Ox FiO2 05/12/23 04:00 65 18 147/77 98 05/11/23 23:07 60 22 134/73 97 05/11/23 21:38 93 22 134/61 96 05/11/23 19:21 76 23 163/77 100 05/11/23 18:14 85 16 143/86 98 05/11/23 16:14 86 20 140/68 96 05/11/23 15:46 18 05/11/23 15:07 97 F L 95 16 136/94 100 05/11/23 15:05 40 Intake and Output 05/11/23 05/12/23 05/12/23 22:59 06:59 14:59 Output Total 2500 Balance -2500 Output: Urine 2500 Other: Weight 72.756 kg Results 05/11/23 15:09 05/12/23 08:46 Cardiac Enzymes 05/11/23 05/11/23 Range/Units 15:09 15:09 AST 82 H (14-36) U/L Troponin I 0.019 (0.000-0.034) ng/mL Coagulation 05/11/23 Range/Units 15:09 PT 10.7 (10.0-12.5) sec APTT 23.4 (22.0-30.0) sec CBC 05/11/23 Range/Units 15:09 WBC 5.5 (3.8-10.6) k/uL RBC 4.00 (3.80-5.40) m/uL Hgb 12.3 (11.4-16.0) gm/dL Hct 38.2 (34.0-46.0) % Plt Count 147 L (150-450) k/uL Comprehensive Metabolic Panel 05/11/23 Range/Units 15:09 Sodium 133 L (137-145) mmol/L Potassium 4.5 (3.5-5.1) mmol/L Chloride 102 (98-107) mmol/L Carbon Dioxide 28 (22-30) mmol/L BUN 32 H (7-17) mg/dL Creatinine 0.77 (0.52-1.04) mg/dL Glucose 108 H (74-99) mg/dL Calcium 8.6 (8.4-10.2) mg/dL AST 82 H (14-36) U/L ALT 57 H (4-34) U/L Alkaline Phosphatase 49 (38-126) U/L Total Protein 6.2 L (6.3-8.2) g/dL Albumin 3.4 L (3.5-5.0) g/dL Current Medications Generic Name Dose Route Start Last Admin Trade Name Freq PRN Reason Stop Dose Admin Acetaminophen 650 mg 05/11/23 20:25 Acetaminophen Tab 325 Mg Tab PO Q6HR PRN Mild Pain or Fever > 100.5 Apixaban 2.5 mg 05/11/23 21:00 05/11/23 21:34 Apixaban 2.5 Mg Tablet PO 2.5 mg BID MARIPOSA Administration Protocol Ascorbic Acid 500 mg 05/12/23 09:00 Ascorbic Acid 500 Mg Tab PO DAILY MARIPOSA Folic Acid 0.5 mg 05/12/23 09:00 Folic Acid 1 Mg Tab PO DAILY [facility]OSA Furosemide 40 mg 05/11/23 21:00 05/11/23 20:28 Furosemide 10 Mg/Ml 4 Ml Vial IV 40 mg Q12HR MARIPOSA Administration Latanoprost 1 drops 05/11/23 21:00 05/11/23 21:36 Latanoprost 0.005% Ophth Drops 2.5 Ml Btl BOTH EYES 1 drops HS MARIPOSA Administration Levothyroxine Sodium 137 mcg 05/11/23 21:00 05/11/23 21:34 Levothyroxine 137 Mcg Tab PO Not Given DAILY@0630 [facility] Loperamide HCl 2 mg 05/11/23 21:00 05/11/23 21:36 Loperamide 2 Mg Cap PO 2 mg HS MARIPOSA Administration Loperamide HCl 2 mg 05/12/23 09:00 Loperamide 2 Mg Cap PO DAILY [facility]A Losartan Potassium 25 mg 05/12/23 09:00 Losartan 25 Mg Tab PO DAILY [facility]A Melatonin 10 mg 05/11/23 21:00 05/11/23 21:35 Melatonin 5 Mg Tablet PO 10 mg HS MARIPOSA Administration Metoprolol Succinate 25 mg 05/11/23 21:00 05/11/23 21:36 Metoprolol Succinate (Er) 25 Mg Tab.Er.24h PO 25 mg BID MARIPOSA Administration Montelukast Sodium 10 mg 05/11/23 21:00 05/11/23 21:36 Montelukast 10 Mg Tab PO 10 mg HS MARIPOSA Administration Multivitamins 1 each 05/12/23 09:00 Multivitamins, Thera 1 Each Tab PO DAILY [facility] Pantoprazole Sodium 40 mg 05/12/23 07:30 Pantoprazole 40 Mg Tablet PO AC-BRKT [facility] Rivastigmine 1 patch 05/12/23 09:00 Rivastigmine 13.3mg/24hr Patch TRANSDERM DAILY [facility] Tramadol HCl 50 mg 05/11/23 20:26 Tramadol 50 Mg Tab PO Q6H PRN Pain Intake and Output 05/11/23 05/12/23 05/12/23 22:59 06:59 14:59 Output Total 2500 Balance -2500 Output: Urine 2500 Other: Weight 72.756 kg 05/11/23 15:09 05/11/23 15:09
--- NOTE | 2023-05-12 19:51 | P.HPIM ---
History of Present Illness H&P Date: 05/12/23 Chief Complaint: Difficulty breathing This is a pleasant 87-year-old patient, with extensive medical history. Chronic stable medical conditions include atrial fibrillation, CAD, GERD, hyperlipidemia, osteoarthritis, hypothyroid, arctic stenosis status post TAVR, esophagitis duodenitis, diverticulosis, hypothyroid DJD severe secondary pulmonary hypertension. CAD with stent. Patient apparently was just discharged from [facility] couple of days ago. Was treated for a UTI. Received IV fluids. Patient now presents with increasing shortness of breath. Patient herself is aphasic. And unable to give much of a history. Patient is able to follow commands. No family at the bedside. Review of systems: Could not be done as patient is aphasic Social history: . No smoking no alcohol Physical examination: VITAL SIGNS: 100.2, 88, 18, 146 x 96, 97% on 2 L GENERAL: BMI 29.3, laying in bed awake slightly uncomfortable. EYES: Pupils equal. Conjunctiva chase l. HEENT: External appearance of nose and ears normal, oral cavity grossly normal. NECK: JVD not raised; masses not palpable. HEART: First and second heart sounds are normal; no edema. LUNGS: Respiratory rate increased, coarse crackles. ABDOMEN: Soft, nontender, liver spleen not palpable, no masses palpable. PSYCH: Unable to assess patient is aphasic l. MUSCULOSKELETAL:No Clubbing/cyanosis;muscles-grossly intact NEUROLOGICAL: Cranial nerves grossly intact; no facial asymmetry, power and sensation grossly intact. Patient is aphasic. LYMPHATICS: No lymph nodes palpable in the axilla and neck INVESTIGATIONS, reviewed in the clinical context: Procalcitonin 0.21 May 12: Sodium 134 potassium 3.5 BUN 28 creatinine 0.82 EKG tracing personally reviewed by me-atrial fibrillation. Rate 80 May 11: White count 5.5 hemoglobin 12.3 platelets 147 Chest x-ray film personally reviewed by me-cardiomegaly. Prominent pulmonary artery. Assessment plan: -Suspect pneumonia. Gram-negative organism. Left base Ceftriaxone -Questionable CHF. Consult cardiology. 2D echocardiogram. -Chronic aphasia -Persistent atrial fibrillation Eliquis -Hypothyroid Synthroid 137 mcg a day -Essential hypertension Toprol-XL, Cozaar, -Full code Past Medical History Past Medical History: Atrial Fibrillation, Coronary Artery Disease (CAD), GERD/Reflux, GI Bleed, Hyperlipidemia, Osteoarthritis (OA), Thyroid Disorder Additional Past Medical History / Comment(s): Aortic stenosis status post TAPVR, proximal atrial fibrillation, chronic constipation, previous episodes of GI bleed that was worked up and the patient was found to have some distal esophagitis and duodenitis and some mild gastritis, diverticulosis, coronary artery disease with previous angioplasty of the circumflex/stenting, hypothyroidism, hiatal hernia, 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 PER PTS PT HAD AORTIC VALVE SX" TAVR" PROCEDURE BY DR CHOI Past Anesthesia/Blood Transfusion Reactions: No Reported Reaction Date of Last Stent Placement:: 05/2015 Past Psychological History: No Psychological Hx Reported Past Alcohol Use History: None Reported Past Drug Use History: None Reported - Past Family History Father Family Medical History: Coronary Artery Disease (CAD) Sister(s) Family Medical History: Coronary Artery Disease (CAD) Medications and Allergies Home Medications Medication Instructions Recorded Confirmed Type [facility] Leg Cramps 2 - 3 tab PO Q4H PRN 07/06/15 05/11/23 History Ascorbic Acid [Vitamin C] 500 mg PO DAILY 08/31/15 05/11/23 History Latanoprost Ophth [Xalatan 0.005%] 1 drop BOTH EYES HS 08/31/15 05/11/23 History Levothyroxine Sodium [Synthroid] 137 mcg PO DAILY 08/05/17 05/11/23 History Acetaminophen Tab [Tylenol] 650 mg PO Q6HR PRN tab 05/25/18 05/11/23 Rx Montelukast [Singulair] 10 mg PO HS 06/03/18 05/11/23 History Apixaban [Eliquis] 2.5 mg PO BID 05/11/23 05/11/23 History Beta-Carotene [Beta Carotene] 25,000 unit PO DAILY 05/11/23 05/11/23 History Folic Acid 0.4 mg PO DAILY 05/11/23 05/11/23 History Levofloxacin [Levaquin] 500 mg PO DAILY@1200 05/11/23 05/11/23 History Loperamide HCl [Imodium A-D] 2 mg PO HS 05/11/23 05/11/23 History Loperamide HCl [Imodium A-D] 3 mg PO DAILY 05/11/23 05/11/23 History Losartan [Cozaar] 25 mg PO DAILY 05/11/23 05/11/23 History Melatonin 10 mg PO HS 05/11/23 05/11/23 History Metoprolol Succinate (ER) [Toprol 25 mg PO BID 05/11/23 05/11/23 History Xl] Multivitamins, Thera [Multivitamin 1 tab PO DAILY 05/11/23 05/11/23 History (formulary)] Pantoprazole Sodium [Protonix] 40 mg PO DAILY 05/11/23 05/11/23 History Rivastigmine [Rivastigmine 1 patch TRANSDERM DAILY 05/11/23 05/11/23 History 13.3MG/24Hr] Ubidecarenone [Coenzyme Q10] 100 mg PO DAILY 05/11/23 05/11/23 History Vitamin D3 325mcg 1 tab PO BID 05/11/23 05/11/23 History Zinc 5mg 1 tab PO DAILY 05/11/23 05/11/23 History traMADol HCL 50 - 100 mg PO Q6H PRN 05/11/23 05/11/23 History Allergies Allergy/AdvReac Type Severity Reaction Status Date / Time codeine Allergy Itching Verified 05/11/23 16:55 shellfish derived [Shellfish] Allergy Rash/Hives Verified 05/11/23 16:55 Sulfa (Sulfonamide Allergy Unknown Verified 05/11/23 16:55 Antibiotics) SEAFOOD Allergy Rash/Hives Uncoded 05/11/23 16:55 Physical Exam Vitals: Vital Signs Temp Pulse Resp BP Pulse Ox FiO2 05/12/23 08:01 92 L 05/12/23 04:00 65 18 147/77 98 05/11/23 23:07 60 22 134/73 97 05/11/23 21:38 93 22 134/61 96 05/11/23 19:21 76 23 163/77 100 05/11/23 18:14 85 16 143/86 98 05/11/23 16:14 86 20 140/68 96 02/12/24 15:46 18 05/11/23 15:07 97 F L 95 16 136/94 100 05/11/23 15:05 40 Intake and Output 05/11/23 05/12/23 05/12/23 22:59 06:59 14:59 Output Total 2500 Balance -2500 Output: Urine 2500 Other: Weight 72.756 kg Results CBC & Chem 7: 05/11/23 15:09 05/12/23 08:46 Labs: Abnormal Lab Results - Last 24 Hours (Table) 05/11/23 05/11/23 Range/Units 15:09 15:09 Plt Count 147 L (150-450) k/uL Sodium 133 L (137-145) mmol/L BUN 32 H (7-17) mg/dL Glucose 108 H (74-99) mg/dL AST 82 H (14-36) U/L ALT 57 H (4-34) U/L Total Protein 6.2 L (6.3-8.2) g/dL Albumin 3.4 L (3.5-5.0) g/dL
[2023-05-13 08:35] LABS: Basophils % (A) 0 %; Eosinophils % (A) 0 %; HCT 40.1 % (34.0-46.0); Lymphocytes # (A) 1.2 k/uL (1.0-4.8); Lymphocytes % (A) 21 %; MCH 30.4 pg (25.0-35.0); MCHC 32.5 g/dL (31.0-37.0); MCV 93.6 fL (80.0-100.0); Mean Platelet Volume 8.7; Monocytes # (A) 0.5 k/uL (0-1.0); Monocytes % (A) 8 %; Neutrophils # (A) 4.1 k/uL (1.3-7.7); Neutrophils % (A) 69 %; Platelet Count 156 k/uL (150-450); RBC 4.29 m/uL (3.80-5.40)
[2023-05-13 09:34] LABS: NT-Pro-B-Type Natriuretic Pept 1800 pg/mL
[2023-05-13 09:39] LABS: African American GFR (CKD) 68 (>60 ml/min/1.73 sqM); Anion Gap 4 mmol/L; Blood Urea Nitrogen 24 mg/dL (7-17); Calcium 8.8 mg/dL (8.4-10.2); Carbon Dioxide 40 mmol/L (22-30); Chloride 91 mmol/L (98-107); Glucose 113 mg/dL (74-99); Non-African American GFR(CKD) 59 (>60 ml/min/1.73 sqM); Potassium 3.7 mmol/L (3.5-5.1); Sodium 135 mmol/L (137-145)
--- NOTE | 2023-05-13 11:35 | XR ---
EXAMINATION TYPE: XR chest 1V DATE OF EXAM: 05/13/2023 COMPARISON: 05/11/2023. HISTORY: Cough and shortness of breath. TECHNIQUE: Single frontal view of the chest is obtained. FINDINGS: There is no focal air space opacity, pleural effusion, or pneumothorax seen. The cardiac silhouette size is within normal limits. The osseous structures are intact. IMPRESSION: No acute process.
--- NOTE | 2023-05-13 13:45 | P.PN ---
Subjective Progress Note Date: 05/13/23 Reason for Consult (text): Acute pulmonary edema History of present illness: This is an 87-year-old female patient of Dr. 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 Patient is nonverbal and her answers questions for her. We have been asked to evaluate the patient for acute pulmonary edema. Her gives history that last Thursday she was very weak to the point that she could not stand she went to [facility] where she received 3 L of IV fluid and was told that she had an infection and placed on antibiotics for which she has been taking Levaquin. Yesterday she developed difficulty in breathing. No fever or chills. Initial pulse ox was 86%. Patient has been started on IV Lasix. Patient seen today in the emergency center waiting for bed on the cardiac stepdown unit. Patient's states that she has been urinating up to 4 to 5 L since she started IV Lasix. EKG atrial fibrillation at 80 bpm Chest x-ray: Mild interstitial density could reflect bronchitis, asthma or mild pulmonary vascular congestion. Hemoglobin 1107.1. Sodium 134, potassium 3.5, BUN 28 and creatinine 0.82. Glucose 187. AST 82, ALT 57, alkaline phosphatase 59. proBNP 3300. Troponin 0.019. Home cardiac medications: Eliquis 2.5 mg twice daily, losartan 25 mg daily, Toprol 25 mg twice daily, also on levothyroxine 137 mcg daily. Echocardiogram performed in the office on 06/15/2021 reveals EF of 55 to 60%, mild left ventricular hypertrophy. Aortic valve prosthetic mechanical dysfunction. Mild mitral regurgitation, moderate tricuspid regurgitation, moderately increased pulmonary artery systolic pressure of 49 mmHg. Mild pulmonic regurgitation. 05/13 Patient is seen in follow-up today on the cardiac stepdown unit. She has been maintained on IV Lasix 40 mg every 12 hours. Patient had a negative fluid balance yesterday of 2500 and a negative fluid balance this morning of a 490 mL. Blood pressure 101/62, heart rate in the 90s. Repeat blood work reveals hemoglobin of 13, sodium 135, potassium 3.7, BUN 24 creatinine 0.87. CO2 40. proBNP 1800. Repeat chest x-ray reveals no acute process. Physical examination: Gen: This is an 87-year-old female resting on the stretcher appears to be comfortable. VS: reviewed heart rate is in the 80s, blood pressure 146/96, pulse ox 97% on 2 L nasal cannula. HEENT: Head is atraumatic, normocephalic. Pupils equal, round. Sclerae is anicteric. LUNGS: Bilateral wheezing and bilateral crackles. No intercostal retractions. HEART: Irr 1 more thing, egular rate and rhythm. 2/6 systolic murmur. EXTREMITIES: No pedal edema. No calf tenderness. NEUROLOGICAL: Patient is awake, alert and oriented x3. Assessment: Acute pulmonary edema Aortic stenosis status post TAVR Coronary artery disease status post PCI Hypertension Hyperlipidemia Persistent atrial fibrillation History of CVA with right-sided weakness and aphasia Plan: Continue e patient's home cardiac medications Continue IV Lasix 40 mg every 12 hours 1 more day Monitor R[place]IGH, daily weights, electrolytes and renal function Obtain 2-D echocardiogram and Doppler study to assess cardiac structure and function Further recommendations to follow based upon clinical course Nurse practitioner note has been reviewed, I agree with documented findings and plan of care. Patient was seen and examined. Objective - Vital Signs Vital signs: Vital Signs Temp 98.7 F 05/13/23 07:20 Pulse 92 05/13/23 07:45 Resp 18 05/13/23 07:20 BP 127/69 05/13/23 07:20 Pulse Ox 93 L 05/13/23 07:25 FiO2 40 05/11/23 15:05 Intake & Output 05/12/23 05/13/23 05/13/23 18:59 06:59 18:59 Intake Total 10 Output Total 500 Balance -490 Weight 72.756 kg Intake: IV 10 Invasive Line 1 10 Output: Urine 500 Other: Voiding Method External Catheter - Labs CBC & Chem 7: 05/13/23 08:05 05/13/23 08:05 Labs: Abnormal Lab Results - Last 24 Hours (Table) 05/12/23 05/12/23 Range/Units 08:46 08:46 Sodium 134 L (137-145) mmol/L Chloride 95 L (98-107) mmol/L Carbon Dioxide 32 H (22-30) mmol/L BUN 28 H (7-17) mg/dL Glucose 187 H (74-99) mg/dL Procalcitonin 0.21 H (0.02-0.09) ng/mL
[2023-05-13 14:18] VITALS: BMI 29.3
--- NOTE | 2023-05-13 20:41 | P.PN ---
Progress Note - Text Progress Note Date: 05/13/23 Chief Complaint: Difficulty breathing This is a pleasant 87-year-old patient, with extensive medical history. Chronic stable medical conditions include atrial fibrillation, CAD, GERD, hyperlipidemia, osteoarthritis, hypothyroid, arctic stenosis status post TAVR, esophagitis duodenitis, diverticulosis, hypothyroid DJD severe secondary pulmonary hypertension. CAD with stent. Patient apparently was just discharged from [facility] couple of days ago. Was treated for a UTI. Received IV fluids. Patient now presents with increasing shortness of breath. Patient herself is aphasic. And unable to give much of a history. Patient is able to follow comm ands. No family at the bedside. May 13: Grandson at the bedside. Patient breathing better. Tolerating a diet. On IV ceftriaxone. Also getting IV Lasix. Repeat chest x-ray today shows no fluid overload. Will switch to oral Lasix in the morning. Active Medications Acetaminophen (Acetaminophen Tab 325 Mg Tab) 650 mg PO Q6HR PRN PRN Reason: Mild Pain or Fever > 100.5 Albuterol/Ipratropium (Ipratropium-Albuterol 3 Ml Neb) 3 ml INHALATION RT-QID [facility] Last Admin: 05/13/23 19:28 Dose: 3 ml Apixaban (Apixaban 2.5 Mg Tablet) 2.5 mg PO BID [facility]; Protocol Last Admin: 05/13/23 09:53 Dose: 2.5 mg Ascorbic Acid (Ascorbic Acid 500 Mg Tab) 500 mg PO DAILY [facility] Last Admin: 05/13/23 09:54 Dose: 500 mg Budesonide (Budesonide 1 Mg/2 Ml Nebu) 1 mg INHALATION RT-BID [facility] Last Admin: 05/13/23 19:29 Dose: 1 mg Folic Acid (Folic Acid 1 Mg Tab) 0.5 mg PO DAILY [facility] Last Admin: 05/13/23 09:54 Dose: 0.5 mg Furosemide (Furosemide 10 Mg/Ml 4 Ml Vial) 40 mg IV Q12HR [facility] Last Admin: 05/13/23 09:54 Dose: 40 mg Ceftriaxone Sodium 1 gm/ (Sodium Chloride) 50 mls @ 100 mls/hr IVPB Q12HR [facility]; Protocol Last Admin: 05/13/23 09:54 Dose: 100 mls/hr Latanoprost (Latanoprost 0.005% Ophth Drops 2.5 Ml Btl) 1 drops BOTH EYES [facility] Last Admin: 05/12/23 21:49 Dose: 1 drops Levothyroxine Sodium (Levothyroxine 137 Mcg Tab) 137 mcg PO DAILY@0630 ON LICENSE OF [facility] Last Admin: 05/13/23 06:39 Dose: 137 mcg Loperamide HCl (Loperamide 2 Mg Cap) 2 mg PO [facility] Last Admin: 05/12/23 20:20 Dose: Not Given Loperamide HCl (Loperamide 2 Mg Cap) 2 mg PO DAILY ON LICENSE OF [facility] Last Admin: 05/13/23 09:53 Dose: 2 mg Losartan Potassium (Losartan 25 Mg Tab) 25 mg PO DAILY ON LICENSE OF [facility] Last Admin: 05/13/23 09:53 Dose: 25 mg Melatonin (Melatonin 5 Mg Tablet) 10 mg PO [facility] Last Admin: 05/12/23 20:26 Dose: 10 mg Metoprolol Succinate (Metoprolol Succinate (Er) 25 Mg Tab.Er.24h) 25 mg PO BID ON LICENSE OF [facility] Last Admin: 05/13/23 09:53 Dose: 25 mg Montelukast Sodium (Montelukast 10 Mg Tab) 10 mg PO [facility] Last Admin: 05/12/23 20:26 Dose: 10 mg Multivitamins (Multivitamins, Thera 1 Each Tab) 1 each PO DAILY ON LICENSE OF [facility] Last Admin: 05/13/23 09:53 Dose: 1 each Pantoprazole Sodium (Pantoprazole 40 Mg Tablet) 40 mg PO AC-BRKFST ON LICENSE OF [facility] Last Admin: 05/13/23 06:39 Dose: 40 mg Rivastigmine (Rivastigmine 13.3mg/24hr Patch) 1 patch TRANSDERM DAILY ON LICENSE OF [facility] Last Admin: 05/13/23 09:54 Dose: 1 patch Tramadol HCl (Tramadol 50 Mg Tab) 50 mg PO Q6H PRN PRN Reason: Pain Social history: . No smoking no alcohol. At baseline able to get around with a walker Physical examination: VITAL SIGNS: 98.7, 111, 15, 101 x 62, 98% on 2 L GENERAL: Laying in bed, lying move comfortable.. EYES: Pupils equal. Conjunctiva chase l. HEENT: External appearance of nose and ears normal, oral cavity grossly normal. NECK: JVD not raised; masses not palpable. HEART: First and second heart sounds are normal; no edema. LUNGS: Respiratory rate increased, minimize crackles ABDOMEN: Soft, nontender, liver spleen not palpable, no masses palpable. PSYCH: Unable to assess patient is aphasic l. MUSCULOSKELETAL:No Clubbing/cyanosis;muscles-grossly intact NEUROLOGICAL: Cranial nerves grossly intact; no facial asymmetry, power and sensation grossly intact. Aphasic. INVESTIGATIONS, reviewed in the clinical context: May 13: Sodium 135 potassium 3.7 bicarb 40 creatinine 0.87 Procalcitonin 0.21 May 12: Sodium 134 potassium 3.5 BUN 28 creatinine 0.82 EKG tracing personally reviewed by me-atrial fibrillation. Rate 80 May 11: White count 5.5 hemoglobin 12.3 platelets 147 Chest x-ray film personally reviewed by me-cardiomegaly. Prominent pulmonary artery. Assessment plan: -Suspect pneumonia. Gram-negative organism. Left base: Improving Ceftriaxone -Possible CHF.. Repeat x-ray today showing no fluid. Also getting alkalotic. Stop IV Lasix. Switch to p.o. Lasix from tomorrow Pending 2D echo -Chronic aphasia -Persistent atrial fibrillation Eliquis -Hypothyroid Synthroid 137 mcg a day -Essential hypertension Toprol-XL, Cozaar, -Chronic medical debility. At baseline able to get around with a walker. -Full code Stop IV Lasix. Getting alkalotic. Start p.o. Lasix from tomorrow. Repeat labs. 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 PER PTS PT HAD AORTIC VALVE SX" TAVR" PROCEDURE BY DR CHOI Past Anesthesia/Blood Transfusion Reactions: No Reported Reaction Date of Last Stent Placement:: 05/2015 Past Psychological History: No Psychological Hx Reported Past Alcohol Use History: None Reported Past Drug Use History: None Reported
[2023-05-14] MEDS: FUROSEMIDE 40 MG TAB PO SCH (08:20)
[2023-05-14 10:47] LABS: African American GFR (CKD) 59 (>60 ml/min/1.73 sqM); Anion Gap 6 mmol/L; Blood Urea Nitrogen 28 mg/dL (7-17); Calcium 8.7 mg/dL (8.4-10.2); Carbon Dioxide 39 mmol/L (22-30); Chloride 90 mmol/L (98-107); Glucose 157 mg/dL (74-99); Non-African American GFR(CKD) 51 (>60 ml/min/1.73 sqM); Potassium 3.7 mmol/L (3.5-5.1); Sodium 135 mmol/L (137-145)
--- NOTE | 2023-05-14 14:05 | P.PN ---
Subjective Progress Note Date: 05/14/23 Reason for Consult (text): Acute pulmonary edema History of present illness: This is an 87-year-old female patient of Dr. 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 Patient is nonverbal and her answers questions for her. We have been asked to evaluate the patient for acute pulmonary edema. Her gives history that last Thursday she was very weak to the point that she could not stand she went to [facility] where she received 3 L of IV fluid and was told that she had an infection and placed on antibiotics for which she has been taking Levaquin. Yesterday she developed difficulty in breathing. No fever or chills. Initial pulse ox was 86%. Patient has been started on IV Lasix. Patient seen today in the emergency center waiting for bed on the cardiac stepdown unit. Patient's states that she has been urinating up to 4 to 5 L since she started IV Lasix. EKG atrial fibrillation at 80 bpm Chest x-ray: Mild interstitial density could reflect bronchitis, asthma or mild pulmonary vascular congestion. Hemoglobin 1107.1. Sodium 134, potassium 3.5, BUN 28 and creatinine 0.82. Glucose 187. AST 82, ALT 57, alkaline phosphatase 59. proBNP 3300. Troponin 0.019. Home cardiac medications: Eliquis 2.5 mg twice daily, losartan 25 mg daily, Toprol 25 mg twice daily, also on levothyroxine 137 mcg daily. Echocardiogram performed in the office on 06/15/2021 reveals EF of 55 to 60%, mild left ventricular hypertrophy. Aortic valve prosthetic mechanical dysfunction. Mild mitral regurgitation, moderate tricuspid regurgitation, moderately increased pulmonary artery systolic pressure of 49 mmHg. Mild pulmonic regurgitation. 05/13 Patient is seen in follow-up today on the cardiac stepdown unit. She has been maintained on IV Lasix 40 mg every 12 hours. Patient had a negative fluid balance yesterday of 2500 and a negative fluid balance this morning of a 490 mL. Blood pressure 101/62, heart rate in the 90s. Repeat blood work reveals hemoglobin of 13, sodium 135, potassium 3.7, BUN 24 creatinine 0.87. CO2 40. proBNP 1800. Repeat chest x-ray reveals no acute process. 2/15 Patient is seen today in follow-up. She has been maintained on IV Lasix 40 mg every 12 hours and will be transition to oral today. She has a negative fluid balance this morning 364 mL. Weights do not appear to be accurate. Repeat blood work reveals sodium 135, potassium 3.7, BUN 28 creatinine 0.98. Blood pressure 119/74, heart rate 98, pulse ox 97% on 3 L. Physical examination: Gen: This is an 87-year-old female resting on the stretcher appears to be comfortable. VS: reviewed heart rate is in the 80s, blood pressure 146/96, pulse ox 97% on 2 L nasal cannula. HEENT: Head is atraumatic, normocephalic. Pupils equal, round. Sclerae is anicteric. LUNGS: Bilateral wheezing and bilateral crackles. No intercostal retractions. HEART: Irr 1 more thing, egular rate and rhythm. 05/05 systolic murmur. EXTREMITIES: No pedal edema. No calf tenderness. NEUROLOGICAL: Patient is awake, alert and oriented x3. Assessment: Acute pulmonary edema Aortic stenosis status post TAVR Coronary artery disease status post PCI Hypertension Hyperlipidemia Persistent atrial fibrillation History of CVA with right-sided weakness and aphasia Plan: Continue cardiac medications Transition IV Lasix to oral Patient is cleared from cardiology for discharge and may follow-up with Dr. KOKO Oliveira in the office in 1 to 2 weeks. Nurse practitioner note has been reviewed, I agree with documented findings and plan of care. Patient was seen and examined. Objective - Vital Signs Vital signs: Vital Signs Temp 99.5 F 05/14/23 07:35 Pulse 99 05/14/23 09:11 Resp 18 05/14/23 09:11 BP 101/59 05/14/23 08:19 Pulse Ox 95 05/14/23 08:58 FiO2 40 05/14/23 08:58 Intake & Output 05/13/23 05/14/23 05/14/23 18:59 06:59 18:59 Intake Total 236 128 Output Total 600 Balance 236 -600 128 Weight 72.756 kg Intake: IV 10 Invasive Line 1 10 Oral 236 118 Output: Urine 600 Other: Voiding Method Diaper Diaper External Catheter Incontinent Incontinent External Catheter - Labs CBC & Chem 7: 05/13/23 08:05 05/14/23 09:43 Labs: Abnormal Lab Results - Last 24 Hours (Table) 05/13/23 05/14/23 Range/Units 08:05 09:43 Sodium 135 L (137-145) mmol/L Chloride 90 L (98-107) mmol/L Carbon Dioxide 39 H (22-30) mmol/L BUN 28 H (7-17) mg/dL Glucose 157 H (74-99) mg/dL Procalcitonin 0.15 H (0.02-0.09) ng/mL Microbiology - Last 24 Hours (Table) 05/12/23 20:27 Blood Culture - Preliminary Blood
--- NOTE | 2023-05-14 18:43 | P.PN ---
Progress Note - Text Progress Note Date: 05/14/23 Chief Complaint: Difficulty breathing This is a pleasant 87-year-old patient, with extensive medical history. Chronic stable medical conditions include atrial fibrillation, CAD, GERD, hyperlipidemia, osteoarthritis, hypothyroid, arctic stenosis status post TAVR, esophagitis duodenitis, diverticulosis, hypothyroid DJD severe secondary pulmonary hypertension. CAD with stent. Patient apparently was just discharged from [facility] couple of days ago. Was treated for a UTI. Received IV fluids. Patient now presents with increasing shortness of breath. Patient herself is aphasic. And unable to give much of a history. Patient is able to follow comm ands. No family at the bedside. May 13: Grandson at the bedside. Patient breathing better. Tolerating a diet. On IV ceftriaxone. Also getting IV Lasix. Repeat chest x-ray today shows no fluid overload. Will switch to oral Lasix in the morning. May 14: Breathing better. at the bedside. On p.o. Lasix. Pending 2D echo. IV ceftriaxone. Increase activity. Plan for discharge tomorrow. Active Medications Acetaminophen (Acetaminophen Tab 325 Mg Tab) 650 mg PO Q6HR PRN PRN Reason: Mild Pain or Fever > 100.5 Albuterol/Ipratropium (Ipratropium-Albuterol 3 Ml Neb) 3 ml INHALATION RT-QID [facility] Last Admin: 05/14/23 15:52 Dose: 3 ml Apixaban (Apixaban 2.5 Mg Tablet) 2.5 mg PO BID [facility]; Protocol Last Admin: 05/14/23 08:20 Dose: 2.5 mg Ascorbic Acid (Ascorbic Acid 500 Mg Tab) 500 mg PO DAILY [facility] Last Admin: 05/14/23 08:20 Dose: 500 mg Budesonide (Budesonide 1 Mg/2 Ml Nebu) 1 mg INHALATION RT-BID [facility] Last Admin: 05/14/23 08:58 Dose: 1 mg Folic Acid (Folic Acid 1 Mg Tab) 0.5 mg PO DAILY [facility] Last Admin: 05/14/23 08:20 Dose: 0.5 mg Furosemide (Furosemide 40 Mg Tab) 40 mg PO DAILY [facility] Last Admin: 05/14/23 08:20 Dose: 40 mg Ceftriaxone Sodium 1 gm/ (Sodium Chloride) 50 mls @ 100 mls/hr IVPB Q12HR [facility]; Protocol Last Admin: 05/14/23 08:21 Dose: 100 mls/hr Latanoprost (Latanoprost 0.005% Ophth Drops 2.5 Ml Btl) 1 drops BOTH EYES [facility] Last Admin: 05/13/23 21:29 Dose: 1 drops Levothyroxine Sodium (Levothyroxine 137 Mcg Tab) 137 mcg PO DAILY@0630 [facility] Last Admin: 05/14/23 06:22 Dose: 137 mcg Loperamide HCl (Loperamide 2 Mg Cap) 2 mg PO HS [facility] Last Admin: 05/13/23 21:26 Dose: 2 mg Loperamide HCl (Loperamide 2 Mg Cap) 2 mg PO DAILY [facility] Last Admin: 05/14/23 08:20 Dose: 2 mg Losartan Potassium (Losartan 25 Mg Tab) 25 mg PO DAILY [facility] Last Admin: 05/14/23 08:20 Dose: 25 mg Melatonin (Melatonin 5 Mg Tablet) 10 mg PO [facility] Last Admin: 05/13/23 21:26 Dose: 10 mg Metoprolol Succinate (Metoprolol Succinate (Er) 25 Mg Tab.Er.24h) 25 mg PO BID [facility] Last Admin: 05/14/23 08:20 Dose: 25 mg Montelukast Sodium (Montelukast 10 Mg Tab) 10 mg PO [facility] Last Admin: 05/13/23 21:26 Dose: 10 mg Multivitamins (Multivitamins, Thera 1 Each Tab) 1 each PO DAILY [facility] Last Admin: 05/14/23 08:20 Dose: 1 each Pantoprazole Sodium (Pantoprazole 40 Mg Tablet) 40 mg PO AC-BRKFST [facility] Last Admin: 05/14/23 06:22 Dose: 40 mg Rivastigmine (Rivastigmine 13.3mg/24hr Patch) 1 patch TRANSDERM DAILY [facility] Last Admin: 05/14/23 08:21 Dose: 1 patch Tramadol HCl (Tramadol 50 Mg Tab) 50 mg PO Q6H PRN PRN Reason: Pain Social history: . No smoking no alcohol. At baseline able to get around with a walker Physical examination: VITAL SIGNS: 99, 94, 16, 103 x 66, 93% on 2 L GENERAL: Laying in bed, comfortable.. EYES: Pupils equal. Conjunctiva chase l. HEENT: External appearance of nose and ears normal, oral cavity grossly normal. NECK: JVD not raised; masses not palpable. HEART: First and second heart sounds are normal; no edema. LUNGS: Respiratory rate increased, minimize crackles ABDOMEN: Soft, nontender, liver spleen not palpable, no masses palpable. PSYCH: Unable to assess patient is aphasic MUSCULOSKELETAL:No Clubbing/cyanosis;muscles-grossly intact NEUROLOGICAL: Cranial nerves grossly intact; no facial asymmetry, power and sensation grossly intact. Aphasic. INVESTIGATIONS, reviewed in the clinical context: May 14: Sodium 135 potassium 3.7 creatinine 0.98 procalcitonin 0.10 May 13: Sodium 135 potassium 3.7 bicarb 40 creatinine 0.87 Procalcitonin 0.21 May 12: Sodium 134 potassium 3.5 BUN 28 creatinine 0.82 EKG tracing personally reviewed by me-atrial fibrillation. Rate 80 May 11: White count 5.5 hemoglobin 12.3 platelets 147 Chest x-ray film personally reviewed by me-cardiomegaly. Prominent pulmonary artery. Assessment plan: -Suspect pneumonia. Gram-negative organism. Left base: Improving Ceftriaxone -Possible CHF.. Repeat x-ray today showing no fluid. Also getting alkalotic. Stop IV Lasix. Switch to p.o. Lasix from tomorrow Pending 2D echo -Chronic aphasia -Persistent atrial fibrillation Eliquis -Hypothyroid Synthroid 137 mcg a day -Essential hypertension Toprol-XL, Cozaar, -Chronic medical debility. At baseline able to get around with a walker. -Full code P.o. Lasix. IV ceftriaxone. Increase activity. Planning for discharge tomorrow. 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 PER PTS PT HAD AORTIC VALVE SX" TAVR" PROCEDURE BY DR CHOI Past Anesthesia/Blood Transfusion Reactions: No Reported Reaction Date of Last Stent Placement:: 05/2015 Past Psychological History: No Psychological Hx Reported Past Alcohol Use History: None Reported Past Drug Use History: None Reported
--- NOTE | 2023-05-14 23:44 | CA ---
Transthoracic Echo Report Name: Leticia Esquivel Age: 87 Gender: F : 1935 Exam Date: 05/14/2023 11:19 Exam Location: [facility] Ht (in): 62 Wt (lb): 160 Ordering Physician: Tamika Schafer Attending/Referring Phys: Medical Record Assistant Joseph Allen RDCS Procedure CPT: Indications: LVF Cardiac Hx: Technical Quality: Fair Contrast 1: Total Dose (mL): Contrast 2: Total Dose (mL): MEASUREMENTS (Male / Female) Normal Values 2D ECHO LV Diastolic Diameter PLAX 2.8 cm 4.2 - 5.9 / 3.9 - 5.3 cm LV Systolic Diameter PLAX 2.1 cm IVS Diastolic Thickness 1.1 cm 0.6 - 1.0 / 0.6 - 0.9 cm LVPW Diastolic Thickness 0.7 cm 0.6 - 1.0 / 0.6 - 0.9 cm LV Relative Wall Thickness 0.6 Aortic Root Diameter 2.8 cm LA Systolic Diameter LX 4.9 cm 3.0 - 4.0 / 2.7 - 3.8 cm DOPPLER AV Peak Velocity 91.3 cm/s AV Peak Gradient 3.3 mmHg AV Mean Velocity 76.2 cm/s AV Mean Gradient 2.4 mmHg AV Velocity Time Integral 16.2 cm LVOT Peak Velocity 87.4 cm/s LVOT Peak Gradient 3.1 mmHg LVOT Velocity Time Integral 17.1 cm Mitral E Point Velocity 130.2 cm/s Mitral A Point Velocity 0.1 cm/s Mitral E to A Ratio 1228.6 MV Deceleration Time 254.0 ms MV E' Velocity 10.1 cm/s Mitral E to MV E' Ratio 12.9 PV Peak Velocity 81.9 cm/s PV Peak Gradient 2.7 mmHg FINDINGS Left Ventricle Mildly increased septal wall thickness. Left ventricular ejection fraction is estimated at 55-60 %. Right Ventricle Right ventricle not well visualized. Right Atrium Right atrium not well visualized. Left Atrium Severely increased left atrial diameter. Mitral Valve Severe mitral annular calcification. Mild mitral stenosis. Aortic Valve Normally functioning bioprosthetic aortic valve. No aortic regurgitation Tricuspid Valve Moderate tricuspid regurgitation. Pulmonic Valve Pulmonic valve not well visualized. Pericardium Normal pericardium. Aorta Aortic root and proximal ascending aorta not well visualized. CONCLUSIONS Left ventricular ejection fraction 55-60% Mild increased left ventricular wall thickness Moderate to severely dilated left atrium Severe mitral calcification Mild mitral stenosis Normally functioning bioprosthetic aortic valve Moderate tricuspid regurgitation Previewed by: Dr. Jimmie Gudino DO (Electronically Signed) Final Date: 14 May 2023 23:43
[2023-05-15 04:42] VITALS: RESP 18
[2023-05-15 11:28] VITALS: BP 107/61; TEMP 98.8
--- NOTE | 2023-05-15 13:36 | P.EN ---
CHF - needs fio2 2/l
--- NOTE | 2023-05-15 13:52 | P.PN ---
Subjective Progress Note Date: 05/15/23 Reason for Consult (text): Acute pulmonary edema History of present illness: This is an 87-year-old female patient of Dr. 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 Patient is nonverbal and her answers questions for her. We have been asked to evaluate the patient for acute pulmonary edema. Her gives history that last Thursday she was very weak to the point that she could not stand she went to [facility] where she received 3 L of IV fluid and was told that she had an infection and placed on antibiotics for which she has been taking Levaquin. Yesterday she developed difficulty in breathing. No fever or chills. Initial pulse ox was 86%. Patient has been started on IV Lasix. Patient seen today in the emergency center waiting for bed on the cardiac stepdown unit. Patient's states that she has been urinating up to 4 to 5 L since she started IV Lasix. EKG atrial fibrillation at 80 bpm Chest x-ray: Mild interstitial density could reflect bronchitis, asthma or mild pulmonary vascular congestion. Hemoglobin 1107.1. Sodium 134, potassium 3.5, BUN 28 and creatinine 0.82. Glucose 187. AST 82, ALT 57, alkaline phosphatase 59. proBNP 3300. Troponin 0.019. Home cardiac medications: Eliquis 2.5 mg twice daily, losartan 25 mg daily, Toprol 25 mg twice daily, also on levothyroxine 137 mcg daily. Echocardiogram performed in the office on 06/15/2021 reveals EF of 55 to 60%, mild left ventricular hypertrophy. Aortic valve prosthetic mechanical dysfunction. Mild mitral regurgitation, moderate tricuspid regurgitation, moderately increased pulmonary artery systolic pressure of 49 mmHg. Mild pulmonic regurgitation. 05/13 Patient is seen in follow-up today on the cardiac stepdown unit. She has been maintained on IV Lasix 40 mg every 12 hours. Patient had a negative fluid balance yesterday of 2500 and a negative fluid balance this morning of a 490 mL. Blood pressure 101/62, heart rate in the 90s. Repeat blood work reveals hemoglobin of 13, sodium 135, potassium 3.7, BUN 24 creatinine 0.87. CO2 40. proBNP 1800. Repeat chest x-ray reveals no acute process. 2/15 Patient is seen today in follow-up. She has been maintained on IV Lasix 40 mg every 12 hours and will be transition to oral today. She has a negative fluid balance this morning 364 mL. Weights do not appear to be accurate. Repeat blood work reveals sodium 135, potassium 3.7, BUN 28 creatinine 0.98. Blood pressure 119/74, heart rate 98, pulse ox 97% on 3 L. 05/15 Patient is having shortness of breath and hypoxia with removal of oxygen pulse ox drops to 85%. Blood pressure 107/61, heart rate 97. Repeat blood work reveals sodium 135, potassium 3.7, BUN 28 creatinine 0.98, CO2 39. Echocardiogram reveals EF of 55 to 60%, severe mitral calcification, mild mitral stenosis. Normally functioning bioprosthetic aortic valve. Moderate tricuspid regurgitation. Echocardiogram results have been reviewed with the patient's . Physical examination: Gen: This is an 87-year-old female resting on the stretcher appears to be comfortable. VS: reviewed HEENT: Head is atraumatic, normocephalic. Pupils equal, round. Sclerae is anicteric. LUNGS: Bilateral wheezing and bilateral crackles. No intercostal retractions. HEART: Irr 1 more thing, egular rate and rhythm. 2/6 systolic murmur. EXTREMITIES: No pedal edema. No calf tenderness. NEUROLOGICAL: Patient is awake, alert and oriented x3. Assessment: Acute pulmonary edema Aortic stenosis status post TAVR Coronary artery disease status post PCI Hypertension Hyperlipidemia Persistent atrial fibrillation History of CVA with right-sided weakness and aphasia Plan: Continue cardiac medications Continue Lasix oral Patient is cleared from cardiology for discharge and may follow-up with Dr. KOKO Oliveira in the office in 1 to 2 weeks. Nurse practitioner note has been reviewed, I agree with documented findings and plan of care. Patient was seen and examined. Objective - Vital Signs Vital signs: Vital Signs Temp 98.8 F 05/15/23 10:58 Pulse 97 05/15/23 11:47 Resp 18 05/15/23 10:58 BP 107/61 05/15/23 10:58 Pulse Ox 95 05/15/23 10:58 FiO2 40 05/14/23 08:58 Intake & Output 05/14/23 05/15/23 05/15/23 18:59 06:59 18:59 Intake Total 246 10 Balance 246 10 Weight 72.756 kg Intake: IV 10 10 Invasive Line 1 10 10 Oral 236 Other: Voiding Method External Catheter Diaper Diaper # Voids 1 1 # Bowel Movements 1 0 - Labs CBC & Chem 7: 05/13/23 08:05 05/14/23 09:43 Labs: Abnormal Lab Results - Last 24 Hours (Table) 05/14/23 Range/Units 09:43 Procalcitonin 0.10 H (0.02-0.09) ng/mL Microbiology - Last 24 Hours (Table) 05/12/23 20:27 Blood Culture - Preliminary Blood
[2023-05-15] MEDS: guaiFENesin 600 MG TABLET.ER PO SCH (14:18)
--- NOTE | 2023-05-15 15:41 | FL ---
EXAMINATION TYPE: FL barium swallow w video DATE OF EXAM: 05/15/2023 CLINICAL HISTORY: 87-year-old female with dysphasia, history of prior stroke in 2019 admitted for pne umonia. Assess for aspiration. TECHNIQUE: Deglutition study is performed utilizing thin liquid barium, nectar thick liquid barium, barium thick applesauce, and barium coated cracker. COMPARISON: None. Total fluoroscopy time: 1 minute 53 seconds Total images: None. Real-time fluoroscopy support was provided to speech pathology. DOSE AREA PRODUCT (DAP) UGY*M,MGY*CM: 132.84 FINDINGS: Swallow initiation was mildly delayed with bolus free spilling to the level of the vallecula. The oral and pharyngeal phases show satisfactory initiation and propagation with all modalities teste d. Normal mastication is seen with solid modalities tested. There is fairly consistent penetration with most consistencies. However, no aspiration or significant residuals are seen. IMPRESSION: Recurrent episodes of penetration but no aspiration. Please refer to speech therapist notes for further details if necessary.
[2023-05-15 16:07] VITALS: PULSE 97
--- NOTE | 2023-05-15 17:49 | P.DS ---
Providers Date of admission: 05/11/23 17:50 Expected date of discharge: 05/15/23 Attending physician: Elmo Harris Consults: 05/11/23 17:51 Consult Physician Urgent Consulting Provider: [facility] Consult Reason/Comments: Acute pulmonary edema Do you want consulting provider notified?: Yes Primary care physician: [facility] Course: Chief Complaint: Difficulty breathing This is a pleasant 87-year-old patient, with extensive medical history. Chronic stable medical conditions include atrial fibrillation, CAD, GERD, hyperl ipidemia, osteoarthritis, hypothyroid, arctic stenosis status post TAVR, esophagitis duodenitis, diverticulosis, hypothyroid DJD severe secondary pulmonary hypertension. CAD with stent. Patient apparently was just discharged from [facility] couple of days ago. Was treated for a UTI. Received IV fluids. Patient now presents with increasing shortness of breath. Patient herself is aphasic. And unable to give much of a history. Patient is able to follow commands. No family at the bedside. May 13: Grandson at the bedside. Patient breathing better. Tolerating a diet. On IV ceftriaxone. Also getting IV Lasix. Repeat chest x-ray today shows no fluid overload. Will switch to oral Lasix in the morning. May 14: Breathing better. at the bedside. On p.o. Lasix. Pending 2D echo. IV ceftriaxone. Increase activity. Plan for discharge tomorrow. May 15: Doing much better. Tolerating diet. Patient did drop pulse ox with ambulation. Oxygen requirement secondary to CHF. Oxygen prescribed. Cleared by cardiology. Discussed with patient. Patient did undergo modified barium swallow study today. Unremarkable. Seen by speech therapy. Discussed. Follow-up with cardiology Dr. KOKO Oliveira outpatient. Social history: . No smoking no alcohol. At baseline able to get around with a walker Physical examination: VITAL SIGNS: 98.8, 106, 18, 107 x 61, 95% on 3 L GENERAL: Laying in bed, comfortable.. EYES: Pupils equal. Conjunctiva chase l. HEENT: External appearance of nose and ears normal, oral cavity grossly normal. NECK: JVD not raised; masses not palpable. HEART: First and second heart sounds are normal; no edema. LUNGS: Respiratory rate normal minimize crackles ABDOMEN: Soft, nontender, liver spleen not palpable, no masses palpable. PSYCH: Unable to assess patient is aphasic MUSCULOSKELETAL:No Clubbing/cyanosis;muscles-grossly intact NEUROLOGICAL: Cranial nerves grossly intact; no facial asymmetry, power and se nsation grossly intact. Aphasic. INVESTIGATIONS, reviewed in the clinical context: 2D echocardiogram: EF 55 to 60% severe mitral annular calcification. Normal functioning bioprosthetic aortic valve. Moderate tricuspid regurgitation. Modified barium swallow: Normal May 14: Sodium 135 potassium 3.7 creatinine 0.98 procalcitonin 0.10 May 13: Sodium 135 potassium 3.7 bicarb 40 creatinine 0.87 Procalcitonin 0.21 May 12: Sodium 134 potassium 3.5 BUN 28 creatinine 0.82 EKG tracing personally reviewed by me-atrial fibrillation. Rate 80 May 11: White count 5.5 hemoglobin 12.3 platelets 147 Chest x-ray film personally reviewed by me-cardiomegaly. Prominent pulmonary artery. Assessment plan: -Suspect pneumonia. Gram-negative organism. Left base: Improving Ceftriaxone Ceftin 5 mg twice daily for 2 more days -Probable CHF from diastolic dysfunction EF 55 to 60% DC on Lasix 40 mg a day -Severe mitral annular calcification. Moderate tricuspid regurgitation. -Bioprosthetic arctic valve per echo functioning normal -Chronic aphasia - hypoxia secondary to CHF Patient be discharged home on oxygen -Persistent atrial fibrillation Eliquis -Hypothyroid Synthroid 137 mcg a day -Essential hypertension Toprol-XL, Cozaar, -Chronic medical debility. At baseline able to get around with a walker. -Full code Disposition: Home Past Medical History Past Medical History: Atrial Fibrillation, Coronary Artery Disease (CAD), GERD/Reflux, GI Bleed, Hyperlipidemia, Osteoarthritis (OA), Thyroid Disorder Additional Past Medical History / Comment(s): Aortic stenosis status post TAPVR, proximal atrial fibrillation, chronic constipation, previous episodes of GI bleed that was worked up and the patient was found to have some distal esophagitis and duodenitis and some mild gastritis, diverticulosis, coronary artery disease with previous angioplasty of the circumflex/stenting, hypothyroidism, hiatal hernia, 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 PER PTS PT HAD AORTIC VALVE SX" TAVR" PROCEDURE BY DR CHOI Past Anesthesia/Blood Transfusion Reactions: No Reported Reaction Date of Last Stent Placement:: 05/2015 Past Psychological History: No Psychological Hx Reported Past Alcohol Use History: None Reported Past Drug Use History: None Reported Plan - Discharge Summary Discharge Rx Participant: No New Discharge Prescriptions: New Albuterol Sulfate [Albuterol Sulfate Hfa] 2 puff PO Q6H #8.5 gm cefUROXime axetiL [Ceftin] 500 mg PO BID #4 tab Furosemide [Lasix] 40 mg PO DAILY #30 tab guaiFENesin [Mucinex] 600 mg PO TID #60 tab Continue Latanoprost Ophth [Xalatan 0.005%] 1 drop BOTH EYES HS Ascorbic Acid [Vitamin C] 500 mg PO DAILY Levothyroxine Sodium [Synthroid] 137 mcg PO DAILY Acetaminophen Tab [Tylenol] 650 mg PO Q6HR PRN tab PRN Reason: Mild Pain Or Fever > 100.5 Montelukast [Singulair] 10 mg PO HS Zinc 5mg 1 tab PO DAILY Vitamin D3 325mcg 1 tab PO BID Melatonin 10 mg PO HS Multivitamins, Thera [Multivitamin (formulary)] 1 tab PO DAILY Folic Acid 0.4 mg PO DAILY Rivastigmine [Rivastigmine 13.3MG/24Hr] 1 patch TRANSDERM DAILY traMADol HCL 50 - 100 mg PO Q6H PRN PRN Reason: Pain Metoprolol Succinate (ER) [Toprol XL] 25 mg PO BID Apixaban [Eliquis] 2.5 mg PO BID Loperamide HCl [Imodium A-D] 2 mg PO HS Pantoprazole Sodium [Protonix] 40 mg PO DAILY Losartan [Cozaar] 25 mg PO DAILY Loperamide HCl [Imodium A-D] 3 mg PO DAILY Discontinued Levofloxacin [Levaquin] 500 mg PO DAILY@1200 No Action Hylands Leg Cramps 2 - 3 tab PO Q4H PRN PRN Reason: LEG CRAMPS Ubidecarenone [Coenzyme Q10] 100 mg PO DAILY Beta-Carotene [Beta Carotene] 25,000 unit PO DAILY Discharge Medication List Hylands Leg Cramps 2 - 3 tab PO Q4H PRN 07/06/15 [History] Ascorbic Acid [Vitamin C] 500 mg PO DAILY 08/31/15 [History] Latanoprost Ophth [Xalatan 0.005%] 1 drop BOTH EYES HS 08/31/15 [History] Levothyroxine Sodium [Synthroid] 137 mcg PO DAILY 08/05/17 [History] Acetaminophen Tab [Tylenol] 650 mg PO Q6HR PRN tab 05/25/18 [Rx] Montelukast [Singulair] 10 mg PO HS 06/03/18 [History] Apixaban [Eliquis] 2.5 mg PO BID 05/11/23 [History] Beta-Carotene [Beta Carotene] 25,000 unit PO DAILY 05/11/23 [History] Folic Acid 0.4 mg PO DAILY 05/11/23 [History] Loperamide HCl [Imodium A-D] 2 mg PO HS 05/11/23 [History] Loperamide HCl [Imodium A-D] 3 mg PO DAILY 05/11/23 [History] Losartan [Cozaar] 25 mg PO DAILY 05/11/23 [History] Melatonin 10 mg PO HS 05/11/23 [History] Metoprolol Succinate (ER) [Toprol XL] 25 mg PO BID 05/11/23 [History] Multivitamins, Thera [Multivitamin (formulary)] 1 tab PO DAILY 05/11/23 [History] Pantoprazole Sodium [Protonix] 40 mg PO DAILY 05/11/23 [History] Rivastigmine [Rivastigmine 13.3MG/24Hr] 1 patch TRANSDERM DAILY 05/11/23 [History] Ubidecarenone [Coenzyme Q10] 100 mg PO DAILY 05/11/23 [History] Vitamin D3 325mcg 1 tab PO BID 05/11/23 [History] Zinc 5mg 1 tab PO DAILY 05/11/23 [History] traMADol HCL 50 - 100 mg PO Q6H PRN 05/11/23 [History] Albuterol Sulfate [Albuterol Sulfate Hfa] 2 puff PO Q6H #8.5 gm 05/15/23 [Rx] Furosemide [Lasix] 40 mg PO DAILY #30 tab 05/15/23 [Rx] cefUROXime axetiL [Ceftin] 500 mg PO BID #4 tab 05/15/23 [Rx] guaiFENesin [Mucinex] 600 mg PO TID #60 tab 05/15/23 [Rx] Follow up Appointment(s)/Referral(s): Josefina Oliveira MD [STAFF PHYSICIAN] - 1 Week (please call and make appointment ) Jeremiah Moran,Equipment [NON-STAFF] - (oxygen equipment ) Tee Esquivel MD [Primary Care Provider] - 1-2 days (please call and make appointment ) [facility], [NON-STAFF] - (please call by Thursday if you do not hear from them) Patient Instructions/Handouts: Heart Failure (DC), A-fib (Atrial Fibrillation) (DC), Pulmonary Edema (DC), Using Oxygen at Home (DC) Discharge Disposition: HOME SELF-CARE
== END 2023-05-15 17:02 | disposition home or self-care (01) | DRG 189 ==
LOC: EC 15:03 → 3SCARD 17:50
PROVIDERS: ADMIT Hospitalist; ATTEND Hospitalist
DX: J81.0 Acute pulmonary edema (principal); J15.69 Pneumonia due to other Gram-negative bacteria; I48.19 Other persistent atrial fibrillation; I69.351 Hemiplegia and hemiparesis following cerebral infarction affecting right dominant side; E03.9 Hypothyroidism, unspecified; I08.3 Combined rheumatic disorders of mitral, aortic and tricuspid valves; I25.2 Old myocardial infarction; Z95.5 Presence of coronary angioplasty implant and graft; Z95.2 Presence of prosthetic heart valve; Z90.710 Acquired absence of both cervix and uterus; I11.0 Hypertensive heart disease with heart failure; I25.10 Atherosclerotic heart disease of native coronary artery without angina pectoris; K21.9 Gastro-esophageal reflux disease without esophagitis; K57.90 Diverticulosis of intestine, part unspecified, without perforation or abscess without bleeding; E78.5 Hyperlipidemia, unspecified; M19.90 Unspecified osteoarthritis, unspecified site; I27.20 Pulmonary hypertension, unspecified; I27.29 Other secondary pulmonary hypertension; I69.320 Aphasia following cerebral infarction; I50.32 Chronic diastolic (congestive) heart failure; Z79.01 Long term (current) use of anticoagulants; Z79.890 Hormone replacement therapy; Z79.899 Other long term (current) drug therapy; I08.1 Rheumatic disorders of both mitral and tricuspid valves; Z82.49 Family history of ischemic heart disease and other diseases of the circulatory system; Z95.3 Presence of xenogenic heart valve; Z88.5 Allergy status to narcotic agent; Z91.013 Allergy to seafood; Z88.2 Allergy status to sulfonamides
CPT/HCPCS: 36415; 71045; 74230; 80048; 80053; 83605; 83735; 83880; 84145; 84484; 85025; 85610; 85730; 87040; 93005; 93306; 94640; 94660; 94760; 96374; 96376; 99285